=== PATIENT | male | born 1955 | race Caucasian/White ===

== ENCOUNTER 2016-11-21 10:18 | Observation (INO) | payer MEDICARE, MEDICAID ==
[2016-11-21] MEDS ORDERED: NORMAL SALINE 1000 ML 1,000 ML IV ONE (10:40)
[2016-11-21 10:50] LABS: VENOUS BLOOD BASE EXCESS 0.3 mmol/L; VENOUS BLOOD HCO3 27.2 mmol/L (20-32); VENOUS BLOOD PCO2 53.7 mmHg (35-63); VENOUS BLOOD PH 7.32 (7.30-7.42)
[2016-11-21 11:05] LABS: PROTHROMBIN TIME 14.1 SEC (11.4-15.4)
[2016-11-21 11:07] LABS: ALANINE AMINOTRANSFERASE 20 U/L (21-72); ALBUMIN 2.7 g/dL (3.5-5.0); ALKALINE PHOSPHATASE 34 U/L (38-126); ANION GAP 5 (5-19); ASPARTATE AMINO TRANSFERASE 15 U/L (17-59); BILIRUBIN,TOTAL 0.6 mg/dL (0.2-1.3); BLOOD UREA NITROGEN 18 mg/dL (7-20); CALCIUM 8.3 mg/dL (8.4-10.2); CARBON DIOXIDE 30 mmol/L (22-30); CHLORIDE 102 mmol/L (98-107); CREATININE RESULT 1.05 mg/dL (0.52-1.25); GLUCOSE 87 mg/dL (75-110); POTASSIUM 4.9 mmol/L (3.6-5.0); SODIUM 137.1 mmol/L (137-145); TOTAL PROTEIN 5.2 g/dL (6.3-8.2)
[2016-11-21 11:14] LABS: ABSOLUTE EOSINOPHILS # (AUTO) 0.3 10^3/uL (0.0-0.6); ABSOLUTE LYMPHOCYTES (AUTO) 1.9 10^3/uL (0.5-4.7); ABSOLUTE MONOCYTES (AUTO) 0.8 10^3/uL (0.1-1.4); ABSOLUTE NEUT (AUTO) 2.9 10^3/uL (1.7-8.2); BASOPHILS % (AUTO) 0.5 % (0-2); EOSINOPHILS % (AUTO) 4.2 % (0-6); HEMATOCRIT 36.4 % (37.9-51.0); HEMOGLOBIN 12.5 g/dL (13.5-17.0); HGB HCT DIFFERENCE 1.1; LYMPHOCYTES % (AUTO) 32.7 % (13-45); MEAN CORPUSCULAR HEMOGLOBIN 30.4 pg (27.0-33.4); MEAN CORPUSCULAR HGB CONC 34.2 g/dL (32.0-36.0); MEAN CORPUSCULAR VOLUME 89 fl (80-97); RED CELL DISTRIBUTION WIDTH 13.2 % (11.5-14.0); SEGMENTED NEUTROPHILS % (AUTO) 48.6 % (42-78); WHITE BLOOD COUNT 5.9 10^3/uL (4.0-10.5)
[2016-11-21] MEDS: NORMAL SALINE 1000 ML 1,000 ML IV PRN ×2 (11:43→11:46)
--- NOTE | 2016-11-21 12:58 | ER Document Report ---
ED General - General Chief Complaint: Low Blood Pressure Stated Complaint: BLOOD PRESSURE PROBLEMS Mode of Arrival: Ambulatory Information source: Patient Notes: 61-year-old male presents from home with concerns of altered mental status hypotension not acting appropriate. Patient was found by EMS with a blood pressure 70s over 40s Patient notes he has not been eating or drinking over the past few days she has not been feeling well TRAVEL OUTSIDE OF THE [place] IN LAST 30 DAYS: No - HPI Onset: Other Onset/Duration: Persistent Quality of pain: No pain Severity: Moderate Pain Level: Denies Associated symptoms: Weakness Exacerbated by: Denies Relieved by: Denies Similar symptoms previously: No Recently seen / treated by doctor: No - Related Data Allergies/Adverse Reactions: No Known Allergies Allergy (Verified 09/03/16 02:27) Past Medical History - Social History Smoking Status: Never Smoker Cigarette use (# per day): No Chew tobacco use (# tins/day): No Smoking Education Provided: No Family History: Reviewed & Not Pertinent - Past Medical History Cardiac Medical History: Reports: Hx Congestive Heart Failure, Hx Coronary Artery Disease, Hx Heart Attack, Hx Hypercholesterolemia, Hx Hypertension Pulmonary Medical History: Reports: Hx Bronchitis, Hx COPD Neurological Medical History: Reports: Hx Cerebrovascular Accident Endocrine Medical History: Reports: Hx Diabetes Mellitus Type 2, Hx Hypothyroidism Renal/ Medical History: Reports: Hx Benign Prostatic Hyperplasia GI Medical History: Reports: Hx Gastroesophageal Reflux Disease Musculoskeltal Medical History: Reports Hx Arthritis, Reports Hx Musculoskeletal Trauma Psychiatric Medical History: Reports: Hx Anxiety, Hx Bipolar Disorder, Hx Depression Past Surgical History: Reports: Hx Appendectomy, Hx Genitourinary Surgery - TURP , Hx Orthopedic Surgery - Right ankle surgery in 1982 or 1983 when he had a muscle from the leg moved, Hx Thyroid Surgery, Hx Tonsillectomy - Immunizations Hx Diphtheria, Pertussis, Tetanus Vaccination: No Review of Systems - Review of Systems Notes: REVIEW OF SYSTEMS: CONSTITUTIONAL : Denies fever, chills, or sweats. Denies recent illness. EENT: Denies eye, ear, throat, or mouth pain or symptoms. Denies nasal or sinus congestion or discharge. Denies throat, tongue, or mouth swelling or difficulty swallowing. CARDIOVASCULAR: Denies chest pain. Denies palpitations or racing or irregular heart beat. Denies ankle edema. RESPIRATORY: Denies cough, cold, or chest congestion. Denies shortness of breath, difficulty breathing, or wheezing. GASTROINTESTINAL: Denies abdominal pain or distention. Denies nausea, vomiting , or diarrhea. Denies blood in vomitus, stools, or per rectum. Denies black, tarry stools. Denies constipation. GENITOURINARY: Denies difficulty urinating, painful urination, burning, frequency, blood in urine, or discharge. MUSCULOSKELETAL: Denies back or neck pain or stiffness. Denies joint pain or swelling. SKIN: Denies rash, lesions or sores. HEMATOLOGIC : Denies easy bruising or bleeding. LYMPHATIC: Denies swollen, enlarged glands. NEUROLOGICAL: Patient somnolent but arousable by EMS PSYCHIATRIC: Denies anxiety or stress. Denies depression, suicidal ideation, or homicidal ideation. ALL OTHER SYSTEMS REVIEWED AND NEGATIVE. Dictation was performed using [employer] voice recognition software PHYSICAL EXAMINATION: GENERAL: Patient is hypotensive and somnolent HEAD: Atraumatic, normocephalic. EYES: Pupils equal round and reactive to light, extraocular movements intact, sclera anicteric, conjunctiva are normal. ENT: Nares patent, oropharynx clear without exudates. Moist mucous membranes. NECK: Normal range of motion, supple without lymphadenopathy LUNGS: Breath sounds clear to auscultation bilaterally and equal. No wheezes rales or rhonchi. HEART: Regular rate and rhythm without murmurs ABDOMEN: Soft, nontender, nondistended abdomen. No guarding, no rebound. No masses appreciated. Musculoskeletal: Normal range of motion, no pitting or edema. No cyanosis. NEUROLOGICAL: Patient is somnolent but easily arousable Cranial nerves grossly intact. Normal speech, normal gait. Normal sensory, motor exams SKIN: Warm, Dry, normal turgor, no rashes or lesions noted. Physical Exam - Vital signs Vitals: Resp BP Pulse Ox 10 L 84/63 L 96 11/21/16 10:46 11/21/16 10:46 11/21/16 10:46 Course - Re-evaluation Re-evalutation: 11/21/16 12:59 Patient immediately placed in the trauma bay, 2 IVs obtained patient was bolused 2 L of fluid which improved his blood pressure significantly, lab work imaging are pending at this time Patient is more alert at this time 11/21/16 14:19 No obvious significant abnormalties noted, pt otherwise has had signicifcant improvement of mentation and hypotension i will contact patients pcp for admission given that he is still drowsy 11/21/16 14:24 I spoke with the patient's primary care physician, she states that patient has had 2 similar episodes in the past which may have been medication related, it appears she has tried to take the patient off medications but the psychiatrist has not gone along with this plan. I will admit the patient for hypotension and altered mental status 11/21/16 14:27 Multiple times were made to place a [place] unfortunately it does appear that the patient has hyperplasia of the prostate there is some traumatic blood noted as well - Vital Signs Vital signs: Temp Pulse Resp BP Pulse Ox 98.7 F 16 114/83 95 11/21/16 10:51 11/21/16 14:00 11/21/16 13:31 11/21/16 14:00 - Laboratory Result Diagrams: 11/21/16 10:35 11/21/16 10:35 Laboratory results interpreted by me: 11/21/16 11/21/16 11/21/16 10:35 10:35 12:53 RBC 4.10 L Hgb 12.5 L Hct 36.4 L Plt Count 124 L Monocytes % 14.0 H Calcium 8.3 L AST 15 L ALT 20 L Alkaline Phosphatase 34 L Total Protein 5.2 L Albumin 2.7 L Urine Protein 100 H Urine Blood LARGE H Urine Ascorbic Acid 20 H - Diagnostic Test Radiology reviewed: Image reviewed, Reports reviewed - EKG Interpretation by Me EKG shows normal: Sinus rhythm, [place], Intervals, QRS Complexes Critical Care Note - Critical Care Note Total time excluding time spent on procedures (mins): 40 Comments: 40 minutes of critical care time spent in direct contact evaluating and reevaluating the patient, treating symptoms, reviewing labs and studies and speaking with family and consultants excluding any procedures Discharge - Discharge Clinical Impression: Metabolic encephalopathy BPH (benign prostatic hyperplasia) Qualifiers: Prostatic enlargement morphology: unspecified morphology Lower urinary tract symptom presence: symptoms present Qualified Code(s): N40.1 - Benign prostatic hyperplasia with lower urinary tract symptoms Hypotension Qualifiers: Hypotension type: unspecified hypotension type Qualified Code(s): I95.9 - Hypotension, unspecified Condition: Stable Disposition: ADMITTED OBSERVATION Admitting Provider: [facility] Unit Admitted: Telemetry
[2016-11-21 13:09] LABS: APPEARANCE,URINE SLIGHTLY-CLOUDY; BILIRUBIN,URINE NEGATIVE (NEGATIVE); GLUCOSE, URINE NEGATIVE (NEGATIVE); KETONES,URINE NEGATIVE (NEGATIVE); LEUKOCYTE ESTERASE,URINE NEGATIVE (NEGATIVE); NITRITE,URINE NEGATIVE (NEGATIVE); PROTEIN,URINE 100 mg/dL (NEGATIVE); URINE SPECIFIC GRAVITY 1.005; UROBILINOGEN,URINE NEGATIVE mg/dL (<2.0)
[2016-11-21 14:56] LABS: URINE BARBITURATES SCREEN NEGATIVE; URINE METHADONE SCREEN NEGATIVE; URINE OPIATES LOW NEGATIVE; URINE PHENCYCLIDINE SCREEN NEGATIVE
[2016-11-21] MEDS ORDERED: ENOXAPARIN SODIUM INJ 40 MG/0.4 ML DISP.SYRIN SUBCUT ONE ×2 (17:00→21:00)
[2016-11-21] MEDS ORDERED: INFLUENZA ADLT QUAD (36MOS+) 2016-17 VAC 0.5 ML SYR IM PRN (18:20)
[2016-11-21] MEDS ORDERED: (PENDING PHARMACY ID) (Levothyroxine Sodium [Synthroid] 125 MCG) PO SCH (18:30)
[2016-11-21] MEDS ORDERED: (PENDING PHARMACY ID) (Pregabalin [Lyrica] 200 MG) PO SCH (18:30)
[2016-11-21] MEDS ORDERED: LURASIDONE HCL 120 MG PO SCH (18:30)
[2016-11-21] MEDS ORDERED: LEVOTHYROXINE SODIUM 0.025 MG TABLET PO ONE (20:00)
[2016-11-21] MEDS ORDERED: LEVOTHYROXINE SODIUM 0.1 MG TABLET PO ONE (20:00)
[2016-11-21] MEDS: IPRATROPIUM/ALBUTEROL 0.5-2.5 MG/3 ML AMPUL NEB PRN (20:29)
[2016-11-21] MEDS: PREGABALIN 100 MG CAPSULE PO SCH (21:33)
[2016-11-21] MEDS: GABAPENTIN 300 MG CAPSULE PO SCH (21:33)
[2016-11-21] MEDS: DULOXETINE HCL 30 MG CAPSULE.DR PO SCH (21:33)
[2016-11-21] MEDS: FLUTICASONE/SALMETEROL DISKUS 250-50 MCG/DOSE IH SCH (21:42)
[2016-11-21] MEDS ORDERED: DONEPEZIL HCL 5 MG TABLET PO SCH (22:00)
--- NOTE | 2016-11-21 23:50 | EKG REPORT ---
SEVERITY:- ABNORMAL ECG - SINUS RHYTHM MULTIPLE VENTRICULAR PREMATURE COMPLEXES : Confirmed by: Dionisio Morales 21-Nov-2016 23:49:42
[2016-11-22] MEDS: PREGABALIN 100 MG CAPSULE PO SCH ×2 (05:09→15:30)
[2016-11-22] MEDS: GABAPENTIN 300 MG CAPSULE PO SCH ×2 (05:09→15:30)
[2016-11-22] MEDS ORDERED: ENOXAPARIN SODIUM INJ 40 MG/0.4 ML DISP.SYRIN SUBCUT SCH (08:00)
[2016-11-22] MEDS: IPRATROPIUM/ALBUTEROL 0.5-2.5 MG/3 ML AMPUL NEB PRN (09:12)
[2016-11-22] MEDS ORDERED: LEVOTHYROXINE SODIUM 0.025 MG TABLET PO SCH (10:00)
[2016-11-22] MEDS ORDERED: LEVOTHYROXINE SODIUM 0.1 MG TABLET PO SCH (10:00)
[2016-11-22] MEDS: DULOXETINE HCL 30 MG CAPSULE.DR PO SCH (10:01)
[2016-11-22] MEDS: FLUTICASONE/SALMETEROL DISKUS 250-50 MCG/DOSE IH SCH (10:02)
--- NOTE | 2016-11-22 16:02 | PDOC H&P ---
History of Present Illness Admission Date/PCP: 11/21/16 16:21 History of Present Illness: WOODROW GOODWIN is a 61 year old male, he came to the emergency room because of altered mental status and low blood pressure, the history was that EMS was called to patient's home and he was found to have blood pressure of 70/40 in the emergency room he was challenged with fluid and the blood pressure improved with a bolus of normal saline. Apparently patient has not been eating or drinking over the last few days, he had urine drug screen done and it was positive for marijuana. Patient has had this episode of low blood pressure in the past that was associated with altered mental status and it was felt that the low blood pressure was related to the psychotropic drugs that he takes for his schizophrenia and bipolar and attempt was made at that time to adjust his medication, but patient was subsequently lost to follow-up. He has not been seen in the office in over a year. He is admitted for observation, the blood work that was done showed severe hypoalbuminemia with serum albumin of 2.7 and proteinuria, the urine protein creatinine ratio is ordered result is pending. On auscultation of his chest. He has diffuse wheeze in both lung smith, Patient is a chain smoker , half a pack to a pack a day of cigarette. Past Medical History Cardiac Medical History: Reports: Hyperlipidema, Hypertension Pulmonary Medical History: Reports: Bronchitis, Chronic Obstructive Pulmonary Disease (COPD) Endocrine Medical History: Reports: Hypothyroidism GI Medical History: Reports: Gastroesophageal Reflux Disease Musculoskeltal Medical History: Reports: Arthritis Psychiatric Medical History: Reports: Bipolar Disorder, Dementia, Depression Past Surgical History Past Surgical History: Reports: Appendectomy, Orthopedic Surgery - Right ankle surgery in 1982 or 1983 when he had a muscle from the leg moved, Tonsillectomy Social History Smoking Status: Current Every Day Smoker Frequency of Alcohol Use: None Hx Recreational Drug Use: No Drugs: None Hx Prescription Drug Abuse: No - Advance Directive Resuscitation Status: Full Code Family History Family History: Reviewed & Not Pertinent Parental Family History Reviewed: Yes Children Family History Reviewed: Yes Sibling(s) Family History Reviewed.: Yes Medication/Allergy Home Medications: Diazepam [Valium 5 mg Tablet] 5 mg PO DAILY 11/21/16 Diazepam [Valium] 10 mg PO QHS 11/21/16 Divalproex Sodium [Divalproex Sodium ER] 500 mg PO DAILY 11/21/16 Donepezil HCl [Aricept 5 mg Tablet] 5 mg PO QHS 11/21/16 Duloxetine HCl [Cymbalta] 60 mg PO BID 11/21/16 Fluticasone/Salmeterol [Advair 250-50 Diskus 28 dose] 1 puff IH Q12 11/21/16 Gabapentin [Neurontin 300 mg Capsule] 300 mg PO TID 11/21/16 Levothyroxine Sodium [Synthroid] 125 mcg PO DAILY 11/21/16 Lurasidone HCl [Latuda] 120 mg PO DAILY 11/21/16 Multivitamin [Daily Multiple Vitamin] 1 tab PO DAILY 11/21/16 Omeprazole 20 mg PO BID 11/21/16 Prazosin HCl [Minipress] 1 mg PO DAILY 11/21/16 Pregabalin [Lyrica] 200 mg PO TID 11/21/16 Propranolol HCl [Inderal 10 mg Tablet] 10 mg PO TID 11/21/16 Rizatriptan Benzoate [Rizatriptan] 10 mg PO ASDIR PRN 11/21/16 Solifenacin Succinate [Vesicare] 10 mg PO DAILY 11/21/16 Suvorexant [Belsomra] 15 mg PO HSP PRN 11/21/16 Allergies/Adverse Reactions: No Known Allergies Allergy (Verified 09/03/16 02:27) Review of Systems Constitutional: ABSENT: chills, fever(s), headache(s), weight gain, weight loss Eyes: ABSENT: visual disturbances Ears: ABSENT: hearing changes Cardiovascular: ABSENT: chest pain, dyspnea on exertion, edema, orthropnea, palpitations Respiratory: PRESENT: cough Gastrointestinal: ABSENT: abdominal pain, constipation, diarrhea, hematemesis, hematochezia, nausea, vomiting Genitourinary: ABSENT: dysuria, hematuria Musculoskeletal: ABSENT: joint swelling Integumentary: ABSENT: rash, wounds Neurological: PRESENT: dizziness Psychiatric: ABSENT: anxiety, depression, homidical ideation, suicidal ideation Endocrine: ABSENT: cold intolerance, heat intolerance, menstrual abnormalities, polydipsia, polyuria Hematologic/Lymphatic: ABSENT: easy bleeding, easy bruising, lymphadenopathy Physical Exam Vital Signs: Temp Pulse Resp BP Pulse Ox 98.4 F 86 18 122/65 94 11/22/16 10:55 11/22/16 10:55 11/22/16 10:55 11/22/16 10:55 11/22/16 10:55 Intake & Output 11/21/16 11/22/16 11/23/16 06:59 06:59 06:59 Intake Total 700 600 Output Total 700 600 Balance 0 0 Weight 81 kg General appearance: PRESENT: other - He is alert but confused Head exam: PRESENT: atraumatic, normocephalic Eye exam: PRESENT: conjunctiva pink, EOMI, PERRLA Ear exam: PRESENT: normal external ear exam Neck exam: PRESENT: full ROM Respiratory exam: PRESENT: wheezes Cardiovascular exam: PRESENT: RRR, +S1, +S2 Vascular exam: PRESENT: normal capillary refill GI/Abdominal exam: PRESENT: normal bowel sounds, soft Rectal exam: PRESENT: deferred Neurological exam: PRESENT: altered Skin exam: PRESENT: dry, intact, warm Results Impressions: Chest X-Ray 11/21/16 10:40 IMPRESSION: Atelectasis. Head CT 11/21/16 11:55 IMPRESSION: No intracranial pathology. Incidental finding of chronic bilateral maxillary sinusitis. Assessment & Plan - Diagnosis (1) Hypotension Qualifiers: Hypotension type: unspecified hypotension type Qualified Code(s): I95.9 - Hypotension, unspecified Is this a current diagnosis for this admission?: YesPlan: The etiology of the low blood pressure is not clear, but it is responding to fluid challenge (2) Metabolic encephalopathy Is this a current diagnosis for this admission?: Yes (3) COPD with acute exacerbation Is this a current diagnosis for this admission?: YesPlan: Patient is wheezing , he be treated with bronchodilators, will order of systemic corticosteroid. (4) Bipolar disorder Qualifiers: Active/Remission status: currently active Current bipolar episode type : mixed Current episode severity: severe Psychotic features: with psychotic features Qualified Code(s): F31.64 - Bipolar disorder, current episode mixed, severe, with psychotic features Is this a current diagnosis for this admission?: Yes
--- NOTE | 2016-11-22 16:50 | PDOC DISCHARGE SUMMARY ---
General - Admit/Disc Date/PCP Admission Date/Primary Care Provider: 11/21/16 16:21 Discharge Date: 11/22/16 - Discharge Diagnosis (1) Hypotension Is this a current diagnosis for this admission?: Yes (2) Metabolic encephalopathy Is this a current diagnosis for this admission?: Yes (3) COPD with acute exacerbation Is this a current diagnosis for this admission?: Yes (4) Bipolar disorder Is this a current diagnosis for this admission?: Yes - Additional Information Resuscitation Status: Full Code Home Medications: Diazepam [Valium 5 mg Tablet] 5 mg PO DAILY 11/21/16 Diazepam [Valium] 10 mg PO QHS 11/21/16 Divalproex Sodium [Divalproex Sodium ER] 500 mg PO DAILY 11/21/16 Donepezil HCl [Aricept 5 mg Tablet] 5 mg PO QHS 11/21/16 Duloxetine HCl [Cymbalta] 60 mg PO BID 11/21/16 Fluticasone/Salmeterol [Advair 250-50 Diskus 28 dose] 1 puff IH Q12 11/21/16 Gabapentin [Neurontin 300 mg Capsule] 300 mg PO TID 11/21/16 Levothyroxine Sodium [Synthroid] 125 mcg PO DAILY 11/21/16 Lurasidone HCl [Latuda] 120 mg PO DAILY 11/21/16 Multivitamin [Daily Multiple Vitamin] 1 tab PO DAILY 11/21/16 Omeprazole 20 mg PO BID 11/21/16 Prazosin HCl [Minipress] 1 mg PO DAILY 11/21/16 Pregabalin [Lyrica] 200 mg PO TID 11/21/16 Propranolol HCl [Inderal 10 mg Tablet] 10 mg PO TID 11/21/16 Rizatriptan Benzoate [Rizatriptan] 10 mg PO ASDIR PRN 11/21/16 Solifenacin Succinate [Vesicare] 10 mg PO DAILY 11/21/16 Suvorexant [Belsomra] 15 mg PO HSP PRN 11/21/16 Albuterol Sulfate [Proair HFA] 1 - 2 puff IH Q4 PRN #1 inhaler 11/22/16 History of Present Illness History of Present Illness: WOODROW GOODWIN is a 61 year old male, he came to the emergency room because of altered mental status and low blood pressure, the history was that EMS was called to patient's home and he was found to have blood pressure of 70/40 in the emergency room he was challenged with fluid and the blood pressure improved with a bolus of normal saline. Apparently patient has not been eating or drinking over the last few days, he had urine drug screen done and it was positive for marijuana. Patient has had this episode of low blood pressure in the past that was associated with altered mental status and it was felt that the low blood pressure was related to the psychotropic drugs that he takes for his schizophrenia and bipolar and attempt was made at that time to adjust his medication, but patient was subsequently lost to follow-up. He has not been seen in the office in over a year. He is admitted for observation, the blood work that was done showed severe hypoalbuminemia with serum albumin of 2.7 and proteinuria, the urine protein creatinine ratio is ordered result is pending. On auscultation of his chest. He has diffuse wheeze in both lung smith, Patient is a chain smoker , half a pack to a pack a day of cigarette. Hospital Course Hospital Course: Patient was admitted because of low blood pressure, metabolic encephalopathy, and acute COPD exacerbation. The blood pressure was treated with intravenous fluid with very good response, he regained full consciousness after blood pressure was restored. Also found to have acute COPD this was treated with bronchodilators, and also inhaled steroid. It. He did respond to treatment and he would like to go home today Physical Exam Vital Signs: Temp Pulse Resp BP Pulse Ox 98.0 F 83 17 137/67 H 93 11/22/16 15:34 11/22/16 15:34 11/22/16 15:34 11/22/16 15:34 11/22/16 15:34 Intake & Output 11/21/16 11/22/16 11/23/16 06:59 06:59 06:59 Intake Total 700 600 Output Total 700 600 Balance 0 0 Weight 81 kg General appearance: PRESENT: no acute distress Eye exam: PRESENT: PERRLA Respiratory exam: PRESENT: rhonchi Cardiovascular exam: PRESENT: +S1, +S2 Results Impressions: Chest X-Ray 11/21/16 10:40 IMPRESSION: Atelectasis. Head CT 11/21/16 11:55 IMPRESSION: No intracranial pathology. Incidental finding of chronic bilateral maxillary sinusitis.
[2016-11-22 18:14] VITALS: BP 124/91
[2016-11-22 19:14] LABS: ARTERIAL BLOOD BASE EXCESS 2.2 mmol/L; ARTERIAL BLOOD O2 SATURATION 89.3 % (94-98)
== END 2016-11-22 18:00 | disposition home or self-care (01) ==
LOC: ER 10:18 → EH 15:11 → UNDOADMOB 15:11 → EH 16:21 → 5 17:26
PROVIDERS: ADMIT Internal Medicine; ATTEND Internal Medicine
PROC: 3E0337Z Introduction of Electrolytic and Water Balance Substance into Peripheral Vein, Percutaneous Approach (ICD-10-PCS; principal; 2016-11-22)
DX: R55 Syncope and collapse (principal); I95.9 Hypotension, unspecified; G93.41 Metabolic encephalopathy; J44.1 Chronic obstructive pulmonary disease with (acute) exacerbation; F31.64 Bipolar disorder, current episode mixed, severe, with psychotic features; F17.210 Nicotine dependence, cigarettes, uncomplicated; I10 Essential (primary) hypertension; E78.5 Hyperlipidemia, unspecified; E03.9 Hypothyroidism, unspecified; K21.9 Gastro-esophageal reflux disease without esophagitis; F03.90 Unspecified dementia, unspecified severity, without behavioral disturbance, psychotic disturbance, mood disturbance, and anxiety; N40.1 Benign prostatic hyperplasia with lower urinary tract symptoms
CPT/HCPCS: 93005; 99291; 96360; 36415; 87040; 87086; 82962 ×2; 82803 ×2; 85025; 85610; 80053; 81001; 80307; 83605; 87804; 71010; 70450; 93010; 36600; 94640 ×2; G0378 ×3; A9270 ×13; J1650 ×2; J7030; J3490; J7620

== ENCOUNTER 2016-11-23 11:06 | Emergency (ER) | payer MEDICARE, MEDICAID ==
[2016-11-23 14:21] LABS: ABSOLUTE EOSINOPHILS # (AUTO) 0.1 10^3/uL (0.0-0.6); ABSOLUTE LYMPHOCYTES (AUTO) 1.9 10^3/uL (0.5-4.7); ABSOLUTE MONOCYTES (AUTO) 0.7 10^3/uL (0.1-1.4); ABSOLUTE NEUT (AUTO) 3.4 10^3/uL (1.7-8.2); BASOPHILS % (AUTO) 0.5 % (0-2); EOSINOPHILS % (AUTO) 2.4 % (0-6); HEMATOCRIT 40.3 % (37.9-51.0); HEMOGLOBIN 13.5 g/dL (13.5-17.0); HGB HCT DIFFERENCE 0.2; MEAN CORPUSCULAR HEMOGLOBIN 29.8 pg (27.0-33.4); MEAN CORPUSCULAR HGB CONC 33.6 g/dL (32.0-36.0); MEAN CORPUSCULAR VOLUME 89 fl (80-97); RED BLOOD COUNT 4.55 10^6/uL (4.35-5.55); RED CELL DISTRIBUTION WIDTH 13.3 % (11.5-14.0); SEGMENTED NEUTROPHILS % (AUTO) 55.1 % (42-78); WHITE BLOOD COUNT 6.2 10^3/uL (4.0-10.5)
[2016-11-23 14:36] LABS: ALANINE AMINOTRANSFERASE 24 U/L (21-72); ALBUMIN 3.3 g/dL (3.5-5.0); ALKALINE PHOSPHATASE 42 U/L (38-126); ANION GAP 7 (5-19); ASPARTATE AMINO TRANSFERASE 17 U/L (17-59); BILIRUBIN,TOTAL 0.6 mg/dL (0.2-1.3); BLOOD UREA NITROGEN 10 mg/dL (7-20); CALCIUM 9.2 mg/dL (8.4-10.2); CARBON DIOXIDE 30 mmol/L (22-30); CHLORIDE 104 mmol/L (98-107); CREATINE KINASE 129 U/L (55-170); CREATININE RESULT 1.04 mg/dL (0.52-1.25); GLUCOSE 86 mg/dL (75-110); POTASSIUM 4.6 mmol/L (3.6-5.0); SODIUM 140.6 mmol/L (137-145)
[2016-11-23 14:46] LABS: CREATINE KINASE MB 0.98 ng/mL (<4.55)
[2016-11-23 14:48] LABS: TROPONIN I < 0.012 ng/mL
[2016-11-23] MEDS ORDERED: LIDOCAINE 2% URO-JET 5 ML KIT MM ONE (14:56)
--- NOTE | 2016-11-23 14:58 | ER Document Report ---
ED General - General Time seen by provider: 14:50 Mode of Arrival: Medic Information source: Patient, Emergency Med Personnel - via nurse, [facility] Records Cannot obtain history due to: Altered mental status TRAVEL OUTSIDE OF THE [place] IN LAST 30 DAYS: No - HPI Onset: Other - see HPI note <WANDA GARDINER - Last Filed: 11/23/16 15:14> <JASONAARON - Last Filed: 11/23/16 16:35> - General Chief Complaint: General Weakness Stated Complaint: WEAKNESS Notes: Patient is a 59-year-old male presented or department via EMS for generalized weakness. Patient is very somnolent and awakens to verbal commands but then falls back asleep quickly. Patient seems to have an altered mental status so history of present illness, medical history and review of systems are limited. According to EMS patient has been having some dysuria and not been able to sleep. Patient states the room he has a cough. Prior [facility] records patient was admitted on 11/21 and discharged yesterday for hypotension. Patient experienced some trauma after multiple attempts to place a barry catheter during his last visit. Patient told EMS he was having dysuria and pain when urinating. Via [facility] records of patient's last visit, patient was hypotensive and not eating or drinking fluids. Patient also told EMS he has not been able to sleep well. ( WANDA GARDINER) - Related Data Allergies/Adverse Reactions: No Known Allergies Allergy (Verified 09/03/16 02:27) Past Medical History - General Information source: Emergency Med Personnel - per nurse, [facility] Records - Social History Smoking Status: Unknown if Ever Smoked Family History: None - Past Medical History Cardiac Medical History: Reports: Hx Congestive Heart Failure, Hx Coronary Artery Disease, Hx Heart Attack, Hx Hypercholesterolemia, Hx Hypertension Pulmonary Medical History: Reports: Hx Bronchitis, Hx COPD Neurological Medical History: Reports: Hx Cerebrovascular Accident Endocrine Medical History: Reports: Hx Diabetes Mellitus Type 2, Hx Hypothyroidism Renal/ Medical History: Reports: Hx Benign Prostatic Hyperplasia GI Medical History: Reports: Hx Gastroesophageal Reflux Disease Musculoskeltal Medical History: Reports Hx Arthritis, Reports Hx Musculoskeletal Trauma Psychiatric Medical History: Reports: Hx Anxiety, Hx Bipolar Disorder, Hx Dementia, Hx Depression Past Surgical History: Reports: Hx Appendectomy, Hx Genitourinary Surgery - TURP , Hx Orthopedic Surgery - Right ankle surgery in 1982 or 1983 when he had a muscle from the leg moved, Hx Thyroid Surgery, Hx Tonsillectomy - Immunizations Hx Diphtheria, Pertussis, Tetanus Vaccination: No <WANDA GARDINER - Last Filed: 11/23/16 15:14> Review of Systems - Review of Systems -: Yes ROS unobtainable due to patient's medical condition Respiratory: See HPI, Cough Genitourinary: See HPI, Dysuria <WANDA GARDINER - Last Filed: 11/23/16 15:14> Physical Exam - Vital signs Interpretation: Normal - General General appearance: Alert, Other - patient is somnolent but awakens to verbal commands, patient then falls back asleep; no evidence of trauma In distress: Mild - HEENT Head: Normocephalic, Atraumatic Eyes: Normal Pupils: Dilated - 7 mm Mucous membranes: Moist - Respiratory Respiratory status: No respiratory distress Chest status: Nontender Breath sounds: Normal Chest palpation: Normal - Cardiovascular Rhythm: Regular, Extrasystoles - Occasionally Heart sounds: Normal auscultation Murmur: No - Abdominal Inspection: Normal Distension: No distension Bowel sounds: Normal Tenderness: Nontender Organomegaly: No organomegaly - Back Back: Normal, Nontender - Extremities General upper extremity: Normal inspection, Normal ROM, Normal strength General lower extremity: Normal inspection, Normal ROM, Normal strength. No: Edema - Neurological Neuro grossly intact: Yes Cognition: Normal Orientation: AAOx4 Laina Coma Scale Eye Opening: Spontaneous Hudson Coma Scale Verbal: Oriented Laina Coma Scale Motor: Obeys Commands Hudson Coma Scale Total: 15 Speech: Normal - Psychological Associated symptoms: Normal affect, Normal mood - Skin Skin Temperature: Warm Skin Moisture: Dry <WANDA GARDINER - Last Filed: 11/23/16 15:14> <AARON GOMEZ - Last Filed: 11/23/16 16:35> - Vital signs Vitals: Pulse Ox 96 11/23/16 11:10 (WANDA GARDINER) (AARON GOMEZ) Course - Laboratory Result Diagrams: 11/23/16 13:59 11/23/16 13:59 <WANDA GARDINER - Last Filed: 11/23/16 15:14> - Laboratory Result Diagrams: 11/23/16 13:59 11/23/16 13:59 <AARON GOMEZ - Last Filed: 11/23/16 16:35> - Re-evaluation Re-evalutation: 11/23/16 15:07 Patient presents to emergency department by ambulance with complaints of generalized weakness. Apparently his brother was here when he was first brought to the ED. The patient is unable to provide us with much history at this point. He has h/o bipolar and recent visit to ED for concern for dysuria. He also has h /o chronic COPD and is on home O2 2L at all times. He is somnolent but does wake up to voice commands. He falls asleep when you're asking questions. His airway is patent. He appears nontoxic. His exam is largely unremarkable with exception of the somnolence and a congested cough. According to nurse, patient was not able to sleep last night. It is possible that he is just hypersomnolent due to lack of sleep. Initiating altered mental status/hematuria workup. 11/23/16 15:11 11/23/16 15:45 Patient's somnolence has improved. He is up at the bedside. He is helping the nurse make the bed. His head CT is unremarkable. Labs are also unremarkable. Patient denies any pain. Denies any discomfort. The patient had an episode of incontinence when he tried to urinate in the urinal. He was then able to make a urine sample which was bloody and has a large clot in it. Vitals are stable. H/ H is stable. No white count. We'll start him on some Keflex. I spoke with the urology office as this patient is a patient of theirs. Dr. Jimenes is no longer with them and Dr. Garcia is ip litigation paralegal. The nurse indicates patient has a history of BPH. She indicates that they can see him on Sunday and that we can provide him with return precautions to come to the ED if he has urinary retention or any other worsening or concerning symptoms. She has provided that urology appointment time for Sunday, November 27, 2016 at 1 PM. 11/23/16 15:57 11/23/16 15:59 11/23/16 16:35 The patient's drug screen came back for marijuana and benzos. I'm sure this explains his hypersomnolence when he first got here. I did have a talk with him and he says that he does take lorazepam. I told him that he should probably scale back on that because he was hyper sleepy while he was here. The patient is starting to wheeze. He says he uses breathing treatments 2-3 times a day. It has been quite some time since he has had one. I'm going to give him one now before he goes home. We're waiting on his brother to pick him up. (AARON GOMEZ) - Vital Signs Vital signs: Temp Pulse Resp BP Pulse Ox 98.3 F 17 139/79 H 91 L 11/23/16 12:04 11/23/16 15:09 11/23/16 12:04 11/23/16 15:09 (WANDA GARDINER) (AARON GOMEZ) - Laboratory Laboratory results interpreted by me: 11/23/16 11/23/16 11/23/16 13:59 13:59 15:42 Plt Count 133 L Total Protein 6.0 L Albumin 3.3 L Urine Protein 100 H Urine Blood LARGE H (WANDA GARDINER) (AARON GOMEZ) - EKG Interpretation by Me Additional EKG results interpreted by me: 11/23/16 16:03 Rate 75, sinus rhythm with multiple PVC's/ventricular trigeminy, no ST elevations, as interpreted by me. Compared to EKG of 11/21/16, patient had multiple PVCs at that time also. 11/23/16 16:05 (AARON GOMEZ) Discharge <WANDA GARDINER - Last Filed: 11/23/16 15:14> <AARON GOMEZ - Last Filed: 11/23/16 16:35> - Discharge Clinical Impression: Hematuria Clinical Impression: (Ruled Out): Traumatic hematuria Condition: Stable Disposition: HOME, SELF-CARE Instructions: Hematuria ([facility]) Additional Instructions: Drink plenty fluids to stay well hydrated. Follow up with your urologist (same clinic - Dr. Garcia is ip litigation paralegal) as directed this Sunday at 1PM . Take antibiotics until complete. Return to ED for fevers, vomiting, urinary retention, or any other worsening or concerning symptoms. Prescriptions: Cephalexin Monohydrate [Keflex 500 mg Capsule] 500 mg PO TID 7 Days Scribe Attestation: 11/23/16 15:09 I personally performed the services described in the documentation, reviewed and edited the documentation which was dictated to the scribe in my presence, and it accurately records my words and actions. (AARON GOMEZ) Scribe Documentation - Scribe Written by Scribe:: Wanda Gardiner 11/23/16 14:55 acting as scribe for :: Amos <WANDA GARDINRE - Last Filed: 11/23/16 15:14>
[2016-11-23] MEDS ORDERED: CEPHALEXIN 500 MG CAPSULE PO ONE (15:43)
[2016-11-23 16:01] LABS: APPEARANCE,URINE CLOUDY; BILIRUBIN,URINE NEGATIVE (NEGATIVE); GLUCOSE, URINE NEGATIVE (NEGATIVE); KETONES,URINE NEGATIVE (NEGATIVE); LEUKOCYTE ESTERASE,URINE NEGATIVE (NEGATIVE); NITRITE,URINE NEGATIVE (NEGATIVE); PROTEIN,URINE 100 mg/dL (NEGATIVE); URINE SPECIFIC GRAVITY 1.009; UROBILINOGEN,URINE NEGATIVE mg/dL (<2.0)
[2016-11-23 16:13] LABS: URINE BARBITURATES SCREEN NEGATIVE; URINE METHADONE SCREEN NEGATIVE; URINE OPIATES LOW NEGATIVE; URINE PHENCYCLIDINE SCREEN NEGATIVE
[2016-11-23] MEDS ORDERED: IPRATROPIUM/ALBUTEROL 0.5-2.5 MG/3 ML AMPUL NEB ONE (16:34)
[2016-11-23 18:41] VITALS: BP 140/87
--- NOTE | 2016-11-24 12:33 | EKG REPORT ---
SEVERITY:- ABNORMAL ECG - SINUS RHYTHM VENTRICULAR TRIGEMINY BORDERLINE T ABNORMALITIES, LATERAL LEADS : Confirmed by: Dionisio Morales 24-Nov-2016 12:33:12
== END 2016-11-23 19:05 | disposition home or self-care (01) ==
LOC: ER 11:06
DX: R31.0 Gross hematuria (principal); R53.1 Weakness; R40.0 Somnolence; R30.0 Dysuria; R05 Cough; G47.9 Sleep disorder, unspecified; I49.49 Other premature depolarization; I49.3 Ventricular premature depolarization; R00.8 Other abnormalities of heart beat; H57.04 Mydriasis; I25.10 Atherosclerotic heart disease of native coronary artery without angina pectoris; I25.2 Old myocardial infarction; I10 Essential (primary) hypertension; E11.9 Type 2 diabetes mellitus without complications; J44.9 Chronic obstructive pulmonary disease, unspecified; Z99.81 Dependence on supplemental oxygen; Z86.73 Personal history of transient ischemic attack (TIA), and cerebral infarction without residual deficits; Z79.899 Other long term (current) drug therapy
CPT/HCPCS: 93005; 94640; 99285; 36415; 82553; 80307 ×2; 82550; 85025; 80053; 81001; 84484; 71010; 70450; 93010; A9270 ×2; J7620

== ENCOUNTER 2017-09-03 09:49 | Emergency (ER) | payer MEDICARE, MEDICAID ==
[2017-09-03 10:00] VITALS: BP 99/59
[2017-09-03] MEDS ORDERED: LIDOCAINE 1%/EPINEPHRINE INJ 20 ML VIAL INJ ONE (10:28)
--- NOTE | 2017-09-03 10:55 | RADIOLOGY REPORT (SQ) ---
EXAM DESCRIPTION: CT HEAD WITHOUT COMPLETED DATE/TIME: 09/03/2017 10:42 am REASON FOR STUDY: fall, head injury COMPARISON: 11/23/2016 TECHNIQUE: Axial images acquired through the brain without intravenous contrast. Images reviewed wi th bone, brain and subdural windows. Images stored on PACS. All CT scanners at this facility use dose modulation, iterative reconstruction, and/or weight based d osing when appropriate to reduce radiation dose to as low as reasonably achievable (ALARA). [facility]: Dose Right [facility]: CareDose [facility]: Dose Right [facility]: Teradose 4D [facility]: Smart BizAnytime RADIATION DOSE: CT Rad equipment meets quality standard of care and radiation dose reduction techniq ues were employed. CTDIvol: 64.6 mGy. DLP: 1163 mGy-cm. mGy. LIMITATIONS: None. FINDINGS: VENTRICLES: Normal size and contour. CEREBRUM: No masses. No hemorrhage. No midline shift. No evidence for acute infarction. Normal gra y/white matter differentiation. No areas of low density in the white matter. CEREBELLUM: No masses. No hemorrhage. No alteration of density. No evidence for acute infarction. EXTRAAXIAL SPACES: No fluid collections. No masses. ORBITS AND GLOBE: No intra- or extraconal masses. Normal contour of globe without masses. CALVARIUM: There is opacification of some of the ethmoid air cells. PARANASAL SINUSES: No fluid or mucosal thickening. SOFT TISSUES: No mass or hematoma. OTHER: No other significant finding. IMPRESSION: Mild ethmoid sinus disease with no acute intracranial findings. EVIDENCE OF ACUTE STROKE: NO. COMMENT: Quality ID # [id number]: Final reports with documentation of one or more dose reduction techniques (e.g., Automated exposure control, adjustment of the mA and/or kV according to patient size, use of iterative reconstruction technique) TECHNICAL DOCUMENTATION: JOB ID: [id number] [facility]- All Rights Reserved
--- NOTE | 2017-09-03 11:02 | ER Document Report ---
ED Head/Face/Scalp Injury - General Chief Complaint: Leg Pain Stated Complaint: HEAD LACERATION Time Seen by Provider: 09/03/17 10:28 Notes: The patient is a 62-year-old male, past medical history bipolar, presents after he slipped in the tub last night and fell and hit his head. He is complaining of a dull left frontal headache where hit the head with a scalp laceration. Unknown tetanus status. Despite the nursing note, patient is not having any leg pain. He denies LOC, syncope, chest pain, shortness of breath, numbness, tingling, neck pain, focal weakness or ataxia. TRAVEL OUTSIDE OF THE [place] IN LAST 30 DAYS: No - Related Data Allergies/Adverse Reactions: No Known Allergies Allergy (Verified 09/03/17 10:00) Past Medical History - General Information source: Patient - Social History Smoking Status: Never Smoker Chew tobacco use (# tins/day): No Frequency of alcohol use: None Drug Abuse: None Family History: None Patient has suicidal ideation: No Patient has homicidal ideation: No - Past Medical History Cardiac Medical History: Reports: Hx Congestive Heart Failure, Hx Coronary Artery Disease, Hx Heart Attack, Hx Hypercholesterolemia, Hx Hypertension Pulmonary Medical History: Reports: Hx Bronchitis, Hx COPD Neurological Medical History: Reports: Hx Cerebrovascular Accident Endocrine Medical History: Reports: Hx Diabetes Mellitus Type 2, Hx Hypothyroidism Renal/ Medical History: Reports: Hx Benign Prostatic Hyperplasia. Denies: Hx Peritoneal Dialysis GI Medical History: Reports: Hx Gastroesophageal Reflux Disease Musculoskeltal Medical History: Reports Hx Arthritis, Reports Hx Musculoskeletal Trauma Psychiatric Medical History: Reports: Hx Anxiety, Hx Bipolar Disorder, Hx Dementia, Hx Depression Past Surgical History: Reports: Hx Appendectomy, Hx Genitourinary Surgery - TURP , Hx Orthopedic Surgery - Right ankle surgery in 1982 or 1983 when he had a muscle from the leg moved, Hx Thyroid Surgery, Hx Tonsillectomy - Immunizations Hx Diphtheria, Pertussis, Tetanus Vaccination: No Review of Systems - Review of Systems Notes: REVIEW OF SYSTEMS: CONSTITUTIONAL: -fevers, -chills EENT: -eye pain, -difficulty swallowing, -nasal congestion CARDIOVASCULAR:-chest pain, -syncope. RESPIRATORY: -cough, -SOB GASTROINTESTINAL: -abdominal pain, -nausea, -vomiting, -diarrhea GENITOURINARY: -dysuria, -hematuria MUSCULOSKELETAL: -back pain, -neck pain SKIN: +scalp laceration HEMATOLOGIC: -easy bruising or bleeding. LYMPHATIC: -swollen, enlarged glands. NEUROLOGICAL: -altered mental status or loss of consciousness, +headache, - neurologic symptoms PSYCHIATRIC: -anxiety, -depression. ALL OTHER SYSTEMS REVIEWED AND NEGATIVE. Physical Exam - Vital signs Vitals: Temp Pulse Resp BP Pulse Ox 97.9 F 64 16 99/59 L 99 09/03/17 09:57 09/03/17 09:57 09/03/17 09:57 09/03/17 09:57 09/03/17 09:57 - Notes Notes: PHYSICAL EXAMINATION: GENERAL: Well-appearing, well-nourished and in no acute distress. HEAD: 5 cm linear laceration over left frontal scalp EYES: Pupils equal round and reactive to light, extraocular movements intact, sclera anicteric, conjunctiva are normal. ENT: nares patent, oropharynx clear without exudates. Moist mucous membranes. NECK: Normal range of motion, supple without lymphadenopathy LUNGS: Breath sounds clear to auscultation bilaterally and equal. No wheezes rales or rhonchi. HEART: Regular rate and rhythm without murmurs ABDOMEN: Soft, nontender, normoactive bowel sounds. No guarding, no rebound. No masses appreciated. EXTREMITIES: Normal range of motion, no pitting or edema. No cyanosis. NEUROLOGICAL: Cranial nerves grossly intact. Normal speech, normal gait. Normal sensory and motor exams. PSYCH: Normal mood, normal affect. Course - Re-evaluation Re-evalutation: Patient's head CT does not show any skull fractures or intracranial abnormalities. Scalp laceration repaired using sutures and instructed patient about wound management and return precautions. Patient said this was strictly a slip in the bathtub and that he did not have syncope. He understands and home nurses at bedside also understands. - Vital Signs Vital signs: Temp Pulse Resp BP Pulse Ox 97.9 F 64 16 99/59 L 99 09/03/17 09:57 09/03/17 09:57 09/03/17 09:57 09/03/17 09:57 09/03/17 09:57 - Diagnostic Test Radiology reviewed: Image reviewed, Reports reviewed Radiology results interpreted by me: CT Head: NAD Procedures - Laceration/Wound Repair Left Upper Head Time completed: 12:14 Wound length (cm): 4 Wound's Depth, Shape: Linear Laceration pre-procedure: Sterile PPE donned Anesthetic type: 1% Lidocaine w/epi Volume Anesthetic (mLs): 4 Wound explored: Clean Irrigated w/ Saline (mLs): 1,000 Wound Repaired With: Sutures Suture Size/Type: 4:0, Prolene Number of Sutures: 5 Layer Closure?: No Post-procedure wound care: Sterile dressing applied Post-procedure NV exam normal: Yes Complications: No Discharge - Discharge Clinical Impression: Head injury Qualifiers: Encounter type: initial encounter Qualified Code(s): S09.90XA - Unspecified injury of head, initial encounter Scalp laceration Qualifiers: Encounter type: initial encounter Qualified Code(s): S01.01XA - Laceration without foreign body of scalp, initial encounter Condition: Stable Disposition: HOME, SELF-CARE Additional Instructions: LACERATION CARE: Your laceration has been sutured to keep the skin edges aligned during healing. The time of suture removal depends on the nature and location of your cut. Please follow the care instructions the doctor has outlined for you and return for further care, according to the schedule you've been given. Keep the wound and dressing clean. Unless you were told otherwise, you may shower daily, blotting the wound dry with a clean, unused towel. At other times, If the dressing gets wet or blood soaked, remove it and blot the wound dry, then reapply a new dressing. Unless you were instructed otherwise, dressings should be changed at least daily. If any signs of infection occur (swelling, redness, drainage, increasing tenderness, red streaks, tender lumps in the armpit or groin above the laceration, or fever), see the doctor immediately. SOAP CLEANSING: Gently wash the wound daily using a mild soap (like Ivory, Phisoderm, Neutrogena). Use warm water, rubbing gently until all debris, ooze, and crusting have been washed from the wound. Allow to dry briefly (about 10 minutes) after cleaning. Repeat this cleansing at least three times a day for the first two days and then once or twice a day. ANTIBIOTIC OINTMENT PROTECTION: Your wounds are such that dressing them is not practical or optional. After cleansing, you should apply a thin coating of antibiotic ointment ( Bacitracin, not Neosporin) to the wounds at least three times daily. This lessens infection risk, and may decrease the amount of scarring. Use a q-tip or dull butter knife, not your finger, to apply this ointment. Any debris or ooze which builds up in the ointment should be gently rubbed off with a sterile gauze pad. Harder crusting may need to be gently scrubbed off with a clean wash cloth with soap and warm water, perhaps applying a warm, wet wash cloth to the wound for ten minutes first. Development of redness, severe itching, or blistering may mean allergy to the ointment. See the doctor. TETANUS IMMUNIZATION GIVEN: You have been given an immunization against tetanus. Please record this in your records. In general, a booster is needed only once every 10 years. The tetanus shot protects against tetanus or "lockjaw," which is a complication of certain wound infections (the tetanus shot cannot protect against the actual infection). The immunization site may become warm and red due to local reaction. If this occurs, apply warm compresses and take aspirin or ibuprofen to reduce inflammation and discomfort. Return for evaluation if the reaction becomes severe. FOLLOW-UP CARE: Your sutures should be removed in 5-7 days. To facilitate a timely removal of your sutures, you may return to the Emergency Department at [facility]. You do not need to call for an appointment, but the best time to come in for suture removal is early in the morning. If you have been referred to another physician for follow-up care, call that physicians office for an appointment as you were instructed. If you experience a significant change in your laceration, or if you are concerned there may be an infection (swelling, redness, drainage, increasing tenderness, red streaks, tender lumps in the armpit or groin above the laceration, or fever) , return to the Emergency Department immediately re-evaluation.
== END 2017-09-03 12:18 | disposition home or self-care (01) ==
LOC: ER 09:49
PROC: 0HQ0XZZ Repair Scalp Skin, External Approach (ICD-10-PCS; principal; 2017-09-03)
DX: S09.90XA Unspecified injury of head, initial encounter (principal); S01.01XA Laceration without foreign body of scalp, initial encounter; F31.9 Bipolar disorder, unspecified; R51 Headache; W18.2XXA Fall in (into) shower or empty bathtub, initial encounter
CPT/HCPCS: 99284; 70450; 12002; J3490

== ENCOUNTER → 2017-10-19 | Outpatient (CLI) | payer MEDICARE, MEDICAID ==
--- NOTE | 2017-10-20 09:35 | RADIOLOGY REPORT (SQ) ---
EXAM DESCRIPTION: MRI RT UPPER JOINT WITHOUT COMPLETED DATE/TIME: 10/19/2017 8:24 pm REASON FOR STUDY: Contusion of right shoulder S40.011A CONTUSION OF RIGHT SHOULDER, INITIAL ENCOUNT ER COMPARISON: None. TECHNIQUE: Right shoulder images acquired and stored on PACS. Multiplanar imaging to include fat sen sitive sequences such as T1, water sensitive sequences such as FST2/STIR, cartilage sensitive sequenc es such as FSPD/gradient-echo sequences. LIMITATIONS: None. FINDINGS: BONE MARROW AND CORTEX: No worrisome bone lesions or marrow replacement. No occult fractur es. JOINT OR BURSAL EFFUSION: Small joint effusion. GLENO-HUMERAL ARTICULATION: Normal articulation. No subluxation. No cystic change. No osteophytes or cartilage loss. ACROMION AND AC JOINT: Type 2 acromion. AC joint arthropathy. ROTATOR CUFF AND INTERVAL: Tendinopathy with small articular surface partial tear of the supraspinatu s. infraspinatus and subscapularis intact. No generalized muscle atrophy. EPA in No rotator interval tear. No rotator interval thickening to suggest adhesive capsulitis. LABRUM AND BICEPS LABRAL COMPLEX: Type 2 slap tear of the superior labrum. The distal biceps is in its normal anatomic location. REMAINDER OF LABRUM AND IGHL : No gross tear or paralabral cyst formation. Labral evaluation is less than optimal without joint distention. No thickening of IGHL to suggest adhesive capsulitis. PERIARTICULAR AND ADJACENT SOFT TISSUES: No masses or abnormal nodes. OTHER: No other significant finding. IMPRESSION: Tendinopathy of the supraspinatus with a small articular surface partial tear. No muscl e atrophy. Type 2 slap tear of the superior labrum. TECHNICAL DOCUMENTATION: JOB ID: [id number] [employer]- All Rights Reserved
== END ==
LOC: RAD 19:15
PROVIDERS: ATTEND Nurse Practitioner Family
DX: S40.011D Contusion of right shoulder, subsequent encounter (principal); X58.XXXD Exposure to other specified factors, subsequent encounter

== ENCOUNTER 2018-01-28 02:51 | Inpatient (IN) | payer MEDICARE, MEDICAID ==
--- NOTE | 2018-01-28 03:06 | ER Document Report ---
ED General - General Stated Complaint: BREATHING DIFFICULTY Time Seen by Provider: 01/28/18 02:59 Mode of Arrival: Medic Information source: Patient, Emergency Med Personnel, [facility] Records Notes: 62-year-old male history of COPD presents with complaints of difficulty breathing over the past 3-4 days. Patient denies any nausea or vomiting was noted to be febrile by EMS and given Tylenol prior to arrival. Patient denies any chest pain admits to productive cough Patient is not on oxygen at home TRAVEL OUTSIDE OF THE [place] IN LAST 30 DAYS: No - HPI Onset: Last week Onset/Duration: Persistent, Worse Quality of pain: No pain Severity: Moderate Pain Level: Denies Associated symptoms: Productive cough, Fever, Shortness of breath Exacerbated by: Walking Relieved by: Denies Similar symptoms previously: Yes Recently seen / treated by doctor: No - Related Data Allergies/Adverse Reactions: No Known Allergies Allergy (Verified 09/03/17 10:00) Past Medical History - Social History Smoking Status: Current Every Day Smoker Cigarette use (# per day): Yes Chew tobacco use (# tins/day): No Smoking Education Provided: Yes - Patient counselled regarding cessation for 4 minutes Family History: None - Past Medical History Cardiac Medical History: Reports: Hx Congestive Heart Failure, Hx Coronary Artery Disease, Hx Heart Attack, Hx Hypercholesterolemia, Hx Hypertension Pulmonary Medical History: Reports: Hx Bronchitis, Hx COPD Neurological Medical History: Reports: Hx Cerebrovascular Accident Endocrine Medical History: Reports: Hx Diabetes Mellitus Type 2, Hx Hypothyroidism Renal/ Medical History: Reports: Hx Benign Prostatic Hyperplasia. Denies: Hx Peritoneal Dialysis GI Medical History: Reports: Hx Gastroesophageal Reflux Disease Musculoskeltal Medical History: Reports Hx Arthritis, Reports Hx Musculoskeletal Trauma Psychiatric Medical History: Reports: Hx Anxiety, Hx Bipolar Disorder, Hx Dementia, Hx Depression Past Surgical History: Reports: Hx Appendectomy, Hx Genitourinary Surgery - TURP , Hx Orthopedic Surgery - Right ankle surgery in 1982 or 1983 when he had a muscle from the leg moved, Hx Thyroid Surgery, Hx Tonsillectomy - Immunizations Hx Diphtheria, Pertussis, Tetanus Vaccination: No Review of Systems - Review of Systems Notes: REVIEW OF SYSTEMS: CONSTITUTIONAL : Admits to fever EENT: Denies eye, ear, throat, or mouth pain or symptoms. Denies nasal or sinus congestion or discharge. Denies throat, tongue, or mouth swelling or difficulty swallowing. CARDIOVASCULAR: Denies chest pain. Denies palpitations or racing or irregular heart beat. Denies ankle edema. RESPIRATORY: Admits to cough shortness of breath difficulty breathing GASTROINTESTINAL: Denies abdominal pain or distention. Denies nausea, vomiting , or diarrhea. Denies blood in vomitus, stools, or per rectum. Denies black, tarry stools. Denies constipation. GENITOURINARY: Denies difficulty urinating, painful urination, burning, frequency, blood in urine, or discharge. MUSCULOSKELETAL: Denies back or neck pain or stiffness. Denies joint pain or swelling. SKIN: Denies rash, lesions or sores. HEMATOLOGIC : Denies easy bruising or bleeding. LYMPHATIC: Denies swollen, enlarged glands. NEUROLOGICAL: Denies confusion or altered mental status. Denies passing out or loss of consciousness. Denies dizziness or lightheadedness. Denies headache. Denies weakness or paralysis or loss of use of either side. Denies problems with gait or speech. Denies sensory loss, numbness, or tingling. Denies seizures. PSYCHIATRIC: Denies anxiety or stress. Denies depression, suicidal ideation, or homicidal ideation. ALL OTHER SYSTEMS REVIEWED AND NEGATIVE. Dictation was performed using [employer] voice recognition software PHYSICAL EXAMINATION: GENERAL: Ill-appearing male in mild respiratory distress febrile HEAD: Atraumatic, normocephalic. EYES: Pupils equal round and reactive to light, extraocular movements intact, sclera anicteric, conjunctiva are normal. ENT: Nares patent, oropharynx clear without exudates. Moist mucous membranes. NECK: Normal range of motion, supple without lymphadenopathy LUNGS: Coarse wheezing all throughout HEART: Tachycardic ABDOMEN: Soft, nontender, nondistended abdomen. No guarding, no rebound. No masses appreciated. Musculoskeletal: Normal range of motion, no pitting or edema. No cyanosis. NEUROLOGICAL: Cranial nerves grossly intact. Normal speech, normal gait. Normal sensory, motor exams PSYCH: Normal mood, normal affect. SKIN: Warm, Dry, normal turgor, no rashes or lesions noted. Physical Exam - Vital signs Vitals: Pulse Ox 91 L 01/28/18 02:59 Course - Re-evaluation Re-evalutation: 01/28/18 03:07 Patient has probable viral versus bacterial upper respiratory issue, lab work pending, he notes he feels better after breathing treatments by EMS 01/28/18 04:32 Patient's O2 sats have dropped, she has been placed on nasal cannula is otherwise stable for admission for COPD exacerbation with fever and probable pneumonia antibiotics were given as well as fluid, patient does not meet sepsis criteria at this time - Vital Signs Vital signs: Temp Pulse Resp BP Pulse Ox 28 H 91 L 01/28/18 03:14 01/28/18 02:59 - Laboratory Result Diagrams: 01/28/18 03:10 01/28/18 03:10 Laboratory results interpreted by me: 01/28/18 01/28/18 01/28/18 03:10 03:10 03:10 RDW 14.2 H Monocytes % 14.3 H VBG pCO2 34.4 L Glucose 166 H Alkaline Phosphatase 35 L Creatine Kinase 315 H - Diagnostic Test Radiology reviewed: Image reviewed - COPD exacerbation, Reports reviewed - EKG Interpretation by Me EKG shows normal: Sinus rhythm, [place], Intervals, QRS Complexes Rate: Tachycardia Critical Care Note - Critical Care Note Total time excluding time spent on procedures (mins): 37 Comments: 37 minutes of critical care time spent in direct contact evaluating and reevaluating the patient, treating symptoms, reviewing labs and studies and speaking with family and consultants excluding any procedures Discharge - Discharge Clinical Impression: COPD with acute exacerbation, Hypoxemia, Acute respiratory distress Fever Qualifiers: Fever type: unspecified Qualified Code(s): R50.9 - Fever, unspecified
[2018-01-28] MEDS ORDERED: CEFTRIAXONE 2 GM/D5W RTU 2 GM/50 ML RTUPB IV ONE (03:09)
[2018-01-28 03:29] LABS: VENOUS BLOOD BASE EXCESS -2.8 mmol/L; VENOUS BLOOD HCO3 21.1 mmol/L (20-32); VENOUS BLOOD PCO2 34.4 mmHg (35-63); VENOUS BLOOD PH 7.41 (7.30-7.42)
[2018-01-28 03:31] LABS: ABSOLUTE LYMPHOCYTES (AUTO) 1.2 10^3/uL (0.5-4.7); ABSOLUTE MONOCYTES (AUTO) 1.1 10^3/uL (0.1-1.4); ABSOLUTE NEUT (AUTO) 5.2 10^3/uL (1.7-8.2); BASOPHILS % (AUTO) 0.4 % (0-2); EOSINOPHILS % (AUTO) 0.5 % (0-6); HEMATOCRIT 40.3 % (37.9-51.0); HEMOGLOBIN 13.7 g/dL (13.5-17.0); LYMPHOCYTES % (AUTO) 16.2 % (13-45); MEAN CORPUSCULAR VOLUME 91 fl (80-97); MONOCYTES % (AUTO) 14.3 % (3-13); PLATELET COUNT 162 10^3/uL (150-450); RED BLOOD COUNT 4.42 10^6/uL (4.35-5.55); RED CELL DISTRIBUTION WIDTH 14.2 % (11.5-14.0); SEGMENTED NEUTROPHILS % (AUTO) 68.6 % (42-78); TOTAL CELLS COUNTED % (AUTO) 100 %; WHITE BLOOD COUNT 7.6 10^3/uL (4.0-10.5)
[2018-01-28] MEDS: NORMAL SALINE 1000 ML 1,000 ML IV PRN ×2 (03:36→04:10)
[2018-01-28 03:39] LABS: ALANINE AMINOTRANSFERASE 39 U/L (21-72); ALBUMIN 3.9 g/dL (3.5-5.0); ALKALINE PHOSPHATASE 35 U/L (38-126); ANION GAP 12 (5-19); ASPARTATE AMINO TRANSFERASE 33 U/L (17-59); BILIRUBIN,DIRECT 0.4 mg/dL (0.0-0.4); BILIRUBIN,TOTAL 0.4 mg/dL (0.2-1.3); BLOOD UREA NITROGEN 19 mg/dL (7-20); CALCIUM 9.4 mg/dL (8.4-10.2); CARBON DIOXIDE 25 mmol/L (22-30); CHLORIDE 107 mmol/L (98-107); CREATINE KINASE 315 U/L (55-170); GLUCOSE 166 mg/dL (75-110); POTASSIUM 4.1 mmol/L (3.6-5.0); SODIUM 144.1 mmol/L (137-145); TOTAL PROTEIN 6.5 g/dL (6.3-8.2)
--- NOTE | 2018-01-28 03:49 | RADIOLOGY REPORT (SQ) ---
EXAM DESCRIPTION: CHEST SINGLE VIEW CLINICAL HISTORY: dyspnea COMPARISON: 11/23/2016 FINDINGS: Single frontal view of the chest. Tortuosity of the thoracic aorta. Heart is not enlarged. Low lung volumes. Minimal linear left basilar opacities. No pneumothorax or pleural effusion. Right lung is clear. No displaced rib fractures identified. Upper abdominal soft tissues are unremarkable. IMPRESSION: 1. Minimal left basilar opacities are unchanged and may be related to scarring or atelectasis. No definite acute pneumonic process identified.
[2018-01-28 03:51] LABS: CREATINE KINASE MB 1.36 ng/mL (<4.55); TROPONIN I 0.012 ng/mL
[2018-01-28 05:18] LABS: APPEARANCE,URINE CLEAR; BILIRUBIN,URINE NEGATIVE (NEGATIVE); GLUCOSE, URINE NEGATIVE (NEGATIVE); KETONES,URINE NEGATIVE (NEGATIVE); LEUKOCYTE ESTERASE,URINE NEGATIVE (NEGATIVE); NITRITE,URINE NEGATIVE (NEGATIVE); PROTEIN,URINE NEGATIVE (NEGATIVE); URINE SPECIFIC GRAVITY 1.027; UROBILINOGEN,URINE NEGATIVE mg/dL (<2.0)
[2018-01-28 05:19] LABS: COLOR,URINE DARK YELLOW
[2018-01-28] MEDS ORDERED: ALBUTEROL SULFATE 0.083% NEB 2.5 MG/3 ML AMPUL NEB PRN (05:23)
[2018-01-28] MEDS ORDERED: ACETAMINOPHEN 325 MG TABLET PO PRN (05:23)
[2018-01-28] MEDS ORDERED: PROMETHAZINE HCL INJ 25 MG/1 ML VIAL IV PRN (05:23)
[2018-01-28 05:49] LABS: HEMATOCRIT 35.9 % (37.9-51.0); HEMOGLOBIN 12.4 g/dL (13.5-17.0); MEAN CORPUSCULAR HEMOGLOBIN 31.5 pg (27.0-33.4); MEAN CORPUSCULAR HGB CONC 34.5 g/dL (32.0-36.0); MEAN CORPUSCULAR VOLUME 92 fl (80-97); PLATELET COUNT 143 10^3/uL (150-450); RED BLOOD COUNT 3.93 10^6/uL (4.35-5.55); RED CELL DISTRIBUTION WIDTH 14.2 % (11.5-14.0); WHITE BLOOD COUNT 5.7 10^3/uL (4.0-10.5)
[2018-01-28 05:59] LABS: ANION GAP 8 (5-19); BLOOD UREA NITROGEN 18 mg/dL (7-20); CALCIUM 8.2 mg/dL (8.4-10.2); CARBON DIOXIDE 24 mmol/L (22-30); CHLORIDE 111 mmol/L (98-107); GLUCOSE 156 mg/dL (75-110); POTASSIUM 3.8 mmol/L (3.6-5.0); SODIUM 143.2 mmol/L (137-145)
[2018-01-28] MEDS ORDERED: DOXYCYCLINE HYCLATE 100 MG TABLET PO ONE (06:00)
[2018-01-28] MEDS ORDERED: DOXYCYCLINE HYCLATE 100 MG TABLET PO SCH ×2 (06:00→22:00)
[2018-01-28] MEDS ORDERED: METHYLPREDNISOLONE INJ 40 MG/1 ML SDV IV SCH (06:00)
[2018-01-28] MEDS: HEPARIN SOD (PORCINE) 5,000 UNIT/ML 1 ML SYRINGE SUBCUT SCH ×3 (06:58→22:44)
[2018-01-28] MEDS: IPRATROPIUM/ALBUTEROL 0.5-2.5 MG/3 ML AMPUL NEB SCH ×3 (08:30→19:05)
[2018-01-28] MEDS ORDERED: ALPRAZOLAM 0.5 MG TABLET PO PRN (09:17)
[2018-01-28] MEDS ORDERED: AZITHROMYCIN 250 MG TABLET PO SCH (10:00)
--- NOTE | 2018-01-28 10:15 | PDOC H&P ---
History of Present Illness Patient complains of: Shortness of breath for one week which got around 1 AM. History of Present Illness: WOODROW GOODWIN is a 62 year old male smoker with history of bipolar disorder, questionable history of cardiac disease (history of SD per patient), COPD (on 2L home oxygen as needed) and chronic lower back pain was admitted with above- mentioned complaint, It was very difficult to obtain an accurate history from the patient. He complained of having fever (undocumented) and chills. He also had a productive cough of clear sputum for the last week and a half. He denied any sick contact. He also had pleuritic chest pain and intermittent leg swelling. He has no pillow orthopnea but he complains of PND. He usually uses a power wheelchair and a cane to ambulate very short distances. I am not sure if he is compliant with his medications or if he actually uses any nebulizer treatments at home. He said that he is not up-to-date with his flu or pneumonia vaccines. He used to follow with Dr. Ward but he is currently seeking medical care with another primary care provider. The patient denies any abdominal pain but complains of soft, nonbloody stool lately, no urinary symptoms. He has chronic back pain and lives by himself. He still smokes. In the ED, temperature was not recorded, heart rate 130, respiratory rate 18 ( up to 29), blood pressure 119/98 with oxygen saturation down to 91% on room air (improved to 95% on 2 L nasal cannula). His WBC was 7.6 with hemoglobin of 13.7. His initial troponin was negative and his proBNP was 68. A CXR was done which showed possible left lower lobe scarring/atelectasis. He received 2 g Rocephin 1. I do not see any order for breathing treatments or Solu-Medrol. Past Medical History Medical History: Other - According to patient and based on previous records. Cardiac Medical History: Reports: Congestive Heart Failure, Coronary Artery Disease, Myocardial Infarction, Hyperlipidema, Hypertension Pulmonary Medical History: Reports: Bronchitis, Chronic Obstructive Pulmonary Disease (COPD) - Home Oxygen as needed per patient. Endocrine Medical History: Reports: Diabetes Mellitus Type 2, Hypothyroidism GI Medical History: Reports: Gastroesophageal Reflux Disease Musculoskeltal Medical History: Reports: Arthritis Psychiatric Medical History: Reports: Bipolar Disorder, Dementia, Depression Past Surgical History Past Surgical History: Reports: Appendectomy, Orthopedic Surgery - Right ankle surgery in 1982 or 1983 when he had a muscle from the leg moved, Tonsillectomy, Other - TURP per patient. Social History Smoking Status: Current Every Day Smoker Cigarettes Packs Per Day: 0.5 - 6 cigarettes a day currently. He has been smoking for many years. Frequency of Alcohol Use: None Hx Recreational Drug Use: No Drugs: None Hx Prescription Drug Abuse: No - Advance Directive Resuscitation Status: Full Code Family History Parental Family History Reviewed: Yes - unknown per patient. Children Family History Reviewed: No Sibling(s) Family History Reviewed.: Yes Medication/Allergy Home Medications: Diazepam [Valium 5 mg Tablet] 5 mg PO DAILY 11/21/16 Diazepam [Valium] 10 mg PO QHS 11/21/16 Divalproex Sodium [Divalproex Sodium ER] 500 mg PO DAILY 11/21/16 Donepezil HCl [Aricept 5 mg Tablet] 5 mg PO QHS 11/21/16 Duloxetine HCl [Cymbalta] 60 mg PO BID 11/21/16 Fluticasone/Salmeterol [Advair 250-50 Diskus 28 dose] 1 puff IH Q12 11/21/16 Gabapentin [Neurontin 300 mg Capsule] 300 mg PO TID 11/21/16 Levothyroxine Sodium [Synthroid] 125 mcg PO DAILY 11/21/16 Lurasidone HCl [Latuda] 120 mg PO DAILY 11/21/16 Multivitamin [Daily Multiple Vitamin] 1 tab PO DAILY 11/21/16 Omeprazole 20 mg PO BID 11/21/16 Prazosin HCl [Minipress] 1 mg PO DAILY 11/21/16 Pregabalin [Lyrica] 200 mg PO TID 11/21/16 Propranolol HCl [Inderal 10 mg Tablet] 10 mg PO TID 11/21/16 Rizatriptan Benzoate [Rizatriptan] 10 mg PO ASDIR PRN 11/21/16 Solifenacin Succinate [Vesicare] 10 mg PO DAILY 11/21/16 Suvorexant [Belsomra] 15 mg PO HSP PRN 11/21/16 Albuterol Sulfate [Proair HFA] 1 - 2 puff IH Q4 PRN #1 inhaler 11/22/16 Cephalexin Monohydrate [Keflex 500 mg Capsule] 500 mg PO TID 7 Days capsule Allergies/Adverse Reactions: No Known Allergies Allergy (Verified 09/03/17 10:00) Review of Systems ROS unobtainable: Other - Pertient positives and negatives as detailed in the HPI. Physical Exam Vital Signs: Temp Pulse Resp BP Pulse Ox 28 H 91 L 01/28/18 03:14 01/28/18 02:59 Intake & Output 01/26/18 01/27/18 01/28/18 06:59 06:59 06:59 Weight 97.1 kg General appearance: PRESENT: mild distress, well-developed, well-nourished Head exam: PRESENT: atraumatic, normocephalic Eye exam: PRESENT: PERRLA Mouth exam: PRESENT: moist, neck supple Teeth exam: PRESENT: poor dentation Neck exam: PRESENT: full ROM. ABSENT: JVD Respiratory exam: PRESENT: decreased breath sounds, rhonchi. ABSENT: rales, wheezes Cardiovascular exam: PRESENT: RRR, +S1, +S2 Pulses: PRESENT: normal dorsalis pedis pul GI/Abdominal exam: PRESENT: normal bowel sounds, soft. ABSENT: distended, rebound, tenderness Rectal exam: PRESENT: deferred Extremities exam: ABSENT: pedal edema Musculoskeletal exam: PRESENT: full ROM Neurological exam: PRESENT: alert, altered, awake. ABSENT: motor sensory deficit - grossly. Skin exam: PRESENT: intact, warm. ABSENT: erythema, rash Results Laboratory Results: 01/28/18 03:10 01/28/18 03:10 01/28/18 01/28/18 01/28/18 03:10 03:10 03:10 WBC 7.6 RBC 4.42 Hgb 13.7 Hct 40.3 MCV 91 MCH 31.0 MCHC 34.0 RDW 14.2 H Plt Count 162 Seg Neutrophils % 68.6 Lymphocytes % 16.2 Monocytes % 14.3 H Eosinophils % 0.5 Basophils % 0.4 Absolute Neutrophils 5.2 Absolute Lymphocytes 1.2 Absolute Monocytes 1.1 Absolute Eosinophils 0.0 Absolute Basophils 0.0 VBG pH 7.41 VBG pCO2 34.4 L VBG HCO3 21.1 VBG Base Excess -2.8 Sodium 144.1 Potassium 4.1 Chloride 107 Carbon Dioxide 25 Anion Gap 12 BUN 19 Creatinine 0.93 Est GFR ( Amer) > 60 Est GFR (Non-Af Amer) > 60 Glucose 166 H Lactic Acid Calcium 9.4 Total Bilirubin 0.4 AST 33 ALT 39 Alkaline Phosphatase 35 L Total Protein 6.5 Albumin 3.9 Urine Color Urine Appearance Urine pH Ur Specific [place] Urine Protein Urine Glucose (UA) Urine Ketones Urine Blood Urine Nitrite Ur Leukocyte Esterase Urine WBC (Auto) Urine RBC (Auto) 01/28/18 01/28/18 03:10 04:05 WBC RBC Hgb Hct MCV MCH MCHC RDW Plt Count Seg Neutrophils % Lymphocytes % Monocytes % Eosinophils % Basophils % Absolute Neutrophils Absolute Lymphocytes Absolute Monocytes Absolute Eosinophils Absolute Basophils VBG pH VBG pCO2 VBG HCO3 VBG Base Excess Sodium Potassium Chloride Carbon Dioxide Anion Gap BUN Creatinine Est GFR ( Amer) Est GFR (Non-Af Amer) Glucose Lactic Acid 1.4 Calcium Total Bilirubin AST ALT Alkaline Phosphatase Total Protein Albumin Urine Color DARK YELLOW Urine Appearance CLEAR Urine pH 5.0 Ur Specific [place] 1.027 Urine Protein NEGATIVE Urine Glucose (UA) NEGATIVE Urine Ketones NEGATIVE Urine Blood NEGATIVE Urine Nitrite NEGATIVE Ur Leukocyte Esterase NEGATIVE Urine WBC (Auto) 1 Urine RBC (Auto) 4 01/28/18 01/28/18 03:10 03:10 Creatine Kinase 315 H CK-MB (CK-2) 1.36 Troponin I 0.012 NT-Pro-B Natriuret Pep 68 EKG Comments: pending. Impressions: Chest X-Ray 01/28/18 02:59 IMPRESSION: 1. Minimal left basilar opacities are unchanged and may be related to scarring or atelectasis. No definite acute pneumonic process identified. Assessment & Plan - Diagnosis (1) COPD with acute exacerbation Is this a current diagnosis for this admission?: Yes Plan: ABG and CXR reviewed. Will continue scheduled duonebs, IV Solu-Medrol and start doxycycline. The patient was strongly advised to stop smoking. (2) Sinus tachycardia Is this a current diagnosis for this admission?: Yes Plan: secondary to #1, improved. (3) Essential hypertension Is this a current diagnosis for this admission?: Yes Plan: Will continue to monitor his blood pressure and restart BP medications as indicated. (4) Type 2 diabetes mellitus Qualifiers: Diabetes mellitus mcfp insulin use: unspecified terminal manager insulin use status Is this a current diagnosis for this admission?: No Plan: By history. The patient does not seem to be on medications at this time. Will check HbA1c. - Time Time Spent: 50 to 70 Minutes - Inpatient Certification Based on my medical assessment, after consideration of the patient's comorbidities, presenting symptoms, or acuity I expect that the services needed warrant INPATIENT care.: Yes I certify that my determination is in accordance with my understanding of Medicare's requirements for reasonable and necessary INPATIENT services [42 CFR 412.3e].: Yes
[2018-01-28] MEDS: NICOTINE 14 MG/24 HR PATCH.TD24 TD SCH (10:27)
[2018-01-28] MEDS: METHYLPREDNISOLONE INJ 40 MG/1 ML SDV IV SCH ×2 (10:28→17:29)
[2018-01-28] MEDS: GUAIFENESIN 600 MG TABLET.SA PO SCH ×2 (10:29→22:44)
--- NOTE | 2018-01-28 11:47 | Physician Advisory Note ---
Physician Advisor ProgressNote .: Pursuant to the plan for Lemuel Carrion, I have reviewed the medical record for this patient. Physician Advisor Statement: Please consider documenting, if you agree: 1. ? - "Acute Respiratory Failure, evidenced by labored breathing & hypoxemia, sats just 95% on 2L O2, when he only uses O2 PRN (i.e. how much?) at baseline" (was tachypneic w/RR28 & labored breating & HR 120s while on 2L O2 at 03:14) OR: "Chronic Respiratory Failure, evidenced by " 2. "Acute bronchitis" or "possible gram-___ PNA, evidenced by " (& state if you believe CXR showed infiltrate, or why it likely didn't) (+fever per EMS for which Tylenol was given en route, productive cough w/sputum, SOB, difficulty breathing,wheezing, rhonchi, decreased breath sounds, ... - & abx being given) 3. Medical necessity/status: document reasons pt is strongly expected to require at least 2 MNs in hospital before he can be safe for d/c (has 0 MNs so far); otherwise, he should be Obs status until he proves he needs at least 2 MNs in hospital. - & reasons for each midnight in hospital Ex: "persistent tachycardia & tachypnea", "continued need for more O2 than at baseline", "I AM CONCERNED about ", ... 4. "Chronic ___ CHF" (syst/diast/...) - & note if pt has pulmonary HTN, too Status: 62yo w/COPD, home nebulizer broken per ED nurse documentation, came in w/fever, cough/sputum, resp distress (despite Solumedrol, Albuterol, Atrovent, 500ml IV NS, & Tylenol en route), tachycardia, tachypnea, rhonchi, wheezing, decreased BS, reported chronic ___ type CHF, CAD, DM-2, prior CVA, bipolar d/co , dementia, ongoing tobacco use, ambulatory dysfunction requiring cane or power W/C. See above. Thanks! CK
--- NOTE | 2018-01-28 12:46 | XCELERA REPORT ---
[address] [address] Transthoracic Echocardiogram Report Name: WOODROW GOODWIN Age: 62 yrs Gender: Male : 1955 Patient Status: Inpatient Patient Location: [address] Study Date: 01/28/2018 10:19 AM Height: 69 in Weight: 214 lb BSA: 2.1 m2 Procedure: A complete two-dimensional transthoracic echocardiogram was performed (2D, M-mode, spectral and color flow Doppler). The study was technically difficult with many images being suboptimal in quality. Reason For Study: chest pain Ordering Physician: CATHY ORTEZ Performed By: Chantelle Hampton Interpretation Summary The left ventricular ejection fraction is normal. There is borderline concentric left ventricular hypertrophy. The left ventricle is grossly normal size. Doppler measurements suggest impaired left ventricular relaxation, which is associated with grade I/IV or mild diastolic dysfunction Regional wall motion abnormalities cannot be excluded due to limited visualization. The right ventricular systolic function is normal. The right atrium is normal. The left atrial size is normal. There is a trace amount of mitral regurgitation There is no mitral valve stenosis. No aortic regurgitation is present. There is no aortic valve stenosis There is no tricuspid stenosis. No tricuspid regurgitation. The aortic root is not well visualized but is probably normal size. The inferior vena cava appeared normal and decreased > 50% with respiration (RAP 5-10 mmHg) There is no pericardial effusion. MMode/2D Measurements & Calculations RVDd: 2.7 cm LVIDd: 4.8 cmFS: 32.3 % Ao root diam: 3.2 cm IVSd: 0.99 cm LVIDs: 3.2 cmEDV(Teich): 106.9 ml LVPWd: 1.0 cmESV(Teich): 42.3 ml Ao root area: 8.1 cm2 EF(Teich): 60.4 % LA dimension: 3.4 cm LVOT diam: 2.5 cm LVOT area: 4.8 cm2 Doppler Measurements & Calculations MV E max grayson: MV P1/2t max grayson: Ao V2 max: LV V1 max P.9 cm/sec 85.9 cm/sec 147.8 cm/sec 4.8 mmHg MV A max grayson: MV P1/2t: 51.0 msec Ao max PG: LV V1 max: 111.1 cm/sec MVA(P1/2t): 4.3 cm2 8.7 mmHg 109.6 cm/sec MV E/A: 0.77 MV dec slope: YVONNE(V,D): 3.5 cm2 493.6 cm/sec2 PA V2 max: 100.7 cm/sec PA max P.1 mmHg Left Ventricle The left ventricle is grossly normal size. There is borderline concentric left ventricular hypertrophy. The left ventricular ejection fraction is normal. Doppler measurements suggest impaired left ventricular relaxation, which is associated with grade I/IV or mild diastolic dysfunction. Regional wall motion abnormalities cannot be excluded due to limited visualization. Right Ventricle The right ventricle is grossly normal size. There is normal right ventricular wall thickness. The right ventricular systolic function is normal. Atria The right atrium is normal. The left atrial size is normal. Interarterial septum not well visualized and not well dopplered. Cannot comment on ASD/PFO presence. Mitral Valve The mitral valve is not well visualized. There is no mitral valve stenosis. There is a trace amount of mitral regurgitation. Aortic Valve The aortic valve is grossly normal. There is no aortic valve stenosis. No aortic regurgitation is present. Tricuspid Valve The tricuspid valve is not well visualized, but is grossly normal. There is no tricuspid stenosis. No tricuspid regurgitation. Pulmonic Valve The pulmonic valve is not well visualized. Great Vessels The aortic root is not well visualized but is probably normal size. The inferior vena cava appeared normal and decreased > 50% with respiration (RAP 5-10 mmHg). Effusions There is no pericardial effusion. : CATHY ORTEZ > Dionisio Morales
--- NOTE | 2018-01-28 13:19 | EKG REPORT ---
SEVERITY:- ABNORMAL ECG - SINUS RHYTHM NONSPECIFIC T ABNORMALITIES, LATERAL LEADS : Confirmed by: Korey Zavaleta MD 28-Jan-2018 13:17:58
--- NOTE | 2018-01-28 15:35 | PDOC PROGRESS REPORT ---
Subjective Progress Note for:: 01/28/18 Subjective:: Patient refers that he feels better when compared to admission. He states that he had been short of breath for the past 4 days. He admits that he continues smoking a half a pack a day though lately has been trying to cut down. Patient also complains of having productive cough of greenish phlegm. Review of systems All organ systems evaluated and negative except as in subjective All significant diagnostic and laboratories have been reviewed Reason For Visit: COPD EXACERBATION Physical Exam Vital Signs: Temp Pulse Resp BP Pulse Ox 24 H 118/71 95 01/28/18 07:01 01/28/18 07:00 01/28/18 07:15 General appearance: PRESENT: cooperative, mild distress, obese Head exam: PRESENT: atraumatic, normocephalic Eye exam: PRESENT: conjunctiva pink, EOMI, PERRLA Ear exam: PRESENT: normal external ear exam Mouth exam: PRESENT: moist Teeth exam: PRESENT: poor dentation Neck exam: PRESENT: full ROM. ABSENT: JVD, lymphadenopathy, tenderness Respiratory exam: PRESENT: crackles, decreased breath sounds, wheezes Cardiovascular exam: PRESENT: tachycardia. ABSENT: diastolic murmur, systolic murmur GI/Abdominal exam: PRESENT: normal bowel sounds, soft. ABSENT: tenderness Extremities exam: PRESENT: full ROM. ABSENT: pedal edema Musculoskeletal exam: PRESENT: ambulatory Neurological exam: PRESENT: alert, awake, oriented to person, oriented to place , oriented to time, oriented to situation, CN II-XII grossly intact Psychiatric exam: PRESENT: appropriate affect, normal mood Skin exam: PRESENT: intact, normal color Results Impressions: Chest X-Ray 01/28/18 02:59 IMPRESSION: 1. Minimal left basilar opacities are unchanged and may be related to scarring or atelectasis. No definite acute pneumonic process identified. Assessment & Plan - Diagnosis (1) Acute and chronic respiratory failure with hypoxia Is this a current diagnosis for this admission?: Yes Plan: We will continue with oxygen supplementation and will wean off as tolerated. Patient still tachypneic and bronchospastic at the time of evaluation. Anticipate that patient will need at least 2 nights stay to improve respiratory status in order to avoid or prevent relapse (2) COPD with acute exacerbation Is this a current diagnosis for this admission?: Yes Plan: We will continue with IV steroids, DuoNeb. Will add Mucinex and change to Zithromax (3) Essential hypertension Is this a current diagnosis for this admission?: Yes Plan: Will continue outpatient regimen (4) Type 2 diabetes mellitus Qualifiers: Diabetes mellitus intermediate designer insulin use: unspecified group home insulin use status Diabetes mellitus complication status: without complication Qualified Code(s): E11.9 - Type 2 diabetes mellitus without complications Is this a current diagnosis for this admission?: No Plan: To place patient on Humalog sliding scale with bedside glucose before meals and at bedtime (5) Anxiety Is this a current diagnosis for this admission?: Yes Plan: Continue outpatient regimen (6) Acute bronchitis Qualifiers: Bronchitis organism: unspecified organism Qualified Code(s): J20.9 - Acute bronchitis, unspecified Is this a current diagnosis for this admission?: Yes Plan: Ordered Zithromax (7) Bipolar disorder Qualifiers: Active/Remission status: currently active Current bipolar episode type: mixed Current episode severity: severe Psychotic features: with psychotic features Qualified Code(s): F31.64 - Bipolar disorder, current episode mixed, severe, with psychotic features Is this a current diagnosis for this admission?: No (8) BPH (benign prostatic hyperplasia) Qualifiers: Lower urinary tract symptom presence: symptoms present Qualified Code(s): N40.1 - Benign prostatic hyperplasia with lower urinary tract symptoms Is this a current diagnosis for this admission?: No Plan: Continue outpatient regimen - Time Time Spent with patient: 15-24 minutes Medications reviewed and adjusted accordingly: Yes Anticipated discharge: Home Within: within 48 hours - Inpatient Certification Based on my medical assessment, after consideration of the patient's comorbidities, presenting symptoms, or acuity I expect that the services needed warrant INPATIENT care.: Yes I certify that my determination is in accordance with my understanding of Medicare's requirements for reasonable and necessary INPATIENT services [42 CFR 412.3e].: Yes Medical Necessity: Significant Comorbidiites Make Outpatient Treatment Too Risky , Need Close Monitoring Due to Risk of Patient Decompensation, Need for Nebulizer Therapy and Monitoring of Response
[2018-01-28] MEDS ORDERED: DIVALPROEX SODIUM 500 MG TAB.SR.24H PO ONE ×2 (19:00→23:00)
[2018-01-28] MEDS ORDERED: LANSOPRAZOLE 30 MG TAB.RAP.DR PO ONE ×2 (19:00→22:45)
[2018-01-28] MEDS ORDERED: MULTIVITAMIN TABLET PO ONE ×2 (19:00→22:45)
[2018-01-28] MEDS ORDERED: BENZTROPINE MESYLATE 1 MG TABLET PO ONE ×2 (19:00→22:45)
--- NOTE | 2018-01-28 19:37 | EKG REPORT ---
SEVERITY:- ABNORMAL ECG - SINUS TACHYCARDIA MULTIPLE VENTRICULAR PREMATURE COMPLEXES REPOL ABNRM SUGGESTS ISCHEMIA, DIFFUSE LEADS : Confirmed by: Korey Zavaleta MD 28-Jan-2018 19:35:35
[2018-01-28] MEDS ORDERED: LEVOTHYROXINE SODIUM 0.025 MG TABLET PO ONE (20:30)
[2018-01-28] MEDS ORDERED: LEVOTHYROXINE SODIUM 0.1 MG TABLET PO ONE (20:30)
[2018-01-28] MEDS ORDERED: ASENAPINE MALEATE 10 MG SL SCH (22:00)
[2018-01-28] MEDS ORDERED: (PENDING PHARMACY ID) (Prazosin Hcl [Minipress] 1 MG) PO SCH (22:00)
[2018-01-28] MEDS: DIAZEPAM 5 MG TABLET PO SCH (22:39)
[2018-01-28] MEDS: DONEPEZIL HCL 5 MG TABLET PO SCH (22:44)
[2018-01-28] MEDS: MONTELUKAST SODIUM 10 MG TABLET PO SCH (22:44)
[2018-01-28] MEDS: GABAPENTIN 100 MG CAPSULE PO SCH (22:44)
[2018-01-28] MEDS: DOXYCYCLINE HYCLATE 100 MG TABLET PO SCH (23:41)
[2018-01-29] MEDS: IPRATROPIUM/ALBUTEROL 0.5-2.5 MG/3 ML AMPUL NEB SCH ×4 (01:54→20:45)
[2018-01-29] MEDS: METHYLPREDNISOLONE INJ 40 MG/1 ML SDV IV SCH ×3 (02:43→17:13)
[2018-01-29] MEDS ORDERED: (PENDING PHARMACY ID) (Levothyroxine Sodium [Synthroid] 125 MCG) PO SCH (06:00)
[2018-01-29] MEDS: HEPARIN SOD (PORCINE) 5,000 UNIT/ML 1 ML SYRINGE SUBCUT SCH ×3 (06:12→22:05)
[2018-01-29] MEDS: LEVOTHYROXINE SODIUM 0.1 MG TABLET PO SCH (06:12)
[2018-01-29] MEDS: GABAPENTIN 100 MG CAPSULE PO SCH ×3 (06:13→22:05)
[2018-01-29] MEDS: LEVOTHYROXINE SODIUM 0.025 MG TABLET PO SCH (06:13)
[2018-01-29 06:19] LABS: HEMATOCRIT 37.4 % (37.9-51.0); HEMOGLOBIN 12.8 g/dL (13.5-17.0); MEAN CORPUSCULAR HEMOGLOBIN 31.5 pg (27.0-33.4); MEAN CORPUSCULAR HGB CONC 34.3 g/dL (32.0-36.0); MEAN CORPUSCULAR VOLUME 92 fl (80-97); PLATELET COUNT 156 10^3/uL (150-450); RED BLOOD COUNT 4.07 10^6/uL (4.35-5.55); RED CELL DISTRIBUTION WIDTH 14.3 % (11.5-14.0)
[2018-01-29 06:47] LABS: ANION GAP 14 (5-19); BLOOD UREA NITROGEN 17 mg/dL (7-20); CALCIUM 9.4 mg/dL (8.4-10.2); CARBON DIOXIDE 24 mmol/L (22-30); CHLORIDE 110 mmol/L (98-107); GLUCOSE 146 mg/dL (75-110); POTASSIUM 4.4 mmol/L (3.6-5.0); SODIUM 147.6 mmol/L (137-145)
[2018-01-29] MEDS: LANSOPRAZOLE 30 MG TAB.RAP.DR PO SCH (07:59)
[2018-01-29] MEDS ORDERED: CEFTRIAXONE 1 GM/D5W RTU 1 GM/50 ML RTUPB IV SCH (10:00)
[2018-01-29] MEDS ORDERED: CEFTRIAXONE SODIUM 1,000 MG in DEXTROSE 5%-WATER 50 ML IV SCH (10:00)
[2018-01-29] MEDS: BENZTROPINE MESYLATE 1 MG TABLET PO SCH (10:13)
[2018-01-29] MEDS: DIVALPROEX SODIUM 500 MG TAB.SR.24H PO SCH (10:13)
[2018-01-29] MEDS: NICOTINE 14 MG/24 HR PATCH.TD24 TD SCH (10:13)
[2018-01-29] MEDS: DIAZEPAM 5 MG TABLET PO SCH ×2 (10:13→22:06)
[2018-01-29] MEDS: DOXYCYCLINE HYCLATE 100 MG TABLET PO SCH ×2 (10:14→22:06)
[2018-01-29] MEDS: MULTIVITAMIN TABLET PO SCH (10:14)
[2018-01-29] MEDS: GUAIFENESIN 600 MG TABLET.SA PO SCH ×2 (10:14→22:05)
[2018-01-29] MEDS ORDERED: PSYLLIUM SEED-SF 5.85 GM PACKET PO ONE (12:30)
--- NOTE | 2018-01-29 15:08 | PDOC PROGRESS REPORT ---
Subjective Progress Note for:: 01/29/18 Subjective:: Patient relates that breathing is some better but on occasions may get chest pain. He still needing to use oxygen. Review of system All organ systems evaluated and negative except as in subjective All significant diagnostics and laboratories have been reviewed Reason For Visit: COPD EXACERBATION Physical Exam Vital Signs: Temp Pulse Resp BP Pulse Ox 98.1 F 102 H 20 117/54 L 100 01/29/18 04:00 01/29/18 04:00 01/29/18 04:00 01/29/18 04:00 01/29/18 04:00 Intake & Output 01/28/18 01/29/18 01/30/18 06:59 06:59 06:59 Intake Total 1180 Output Total 160 Balance 1020 Weight 98.2 kg General appearance: PRESENT: cooperative, mild distress, obese Head exam: PRESENT: atraumatic, normocephalic Eye exam: PRESENT: conjunctiva pink, EOMI, PERRLA Ear exam: PRESENT: normal external ear exam Mouth exam: PRESENT: moist Neck exam: PRESENT: full ROM. ABSENT: JVD, lymphadenopathy, tenderness Respiratory exam: PRESENT: crackles, decreased breath sounds, wheezes Cardiovascular exam: PRESENT: RRR. ABSENT: diastolic murmur, systolic murmur Vascular exam: PRESENT: normal capillary refill GI/Abdominal exam: PRESENT: normal bowel sounds, soft. ABSENT: tenderness Extremities exam: PRESENT: full ROM. ABSENT: pedal edema Musculoskeletal exam: PRESENT: ambulatory Neurological exam: PRESENT: alert, awake, oriented to person, oriented to place , oriented to time, oriented to situation, CN II-XII grossly intact Psychiatric exam: PRESENT: appropriate affect, normal mood Skin exam: PRESENT: normal color Results Laboratory Results: 01/29/18 05:44 01/29/18 05:44 01/29/18 01/29/18 05:44 05:44 WBC 9.0 RBC 4.07 L Hgb 12.8 L Hct 37.4 L MCV 92 MCH 31.5 MCHC 34.3 RDW 14.3 H Plt Count 156 Sodium 147.6 H Potassium 4.4 Chloride 110 H Carbon Dioxide 24 Anion Gap 14 BUN 17 Creatinine 0.68 Est GFR ( Amer) > 60 Est GFR (Non-Af Amer) > 60 Glucose 146 H Calcium 9.4 01/28/18 01/28/18 01/28/18 09:43 09:43 15:48 CK-MB (CK-2) 2.36 2.40 Troponin I < 0.012 01/28/18 01/28/18 01/28/18 15:48 21:15 21:15 CK-MB (CK-2) 3.94 Troponin I < 0.012 < 0.012 Impressions: Chest X-Ray 01/28/18 02:59 IMPRESSION: 1. Minimal left basilar opacities are unchanged and may be related to scarring or atelectasis. No definite acute pneumonic process identified. Assessment & Plan - Diagnosis (1) Acute and chronic respiratory failure with hypoxia Is this a current diagnosis for this admission?: Yes Plan: We will continue with oxygen supplementation and will wean off as tolerated. (2) COPD with acute exacerbation Is this a current diagnosis for this admission?: Yes Plan: Continue IV steroids, DuoNeb's, Mucinex. Antibiotic has been changed to Rocephin since he is on doxycycline for a history of [place] spotted fever (3) Essential hypertension Is this a current diagnosis for this admission?: Yes Plan: Will continue outpatient regimen (4) Type 2 diabetes mellitus Qualifiers: Diabetes mellitus retirement insulin use: unspecified retirement insulin use status Diabetes mellitus complication status: without complication Qualified Code(s): E11.9 - Type 2 diabetes mellitus without complications Is this a current diagnosis for this admission?: No Plan: Continue Humalog sliding scale with bedside glucose before meals and at bedtime (5) Anxiety Is this a current diagnosis for this admission?: Yes Plan: Continue outpatient regimen (6) Acute bronchitis Qualifiers: Bronchitis organism: unspecified organism Qualified Code(s): J20.9 - Acute bronchitis, unspecified Is this a current diagnosis for this admission?: Yes Plan: Continue Rocephin (7) Bipolar disorder Qualifiers: Active/Remission status: currently active Current bipolar episode type: mixed Current episode severity: severe Psychotic features: with psychotic features Qualified Code(s): F31.64 - Bipolar disorder, current episode mixed, severe, with psychotic features Is this a current diagnosis for this admission?: No Plan: Continue outpatient therapy (8) BPH (benign prostatic hyperplasia) Qualifiers: Lower urinary tract symptom presence: symptoms present Is this a current diagnosis for this admission?: No Plan: Continue outpatient regimen - Time Time Spent with patient: 15-24 minutes Medications reviewed and adjusted accordingly: Yes Anticipated discharge: Home Within: within 48 hours - Inpatient Certification Based on my medical assessment, after consideration of the patient's comorbidities, presenting symptoms, or acuity I expect that the services needed warrant INPATIENT care.: Yes I certify that my determination is in accordance with my understanding of Medicare's requirements for reasonable and necessary INPATIENT services [42 CFR 412.3e].: Yes Medical Necessity: Need Close Monitoring Due to Risk of Patient Decompensation, Need for Nebulizer Therapy and Monitoring of Response
[2018-01-29] MEDS ORDERED: (PENDING PHARMACY ID) (Prazosin Hcl [Minipress] 1 MG) PO SCH (16:00)
[2018-01-29] MEDS ORDERED: ASENAPINE MALEATE 10 MG SL SCH (16:00)
[2018-01-29] MEDS: LACTOBACILLUS ACIDOPHILUS 250 MG TAB PO SCH (17:12)
[2018-01-29] MEDS ORDERED: DOXAZOSIN MESYLATE 1 MG TABLET PO SCH (22:00)
[2018-01-29] MEDS ORDERED: Asenapine Maleate [Saphris] 10 MG SL SCH (22:00)
[2018-01-29] MEDS: DONEPEZIL HCL 5 MG TABLET PO SCH (22:05)
[2018-01-29] MEDS: MONTELUKAST SODIUM 10 MG TABLET PO SCH (22:05)
[2018-01-30] MEDS: METHYLPREDNISOLONE INJ 40 MG/1 ML SDV IV SCH ×2 (02:41→09:18)
[2018-01-30] MEDS: GABAPENTIN 100 MG CAPSULE PO SCH (05:39)
[2018-01-30] MEDS: HEPARIN SOD (PORCINE) 5,000 UNIT/ML 1 ML SYRINGE SUBCUT SCH (05:39)
[2018-01-30] MEDS: LEVOTHYROXINE SODIUM 0.025 MG TABLET PO SCH (05:39)
[2018-01-30] MEDS: LEVOTHYROXINE SODIUM 0.1 MG TABLET PO SCH (05:39)
[2018-01-30] MEDS: LANSOPRAZOLE 30 MG TAB.RAP.DR PO SCH (07:35)
[2018-01-30] MEDS: BENZTROPINE MESYLATE 1 MG TABLET PO SCH (09:16)
[2018-01-30] MEDS: DIVALPROEX SODIUM 500 MG TAB.SR.24H PO SCH (09:17)
[2018-01-30] MEDS: MULTIVITAMIN TABLET PO SCH (09:17)
[2018-01-30] MEDS: DOXYCYCLINE HYCLATE 100 MG TABLET PO SCH (09:17)
[2018-01-30] MEDS: GUAIFENESIN 600 MG TABLET.SA PO SCH (09:17)
[2018-01-30] MEDS: LACTOBACILLUS ACIDOPHILUS 250 MG TAB PO SCH (09:17)
[2018-01-30] MEDS: DIAZEPAM 5 MG TABLET PO SCH (09:17)
[2018-01-30] MEDS: NICOTINE 14 MG/24 HR PATCH.TD24 TD SCH (09:18)
[2018-01-30] MEDS: IPRATROPIUM/ALBUTEROL 0.5-2.5 MG/3 ML AMPUL NEB SCH (09:20)
[2018-01-30 09:39] VITALS: BP 125/75
[2018-01-30] MEDS ORDERED: CEFTRIAXONE SODIUM 1,000 MG in DEXTROSE 5%-WATER 50 ML IV SCH (10:00)
--- NOTE | 2018-01-31 06:20 | PDOC DISCHARGE SUMMARY ---
General - Admit/Disc Date/PCP Admission Date/Primary Care Provider: 01/28/18 05:29 Discharge Date: 01/30/18 - Discharge Diagnosis (1) Acute and chronic respiratory failure with hypoxia Is this a current diagnosis for this admission?: Yes (2) COPD with acute exacerbation Is this a current diagnosis for this admission?: Yes (3) Essential hypertension Is this a current diagnosis for this admission?: Yes (4) Type 2 diabetes mellitus Is this a current diagnosis for this admission?: No (5) Anxiety Is this a current diagnosis for this admission?: Yes (6) Acute bronchitis Is this a current diagnosis for this admission?: Yes (7) Bipolar disorder Is this a current diagnosis for this admission?: No (8) BPH (benign prostatic hyperplasia) Is this a current diagnosis for this admission?: No (9) Tobacco abuse Is this a current diagnosis for this admission?: Yes - Additional Information Resuscitation Status: Full Code Discharge Diet: Cardiac Discharge Activity: Activity As Tolerated Prescriptions: Amox Tr/Potassium Clavulanate [Augmentin 875-125 mg Tablet] 1 tab PO BID #20 tablet Fluticasone/Salmeterol [Advair 500-50 Diskus 14 Dose/Diskus] 1 inh IH Q12H #60 inhaler Guaifenesin [Mucinex Sr 600 mg Tablet.sa] 600 mg PO Q12 #60 tablet.sa Montelukast Sodium [Singulair 10 mg Tablet] 10 mg PO QHS #30 tablet Nicotine [Nicoderm 14 mg/24 Hr Transdermal Patch] 1 each TD DAILY #30 patch.td24 Prednisone 20 mg PO DAILY #5 tablet Tiotropium [place] [Spiriva Handihaler 18 mcg/dose (30 Dose)] 1 cap IH DAILY # 30 capsule Home Medications: Diazepam [Valium 5 mg Tablet] 5 mg PO DAILY 11/21/16 Diazepam [Valium] 10 mg PO QHS 11/21/16 Divalproex Sodium [Divalproex Sodium ER] 500 mg PO DAILY 11/21/16 Donepezil HCl [Aricept 5 mg Tablet] 10 mg PO QHS 11/21/16 Levothyroxine Sodium [Synthroid] 125 mcg PO Q6AM 11/21/16 Omeprazole 20 mg PO BID 11/21/16 Prazosin HCl [Minipress] 1 mg PO QHS 11/21/16 Albuterol Sulfate [Proair HFA] 2 puff IH Q6HP PRN 01/28/18 Asenapine Maleate [Saphris] 10 mg SL Q12 01/28/18 Benztropine Mesylate [Cogentin 1 mg Tablet] 1 mg PO DAILY 01/28/18 Doxycycline Hyclate [Vibramycin 100 mg Tablet] 100 mg PO BID MDD 21 DAY SUPPLY ON 01/16/18 01/28/18 Gabapentin [Neurontin 100 mg Capsule] 200 mg PO Q8 01/28/18 Multivitamin [Tab-A-Anat (Multiple Vitamin) Tablet] 1 tab PO DAILY 01/28/18 Amox Tr/Potassium Clavulanate [Augmentin 875-125 mg Tablet] 1 tab PO BID #20 tablet 01/30/18 Fluticasone/Salmeterol [Advair 500-50 Diskus 14 Dose/Diskus] 1 inh IH Q12H #60 inhaler 01/30/18 Guaifenesin [Mucinex Sr 600 mg Tablet.sa] 600 mg PO Q12 #60 tablet.sa 01/30/18 Montelukast Sodium [Singulair 10 mg Tablet] 10 mg PO QHS #30 tablet 01/30/18 Nicotine [Nicoderm 14 mg/24 Hr Transdermal Patch] 1 each TD DAILY #30 patch.td24 01/30/18 Prednisone 20 mg PO DAILY #5 tablet 01/30/18 Tiotropium [place] [Spiriva Handihaler 18 mcg/dose (30 Dose)] 1 cap IH DAILY # 30 capsule 01/30/18 History of Present Illness History of Present Illness: WOODROW GOODWIN is a 62 year old male smoker with history of bipolar disorder, questionable history of cardiac disease (history of OR per patient), COPD (on 2L home oxygen as needed) and chronic lower back pain presented complaining of shortness of breath for a couple of days. It was very difficult to obtain an accurate history from the patient. He complained of having fever (undocumented ) and chills. He also had a productive cough of clear sputum for the last week and a half. He denied any sick contact. He also had pleuritic chest pain and intermittent leg swelling. He has no pillow orthopnea but he complains of PND. He usually uses a power wheelchair and a cane to ambulate very short distances. He said that he was not up-to-date with his flu or pneumonia vaccines. He used to follow with Dr. Ward but he was currently seeking medical care with another primary care provider. The patient denied any abdominal pain but complained of soft, nonbloody stool lately, no urinary symptoms. He has chronic back pain and lives by himself. He continue smoking In the ED, temperature was not recorded, heart rate 130, respiratory rate 18 ( up to 29), blood pressure 119/98 with oxygen saturation down to 91% on room air (improved to 95% on 2 L nasal cannula). His WBC was 7.6 with hemoglobin of 13.7. His initial troponin was negative and his proBNP was 68. A CXR was done which showed possible left lower lobe scarring/atelectasis. He received 2 g Rocephin 1. Patient was admitted under hospitalist service for further management Hospital Course Hospital Course: Patient was admitted for the treatment of acute exacerbation of COPD with bronchitis. He was placed on IV steroids, Mucinex, DuoNeb with further improvement. We were able to wean off oxygen to room air. Patient has been educated about quitting smoking and appears to be motivated. Anticipate that if continues smoking or as his disease progresses, it will not be long for him to need to use of oxygen permanently. We tried to optimize patient's regimen for him to follow-up on discharge as he does not have a primary care provider to follow-up with. Since patient had achieved maximum benefit of hospitalization stay prompted to discharge Physical Exam Vital Signs: Temp Pulse Resp BP Pulse Ox 97.5 F 90 24 H 111/64 96 01/29/18 20:07 01/30/18 05:49 01/30/18 05:49 01/29/18 20:07 01/30/18 05:49 Intake & Output 01/29/18 01/30/18 01/31/18 06:59 06:59 06:59 Intake Total 1180 1580 Output Total 160 Balance 1020 1580 Weight 98.2 kg 90 kg General appearance: PRESENT: no acute distress, cooperative, obese Head exam: PRESENT: atraumatic, normocephalic Eye exam: PRESENT: conjunctiva pale, EOMI, PERRLA Ear exam: PRESENT: normal external ear exam Mouth exam: PRESENT: moist Neck exam: PRESENT: full ROM. ABSENT: JVD, lymphadenopathy, tenderness Respiratory exam: PRESENT: other - Adequate movement of air with scattered wheezes Cardiovascular exam: PRESENT: RRR. ABSENT: diastolic murmur, systolic murmur Vascular exam: PRESENT: normal capillary refill GI/Abdominal exam: PRESENT: normal bowel sounds, soft. ABSENT: tenderness Extremities exam: PRESENT: full ROM. ABSENT: pedal edema Musculoskeletal exam: PRESENT: ambulatory Neurological exam: PRESENT: alert, awake, oriented to person, oriented to place , oriented to time, oriented to situation, CN II-XII grossly intact Psychiatric exam: PRESENT: appropriate affect, normal mood Skin exam: PRESENT: normal color Results Laboratory Results: 01/29/18 05:44 01/29/18 05:44 01/28/18 01/28/18 01/28/18 09:43 09:43 15:48 CK-MB (CK-2) 2.36 2.40 Troponin I < 0.012 01/28/18 01/28/18 01/28/18 15:48 21:15 21:15 CK-MB (CK-2) 3.94 Troponin I < 0.012 < 0.012 Impressions: Chest X-Ray 01/28/18 02:59 IMPRESSION: 1. Minimal left basilar opacities are unchanged and may be related to scarring or atelectasis. No definite acute pneumonic process identified. Qualifiers - * PATIENT BEING DISCHARGED WITH ANY OF THE FOLLOWING DIAGNOSIS: No
== END 2018-01-30 11:05 | disposition home or self-care (01) | DRG 189 ==
LOC: ER 02:51 → EH 05:29 → 4S 11:49
PROVIDERS: ADMIT Internal Medicine Geriatric Medicine; ATTEND Internal Medicine Geriatric Medicine
DX: J96.21 Acute and chronic respiratory failure with hypoxia (principal); J44.1 Chronic obstructive pulmonary disease with (acute) exacerbation; F17.210 Nicotine dependence, cigarettes, uncomplicated; I50.9 Heart failure, unspecified; I25.10 Atherosclerotic heart disease of native coronary artery without angina pectoris; I11.0 Hypertensive heart disease with heart failure; E78.5 Hyperlipidemia, unspecified; N40.0 Benign prostatic hyperplasia without lower urinary tract symptoms; K21.9 Gastro-esophageal reflux disease without esophagitis; E11.9 Type 2 diabetes mellitus without complications; F41.9 Anxiety disorder, unspecified; F31.9 Bipolar disorder, unspecified; I25.2 Old myocardial infarction; Z79.51 Long term (current) use of inhaled steroids; Z79.899 Other long term (current) drug therapy; Z86.73 Personal history of transient ischemic attack (TIA), and cerebral infarction without residual deficits
CPT/HCPCS: 36415; 71045; 80048; 80053; 81001; 82550; 82553; 82803; 83036; 83605; 83880; 84484; 85025; 85027; 87040; 93005; 93010; 93306; 94640; 96361; 96365; 99291; 99406; J0696; J1644; J2920; J3490; J7030; J7620

== ENCOUNTER 2018-04-12 12:32 | Emergency (ER) | payer MEDICARE, MEDICAID ==
--- NOTE | 2018-04-12 14:06 | ER Document Report ---
ED General - General Chief Complaint: Laceration Stated Complaint: LACERATION ON NECK Time Seen by Provider: 04/12/18 13:23 Mode of Arrival: Ambulatory Information source: Patient Notes: Patient is a 63-year-old male who presents to the ER today for approximately shaving off a mole on the left side of his neck while shaving his mckeon this morning. Patient is not on any blood thinners but states that the bleeding had not stopped when he came to the ER. Patient has a nurse aide that comes out to see him at the house who had wrapped it in a mild pressure dressing which had mostly stopped the bleeding and then whenever he took off the bandage it was still "trickling" so he came to the ER. Patient states bleeding has now stopped while being here in the ER. TRAVEL OUTSIDE OF THE [place] IN LAST 30 DAYS: No - Related Data Allergies/Adverse Reactions: No Known Allergies Allergy (Verified 09/03/17 10:00) Past Medical History - General Information source: Patient - Social History Smoking Status: Current Every Day Smoker Chew tobacco use (# tins/day): No Frequency of alcohol use: None Drug Abuse: None Family History: None Patient has suicidal ideation: No Patient has homicidal ideation: No - Past Medical History Cardiac Medical History: Reports: Hx Congestive Heart Failure, Hx Coronary Artery Disease, Hx Heart Attack, Hx Hypercholesterolemia, Hx Hypertension Pulmonary Medical History: Reports: Hx Bronchitis, Hx COPD Neurological Medical History: Reports: Hx Cerebrovascular Accident Endocrine Medical History: Reports: Hx Diabetes Mellitus Type 2, Hx Hypothyroidism Renal/ Medical History: Reports: Hx Benign Prostatic Hyperplasia. Denies: Hx Peritoneal Dialysis GI Medical History: Reports: Hx Gastroesophageal Reflux Disease Musculoskeltal Medical History: Reports Hx Arthritis, Reports Hx Musculoskeletal Trauma Psychiatric Medical History: Reports: Hx Anxiety, Hx Bipolar Disorder, Hx Dementia, Hx Depression Past Surgical History: Reports: Hx Appendectomy, Hx Genitourinary Surgery - TURP , Hx Orthopedic Surgery - Right ankle surgery in 1982 or 1983 when he had a muscle from the leg moved, Hx Thyroid Surgery, Hx Tonsillectomy, Other - TURP per patient. - Immunizations Hx Diphtheria, Pertussis, Tetanus Vaccination: No Review of Systems - Review of Systems Constitutional: No symptoms reported EENT: No symptoms reported Cardiovascular: No symptoms reported Respiratory: No symptoms reported Gastrointestinal: No symptoms reported Genitourinary: No symptoms reported Male Genitourinary: No symptoms reported Musculoskeletal: No symptoms reported Skin: See HPI Hematologic/Lymphatic: No symptoms reported Neurological/Psychological: No symptoms reported Physical Exam - Vital signs Vitals: Temp Pulse Resp BP Pulse Ox 98.7 F 90 18 119/77 94 04/12/18 12:44 04/12/18 12:44 04/12/18 12:44 04/12/18 12:44 04/12/18 12:44 - Notes Notes: PHYSICAL EXAMINATION: GENERAL: Well-appearing and in no acute distress. HEAD: Atraumatic, normocephalic. EYES: Pupils equal round and reactive to light, extraocular movements intact, sclera anicteric, conjunctiva are normal. NECK: Normal range of motion, supple without lymphadenopathy LUNGS: CTAB and equal. No wheezes rales or rhonchi. HEART: Regular rate and rhythm without murmurs EXTREMITIES: Normal range of motion, no pitting edema. No cyanosis. NEUROLOGICAL: Cranial nerves grossly intact. Normal sensory/motor exams. PSYCH: Normal mood, normal affect. SKIN: Warm, Dry, normal turgor, small nonbleeding abrasion to the left anterior neck, no laceration Course - Re-evaluation Re-evalutation: 04/12/18 14:06 Patient has no bleeding, there is nothing to suture, wound is already starting to scab - Vital Signs Vital signs: Temp Pulse Resp BP Pulse Ox 98.7 F 90 18 119/77 94 04/12/18 12:44 04/12/18 12:44 04/12/18 12:44 04/12/18 12:44 04/12/18 12:44 Discharge - Discharge Clinical Impression: shave injury Condition: Stable Disposition: HOME, SELF-CARE Additional Instructions: Return immediately for any new or worsening symptoms. Follow up with primary care provider, call tomorrow to make followup appointment. Referrals: SHYAM PARDO PA-C [Primary Care Provider] - Follow up as needed
[2018-04-12 14:38] VITALS: BP 120/74
== END 2018-04-12 14:37 | disposition home or self-care (01) ==
LOC: ER 12:32
DX: S10.81XA Abrasion of other specified part of neck, initial encounter (principal); W26.8XXA Contact with other sharp object(s), not elsewhere classified, initial encounter; Y93.89 Activity, other specified; I25.10 Atherosclerotic heart disease of native coronary artery without angina pectoris; I10 Essential (primary) hypertension; I25.2 Old myocardial infarction; J44.9 Chronic obstructive pulmonary disease, unspecified; E11.9 Type 2 diabetes mellitus without complications; F17.200 Nicotine dependence, unspecified, uncomplicated
CPT/HCPCS: 99282

== ENCOUNTER 2018-05-12 09:10 | Inpatient (IN) | payer MEDICARE, MEDICAID ==
[2018-05-12 09:45] LABS: ABSOLUTE EOSINOPHILS # (AUTO) 0.1 10^3/uL (0.0-0.6); ABSOLUTE MONOCYTES (AUTO) 0.7 10^3/uL (0.1-1.4); ABSOLUTE NEUT (AUTO) 10.2 10^3/uL (1.7-8.2); BASOPHILS % (AUTO) 0.3 % (0-2); EOSINOPHILS % (AUTO) 0.5 % (0-6); HEMATOCRIT 45.1 % (37.9-51.0); LYMPHOCYTES % (AUTO) 8.2 % (13-45); MEAN CORPUSCULAR HEMOGLOBIN 29.3 pg (27.0-33.4); MEAN CORPUSCULAR HGB CONC 33.3 g/dL (32.0-36.0); MEAN CORPUSCULAR VOLUME 88 fl (80-97); MONOCYTES % (AUTO) 6.1 % (3-13); PLATELET COUNT 208 10^3/uL (150-450); RED BLOOD COUNT 5.13 10^6/uL (4.35-5.55); RED CELL DISTRIBUTION WIDTH 14.6 % (11.5-14.0); SEGMENTED NEUTROPHILS % (AUTO) 84.9 % (42-78); TOTAL CELLS COUNTED % (AUTO) 100 %
[2018-05-12 09:46] LABS: VENOUS BLOOD BASE EXCESS 4.3 mmol/L; VENOUS BLOOD HCO3 31.5 mmol/L (20-32); VENOUS BLOOD PCO2 57.6 mmHg (35-63); VENOUS BLOOD PH 7.36 (7.30-7.42)
[2018-05-12 09:50] LABS: APPEARANCE,URINE CLEAR; BILIRUBIN,URINE NEGATIVE (NEGATIVE); COLOR,URINE STRAW; GLUCOSE, URINE NEGATIVE (NEGATIVE); KETONES,URINE NEGATIVE (NEGATIVE); LEUKOCYTE ESTERASE,URINE NEGATIVE (NEGATIVE); NITRITE,URINE NEGATIVE (NEGATIVE); PROTEIN,URINE NEGATIVE (NEGATIVE); URINE SPECIFIC GRAVITY 1.005; UROBILINOGEN,URINE NEGATIVE mg/dL (<2.0)
[2018-05-12 09:56] LABS: INTERNATIONAL RATION (INR) 0.96; PROTHROMBIN TIME 13.2 SEC (11.4-15.4)
[2018-05-12 10:06] LABS: ALANINE AMINOTRANSFERASE 39 U/L (21-72); ALBUMIN 4.6 g/dL (3.5-5.0); ALKALINE PHOSPHATASE 46 U/L (38-126); ANION GAP 14 (5-19); ASPARTATE AMINO TRANSFERASE 47 U/L (17-59); BILIRUBIN,DIRECT 0.3 mg/dL (0.0-0.4); BILIRUBIN,TOTAL 0.4 mg/dL (0.2-1.3); BLOOD UREA NITROGEN 26 mg/dL (7-20); CALCIUM 9.9 mg/dL (8.4-10.2); CARBON DIOXIDE 31 mmol/L (22-30); CHLORIDE 103 mmol/L (98-107); GLUCOSE 133 mg/dL (75-110); POTASSIUM 4.6 mmol/L (3.6-5.0); SODIUM 147.5 mmol/L (137-145); TOTAL PROTEIN 8.1 g/dL (6.3-8.2)
[2018-05-12] MEDS ORDERED: NORMAL SALINE 1000 ML 1,000 ML IV ONE ×2 (10:12→11:41)
[2018-05-12] MEDS ORDERED: CEFTRIAXONE 1 GM/D5W RTU 1 GM/50 ML RTUPB IV ONE (10:14)
[2018-05-12] MEDS ORDERED: CEFTRIAXONE INJ 1000 MG VIAL IV ONE (10:17)
[2018-05-12] MEDS ORDERED: CEFTRIAXONE INJ 1000 MG VIAL ONE (10:17)
--- NOTE | 2018-05-12 10:45 | ER Document Report ---
ED Fever - General Chief Complaint: Fever Stated Complaint: BACK PAIN Time Seen by Provider: 05/12/18 09:41 Information source: Patient Notes: 63-year-old male who presents with EMS with a friend. Patient lives at home with home health aides and is taken care of by a neighbor who visits frequently. Patient supposedly has had multiple falls over the last 3-4 days. When she went to see the patient today, she noticed that the patient was having some increased pain and "shaking". She states she was conscious with the shoveling episode. Temperature by EMS was 103. They did provide 650 mg of Tylenol. Patient has an extensive history as recorded including COPD, dementia , and possibly a recent diagnosis of multiple sclerosis by Dr. Davison. Family friend states that the patient has recently been placed on Lasix a few weeks ago secondary to some lower extremity edema. Patient does state some increased frequency of urination. He denies any headache, neck pain, sore throat, mild nonproductive cough, and denies any abdominal pain. Minimal 2+ pitting edema bilaterally appears to be baseline according to the care provider. Patient does state that he has some back pain and is currently on medications for this back pain. TRAVEL OUTSIDE OF THE [place] IN LAST 30 DAYS: No - HPI Onset: Other - See above Onset/Duration: Gradual Quality of pain: Achy Severity: Moderate Pain Level: 2 Context: Other - See above Associated symptoms: Other - See above Similar symptoms previously: No Recently seen / treated by doctor: Yes - Related Data Allergies/Adverse Reactions: No Known Allergies Allergy (Verified 05/12/18 09:42) Past Medical History - General Information source: Patient - Social History Smoking Status: Current Every Day Smoker Cigarette use (# per day): No Chew tobacco use (# tins/day): No Smoking Education Provided: No Frequency of alcohol use: Rare Family History: None Patient has suicidal ideation: No Patient has homicidal ideation: No - Past Medical History Cardiac Medical History: Reports: Hx Congestive Heart Failure, Hx Coronary Artery Disease, Hx Heart Attack, Hx Hypercholesterolemia, Hx Hypertension Pulmonary Medical History: Reports: Hx Bronchitis, Hx COPD Neurological Medical History: Reports: Hx Cerebrovascular Accident Endocrine Medical History: Reports: Hx Diabetes Mellitus Type 2, Hx Hypothyroidism Renal/ Medical History: Reports: Hx Benign Prostatic Hyperplasia. Denies: Hx Peritoneal Dialysis GI Medical History: Reports: Hx Gastroesophageal Reflux Disease Musculoskeletal Medical History: Reports Hx Arthritis, Reports Hx Musculoskeletal Trauma Psychiatric Medical History: Reports: Hx Anxiety, Hx Bipolar Disorder, Hx Dementia, Hx Depression Past Surgical History: Reports: Hx Appendectomy, Hx Genitourinary Surgery - TURP , Hx Orthopedic Surgery - Right ankle surgery in 1982 or 1983 when he had a muscle from the leg moved, Hx Thyroid Surgery, Hx Tonsillectomy, Other - TURP per patient. - Immunizations Hx Diphtheria, Pertussis, Tetanus Vaccination: No Review of Systems - Review of Systems Constitutional: denies: Fever EENT: denies: Eye discharge, Nose discharge Cardiovascular: denies: Chest pain, Palpitations Respiratory: Cough, Short of breath. denies: Hurts to breathe Gastrointestinal: denies: Vomiting Genitourinary: Frequency, Urgency Musculoskeletal: denies: Leg swelling Skin: Other - no hives. denies: Rash Neurological/Psychological: Other - no slurred speech -: Yes All other systems reviewed and negative Physical Exam - Vital signs Vitals: Resp BP Pulse Ox 34 H 136/108 H 96 05/12/18 09:17 05/12/18 09:17 05/12/18 09:17 Notes: Reviewed vital signs and nursing note as charted by RN. CONSTITUTIONAL: Alert and slightly disoriented to year and time which appears to be baseline according to the friend at bedside HEAD: Normocephalic; atraumatic EYES: PERRL; Sclerae non-icteric ENT: Normal nose; no rhinorrhea; moist mucous membranes; pharynx without lesions noted NECK: Supple without meningismus; non-tender; no cervical lymphadenopathy, no masses CARD: Tachycardiac but regular; no murmurs, no clicks, no rubs, no gallops; symmetric distal pulses RESP: Normal chest excursion without splinting; mild tachypnea; breath sounds bilaterally; very minimal bilateral wheezing wheezes, no rhonchi, no rales ABD/GI: Normal bowel sounds; elevated BMI; soft, non-tender GI/: Patient has no penile lesions, no testicular pain or swelling, no inguinal erythema BACK: The back appears normal; minimal tenderness to the lumbar spine with no obvious swelling, erythema, or induration noted EXT: Normal ROM in all joints; non-tender to palpation; 1+ pitting edema to bilateral lower extremities SKIN: Chronic mild vane appearing erythema to bilateral shins NEURO: Moves all extremities equally; Motor and sensory function intact PSYCH: The patient's mood and manner are appropriate. Grooming and personal hygiene are appropriate. Course - Re-evaluation Re-evalutation: 05/12/18 10:45 Given the above history and physical examination we will order basic labs, lactic acid, x-ray of the chest, CT scan of the head and lumbar spine, urine analysis, and reassess. Given the lactic acid that has resulted, an initial liter of fluid and Rocephin has been started. Patient has no headache or neck stiffness. No rash noted. I do believe acute bacterial meningitis to be unlikely. 05/12/18 11:31 White blood cell count and x-ray as recorded. I have added another liter of fluid. I have added azithromycin to the patient's regimen. I do not believe given the patient's weight at 30 cc/kg of IV fluid given the patient being on Lasix is appropriate. Vital signs are stable. Temperature is improved. Blood cultures have been sent. Urine analysis shows no obvious infection. The radiologist did call me and states he sees no obvious lumbar fractures but does see some osseous bone-like lesions that he is concerned about possible metastatic disease. - Vital Signs Vital signs: Temp Pulse Resp BP Pulse Ox 99.5 F 27 H 140/83 H 97 05/12/18 11:03 05/12/18 10:01 05/12/18 10:01 05/12/18 10:01 - Laboratory Result Diagrams: 05/12/18 09:17 05/12/18 09:17 Laboratory results interpreted by me: 05/12/18 05/12/18 05/12/18 09:17 09:17 09:17 WBC 12.0 H RDW 14.6 H Seg Neutrophils % 84.9 H Lymphocytes % 8.2 L Absolute Neutrophils 10.2 H Sodium 147.5 H Carbon Dioxide 31 H BUN 26 H Glucose 133 H Lactic Acid 3.3 H Critical Care Note - Critical Care Note Total time excluding time spent on procedures (mins): 40 Discharge - Discharge Clinical Impression: Pneumonia Qualifiers: Pneumonia type: due to unspecified organism Laterality: left Lung location: lower lobe of lung Qualified Code(s): J18.1 - Lobar pneumonia, unspecified organism Sepsis Qualifiers: Sepsis type: sepsis due to unspecified organism Qualified Code(s): A41.9 - Sepsis, unspecified organism Condition: Fair Disposition: ADMITTED INPATIENT Admitting Provider: Hospitalist Unit Admitted: IMCU Referrals: SHYAM PARDO PA-C [Primary Care Provider] - Follow up as needed
--- NOTE | 2018-05-12 11:04 | RADIOLOGY REPORT (SQ) ---
EXAM DESCRIPTION: CHEST 2 VIEWS COMPLETED DATE/TIME: 05/12/2018 10:36 am REASON FOR STUDY: 16, fever COMPARISON: 11/21/2016. EXAM PARAMETERS: NUMBER OF VIEWS: two views TECHNIQUE: Digital Frontal and Lateral radiographic views of the chest acquired. RADIATION DOSE: NA LIMITATIONS: none FINDINGS: LUNGS AND PLEURA: There is now evidence of infiltrate at the left lung base. MEDIASTINUM AND HILAR STRUCTURES: No masses or contour abnormalities. HEART AND VASCULAR STRUCTURES: The heart is normal with uncoiling thoracic aorta. BONES: No acute findings. HARDWARE: None in the chest. OTHER: No other significant finding. IMPRESSION: Left basilar infiltrate or pneumonia. No acute disease. TECHNICAL DOCUMENTATION: JOB ID: [id number] SC-[id number] 2010 [employer]- All Rights Reserved Reading location - IP/workstation name: [email or web address]
--- NOTE | 2018-05-12 11:29 | RADIOLOGY REPORT (SQ) ---
EXAM DESCRIPTION: CT LUMBAR SPINE WITHOUT COMPLETED DATE/TIME: 05/12/2018 10:36 am REASON FOR STUDY: 16, fall with fever COMPARISON: None. TECHNIQUE: Axial images acquired through the lumbar spine without intravenous contrast. Images revi ewed with lung, soft tissue and bone windows. Reconstructed coronal and sagittal MPR images reviewe d. All images stored on PACS. All CT scanners at this facility use dose modulation, iterative reconstruction, and/or weight based d osing when appropriate to reduce radiation dose to as low as reasonably achievable (ALARA). [facility]: Dose Right [facility]: CareDose [facility]: Dose Right [facility]: Teradose 4D [facility]: [employer] RADIATION DOSE: 724.75mGy. LIMITATIONS: None. FINDINGS: SEGMENTATION: Normal. No transitional anatomy. ALIGNMENT: Normal. VERTEBRAL BODIES: No fractures. No dislocation. No acute findings. DISCS: Study limited by lack of intrathecal contrast. T12-L1: No abnormality . L1-L2: . The possibility of a lytic lesion cannot be excluded. Facet arthropathy. There is a ovoid area of decreased attenuation noted in the right side of L2-L3: Degenerated circumferential bulging disc. Facet arthropathy and hypertrophy. . L3-L4: Degenerated circumferential bulging disc. Facet arthropathy and hypertrophy. L4-L5: Degenerated circumferential bulging disc. Facet arthropathy and hypertrophy. L5-S1: Degenerated circumferential bulging disc. Facet arthropathy and hypertrophy. Foraminal narro wing bilaterally. Osteosclerotic change body of L5 on the left. Osteo sclerotic change pedicle of L 5 on right. PEDICLES, TRANSVERSE PROCESSES: No fractures. No dislocation. No acute findings. FACETS, POSTERIOR ELEMENTS: Multilevel facet arthropathy and hypertrophy. SI JOINTS: Degenerative changes noted at the SI joints bilaterally. OTHER: Mixed osteosclerotic and osteolytic change left ilium. Possibility of changes secondary to me tastatic disease versus Paget's disease are considerations. IMPRESSION: 1. Multilevel degenerative disc disease with facet arthropathy and hypertrophy. 2. Mix ed osteolytic and osteosclerotic changes left ilium. Possibility of Paget's disease versus metastati c disease not excluded. Follow-up with total body bone scan would be a consideration. COMMENT: Findings were discussed with by phone. TECHNICAL DOCUMENTATION: JOB ID: [id number] [place]-[id number] Quality ID # [id number]: Final reports with documentation of one or more dose reduction techniques (e.g., Au tomated exposure control, adjustment of the mA and/or kV according to patient size, use of iterative reconstruction technique) 2010 [employer]- All Rights Reserved Reading location - IP/workstation name: [email or web address]
[2018-05-12] MEDS ORDERED: AZITHROMYCIN INJ 500 MG VIAL IV ONE (11:30)
--- NOTE | 2018-05-12 11:34 | RADIOLOGY REPORT (SQ) ---
EXAM DESCRIPTION: CT HEAD WITHOUT COMPLETED DATE/TIME: 05/12/2018 11:02 am REASON FOR STUDY: 16, fall COMPARISON: 09/03/2017. TECHNIQUE: Axial images acquired through the brain without intravenous contrast. Images reviewed wi th bone, brain and subdural windows. Images stored on PACS. All CT scanners at this facility use dose modulation, iterative reconstruction, and/or weight based d osing when appropriate to reduce radiation dose to as low as reasonably achievable (ALARA). [facility]: Dose Right [facility]: CareDose [facility]: Dose Right [facility]: Teradose 4D [facility]: [employer] RADIATION DOSE: CT Rad equipment meets quality standard of care and radiation dose reduction techniq ues were employed. CTDIvol: 53.2 mGy. DLP: 991 mGy-cm. mGy. LIMITATIONS: None. FINDINGS: VENTRICLES: Normal size and contour. CEREBRUM: No masses. No hemorrhage. No midline shift. No evidence for acute infarction. Normal gra y/white matter differentiation. No areas of low density in the white matter. CEREBELLUM: No masses. No hemorrhage. No alteration of density. No evidence for acute infarction. EXTRAAXIAL SPACES: No fluid collections. No masses. ORBITS AND GLOBE: No intra- or extraconal masses. Normal contour of globe without masses. CALVARIUM: No fracture. PARANASAL SINUSES: Chronic mucosal thickening left ethmoid sinus. SOFT TISSUES: No mass or hematoma. IMPRESSION: CHRONIC SINUSITIS. NO SIGNIFICANT INTERVAL CHANGE. EVIDENCE OF ACUTE STROKE: NO. COMMENT: Quality ID # [id number]: Final reports with documentation of one or more dose reduction techniques (e.g., Automated exposure control, adjustment of the mA and/or kV according to patient size, use of iterative reconstruction technique) TECHNICAL DOCUMENTATION: JOB ID: [id number] MD-69 2010 [employer]- All Rights Reserved Reading location - IP/workstation name: [email or web address]
[2018-05-12] MEDS ORDERED: ALBUTEROL SULFATE 0.083% NEB 2.5 MG/3 ML AMPUL NEB PRN (12:49)
[2018-05-12] MEDS ORDERED: ONDANSETRON HCL INJ/PF 4 MG/2 ML SDV IV PRN (12:49)
[2018-05-12] MEDS: PANTOPRAZOLE SODIUM 40 MG VIAL IV SCH (13:40)
[2018-05-12] MEDS: PREDNISONE 20 MG TABLET PO SCH (13:40)
[2018-05-12] MEDS: HEPARIN SOD (PORCINE) 5,000 UNIT/ML 1 ML SYRINGE SUBCUT SCH ×2 (13:40→21:55)
--- NOTE | 2018-05-12 13:43 | PDOC H&P ---
History of Present Illness Admission Date/PCP: 05/12/18 12:02 SHYAM PARDO PA-C Patient complains of: Shortness of breath, shaking and chills History of Present Illness: WOODROW GOODWIN is a 63 year old male with a past medical history of hypertension, COPD, diabetes, reflux, coronary artery disease, frequent falls and recently started on torsemide for lower extremity edema, who presented to the ED via EMS for shaking and chills 1 day. Patient is a very poor historian and is a questionable history of dementia. Part of the history is obtained by his neighbor, Giancarlo, who is at bedside and who accompanied him to the ER today. Unfortunately his neighbor is not well versed in all his medical problems but was able to provide me with some history. I gathered all history from patient, neighbor and ED physician. As far as patient goes he tells me that this morning he was not feeling so well. He takes me that he has been having chills and has been shaking this morning. And hence he called EMS for help. He denies chest pain, abdominal pain, nausea/vomiting, diarrhea, dizziness or headaches. Patient does admits to a cough but he thinks it is chronic. Denies any sputum production. He denies any recent travel, sick contacts, or change in the medication in the last few weeks. As per ER physician he has been having multiple falls in the last few weeks but patient did not mention this to me. Hence a CT of the lumbar spine was done in the ED. His neighbor is at bedside and tell me that he was not feeling so well and she is on calling the EMS today because he was short of breath. Patient tells me that he has a history of COPD and continues to smoke. He does not want to quit. I counseled him on smoking cessation but he does not want to. Tells me he smokes half a pack per day right now. Tell me he was smoking much more than that, at least 1 pack per day since the age of 13. He tells me that he is supposed to be on oxygen but he did not use it. He was recently admitted 3 months ago for COPD exacerbation and at that time it was not well- defined but he should use nocturnal. But he was recommended he should start oxygen if he is worsening with his COPD. He did not follow-up with any pinmaker here. He does follow-up with primary care. He tells me that he did not have any inhalers at home but he does use nebulizer when needed and that is not every day. I feel that he is not taking his medications as prescribed. Neighbor also tells me that within the last 2-3 months he was started on any medication for swelling of his lower extremities. She is not sure why it was started but she remembers that he had an echocardiogram a few months ago. I checked his records and it showed that he had an echocardiogram in January which showed some diastolic dysfunction with normal ejection fraction. Currently he is on torsemide since Lasix was not helping him. I do not know if he is following up with the hand model not as he does not tell me he does. He also tells me that he has been having some abdominal distention with some abdominal pain. He does admit to having good urine output. He did not tell me anything about his recent falls but he does mention that he has chronic back pain that he was following his primary care for. He did tell this to the ER physician who ordered CT lumbar spine which showed some questionable osteolytic lesions concerning for metastatic disease. I have discussed this with him today. He does have history of BPH and that is concerning for metastatic disease also. He denies any family history of cancer at this time. In the ED he did have CT head, CT lumbar spine and was given 1 dose of IV Rocephin and azithromycin for his pneumonia. Past Medical History Cardiac Medical History: Reports: Congestive Heart Failure, Coronary Artery Disease, Myocardial Infarction, Hyperlipidema, Hypertension Pulmonary Medical History: Reports: Bronchitis, Chronic Obstructive Pulmonary Disease (COPD) Endocrine Medical History: Reports: Diabetes Mellitus Type 2, Hypothyroidism GI Medical History: Reports: Gastroesophageal Reflux Disease Musculoskeltal Medical History: Reports: Arthritis Psychiatric Medical History: Reports: Bipolar Disorder, Dementia, Depression Past Surgical History Past Surgical History: Reports: Appendectomy, Orthopedic Surgery - Right ankle surgery in 1982 or 1983 when he had a muscle from the leg moved, Tonsillectomy, Other - TURP per patient. Social History Smoking Status: Current Every Day Smoker Frequency of Alcohol Use: None Hx Recreational Drug Use: No Drugs: None Hx Prescription Drug Abuse: No Family History Family History: None Parental Family History Reviewed: Yes - denies history of any cancer Children Family History Reviewed: Unknown Sibling(s) Family History Reviewed.: Unknown Medication/Allergy Home Medications: Diazepam [Valium 5 mg Tablet] 5 mg PO DAILY 11/21/16 Diazepam [Valium] 10 mg PO QHS 11/21/16 Divalproex Sodium [Divalproex Sodium ER] 500 mg PO DAILY 11/21/16 Donepezil HCl [Aricept 5 mg Tablet] 10 mg PO QHS 11/21/16 Levothyroxine Sodium [Synthroid] 125 mcg PO Q6AM 11/21/16 Omeprazole 20 mg PO BID 11/21/16 Prazosin HCl [Minipress] 2 mg PO DAILY 11/21/16 Albuterol Sulfate [Proair HFA] 2 puff IH Q6HP PRN 01/28/18 Asenapine Maleate [Saphris] 10 mg SL Q12 01/28/18 Benztropine Mesylate [Cogentin 1 mg Tablet] 1 mg PO DAILY 01/28/18 Gabapentin [Neurontin 100 mg Capsule] 200 mg PO Q8 01/28/18 Multivitamin [Tab-A-Anat (Multiple Vitamin) Tablet] 1 tab PO DAILY 01/28/18 Fluticasone/Salmeterol [Advair 500-50 Diskus 14 Dose/Diskus] 1 inh IH Q12H #60 inhaler 01/30/18 Montelukast Sodium [Singulair 10 mg Tablet] 10 mg PO QHS #30 tablet 01/30/18 Tiotropium [place] [Spiriva Handihaler 18 mcg/dose (30 Dose)] 1 cap IH DAILY # 30 capsule 01/30/18 Torsemide [Demadex 20 mg Tablet] 20 mg PO TID 05/12/18 Trazodone HCl 100 mg PO QHS 05/12/18 Allergies/Adverse Reactions: No Known Allergies Allergy (Verified 05/12/18 09:42) Review of Systems All systems: reviewed and no additional remarkable complaints except as stated Constitutional: PRESENT: chills, headache(s). ABSENT: fever(s) Eyes: ABSENT: visual disturbances Cardiovascular: PRESENT: edema. ABSENT: chest pain Respiratory: PRESENT: cough, dyspnea. ABSENT: sputum Gastrointestinal: PRESENT: bloating. ABSENT: abdominal pain, nausea, vomiting Genitourinary: ABSENT: dysuria Musculoskeletal: PRESENT: back pain - Chronic pain of the lower back Integumentary: ABSENT: rash Neurological: ABSENT: syncope, tingling Psychiatric: PRESENT: depression. ABSENT: homidical ideation, suicidal ideation Hematologic/Lymphatic: ABSENT: easy bruising Physical Exam Vital Signs: Temp Pulse Resp BP Pulse Ox 99.5 F 27 H 140/83 H 97 05/12/18 11:03 05/12/18 10:01 05/12/18 10:01 05/12/18 10:01 General appearance: PRESENT: mild distress, obese, other - Appears much older than stated age Head exam: PRESENT: atraumatic, normocephalic Eye exam: PRESENT: EOMI, PERRLA. ABSENT: scleral icterus Ear exam: PRESENT: normal external ear exam Mouth exam: PRESENT: dry mucosa, neck supple, tongue midline Teeth exam: PRESENT: poor dentation Neck exam: ABSENT: tracheal deviation Respiratory exam: PRESENT: accessory muscle use, decreased breath sounds - Bilaterally and mostly at the bases, symmetrical, wheezes Pulses: PRESENT: +2 pedal pulses bilateral Vascular exam: PRESENT: normal capillary refill GI/Abdominal exam: PRESENT: distended, guarding - Voluntary guarding, hypoactive bowel sounds - Likely secondary to distention, tenderness - Diffuse tenderness in all quadrants. ABSENT: rebound Extremities exam: PRESENT: pedal edema, +1 edema - Up to coker bilaterally, +2 edema - At the feet bilaterally. ABSENT: calf tenderness, joint swelling, tenderness Musculoskeletal exam: PRESENT: normal inspection. ABSENT: tenderness Neurological exam: PRESENT: alert, awake, oriented to person, oriented to place , oriented to time, oriented to situation, CN II-XII grossly intact Skin exam: PRESENT: dry, warm Results Impressions: Chest X-Ray 05/12/18 10:13 IMPRESSION: Left basilar infiltrate or pneumonia. No acute disease. Lumbar Spine CT 05/12/18 10:14 IMPRESSION: 1. Multilevel degenerative disc disease with facet arthropathy and hypertrophy. 2. Mixed osteolytic and osteosclerotic changes left ilium. Possibility of Paget's disease versus metastatic disease not excluded. Follow- up with total body bone scan would be a consideration. Head CT 05/12/18 10:46 IMPRESSION: CHRONIC SINUSITIS. NO SIGNIFICANT INTERVAL CHANGE. EVIDENCE OF ACUTE STROKE: NO. Assessment & Plan - Diagnosis (1) Severe sepsis due to pneumococcus with acute organ dysfunction Is this a current diagnosis for this admission?: Yes Plan: Severe sepsis-elevated white count, lactic acid greater than 3, tachypneic, tachycardic and fever on arrival to the ED. Likely secondary to pneumonia. We will start him on IV Rocephin and azithromycin. Continue with IV fluids. Repeat lactic acid every 3 hours to less than 2. His ammonia is likely secondary to history of COPD, diabetes and nonadherence to medications. (2) Pneumonia involving left lung Qualifiers: Lung location: lower lobe of lung Is this a current diagnosis for this admission?: Yes Plan: See plan above (3) Acute and chronic respiratory failure with hypoxia Is this a current diagnosis for this admission?: Yes Plan: Requiring oxygen in the ED. He tells me that he supposed of oxygen but does not use it. His previous discharge notes that they were considering putting him on oxygen but he was satting well on room air. His COPD might be worse now and hence he is required oxygen in the ED. Currently is on 2-3 L of oxygen. Goal will be to keep his oxygen saturation greater than 89%. We will try to wean his oxygen but he may require long-term oxygen therapy given his COPD status. He will need outpatient follow-up with his PCP or pinmaker for PFT testing. See plan above for pneumonia and severe sepsis. (4) Acute chronic obstructive pulmonary disease with respiratory distress Is this a current diagnosis for this admission?: Yes Plan: I am not sure if he is in COPD exacerbation but he is wheezing and short of breath and requiring oxygen. This may qualify as a COPD exacerbation at this time. We will start him with DuoNeb's scheduled, continue with his Advair, Spiriva and inhalers from home. I am in add prednisone 60 mg p.o. daily for the next 5 days as a burst course. Since I do not know his COPD status he may need a tapered dose but we will need to reevaluate him in a few days. (5) Osteolytic lesion Is this a current diagnosis for this admission?: Yes Plan: A lumbar CT was done in the ED due to history of chronic falls and chronic back pain. He tells me that he has history of chronic back pain but to me he did not profess any history of frequent falls. Unfortunately CT scan of the lumbar spine show some osteolytic lesions concerning for metastatic disease. He does have a history of BPH, history of tobacco abuse and other comorbidities which can mean he may have underlying cancer with metastatic disease. I will check his PSA. We will get a CT chest and abdomen/pelvis in the morning to rule out any primary neoplasm. Will consider consulting oncology based on imaging. At this time I spoken to patient regarding this matter and he understands. (6) Bipolar disorder Qualifiers: Active/Remission status: currently active Current bipolar episode type: mixed Current episode severity: severe Psychotic features: with psychotic features Qualified Code(s): F31.64 - Bipolar disorder, current episode mixed, severe, with psychotic features Is this a current diagnosis for this admission?: Yes Plan: Stable continue with home meds except for Valium, trazodone, and gabapentin. (7) Essential hypertension Is this a current diagnosis for this admission?: Yes Plan: Stable, monitor (8) Tobacco abuse Is this a current diagnosis for this admission?: Yes Plan: I spent more than 5 minutes counseling the patient regarding smoking cessation. States he is not ready at this time. 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 Will check a PSA due to concern for metastases to the spine given CT showing lytic lesions of the hips. (11) Bipolar disorder Is this a current diagnosis for this admission?: Yes (12) GERD (gastroesophageal reflux disease) Is this a current diagnosis for this admission?: Yes Plan: Started on Protonix. (13) Hyperlipidemia Is this a current diagnosis for this admission?: Yes - Time Time Spent: 50 to 70 Minutes - Plan Summary Plan Summary: 63-year-old male with past medical history of hypertension, diabetes, coronary artery disease, COPD, reflux and BPH who presented to the ED via EMS and is diagnosed with severe sepsis most likely secondary to pneumonia. Admit to [facility] and he will likely need more than 2 nights for IV antibiotics and IV fluids
[2018-05-12] MEDS: LEVALBUTEROL HCL NEB 1.25 MG/3 ML AMPUL NEB SCH ×4 (13:49→23:42)
[2018-05-12 15:17] LABS: URINE AMPHETAMINES SCREEN NEGATIVE; URINE BARBITURATES SCREEN UNCONFIRMED POSITIVE; URINE BENZODIAZEPINES SCREEN UNCONFIRMED POSITIVE; URINE COCAINE SCREEN NEGATIVE; URINE MARIJUANA (THC) SCREEN NEGATIVE; URINE METHADONE SCREEN NEGATIVE; URINE PHENCYCLIDINE SCREEN NEGATIVE
[2018-05-12] MEDS: NORMAL SALINE 1000 ML 1,000 ML IV PRN (15:31)
--- NOTE | 2018-05-12 15:39 | RADIOLOGY REPORT (SQ) ---
EXAM DESCRIPTION: CT ABD/PELVIS WITH IV ONLY COMPLETED DATE/TIME: 05/12/2018 2:56 pm REASON FOR STUDY: lytic lesion of the bones. concerning for mets COMPARISON: Earlier exam same date, lumbar spine CT TECHNIQUE: CT scan of the abdomen and pelvis performed using helical scanning technique with dynamic intravenous contrast injection. No oral contrast. Images reviewed with lung, soft tissue, and bone windows. Reconstructed coronal and sagittal MPR images reviewed. Delayed images for evaluation of the urinary system also acquired. All images stored on PACS. All CT scanners at this facility use dose modulation, iterative reconstruction, and/or weight based d osing when appropriate to reduce radiation dose to as low as reasonably achievable (ALARA). [facility]: Dose Right [facility]: CareDose [facility]: Dose Right [facility]: Teradose 4D [facility]: NeuroMetrix CONTRAST TYPE AND DOSE: contrast/concentration: Isovue 350.00 mg/ml; Total Contrast Delivered: 100.0 ml; Total Saline Delivered: 37.8 ml RENAL FUNCTION: GFR > 60. RADIATION DOSE: CT Rad equipment meets quality standard of care and radiation dose reduction techniq ues were employed. CTDIvol: 16.8 - 19.5 mGy. DLP: 2095 mGy-cm.. LIMITATIONS: None. FINDINGS: LOWER CHEST: Bilateral basilar subsegmental atelectasis. Small right pleural calcificatio n. LIVER: Normal size. No masses. No dilated ducts. SPLEEN: Normal size. No focal lesions. PANCREAS: No masses. No significant calcifications. No adjacent inflammation or peripancreatic fluid collections. Pancreatic duct not dilated. GALLBLADDER: No identified stones by CT criteria. No inflammatory changes to suggest cholecystitis. ADRENAL GLANDS: No significant masses or asymmetry. RIGHT KIDNEY AND URETER: No solid masses. Parenchymal cysts. No significant calcifications. No hy dronephrosis or hydroureter. LEFT KIDNEY AND URETER: No solid masses. Parenchymal cysts. No significant calcifications. No hyd ronephrosis or hydroureter. AORTA AND VESSELS: No aneurysm. No dissection. Renal arteries, SMA, celiac without significant stenos is. RETROPERITONEUM: No retroperitoneal adenopathy, hemorrhage or masses. BOWEL AND PERITONEAL CAVITY: No masses or inflammatory changes. No free fluid or peritoneal masses. APPENDIX: Surgically absent. PELVIS: No soft tissue mass. No free fluid. Normal bladder. ABDOMINAL WALL: No masses. No hernias. BONES: Similar appearance of these sclerotic intramedullary areas in the left iliac bone adjacent to the SI joint, no focal erosions or significant lytic component. Small sclerotic areas are noted in t he L5 vertebral body as well. No fracture. OTHER: No other significant finding. IMPRESSION: Similar appearance of these sclerotic intramedullary areas in the left iliac bone adjace nt to the SI joint, no focal erosions or significant lytic component. Small sclerotic areas are note d in the L5 vertebral body as well. No fracture. These findings could be further evaluated with who le-body bone scan. Bilateral basilar subsegmental atelectasis. TECHNICAL DOCUMENTATION: JOB ID: [id number] Quality ID # [id number]: Final reports with documentation of one or more dose reduction techniques (e.g., Au tomated exposure control, adjustment of the mA and/or kV according to patient size, use of iterative reconstruction technique) 2010 [employer]- All Rights Reserved Reading location - IP/workstation name: [email or web address]
[2018-05-12] MEDS: DONEPEZIL HCL 5 MG TABLET PO SCH (21:53)
[2018-05-12] MEDS: MONTELUKAST SODIUM 10 MG TABLET PO SCH (21:53)
[2018-05-12] MEDS: ACETAMINOPHEN 325 MG TABLET PO PRN (21:54)
[2018-05-12] MEDS ORDERED: ASENAPINE MALEATE 10 MG SL SCH (22:00)
[2018-05-12] MEDS: FLUTICASONE/SALMETEROL DISKUS 500-50 MCG/DOSE IH SCH (22:04)
--- NOTE | 2018-05-12 23:42 | EKG REPORT ---
SEVERITY:- ABNORMAL ECG - SINUS TACHYCARDIA NONSPECIFIC REPOL ABNORMALITY, LATERAL LEADS : Confirmed by: Dionisio Morales 12-May-2018 23:42:29
[2018-05-13] MEDS: NORMAL SALINE 1000 ML 1,000 ML IV PRN ×2 (00:53→11:14)
[2018-05-13] MEDS: LEVALBUTEROL HCL NEB 1.25 MG/3 ML AMPUL NEB SCH ×5 (03:17→20:03)
[2018-05-13] MEDS: LEVOTHYROXINE SODIUM 0.025 MG TABLET PO SCH (05:39)
[2018-05-13] MEDS: LEVOTHYROXINE SODIUM 0.1 MG TABLET PO SCH (05:40)
[2018-05-13] MEDS: HEPARIN SOD (PORCINE) 5,000 UNIT/ML 1 ML SYRINGE SUBCUT SCH ×3 (05:40→21:40)
[2018-05-13] MEDS ORDERED: (PENDING PHARMACY ID) (Levothyroxine Sodium [Synthroid] 125 MCG) PO SCH (06:00)
[2018-05-13 06:05] LABS: ARTERIAL BLOOD H2CO3 1.64 mmol/L (1.05-1.35); ARTERIAL BLOOD HCO3 26.2 mmol/L (20-26); ARTERIAL BLOOD PCO2 54.5 mmHg (35-45); ARTERIAL BLOOD TOTAL CO2 27.9 mmol/L (23-27)
[2018-05-13 06:06] LABS: ARTERIAL BLOOD FIO2 2L
[2018-05-13 06:07] LABS: ARTERIAL BLOOD PO2 35.4 mmHg (80-100)
[2018-05-13] MEDS: ACETAMINOPHEN 325 MG TABLET PO PRN (06:32)
[2018-05-13 06:41] LABS: HEMATOCRIT 37.3 % (37.9-51.0); MEAN CORPUSCULAR HEMOGLOBIN 29.5 pg (27.0-33.4); MEAN CORPUSCULAR HGB CONC 33.7 g/dL (32.0-36.0); MEAN CORPUSCULAR VOLUME 88 fl (80-97); PLATELET COUNT 158 10^3/uL (150-450); RED BLOOD COUNT 4.26 10^6/uL (4.35-5.55); RED CELL DISTRIBUTION WIDTH 14.5 % (11.5-14.0); WHITE BLOOD COUNT 10.2 10^3/uL (4.0-10.5)
[2018-05-13 06:47] LABS: HEMOGLOBIN 12.6 g/dL (13.5-17.0)
--- NOTE | 2018-05-13 06:51 | EKG REPORT ---
SEVERITY:- NORMAL ECG - SINUS RHYTHM : Confirmed by: Dionisio Morales 13-May-2018 06:50:33
[2018-05-13 06:54] LABS: PROTHROMBIN TIME 13.7 SEC (11.4-15.4)
[2018-05-13 07:04] LABS: ANION GAP 9 (5-19); BLOOD UREA NITROGEN 22 mg/dL (7-20); CALCIUM 8.4 mg/dL (8.4-10.2); CARBON DIOXIDE 26 mmol/L (22-30); CHLORIDE 107 mmol/L (98-107); GLUCOSE 124 mg/dL (75-110); POTASSIUM 4.2 mmol/L (3.6-5.0); SODIUM 142.4 mmol/L (137-145)
[2018-05-13] MEDS ORDERED: ONDANSETRON HCL INJ/PF 4 MG/2 ML SDV IV PRN (07:30)
--- NOTE | 2018-05-13 08:01 | RADIOLOGY REPORT (SQ) ---
EXAM DESCRIPTION: CHEST SINGLE VIEW COMPLETED DATE/TIME: 05/13/2018 7:44 am REASON FOR STUDY: left sided pneumonia COMPARISON: Chest films 05/12/2018, 11/23/2016 EXAM PARAMETERS: NUMBER OF VIEWS: One view. TECHNIQUE: Single frontal radiographic view of the chest acquired. RADIATION DOSE: NA LIMITATIONS: None. FINDINGS: LUNGS AND PLEURA: No opacities, masses or pneumothorax. No pleural effusion. MEDIASTINUM AND HILAR STRUCTURES: No masses. Contour normal. HEART AND VASCULAR STRUCTURES: Heart normal in size. Normal vasculature. BONES: No acute findings. HARDWARE: None in the chest. OTHER: No other significant finding. IMPRESSION: NO ACUTE RADIOGRAPHIC FINDING IN THE CHEST. TECHNICAL DOCUMENTATION: JOB ID: [id number] [employer]- All Rights Reserved Reading location - IP/workstation name: [email or web address]
[2018-05-13 08:24] LABS: ARTERIAL BLOOD BASE EXCESS -0.2 mmol/L; ARTERIAL BLOOD H2CO3 1.51 mmol/L (1.05-1.35); ARTERIAL BLOOD HCO3 26.2 mmol/L (20-26); ARTERIAL BLOOD O2 SATURATION 94.4 % (94-98); ARTERIAL BLOOD PCO2 50.1 mmHg (35-45); ARTERIAL BLOOD PH 7.34 (7.35-7.45); ARTERIAL BLOOD PO2 76.3 mmHg (80-100); ARTERIAL BLOOD TOTAL CO2 27.8 mmol/L (23-27)
[2018-05-13 08:26] LABS: ARTERIAL BLOOD FIO2 36%
[2018-05-13] MEDS: TORSEMIDE 20 MG TABLET PO SCH ×3 (08:49→18:02)
[2018-05-13] MEDS ORDERED: (PENDING PHARMACY ID) (Prazosin Hcl [Minipress] 2 MG) PO SCH (10:00)
[2018-05-13] MEDS ORDERED: AZITHROMYCIN INJ 500 MG VIAL IV SCH (10:00)
[2018-05-13] MEDS ORDERED: CEFTRIAXONE 1 GM/D5W RTU 1 GM/50 ML RTUPB IV SCH (10:00)
[2018-05-13] MEDS: PANTOPRAZOLE SODIUM 40 MG VIAL IV SCH (11:06)
[2018-05-13] MEDS: FLUTICASONE/SALMETEROL DISKUS 500-50 MCG/DOSE IH SCH ×2 (11:06→21:39)
[2018-05-13] MEDS: PREDNISONE 20 MG TABLET PO SCH (11:07)
[2018-05-13] MEDS: MULTIVITAMIN TABLET PO SCH (11:07)
[2018-05-13] MEDS: DIVALPROEX SODIUM 500 MG TAB.SR.24H PO SCH (11:07)
[2018-05-13] MEDS: CEFTRIAXONE SODIUM 1,000 MG in DEXTROSE 5%-WATER 50 ML IV SCH (11:07)
[2018-05-13] MEDS: BENZTROPINE MESYLATE 1 MG TABLET PO SCH (11:07)
[2018-05-13] MEDS: TIOTROPIUM BROMIDE DPI 5 CAP/KIT (18 MCG/CAP) IH SCH (11:08)
[2018-05-13] MEDS: AZITHROMYCIN 500 MG in DEXTROSE 5%-WATER 250 ML IV SCH (12:51)
--- NOTE | 2018-05-13 16:02 | RADIOLOGY REPORT (SQ) ---
EXAM DESCRIPTION: NM WHOLE BODY BONE SCAN COMPLETED DATE/TIME: 05/13/2018 3:31 pm REASON FOR STUDY: ABNRMAL CT, LYTIC LESIONS NEEDING FURTHER WORKUP COMPARISON: CT abdomen pelvis 05/12/2018 RADIONUCLIDE AND DOSE: 20 millicuries Tc99m HDP. The route of agent administration: Intravenous. ADDITIONAL DRUGS AND DOSES: None. TECHNIQUE: Routine delayed images at 3 hours post radionuclide injection acquired of the bony skelet on including anterior and posterior whole-body projections and additional focused images as needed. LIMITATIONS: None. FINDINGS: BONES: Normal visualization without areas of photopenia or increased bony uptake of radiop harmaceutical. Specifically, there is no abnormal uptake in the left iliac bone or the L5 vertebral body. KIDNEYS: Symmetric excretion without obstruction. OTHER: No other significant finding. IMPRESSION: NORMAL BONE SCAN. COMMENT: Quality measure 147: Current bone scan is compared with any available plain radiographs, p rior bone scans, and CT/MRI. TECHNICAL DOCUMENTATION: JOB ID: [id number] [employer]- All Rights Reserved Reading location - IP/workstation name: [email or web address]
[2018-05-13] MEDS: TRAMADOL HCL 50 MG TABLET PO PRN ×2 (16:32→21:39)
--- NOTE | 2018-05-13 16:53 | PDOC PROGRESS REPORT ---
Subjective Progress Note for:: 05/13/18 Subjective:: The patient is a 63-year-old male with a past medical history significant for hypertension, COPD, diet-controlled diabetes and a history of coronary artery disease. Unfortunately he continues to smoke. He does have a history of chronic lower back pain. He has been falling more frequently recently. He presented to the emergency room via EMS with a 1 day history of fever and shaking chills. In the emergency room he was found to have evidence of a left lower lobe pneumonia. He had a CT scan of the abdomen and pelvis as well as his lumbar spine which revealed degenerative changes throughout his lumbar spine. There were some rales osteolytic changes noted in the left ilium. The radiologist recommended a bone scan for further evaluation. Today he is waiting to have a CT scan of the chest performed. He has had his bone scan which fortunately was unremarkable. No evidence of abnormal uptake noted. He states his breathing is much improved since he came into the hospital and he said no further fevers or shaking chills. He has been weaned off of oxygen at this point and is feeling much better. He has had no nausea vomiting or diarrhea. No urinary control complaints. Reason For Visit: SEVERE SEPSIS,PNEUMONIA Physical Exam Vital Signs: Temp Pulse Resp BP Pulse Ox 97.9 F 91 16 131/68 H 96 05/13/18 14:47 05/13/18 16:21 05/13/18 16:21 05/13/18 14:47 05/13/18 16:21 Intake & Output 05/12/18 05/13/18 05/14/18 06:59 06:59 06:59 Intake Total 2477 2186 Output Total 1300 Balance 1177 2186 Weight 100.4 kg General appearance: PRESENT: no acute distress, obese, well-developed, well- nourished Head exam: PRESENT: atraumatic, normocephalic Mouth exam: PRESENT: moist, tongue midline Respiratory exam: PRESENT: crackles - He has some crackles in the left lower base, decreased breath sounds, wheezes - He has some mild end expiratory wheezing Cardiovascular exam: PRESENT: RRR. ABSENT: diastolic murmur, rubs, systolic murmur GI/Abdominal exam: PRESENT: normal bowel sounds, soft. ABSENT: distended, guarding, mass, organolmegaly, rebound, tenderness Rectal exam: PRESENT: deferred Extremities exam: PRESENT: full ROM. ABSENT: calf tenderness, clubbing, pedal edema Neurological exam: PRESENT: alert, awake, oriented to person, oriented to place , oriented to time, oriented to situation, CN II-XII grossly intact. ABSENT: motor sensory deficit Psychiatric exam: PRESENT: appropriate affect, normal mood. ABSENT: homicidal ideation, suicidal ideation Skin exam: PRESENT: dry, intact, warm. ABSENT: cyanosis, rash Results Laboratory Results: 05/13/18 05:55 05/13/18 05:55 05/13/18 05/13/18 05/13/18 05:45 05:55 05:55 WBC 10.2 RBC 4.26 L Hgb 12.6 L D Hct 37.3 L MCV 88 MCH 29.5 MCHC 33.7 RDW 14.5 H Plt Count 158 Carbonic Acid 1.64 H HCO3/H2CO3 Ratio 15:1 ABG pH 7.30 L ABG pCO2 54.5 H ABG pO2 35.4 L* ABG HCO3 26.2 H ABG O2 Saturation 61.0 L ABG Base Excess -1.0 FiO2 2L Sodium 142.4 Potassium 4.2 Chloride 107 Carbon Dioxide 26 Anion Gap 9 BUN 22 H Creatinine 0.91 Est GFR ( Amer) > 60 Est GFR (Non-Af Amer) > 60 Glucose 124 H Calcium 8.4 Magnesium 2.2 Prostate Specific Ag 2.000 TSH 05/13/18 05/13/18 05:55 08:03 WBC RBC Hgb Hct MCV MCH MCHC RDW Plt Count Carbonic Acid 1.51 H HCO3/H2CO3 Ratio 17:1 ABG pH 7.34 L ABG pCO2 50.1 H ABG pO2 76.3 L ABG HCO3 26.2 H ABG O2 Saturation 94.4 ABG Base Excess -0.2 FiO2 36% Sodium Potassium Chloride Carbon Dioxide Anion Gap BUN Creatinine Est GFR ( Amer) Est GFR (Non-Af Amer) Glucose Calcium Magnesium Prostate Specific Ag TSH 0.63 05/12/18 18:45 Troponin I 0.013 Impressions: Abdomen/Pelvis CT 05/12/18 00:00 IMPRESSION: Similar appearance of these sclerotic intramedullary areas in the left iliac bone adjacent to the SI joint, no focal erosions or significant lytic component. Small sclerotic areas are noted in the L5 vertebral body as well. No fracture. These findings could be further evaluated with whole-body bone scan. Bilateral basilar subsegmental atelectasis. Lumbar Spine CT 05/12/18 10:14 IMPRESSION: 1. Multilevel degenerative disc disease with facet arthropathy and hypertrophy. 2. Mixed osteolytic and osteosclerotic changes left ilium. Possibility of Paget's disease versus metastatic disease not excluded. Follow- up with total body bone scan would be a consideration. Head CT 05/12/18 10:46 IMPRESSION: CHRONIC SINUSITIS. NO SIGNIFICANT INTERVAL CHANGE. EVIDENCE OF ACUTE STROKE: NO. Body Scan Nuclear Medicine 05/13/18 00:00 IMPRESSION: NORMAL BONE SCAN. Chest X-Ray 05/13/18 07:00 IMPRESSION: NO ACUTE RADIOGRAPHIC FINDING IN THE CHEST. Assessment & Plan - Diagnosis (1) Sepsis Qualifiers: Sepsis type: sepsis due to unspecified organism Qualified Code(s): A41.9 - Sepsis, unspecified organism Is this a current diagnosis for this admission?: Yes Plan: This was previously documented is severe sepsis. The patient possibly had early sepsis at the time of admission but I do not believe it was severe. He had elevated white blood cell count tachycardia borderline low blood pressures and evidence of infection. His sepsis symptoms are resolving. (2) Pneumonia Qualifiers: Pneumonia type: due to unspecified organism Laterality: left Lung location: lower lobe of lung Qualified Code(s): J18.1 - Lobar pneumonia, unspecified organism Is this a current diagnosis for this admission?: Yes Plan: Concerns for community-acquired pathogen such as gram positives and atypicals. Continue IV Zithromax and Rocephin. This is day #2 of treatment. He clearly is improving. (3) Acute respiratory failure Is this a current diagnosis for this admission?: Yes Plan: He has been weaned off of his oxygen at this point. His respiratory failure is likely due to his underlying pneumonia (4) Osteolytic lesion Is this a current diagnosis for this admission?: Yes Plan: Bone scan was negative. He has severe degenerative changes (5) Bipolar disorder Is this a current diagnosis for this admission?: Yes Plan: Continue home regimen (6) Hypertension Is this a current diagnosis for this admission?: Yes Plan: Stable (7) Tobacco dependence Is this a current diagnosis for this admission?: Yes Plan: Certainly it would be in his best interest to not smoke at this point (8) BPH (benign prostatic hyperplasia) Is this a current diagnosis for this admission?: Yes Plan: Currently on no medication. (9) GERD (gastroesophageal reflux disease) Is this a current diagnosis for this admission?: Yes Plan: No complaints today. Continue PPI (10) Hyperlipidemia Is this a current diagnosis for this admission?: Yes Plan: Currently on no medication (11) Diabetes mellitus Qualifiers: Diabetes mellitus complication detail: with coma Is this a current diagnosis for this admission?: Yes Plan: Diet controlled and stable. (12) Anemia Is this a current diagnosis for this admission?: Yes Plan: He had a precipitous drop in his hemoglobin due to hemodilution. His hemoglobin is stable (13) Full code status Is this a current diagnosis for this admission?: Yes - Time Time Spent with patient: 25-34 minutes - Inpatient Certification Medical Necessity: Need for IV Antibiotics - Inpatient hospitalization remains necessary. The patient requiring parenteral antibiotics for underlying pneumonia. Timing of disposition will be determined by his clinical course
[2018-05-13] MEDS: MONTELUKAST SODIUM 10 MG TABLET PO SCH (21:39)
[2018-05-13] MEDS: DONEPEZIL HCL 5 MG TABLET PO SCH (21:39)
[2018-05-14] MEDS: LEVALBUTEROL HCL NEB 1.25 MG/3 ML AMPUL NEB SCH ×7 (00:33→23:33)
[2018-05-14 05:01] LABS: ABSOLUTE LYMPHOCYTES (AUTO) 1.4 10^3/uL (0.5-4.7); ABSOLUTE MONOCYTES (AUTO) 0.5 10^3/uL (0.1-1.4); ABSOLUTE NEUT (AUTO) 5.8 10^3/uL (1.7-8.2); BASOPHILS % (AUTO) 0.4 % (0-2); EOSINOPHILS % (AUTO) 0.3 % (0-6); HEMOGLOBIN 12.3 g/dL (13.5-17.0); LYMPHOCYTES % (AUTO) 17.7 % (13-45); MEAN CORPUSCULAR HEMOGLOBIN 29.5 pg (27.0-33.4); MEAN CORPUSCULAR HGB CONC 34.3 g/dL (32.0-36.0); MEAN CORPUSCULAR VOLUME 86 fl (80-97); MONOCYTES % (AUTO) 6.4 % (3-13); PLATELET COUNT 173 10^3/uL (150-450); RED BLOOD COUNT 4.18 10^6/uL (4.35-5.55); RED CELL DISTRIBUTION WIDTH 14.3 % (11.5-14.0); SEGMENTED NEUTROPHILS % (AUTO) 75.2 % (42-78); TOTAL CELLS COUNTED % (AUTO) 100 %; WHITE BLOOD COUNT 7.7 10^3/uL (4.0-10.5)
[2018-05-14 05:20] LABS: ANION GAP 13 (5-19); BLOOD UREA NITROGEN 27 mg/dL (7-20); CARBON DIOXIDE 28 mmol/L (22-30); CHLORIDE 102 mmol/L (98-107); GLUCOSE 135 mg/dL (75-110); POTASSIUM 3.8 mmol/L (3.6-5.0); SODIUM 143.1 mmol/L (137-145)
[2018-05-14] MEDS: LEVOTHYROXINE SODIUM 0.1 MG TABLET PO SCH (05:21)
[2018-05-14] MEDS: LEVOTHYROXINE SODIUM 0.025 MG TABLET PO SCH (05:21)
[2018-05-14] MEDS: HEPARIN SOD (PORCINE) 5,000 UNIT/ML 1 ML SYRINGE SUBCUT SCH ×3 (05:22→21:37)
[2018-05-14] MEDS: TORSEMIDE 20 MG TABLET PO SCH ×3 (08:54→18:00)
--- NOTE | 2018-05-14 09:49 | RADIOLOGY REPORT (SQ) ---
EXAM DESCRIPTION: CT CHEST WITH COMPLETED DATE/TIME: 05/14/2018 8:17 am REASON FOR STUDY: lytic lesion of the hip, concerning for mets (on hold till 05/14 per RN) COMPARISON: None. TECHNIQUE: CT scan of the chest performed using helical scanning technique with dynamic intravenous contrast injection. Images reviewed with lung, soft tissue and bone windows. Reconstructed coronal and sagittal MPR images reviewed. All images stored on PACS. All CT scanners at this facility use dose modulation, iterative reconstruction, and/or weight based d osing when appropriate to reduce radiation dose to as low as reasonably achievable (ALARA). [facility]: Dose Right [facility]: CareDose [facility]: Dose Right [facility]: Teradose 4D [facility]: [facility] CONTRAST TYPE AND DOSE: contrast/concentration: Isovue 370.00 mg/ml; Total Contrast Delivered: 80.0 ml; Total Saline Delivered: 55.0 ml RENAL FUNCTION: BUN 27 creatinine 1.0 RADIATION DOSE: CT Rad equipment meets quality standard of care and radiation dose reduction techniq ues were employed. CTDIvol: 12.1 mGy. DLP: 505 mGy-cm. . LIMITATIONS: None. FINDINGS: LUNGS AND PLEURA: Occasional ground-glass nodules in both lungs measuring up to about 7 mm in the left upper lobe. No discrete mass. No effusions. HILAR AND MEDIASTINAL STRUCTURES: No identified masses or abnormal nodes. HEART AND VASCULAR STRUCTURES: No aneurysm or dissection. No central pulmonary emboli. No pericardi al effusion. HARDWARE: None in the chest. UPPER ABDOMEN: See separate report 05/12/2018. THYROID AND OTHER SOFT TISSUES: No masses. No adenopathy. BONES: No significant finding. OTHER: No other significant finding. IMPRESSION: Occasional ground-glass nodules primarily in the upper lobes. These are too small to ch aracterize by PET and will need serial followup. COMMENT: Consider [address] follow-up. TECHNICAL DOCUMENTATION: JOB ID: [id number] Quality ID # [id number]: Final reports with documentation of one or more dose reduction techniques (e.g., Au tomated exposure control, adjustment of the mA and/or kV according to patient size, use of iterative reconstruction technique) 2010 [employer]- All Rights Reserved Reading location - IP/workstation name: [email or web address]
--- NOTE | 2018-05-14 10:10 | PDOC PROGRESS REPORT ---
Subjective Progress Note for:: 05/14/18 Reason For Visit: SEVERE SEPSIS,PNEUMONIA Physical Exam Vital Signs: Temp Pulse Resp BP Pulse Ox 97.9 F 83 16 127/68 H 92 05/14/18 08:29 05/14/18 09:01 05/14/18 09:01 05/14/18 08:29 05/14/18 09:01 Intake & Output 05/13/18 05/14/18 05/15/18 06:59 06:59 06:59 Intake Total 2477 2861 Output Total 1300 Balance 1177 2861 Weight 100.4 kg 97.6 kg General appearance: PRESENT: no acute distress, well-developed, well-nourished Head exam: PRESENT: atraumatic, normocephalic Eye exam: PRESENT: conjunctiva pink, EOMI, PERRLA. ABSENT: scleral icterus Ear exam: PRESENT: normal external ear exam Mouth exam: PRESENT: moist, tongue midline Neck exam: ABSENT: carotid bruit, JVD, lymphadenopathy, thyromegaly Respiratory exam: PRESENT: clear to auscultation gaby. ABSENT: rales, rhonchi, wheezes Cardiovascular exam: PRESENT: RRR. ABSENT: diastolic murmur, rubs, systolic murmur Pulses: PRESENT: normal dorsalis pedis pul Vascular exam: PRESENT: normal capillary refill GI/Abdominal exam: PRESENT: normal bowel sounds, soft. ABSENT: distended, guarding, mass, organolmegaly, rebound, tenderness Rectal exam: PRESENT: deferred Extremities exam: PRESENT: full ROM. ABSENT: calf tenderness, clubbing, pedal edema Neurological exam: PRESENT: alert, awake, oriented to person, oriented to place , oriented to time, oriented to situation, CN II-XII grossly intact. ABSENT: motor sensory deficit Psychiatric exam: PRESENT: appropriate affect, normal mood. ABSENT: homicidal ideation, suicidal ideation Skin exam: PRESENT: dry, intact, warm. ABSENT: cyanosis, rash Results Laboratory Results: 05/14/18 04:43 05/14/18 04:43 05/14/18 05/14/18 04:43 04:43 WBC 7.7 RBC 4.18 L Hgb 12.3 L Hct 36.0 L MCV 86 MCH 29.5 MCHC 34.3 RDW 14.3 H Plt Count 173 Seg Neutrophils % 75.2 Lymphocytes % 17.7 Monocytes % 6.4 Eosinophils % 0.3 Basophils % 0.4 Absolute Neutrophils 5.8 Absolute Lymphocytes 1.4 Absolute Monocytes 0.5 Absolute Eosinophils 0.0 Absolute Basophils 0.0 Sodium 143.1 Potassium 3.8 Chloride 102 Carbon Dioxide 28 Anion Gap 13 BUN 27 H Creatinine 0.97 Est GFR ( Amer) > 60 Est GFR (Non-Af Amer) > 60 Glucose 135 H Calcium 9.0 Magnesium 2.1 05/12/18 18:45 Troponin I 0.013 Impressions: Abdomen/Pelvis CT 05/12/18 00:00 IMPRESSION: Similar appearance of these sclerotic intramedullary areas in the left iliac bone adjacent to the SI joint, no focal erosions or significant lytic component. Small sclerotic areas are noted in the L5 vertebral body as well. No fracture. These findings could be further evaluated with whole-body bone scan. Bilateral basilar subsegmental atelectasis. Lumbar Spine CT 05/12/18 10:14 IMPRESSION: 1. Multilevel degenerative disc disease with facet arthropathy and hypertrophy. 2. Mixed osteolytic and osteosclerotic changes left ilium. Possibility of Paget's disease versus metastatic disease not excluded. Follow- up with total body bone scan would be a consideration. Head CT 05/12/18 10:46 IMPRESSION: CHRONIC SINUSITIS. NO SIGNIFICANT INTERVAL CHANGE. EVIDENCE OF ACUTE STROKE: NO. Body Scan Nuclear Medicine 05/13/18 00:00 IMPRESSION: NORMAL BONE SCAN. Chest X-Ray 05/13/18 07:00 IMPRESSION: NO ACUTE RADIOGRAPHIC FINDING IN THE CHEST. Chest CT 05/14/18 00:00 IMPRESSION: Occasional ground-glass nodules primarily in the upper lobes. These are too small to characterize by PET and will need serial followup. Assessment & Plan - Diagnosis (1) Lung nodule, multiple Is this a current diagnosis for this admission?: Yes Plan: Follow up as outpatient - Time Time Spent with patient: 15-24 minutes Medications reviewed and adjusted accordingly: Yes Anticipated discharge: Home Within: within 24 hours
[2018-05-14] MEDS: FLUTICASONE/SALMETEROL DISKUS 500-50 MCG/DOSE IH SCH ×2 (11:18→21:34)
[2018-05-14] MEDS: TIOTROPIUM BROMIDE DPI 5 CAP/KIT (18 MCG/CAP) IH SCH (11:18)
[2018-05-14] MEDS: DIVALPROEX SODIUM 500 MG TAB.SR.24H PO SCH (11:19)
[2018-05-14] MEDS: MULTIVITAMIN TABLET PO SCH (11:20)
[2018-05-14] MEDS: BENZTROPINE MESYLATE 1 MG TABLET PO SCH (11:20)
[2018-05-14] MEDS: PANTOPRAZOLE SODIUM 40 MG VIAL IV SCH (11:21)
[2018-05-14] MEDS: PREDNISONE 20 MG TABLET PO SCH (11:21)
[2018-05-14] MEDS: CEFTRIAXONE SODIUM 1,000 MG in DEXTROSE 5%-WATER 50 ML IV SCH (11:23)
[2018-05-14] MEDS: AZITHROMYCIN 500 MG in DEXTROSE 5%-WATER 250 ML IV SCH (13:38)
--- NOTE | 2018-05-14 14:06 | PDOC PROGRESS REPORT ---
Subjective Progress Note for:: 05/14/18 Subjective:: Patient was admitted with difficulty breathing and shortness of breath and was found to have a left lower lobe pneumonia. He was noted to have some questionable osteolytic changes in the left ilium. Bone scan was done as follow -up and this was unremarkable. Patient seen on rounds today and he tells me that his feeling better and is ready to go home. His breathing is improved and he denies any chest pain. Reason For Visit: SEVERE SEPSIS,PNEUMONIA Physical Exam Vital Signs: Temp Pulse Resp BP Pulse Ox 97.9 F 83 16 127/68 H 92 05/14/18 08:29 05/14/18 09:01 05/14/18 09:01 05/14/18 08:29 05/14/18 09:01 Intake & Output 05/13/18 05/14/18 05/15/18 06:59 06:59 06:59 Intake Total 2477 2861 785 Output Total 1300 300 Balance 1177 2861 485 Weight 100.4 kg 97.6 kg General appearance: PRESENT: no acute distress, disheveled Head exam: PRESENT: atraumatic Mouth exam: PRESENT: dry mucosa Neck exam: ABSENT: carotid bruit, JVD, lymphadenopathy, thyromegaly Respiratory exam: PRESENT: decreased breath sounds. ABSENT: rales, retraction, rhonchi Cardiovascular exam: PRESENT: RRR. ABSENT: diastolic murmur, rubs, systolic murmur GI/Abdominal exam: PRESENT: normal bowel sounds, soft. ABSENT: distended, guarding, mass, organolmegaly, rebound, tenderness Rectal exam: PRESENT: deferred Extremities exam: PRESENT: full ROM. ABSENT: joint swelling, tenderness Musculoskeletal exam: PRESENT: ambulatory Neurological exam: PRESENT: alert, awake, oriented to person, oriented to time, oriented to situation, other - Resting tremors Skin exam: ABSENT: abrasion, dry Results Laboratory Results: 05/14/18 04:43 05/14/18 04:43 05/14/18 05/14/18 04:43 04:43 WBC 7.7 RBC 4.18 L Hgb 12.3 L Hct 36.0 L MCV 86 MCH 29.5 MCHC 34.3 RDW 14.3 H Plt Count 173 Seg Neutrophils % 75.2 Lymphocytes % 17.7 Monocytes % 6.4 Eosinophils % 0.3 Basophils % 0.4 Absolute Neutrophils 5.8 Absolute Lymphocytes 1.4 Absolute Monocytes 0.5 Absolute Eosinophils 0.0 Absolute Basophils 0.0 Sodium 143.1 Potassium 3.8 Chloride 102 Carbon Dioxide 28 Anion Gap 13 BUN 27 H Creatinine 0.97 Est GFR ( Amer) > 60 Est GFR (Non-Af Amer) > 60 Glucose 135 H Calcium 9.0 Magnesium 2.1 05/12/18 18:45 Troponin I 0.013 Impressions: Abdomen/Pelvis CT 05/12/18 00:00 IMPRESSION: Similar appearance of these sclerotic intramedullary areas in the left iliac bone adjacent to the SI joint, no focal erosions or significant lytic component. Small sclerotic areas are noted in the L5 vertebral body as well. No fracture. These findings could be further evaluated with whole-body bone scan. Bilateral basilar subsegmental atelectasis. Lumbar Spine CT 05/12/18 10:14 IMPRESSION: 1. Multilevel degenerative disc disease with facet arthropathy and hypertrophy. 2. Mixed osteolytic and osteosclerotic changes left ilium. Possibility of Paget's disease versus metastatic disease not excluded. Follow- up with total body bone scan would be a consideration. Head CT 05/12/18 10:46 IMPRESSION: CHRONIC SINUSITIS. NO SIGNIFICANT INTERVAL CHANGE. EVIDENCE OF ACUTE STROKE: NO. Body Scan Nuclear Medicine 05/13/18 00:00 IMPRESSION: NORMAL BONE SCAN. Chest X-Ray 05/13/18 07:00 IMPRESSION: NO ACUTE RADIOGRAPHIC FINDING IN THE CHEST. Chest CT 05/14/18 00:00 IMPRESSION: Occasional ground-glass nodules primarily in the upper lobes. These are too small to characterize by PET and will need serial followup. Assessment & Plan - Diagnosis (1) Lung nodule, multiple Is this a current diagnosis for this admission?: Yes - Time Time Spent with patient: 15-24 minutes Medications reviewed and adjusted accordingly: Yes Anticipated discharge: Home Within: within 48 hours - Plan Summary Plan Summary: Sepsis leukocytosis and tachycardia as well as hypotension and source infection. This seems to be resolving 2. Pneumonia left lower lobe. CT scan shows multiple small nodules that need to be followed as outpatient. Patient is currently on Zithromax and ceftriaxone day #3 3. Acute hypoxemic respiratory failure secondary to pneumonia this is resolving 4. Osteolytic lesion with negative bone scan 5. Bipolar disorder for outpatient follow-up 6. Hypertension stable 7. Tobacco abuse disorder 8. Hyper lipid 9. Type 2 diabetes mellitus diet-controlled 10. Anemia likely secondary to evaluation there is no clinical evidence of acute blood loss 11. Blood culture from May 12 reveals gram-positive cocci in clusters. This is 1 of 2 bottles. Will repeat blood cultures as well as follow up on the results of this 1 once organisms identified. I will go ahead and schedule an echocardiogram due to the gram-positive bacteremia. Unfortunately there is no sputum culture to identify the source of the bacteremia if it is a true infection which is in doubt. Will hold off on changing his abx right now as he is asymptomatic
[2018-05-14] MEDS: TRAMADOL HCL 50 MG TABLET PO PRN (16:30)
[2018-05-14] MEDS: MONTELUKAST SODIUM 10 MG TABLET PO SCH (21:37)
[2018-05-14] MEDS: DONEPEZIL HCL 5 MG TABLET PO SCH (21:37)
[2018-05-15] MEDS: LEVALBUTEROL HCL NEB 1.25 MG/3 ML AMPUL NEB SCH ×5 (04:16→19:21)
[2018-05-15] MEDS: HEPARIN SOD (PORCINE) 5,000 UNIT/ML 1 ML SYRINGE SUBCUT SCH ×3 (05:38→21:34)
[2018-05-15] MEDS: LEVOTHYROXINE SODIUM 0.1 MG TABLET PO SCH (05:39)
[2018-05-15] MEDS: LEVOTHYROXINE SODIUM 0.025 MG TABLET PO SCH (05:39)
[2018-05-15] MEDS: TORSEMIDE 20 MG TABLET PO SCH ×3 (08:02→17:29)
[2018-05-15] MEDS: BENZTROPINE MESYLATE 1 MG TABLET PO SCH (10:20)
[2018-05-15] MEDS: MULTIVITAMIN TABLET PO SCH (10:21)
[2018-05-15] MEDS: FLUTICASONE/SALMETEROL DISKUS 500-50 MCG/DOSE IH SCH ×2 (10:21→21:32)
[2018-05-15] MEDS: DIVALPROEX SODIUM 500 MG TAB.SR.24H PO SCH (10:21)
[2018-05-15] MEDS: PREDNISONE 20 MG TABLET PO SCH (10:21)
[2018-05-15] MEDS: TIOTROPIUM BROMIDE DPI 5 CAP/KIT (18 MCG/CAP) IH SCH (10:21)
[2018-05-15] MEDS: CEFTRIAXONE SODIUM 1,000 MG in DEXTROSE 5%-WATER 50 ML IV SCH (10:22)
[2018-05-15] MEDS: AZITHROMYCIN 500 MG in DEXTROSE 5%-WATER 250 ML IV SCH (11:14)
--- NOTE | 2018-05-15 17:24 | PDOC PROGRESS REPORT ---
Subjective Progress Note for:: 05/15/18 Subjective:: Patient was admitted with difficulty breathing and shortness of breath and was found to have a left lower lobe pneumonia. He was noted to have some questionable osteolytic changes in the left ilium. Bone scan was done as follow -up and this was unremarkable. Patient seen on rounds today and he tells me that his feeling better and is ready to go home. His breathing is improved and he denies any chest pain. I did explain to him that his blood cultures are pending as well as echocardiogram and although his COPD anxious to go home and understands I will have to wait for the results Reason For Visit: SEVERE SEPSIS,PNEUMONIA Physical Exam Vital Signs: Temp Pulse Resp BP Pulse Ox 97.4 F 92 16 120/82 96 05/15/18 15:25 05/15/18 16:35 05/15/18 16:35 05/15/18 15:25 05/15/18 16:35 Intake & Output 05/14/18 05/15/18 05/16/18 06:59 06:59 06:59 Intake Total 2861 2567 854 Output Total 700 Balance 2861 1867 854 Weight 97.6 kg 94.2 kg General appearance: PRESENT: no acute distress, well-developed, well-nourished Head exam: PRESENT: atraumatic, normocephalic Eye exam: PRESENT: conjunctiva pink, EOMI, PERRLA. ABSENT: scleral icterus Ear exam: PRESENT: normal external ear exam Mouth exam: PRESENT: moist, tongue midline Neck exam: ABSENT: carotid bruit, JVD, lymphadenopathy, thyromegaly Respiratory exam: PRESENT: clear to auscultation gaby. ABSENT: rales, rhonchi, wheezes Cardiovascular exam: PRESENT: RRR. ABSENT: diastolic murmur, rubs, systolic murmur Pulses: PRESENT: normal dorsalis pedis pul Vascular exam: PRESENT: normal capillary refill GI/Abdominal exam: PRESENT: normal bowel sounds, soft. ABSENT: distended, guarding, mass, organolmegaly, rebound, tenderness Rectal exam: PRESENT: deferred Extremities exam: PRESENT: full ROM. ABSENT: calf tenderness, clubbing, pedal edema Neurological exam: PRESENT: alert, awake, oriented to person, oriented to place , oriented to time, oriented to situation, CN II-XII grossly intact, other - Resting tremors. ABSENT: motor sensory deficit Psychiatric exam: PRESENT: appropriate affect. ABSENT: homicidal ideation, suicidal ideation Skin exam: PRESENT: dry, intact, warm. ABSENT: cyanosis, rash Results Laboratory Results: 05/14/18 04:43 05/14/18 04:43 05/12/18 18:45 Troponin I 0.013 Impressions: Abdomen/Pelvis CT 05/12/18 00:00 IMPRESSION: Similar appearance of these sclerotic intramedullary areas in the left iliac bone adjacent to the SI joint, no focal erosions or significant lytic component. Small sclerotic areas are noted in the L5 vertebral body as well. No fracture. These findings could be further evaluated with whole-body bone scan. Bilateral basilar subsegmental atelectasis. Lumbar Spine CT 05/12/18 10:14 IMPRESSION: 1. Multilevel degenerative disc disease with facet arthropathy and hypertrophy. 2. Mixed osteolytic and osteosclerotic changes left ilium. Possibility of Paget's disease versus metastatic disease not excluded. Follow- up with total body bone scan would be a consideration. Head CT 05/12/18 10:46 IMPRESSION: CHRONIC SINUSITIS. NO SIGNIFICANT INTERVAL CHANGE. EVIDENCE OF ACUTE STROKE: NO. Body Scan Nuclear Medicine 05/13/18 00:00 IMPRESSION: NORMAL BONE SCAN. Chest X-Ray 05/13/18 07:00 IMPRESSION: NO ACUTE RADIOGRAPHIC FINDING IN THE CHEST. Chest CT 05/14/18 00:00 IMPRESSION: Occasional ground-glass nodules primarily in the upper lobes. These are too small to characterize by PET and will need serial followup. Assessment & Plan - Diagnosis (1) Lung nodule, multiple Is this a current diagnosis for this admission?: Yes - Time Time Spent with patient: 15-24 minutes Medications reviewed and adjusted accordingly: Yes Anticipated discharge: Home with Homehealth Within: within 24 hours - Inpatient Certification Based on my medical assessment, after consideration of the patient's comorbidities, presenting symptoms, or acuity I expect that the services needed warrant INPATIENT care.: Yes Medical Necessity: Need for IV Antibiotics - Plan Summary Plan Summary: Sepsis leukocytosis and tachycardia as well as hypotension and pneumonia. Resolved 2. Pneumonia left lower lobe. CT scan shows multiple small nodules that need to be followed as outpatient. Patient is currently on Zithromax and ceftriaxone day #4 3. Acute hypoxemic respiratory failure secondary to pneumonia this is resolved 4. Osteolytic lesion with negative bone scan 5. Bipolar disorder for outpatient follow-up 6. Hypertension stable 7. Tobacco abuse disorder 8. Hyper lipid 9. Type 2 diabetes mellitus diet-controlled 10. Anemia likely secondary to evaluation there is no clinical evidence of acute blood loss 11. Blood culture from May 12 reveals gram-positive cocci in clusters. This is 1 of 2 bottles. Repeat blood culture results is pending and echocardiogram is also pending. Hopefully once the results are available patient can be discharged home any as he is otherwise hemodynamically stable
[2018-05-15] MEDS: DONEPEZIL HCL 5 MG TABLET PO SCH (21:31)
[2018-05-15] MEDS: TRAMADOL HCL 50 MG TABLET PO PRN (21:31)
[2018-05-15] MEDS: MONTELUKAST SODIUM 10 MG TABLET PO SCH (21:34)
[2018-05-16] MEDS: LEVALBUTEROL HCL NEB 1.25 MG/3 ML AMPUL NEB SCH ×3 (00:44→07:53)
[2018-05-16] MEDS: TRAMADOL HCL 50 MG TABLET PO PRN (02:27)
[2018-05-16] MEDS: LEVOTHYROXINE SODIUM 0.025 MG TABLET PO SCH (05:29)
[2018-05-16] MEDS: LEVOTHYROXINE SODIUM 0.1 MG TABLET PO SCH (05:30)
[2018-05-16] MEDS: HEPARIN SOD (PORCINE) 5,000 UNIT/ML 1 ML SYRINGE SUBCUT SCH (05:31)
[2018-05-16] MEDS: TORSEMIDE 20 MG TABLET PO SCH (08:29)
--- NOTE | 2018-05-16 09:30 | PDOC DISCHARGE SUMMARY ---
General - Admit/Disc Date/PCP Admission Date/Primary Care Provider: 05/12/18 12:02 SHYAM PARDO PA-C Discharge Date: 05/16/18 - Discharge Diagnosis (1) Lung nodule, multiple Is this a current diagnosis for this admission?: Yes Summary: Outpatient follow-up with repeat imaging scan is suggested (2) Acute respiratory failure Is this a current diagnosis for this admission?: Yes (3) Anemia Is this a current diagnosis for this admission?: Yes (4) Bipolar disorder Is this a current diagnosis for this admission?: Yes (5) Diabetes mellitus Is this a current diagnosis for this admission?: Yes (6) Pneumonia involving left lung Is this a current diagnosis for this admission?: Yes (7) Sepsis Is this a current diagnosis for this admission?: Yes - Additional Information Discharge Activity: Activity As Tolerated Prescriptions: Cefuroxime Axetil [Ceftin 500 mg Tablet] 500 mg PO BID #10 tablet Prednisone [Deltasone 20 mg Tablet] 40 mg PO DAILY #3 tablet Home Medications: Diazepam [Valium 5 mg Tablet] 5 mg PO DAILY 11/21/16 Diazepam [Valium] 10 mg PO QHS 11/21/16 Divalproex Sodium [Divalproex Sodium ER] 500 mg PO DAILY 11/21/16 Donepezil HCl [Aricept 5 mg Tablet] 10 mg PO QHS 11/21/16 Levothyroxine Sodium [Synthroid] 125 mcg PO Q6AM 11/21/16 Omeprazole 20 mg PO BID 11/21/16 Prazosin HCl [Minipress] 2 mg PO DAILY 11/21/16 Albuterol Sulfate [Proair HFA] 2 puff IH Q6HP PRN 01/28/18 Asenapine Maleate [Saphris] 10 mg SL Q12 01/28/18 Benztropine Mesylate [Cogentin 1 mg Tablet] 1 mg PO DAILY 01/28/18 Gabapentin [Neurontin 100 mg Capsule] 200 mg PO Q8 01/28/18 Multivitamin [Tab-A-Anat (Multiple Vitamin) Tablet] 1 tab PO DAILY 01/28/18 Fluticasone/Salmeterol [Advair 500-50 Diskus 14 Dose/Diskus] 1 inh IH Q12H #60 inhaler 01/30/18 Montelukast Sodium [Singulair 10 mg Tablet] 10 mg PO QHS #30 tablet 01/30/18 Tiotropium Gary [Spiriva Handihaler 18 mcg/dose (30 Dose)] 1 cap IH DAILY # 30 capsule 01/30/18 Torsemide [Demadex 20 mg Tablet] 20 mg PO TID 05/12/18 Trazodone HCl 100 mg PO QHS 05/12/18 Cefuroxime Axetil [Ceftin 500 mg Tablet] 500 mg PO BID #10 tablet 05/16/18 Prednisone [Deltasone 20 mg Tablet] 40 mg PO DAILY #3 tablet 05/16/18 History of Present Illness History of Present Illness: WOODROW GOODWIN is a 63 year old male with a past medical history of hypertension, COPD, diabetes, reflux, coronary artery disease, frequent falls and recently started on torsemide for lower extremity edema, who presented to the ED via EMS for shaking and chills 1 day. Patient is a very poor historian and is a questionable history of dementia. Part of the history is obtained by his neighbor, Giancarlo, who is at bedside and who accompanied him to the ER today. Unfortunately his neighbor is not well versed in all his medical problems but was able to provide me with some history. I gathered all history from patient, neighbor and ED physician. As far as patient goes he tells me that this morning he was not feeling so well. He takes me that he has been having chills and has been shaking this morning. And hence he called EMS for help. He denies chest pain, abdominal pain, nausea/vomiting, diarrhea, dizziness or headaches. Patient does admits to a cough but he thinks it is chronic. Denies any sputum production. He denies any recent travel, sick contacts, or change in the medication in the last few weeks. As per ER physician he has been having multiple falls in the last few weeks but patient did not mention this to me. Hence a CT of the lumbar spine was done in the ED. His neighbor is at bedside and tell me that he was not feeling so well and she is on calling the EMS today because he was short of breath. Hospital Course Hospital Course: This patient was admitted with difficulty breathing and shortness of breath and found to have a left lower lobe pneumonia. He was started on IV antibiotics and patient was also treated with oxygen as he was found to be hypoxemic. He does have a history of chronic respiratory failure and is supposed to use oxygen although he is noncompliant with 8. He had a CT scan done which showed multiple tiny lung nodules with suggestion to follow this up as outpatient. Patient was initially sepsis on admission due to pneumonia but this is all cleared and he has continued to improve at this time it appears patient can be discharged home. Physical Exam Vital Signs: Temp Pulse Resp BP Pulse Ox 98.4 F 92 17 110/66 95 05/16/18 03:50 05/16/18 08:18 05/16/18 08:18 05/16/18 03:50 05/16/18 08:18 Intake & Output 05/15/18 05/16/18 05/17/18 06:59 06:59 06:59 Intake Total 2567 1809 Output Total 700 Balance 1867 1809 Weight 94.2 kg 91.6 kg General appearance: PRESENT: no acute distress, disheveled Head exam: PRESENT: atraumatic, normocephalic Eye exam: PRESENT: conjunctiva pink, EOMI, PERRLA. ABSENT: scleral icterus Ear exam: PRESENT: normal external ear exam Mouth exam: PRESENT: moist, tongue midline Neck exam: ABSENT: carotid bruit, JVD, lymphadenopathy, thyromegaly Respiratory exam: PRESENT: clear to auscultation gaby. ABSENT: rales, rhonchi, wheezes Cardiovascular exam: PRESENT: RRR. ABSENT: diastolic murmur, rubs, systolic murmur Pulses: PRESENT: normal dorsalis pedis pul Vascular exam: PRESENT: normal capillary refill GI/Abdominal exam: PRESENT: normal bowel sounds, soft. ABSENT: distended, guarding, mass, organolmegaly, rebound, tenderness Rectal exam: PRESENT: deferred Extremities exam: PRESENT: full ROM. ABSENT: calf tenderness, clubbing, pedal edema Neurological exam: PRESENT: alert, awake, oriented to person, oriented to place , oriented to time, oriented to situation, CN II-XII grossly intact, other - resting tremors. ABSENT: motor sensory deficit Psychiatric exam: PRESENT: appropriate affect. ABSENT: homicidal ideation, suicidal ideation Skin exam: PRESENT: dry, intact, warm. ABSENT: cyanosis, rash Results Laboratory Results: 05/14/18 04:43 05/14/18 04:43 05/12/18 18:45 Troponin I 0.013 Impressions: Abdomen/Pelvis CT 05/12/18 00:00 IMPRESSION: Similar appearance of these sclerotic intramedullary areas in the left iliac bone adjacent to the SI joint, no focal erosions or significant lytic component. Small sclerotic areas are noted in the L5 vertebral body as well. No fracture. These findings could be further evaluated with whole-body bone scan. Bilateral basilar subsegmental atelectasis. Lumbar Spine CT 05/12/18 10:14 IMPRESSION: 1. Multilevel degenerative disc disease with facet arthropathy and hypertrophy. 2. Mixed osteolytic and osteosclerotic changes left ilium. Possibility of Paget's disease versus metastatic disease not excluded. Follow- up with total body bone scan would be a consideration. Head CT 05/12/18 10:46 IMPRESSION: CHRONIC SINUSITIS. NO SIGNIFICANT INTERVAL CHANGE. EVIDENCE OF ACUTE STROKE: NO. Body Scan Nuclear Medicine 05/13/18 00:00 IMPRESSION: NORMAL BONE SCAN. Chest X-Ray 05/13/18 07:00 IMPRESSION: NO ACUTE RADIOGRAPHIC FINDING IN THE CHEST. Chest CT 05/14/18 00:00 IMPRESSION: Occasional ground-glass nodules primarily in the upper lobes. These are too small to characterize by PET and will need serial followup. Qualifiers - * PATIENT BEING DISCHARGED WITH ANY OF THE FOLLOWING DIAGNOSIS: No Plan Time Spent: Greater than 30 Minutes
[2018-05-16 10:32] VITALS: BP 102/58
[2018-05-16] MEDS: MULTIVITAMIN TABLET PO SCH (10:35)
[2018-05-16] MEDS: DIVALPROEX SODIUM 500 MG TAB.SR.24H PO SCH (10:35)
[2018-05-16] MEDS: FLUTICASONE/SALMETEROL DISKUS 500-50 MCG/DOSE IH SCH (10:36)
[2018-05-16] MEDS: BENZTROPINE MESYLATE 1 MG TABLET PO SCH (10:36)
[2018-05-16] MEDS: TIOTROPIUM BROMIDE DPI 5 CAP/KIT (18 MCG/CAP) IH SCH (10:37)
[2018-05-16] MEDS: PREDNISONE 20 MG TABLET PO SCH (10:38)
== END 2018-05-16 10:57 | disposition home health service (06) | DRG 871 ==
LOC: ER 09:10 → EH 12:02 → 3S 15:47
PROVIDERS: ADMIT Family Medicine; ATTEND Family Medicine
PROC: 3E0F73Z Introduction of Anti-inflammatory into Respiratory Tract, Via Natural or Artificial Opening (ICD-10-PCS; principal; 2018-05-12)
DX: A40.3 Sepsis due to Streptococcus pneumoniae (principal); J96.21 Acute and chronic respiratory failure with hypoxia; R65.20 Severe sepsis without septic shock; J18.1 Lobar pneumonia, unspecified organism; J44.0 Chronic obstructive pulmonary disease with (acute) lower respiratory infection; F31.64 Bipolar disorder, current episode mixed, severe, with psychotic features; R91.8 Other nonspecific abnormal finding of lung field; D64.9 Anemia, unspecified; E11.9 Type 2 diabetes mellitus without complications; J44.9 Chronic obstructive pulmonary disease, unspecified; I25.10 Atherosclerotic heart disease of native coronary artery without angina pectoris; K21.9 Gastro-esophageal reflux disease without esophagitis; J32.9 Chronic sinusitis, unspecified; M51.36 Other intervertebral disc degeneration, lumbar region; E78.00 Pure hypercholesterolemia, unspecified; M19.90 Unspecified osteoarthritis, unspecified site; E03.9 Hypothyroidism, unspecified; F03.90 Unspecified dementia, unspecified severity, without behavioral disturbance, psychotic disturbance, mood disturbance, and anxiety; F17.210 Nicotine dependence, cigarettes, uncomplicated; E66.9 Obesity, unspecified; N40.0 Benign prostatic hyperplasia without lower urinary tract symptoms; I10 Essential (primary) hypertension; M89.58 Osteolysis, other site; Z68.29 Body mass index [BMI] 29.0-29.9, adult; I25.2 Old myocardial infarction; Z79.899 Other long term (current) drug therapy; Z79.51 Long term (current) use of inhaled steroids; Z91.81 History of falling; Z99.81 Dependence on supplemental oxygen; Z91.19 Patient's noncompliance with other medical treatment and regimen
CPT/HCPCS: 36415; 36600; 70450; 71045; 71046; 71260; 72131; 74177; 78306; 80048; 80053; 80307; 81001; 82803; 83036; 83605; 83735; 84153; 84443; 84484; 85025; 85027; 85610; 87040; 87077; 87086; 87186; 93005; 93010; 94640; 96361; 96365; 99291; A9561; J0456; J0696; J1644; J3490; J7030; J7060; J7512; Q9969; S0164

== ENCOUNTER 2018-05-20 11:23 | Emergency (ER) | payer MEDICARE, MEDICAID ==
[2018-05-20] MEDS ORDERED: IPRATROPIUM/ALBUTEROL 0.5-2.5 MG/3 ML AMPUL NEB ONE (12:09)
[2018-05-20] MEDS ORDERED: NORMAL SALINE 1000 ML 1,000 ML IV ONE (12:10)
--- NOTE | 2018-05-20 12:20 | ER Document Report ---
ED Blood Sugar Problem - General Mode of Arrival: Ambulatory Information source: Patient TRAVEL OUTSIDE OF THE [place] IN LAST 30 DAYS: No <ADRIEL NELSON - Last Filed: 05/20/18 12:33> <VIRGIL GUTIERREZ - Last Filed: 05/20/18 14:27> - General Chief Complaint: High Blood Sugar Stated Complaint: BLOOD SUGAR ISSUES Time Seen by Provider: 05/20/18 11:54 Notes: 63-year-old male that presents to the emergency department today with complaints of generalized weakness and lethargy. Patient was admitted from 05/12- 05/16 for COPD exacerbation and was sent home on 40 mg of prednisone for 3 days. Patient states he had been told he was borderline diabetic but it appears the steroids have quite significantly elevated his sugars. Patient states he has had frequent urination over the last few days. (ADRIEL NELSON) History from family member shows a fairly lengthy log of the patient's blood sugars in the last several weeks. The patient sugars have been in the 110-135 140 range for quite some time. Since he was discharged home 4 days ago, he has refrained from smoking cigarettes, but was given a dish of candy to eat as a replacement. That in addition to the high-dose steroids he was sent home on is probably the reason his sugars are gotten so high at home. A long discussion was had with the patient and family member about not eating the extra sugar. He is no longer on prednisone so his sugars should get back to the slightly elevated baseline that he has been at. He does have a follow- up appointment with his primary care provider tomorrow, he was given a copy of his lab work from today to take to that appointment. (VIRGIL GUTIERREZ) - Related Data Allergies/Adverse Reactions: No Known Allergies Allergy (Verified 05/20/18 11:44) Past Medical History - General Information source: Patient - Social History Smoking Status: Former Smoker Cigarette use (# per day): No Chew tobacco use (# tins/day): No Frequency of alcohol use: None Drug Abuse: None Lives with: Family Family History: None Patient has suicidal ideation: No Patient has homicidal ideation: No - Past Medical History Cardiac Medical History: Reports: Hx Congestive Heart Failure, Hx Coronary Artery Disease, Hx Heart Attack, Hx Hypercholesterolemia, Hx Hypertension Pulmonary Medical History: Reports: Hx Asthma, Hx Bronchitis, Hx COPD Neurological Medical History: Reports: Hx Cerebrovascular Accident Endocrine Medical History: Reports: Hx Diabetes Mellitus Type 2, Hx Hypothyroidism Renal/ Medical History: Reports: Hx Benign Prostatic Hyperplasia GI Medical History: Reports: Hx Gastroesophageal Reflux Disease Musculoskeletal Medical History: Reports Hx Arthritis, Reports Hx Musculoskeletal Trauma Psychiatric Medical History: Reports: Hx Anxiety, Hx Bipolar Disorder, Hx Dementia, Hx Depression Past Surgical History: Reports: Hx Appendectomy, Hx Genitourinary Surgery - TURP , Hx Orthopedic Surgery - Right ankle surgery in 1982 or 1983 when he had a muscle from the leg moved, Hx Thyroid Surgery, Hx Tonsillectomy, Other - TURP per patient. - Immunizations Hx Diphtheria, Pertussis, Tetanus Vaccination: No <ADRIEL NELSON - Last Filed: 05/20/18 12:33> Review of Systems - Review of Systems Constitutional: See HPI, Weakness EENT: No symptoms reported Cardiovascular: No symptoms reported Respiratory: See HPI, Short of breath, Wheezing Gastrointestinal: No symptoms reported Genitourinary: See HPI, Frequency Male Genitourinary: No symptoms reported Musculoskeletal: No symptoms reported Skin: No symptoms reported Hematologic/Lymphatic: No symptoms reported Neurological/Psychological: No symptoms reported -: Yes All other systems reviewed and negative <ADRIEL NELSON - Last Filed: 05/20/18 12:33> Physical Exam <ADRIEL NELSON - Last Filed: 05/20/18 12:33> <VIRGIL GUTIERREZ - Last Filed: 05/20/18 14:27> - Vital signs Vitals: Resp 19 05/20/18 11:35 - Notes Notes: Physical Exam: General: Alert, appears well. HEENT: Normocephalic. Atraumatic. PERRL. Extraocular movements intact. Oropharynx clear. Neck: Supple. Non-tender. Respiratory: No respiratory distress. Tachypnea. Wheezing and rhonchi throughout bilaterally. Cardiovascular: Regular rate and rhythm. Abdominal: Obese. Non-tender. No distension. Normal Bowel Sounds. Back: Non-tender. No deformity or step off. Extremities: Moves all four extremities. Upper extremities: Normal inspection. Normal ROM. Lower extremities: Normal inspection. No edema. Normal ROM. Neurological: Normal cognition. AAOx4. Normal speech. Psychological: Normal affect. Normal Mood. Skin: Warm. Dry. Normal color. (ADRIEL NELSON) Course - Laboratory Result Diagrams: 05/20/18 11:46 05/20/18 11:46 <ADRIEL NELSON - Last Filed: 05/20/18 12:33> - Laboratory Result Diagrams: 05/20/18 12:56 05/20/18 12:56 - EKG Interpretation by Id EKG shows normal: Sinus rhythm, [place], Intervals, QRS Complexes, ST-T Waves Rate: Tachycardia - 100 When compared to previous EKG there are: No significant change <VIRGIL GUTIERREZ - Last Filed: 05/20/18 14:27> - Re-evaluation Re-evalutation: 05/20/18 13:17 The patient is complaining of aching in his back which is not a new problem and would like some medicine for that. He will be given a small dose of Toradol. ( VIRGIL GUTIERREZ) - Vital Signs Vital signs: Temp Pulse Resp BP Pulse Ox 22 H 122/64 98 05/20/18 13:02 05/20/18 13:02 05/20/18 13:02 - Laboratory Laboratory results interpreted by fl: 05/20/18 05/20/18 05/20/18 11:46 12:56 12:56 WBC 13.4 H RDW 14.9 H Seg Neutrophils % 78.9 H Absolute Neutrophils 10.6 H Sodium 135.5 L Chloride 93 L BUN 32 H Glucose 374 H Hemoglobin A1c % Urine Glucose (UA) >=500 H 05/20/18 12:56 WBC RDW Seg Neutrophils % Absolute Neutrophils Sodium Chloride BUN Glucose Hemoglobin A1c % 6.8 H Urine Glucose (UA) Discharge <ADRIEL NELSON - Last Filed: 05/20/18 12:33> <VIRGIL GUTIERREZ - Last Filed: 05/20/18 14:27> - Discharge Clinical Impression: Hyperglycemia, drug-induced, Insulin resistance COPD (chronic obstructive pulmonary disease) Qualifiers: COPD type: unspecified COPD Qualified Code(s): J44.9 - Chronic obstructive pulmonary disease, unspecified Condition: Stable Disposition: HOME, SELF-CARE Additional Instructions: Continue your regular medications. Drink plenty of fluids. Try to avoid added sugar in your diet. Follow-up with your doctor tomorrow as planned. RETURN TO THE EMERGENCY ROOM IF ANY NEW OR WORSENING SYMPTOMS. Referrals: SHYAM PARDO PA-C [Primary Care Provider] - Follow up tomorrow Scribe Attestation: 05/20/18 12:46 I personally performed the services described in the documentation, reviewed and edited the documentation which was dictated to the scribe in my presence, and it accurately records my words and actions. (VIRGIL GUTIERREZ) Scribe Documentation - Scribe Written by Damon:: Damon Carrasco, 05/20/2018 1232 acting as scribe for :: Raeann <ADRIEL NELSON - Last Filed: 05/20/18 12:33>
[2018-05-20 12:30] LABS: APPEARANCE,URINE CLEAR; BILIRUBIN,URINE NEGATIVE (NEGATIVE); COLOR,URINE STRAW; GLUCOSE, URINE >=500 mg/dL (NEGATIVE); KETONES,URINE NEGATIVE (NEGATIVE); LEUKOCYTE ESTERASE,URINE NEGATIVE (NEGATIVE); NITRITE,URINE NEGATIVE (NEGATIVE); PROTEIN,URINE NEGATIVE (NEGATIVE); URINE SPECIFIC GRAVITY 1.011; UROBILINOGEN,URINE NEGATIVE mg/dL (<2.0)
--- NOTE | 2018-05-20 12:44 | EKG REPORT ---
SEVERITY:- ABNORMAL ECG - SINUS TACHYCARDIA NONSPECIFIC ST-T CHANGES DIFFUSE., NEW CHANGE FROM 05/13/18 EKG : Confirmed by: Korey Zavaleta MD 20-May-2018 12:44:10
[2018-05-20] MEDS ORDERED: KETOROLAC TROMETHAMINE INJ/PF 30 MG/1 ML SDV IV ONE (13:16)
[2018-05-20 13:20] LABS: ABSOLUTE BASOPHILS # (AUTO) 0.1 10^3/uL (0.0-0.2); ABSOLUTE EOSINOPHILS # (AUTO) 0.1 10^3/uL (0.0-0.6); ABSOLUTE LYMPHOCYTES (AUTO) 1.7 10^3/uL (0.5-4.7); ABSOLUTE MONOCYTES (AUTO) 0.9 10^3/uL (0.1-1.4); ABSOLUTE NEUT (AUTO) 10.6 10^3/uL (1.7-8.2); BASOPHILS % (AUTO) 0.4 % (0-2); EOSINOPHILS % (AUTO) 0.7 % (0-6); HEMATOCRIT 42.5 % (37.9-51.0); HEMOGLOBIN 14.1 g/dL (13.5-17.0); MEAN CORPUSCULAR HEMOGLOBIN 29.3 pg (27.0-33.4); MEAN CORPUSCULAR HGB CONC 33.3 g/dL (32.0-36.0); MEAN CORPUSCULAR VOLUME 88 fl (80-97); PLATELET COUNT 188 10^3/uL (150-450); RED BLOOD COUNT 4.83 10^6/uL (4.35-5.55); RED CELL DISTRIBUTION WIDTH 14.9 % (11.5-14.0); SEGMENTED NEUTROPHILS % (AUTO) 78.9 % (42-78); TOTAL CELLS COUNTED % (AUTO) 100 %; WHITE BLOOD COUNT 13.4 10^3/uL (4.0-10.5)
[2018-05-20 13:30] LABS: ALANINE AMINOTRANSFERASE 48 U/L (21-72); ALBUMIN 4.1 g/dL (3.5-5.0); ALKALINE PHOSPHATASE 43 U/L (38-126); ANION GAP 15 (5-19); ASPARTATE AMINO TRANSFERASE 20 U/L (17-59); BILIRUBIN,DIRECT 0.3 mg/dL (0.0-0.4); BILIRUBIN,TOTAL 0.5 mg/dL (0.2-1.3); BLOOD UREA NITROGEN 32 mg/dL (7-20); CALCIUM 9.4 mg/dL (8.4-10.2); CARBON DIOXIDE 28 mmol/L (22-30); CHLORIDE 93 mmol/L (98-107); CREATINE KINASE 140 U/L (55-170); GLUCOSE 374 mg/dL (75-110); POTASSIUM 4.7 mmol/L (3.6-5.0); SODIUM 135.5 mmol/L (137-145); TOTAL PROTEIN 6.8 g/dL (6.3-8.2)
[2018-05-20 13:50] LABS: CREATINE KINASE MB 1.61 ng/mL (<4.55)
[2018-05-20 13:56] LABS: TROPONIN I < 0.012 ng/mL
[2018-05-20] MEDS ORDERED: ALBUTEROL SULFATE 0.083% NEB 2.5 MG/3 ML AMPUL NEB ONE (14:00)
[2018-05-20 14:31] VITALS: BP 113/86
== END 2018-05-20 14:58 | disposition home or self-care (01) ==
LOC: ER 11:23
DX: R73.9 Hyperglycemia, unspecified (principal); T38.0X5A Adverse effect of glucocorticoids and synthetic analogues, initial encounter; R53.1 Weakness; R53.83 Other fatigue; J44.9 Chronic obstructive pulmonary disease, unspecified; M54.9 Dorsalgia, unspecified; R06.02 Shortness of breath; R00.0 Tachycardia, unspecified; R35.0 Frequency of micturition; I25.10 Atherosclerotic heart disease of native coronary artery without angina pectoris; I10 Essential (primary) hypertension; Z87.891 Personal history of nicotine dependence
CPT/HCPCS: 93005; 94640 ×2; 99284; 96361; 96374; 36415; 82553; 82962; 82550; 85025; 80053; 81001; 84484; 83036; 83605; 93010; J1885; J7030; A9270 ×2; J7620

== ENCOUNTER → 2018-06-18 | Outpatient (CLI) | payer MEDICARE, MEDICAID ==
--- NOTE | 2018-06-18 10:26 | WOMENS IMAGING REPORT ---
EXAM DESCRIPTION: BONE DENSITY HIP/SPINE COMPLETED DATE/TIME: 06/18/2018 10:06 am REASON FOR STUDY: BONE DENSITY TEST/M81.0 M88.9 OSTEITIS DEFORMANS OF UNSPECIFIED BONE M81.0 AGE-R ELATED OSTEOPOROSIS W/O CURRENT PATHOLOGICAL FRAC COMPARISON: None. TECHNIQUE: Dual-Energy X-ray Absorptiometry (DEXA) of the AP Spine and Hip. LIMITATIONS: None. FINDINGS: LUMBAR SPINE: The bone mineral density (BMD) measured from L1-L4 in the AP projection correlates with a T-score of + 0.3, which is normal as defined by the World Health Organization. HIP: The bone mineral density (BMD) measured in the left femoral neck at the hip correlates with a T-score of -1.1, which is osteopenic as defined by the World Health Organization. IMPRESSION: 1. LUMBAR SPINE: Normal 2. HIP: Osteopenic COMMENT: The World Health Organization defines low BMD as follows: T-score: Normal: Greater than -1.0 Osteopenia: Between -1.0 and -2.5 Osteoporosis: Less than -2.5 without fractures Established osteoporosis: Less than -2.5 with fractures In general, you may wish to consider: Diagnosis Treatment Follow-up DEXA Normal BMD Prevention 2-3 years Osteopenia Prevention/Therapy 1-2 years Osteoporosis Therapy Yearly TECHNICAL DOCUMENTATION: JOB ID: [id number] [employer]- All Rights Reserved Reading location - IP/workstation name: [email or web address]
== END ==
LOC: WI 09:22
PROVIDERS: ATTEND Physician Assistant Medical
DX: M81.0 Age-related osteoporosis without current pathological fracture (principal)
CPT/HCPCS: 77080

== ENCOUNTER 2018-07-29 13:24 | Emergency (ER) | payer MEDICARE, MEDICAID ==
[2018-07-29] MEDS ORDERED: IPRATROPIUM/ALBUTEROL 0.5-2.5 MG/3 ML AMPUL NEB ONE (14:15)
[2018-07-29 14:19] LABS: ABSOLUTE LYMPHOCYTES (AUTO) 0.5 10^3/uL (0.5-4.7); ABSOLUTE MONOCYTES (AUTO) 0.2 10^3/uL (0.1-1.4); ABSOLUTE NEUT (AUTO) 5.9 10^3/uL (1.7-8.2); BASOPHILS % (AUTO) 0.3 % (0-2); EOSINOPHILS % (AUTO) 0.1 % (0-6); HEMATOCRIT 40.7 % (37.9-51.0); HEMOGLOBIN 13.7 g/dL (13.5-17.0); LYMPHOCYTES % (AUTO) 7.4 % (13-45); MEAN CORPUSCULAR HEMOGLOBIN 29.8 pg (27.0-33.4); MEAN CORPUSCULAR HGB CONC 33.7 g/dL (32.0-36.0); MEAN CORPUSCULAR VOLUME 88 fl (80-97); MONOCYTES % (AUTO) 2.5 % (3-13); PLATELET COUNT 182 10^3/uL (150-450); RED CELL DISTRIBUTION WIDTH 14.7 % (11.5-14.0); SEGMENTED NEUTROPHILS % (AUTO) 89.7 % (42-78); TOTAL CELLS COUNTED % (AUTO) 100 %; WHITE BLOOD COUNT 6.6 10^3/uL (4.0-10.5)
--- NOTE | 2018-07-29 14:20 | ER Document Report ---
ED General - General Chief Complaint: High Blood Sugar Stated Complaint: BLOOD SUGAR ISSUES Time Seen by Provider: 07/29/18 14:03 Mode of Arrival: Medic Information source: Patient Notes: 63-year-old male with a history of diabetes presents emergency department with complaints of elevated blood sugars over the last day. Patient states that he has been checking his blood sugar at home and is been reading in the 500s. Patient says he has been taking his medication as directed. He is currently on metformin. Patient denies any associated symptoms. He states that he has had a cough over the last week. Patient has a history of COPD and is on home oxygen as needed. Patient states that his wheezing has been increased. He is been using nebulizer treatments with minimal relief. He is currently on prednisone. Patient does smoke. He denies any chest pain, nausea, vomiting, diarrhea. Patient states that he is currently taking Bactrim. He has a lower extremity cellulitis that his primary care physician is treating. Patient states that he has a follow-up appointment with his primary care physician on Sunday. TRAVEL OUTSIDE OF THE [place] IN LAST 30 DAYS: No - HPI Onset: Last week Onset/Duration: Gradual Quality of pain: No pain Associated symptoms: Nonproductive cough Exacerbated by: Denies Relieved by: Denies Similar symptoms previously: Yes Recently seen / treated by doctor: Yes - Related Data Allergies/Adverse Reactions: No Known Allergies Allergy (Verified 05/20/18 11:44) Past Medical History - General Information source: Patient - Social History Smoking Status: Former Smoker Family History: None, Reviewed & Not Pertinent - Past Medical History Cardiac Medical History: Reports: Hx Congestive Heart Failure, Hx Coronary Artery Disease, Hx Heart Attack, Hx Hypercholesterolemia, Hx Hypertension Pulmonary Medical History: Reports: Hx Asthma, Hx Bronchitis, Hx COPD Neurological Medical History: Reports: Hx Cerebrovascular Accident Endocrine Medical History: Reports: Hx Diabetes Mellitus Type 2, Hx Hypothyroidism Renal/ Medical History: Reports: Hx Benign Prostatic Hyperplasia. Denies: Hx Peritoneal Dialysis GI Medical History: Reports: Hx Gastroesophageal Reflux Disease Musculoskeletal Medical History: Reports Hx Arthritis, Reports Hx Musculoskeletal Trauma Psychiatric Medical History: Reports: Hx Anxiety, Hx Bipolar Disorder, Hx Dementia, Hx Depression Past Surgical History: Reports: Hx Appendectomy, Hx Genitourinary Surgery - TURP , Hx Orthopedic Surgery - Right ankle surgery in 1982 or 1983 when he had a muscle from the leg moved, Hx Thyroid Surgery, Hx Tonsillectomy, Other - TURP per patient. - Immunizations Hx Diphtheria, Pertussis, Tetanus Vaccination: No Review of Systems - Review of Systems Constitutional: No symptoms reported EENT: No symptoms reported Cardiovascular: No symptoms reported Respiratory: Cough, Wheezing Gastrointestinal: No symptoms reported Genitourinary: No symptoms reported Male Genitourinary: No symptoms reported Musculoskeletal: No symptoms reported Skin: No symptoms reported Hematologic/Lymphatic: No symptoms reported Neurological/Psychological: No symptoms reported -: Yes All other systems reviewed and negative Physical Exam - Vital signs Vitals: Temp Resp BP Pulse Ox 98.3 F 22 H 118/70 91 L 07/29/18 13:36 07/29/18 13:36 07/29/18 13:36 07/29/18 13:36 - General Notes: PHYSICAL EXAMINATION: GENERAL: Well-appearing, well-nourished and in no acute distress. HEAD: Atraumatic, normocephalic. EYES: Pupils equal round and reactive to light, extraocular movements intact, sclera anicteric, conjunctiva are normal. ENT: Nares patent, oropharynx clear without exudates. Moist mucous membranes. NECK: Normal range of motion, supple without lymphadenopathy LUNGS: Diffuse wheezing. HEART: Regular rate and rhythm without murmurs ABDOMEN: Soft, nontender, nondistended abdomen. No guarding, no rebound. No masses appreciated. Musculoskeletal: Normal range of motion, no pitting or edema. No cyanosis. NEUROLOGICAL: Cranial nerves grossly intact. Normal speech, normal gait. Normal sensory, motor exams PSYCH: Normal mood, normal affect. SKIN: Warm, Dry, normal turgor, lower extremity cellulitis - improved per patient. Course - Re-evaluation Re-evalutation: 07/29/18 14:39 EKG: Ventricular rate 95, OH interval 160, castration 78, QTc 372, normal sinus rhythm, EKG similar to that done on 05/20/18. 07/29/18 17:39 Labs and imaging obtained. Patient's blood sugar is elevated. No anion gap. No ketones in the urine. Blood sugar is less than 589. Patient given fluids and 10 units of insulin. Blood sugar is decreasing. Diffuse wheezing heard on exam. Patient given a duoneb treatment. On re-evaluation, patient says he's feeling better. Patient has no complaints at this time. Patient states that he wants to go home. He is currently on prednisone for his COPD. This is likely attributing to his hyperglycemia. Patient is also on Bactrim for lower extremity cellulitis. Patient states that the cellulitis is improving. He has a follow-up appointment for a wound check this Sunday. I instructed the patient to continue taking his medication as directed, to follow-up with his primary care physician as scheduled, and to return to the emergency department if he is having worsening symptoms. Patient is agreeable to plan of care. 07/29/18 17:41 - Vital Signs Vital signs: Temp Pulse Resp BP Pulse Ox 98.3 F 16 120/81 94 07/29/18 13:36 07/29/18 14:01 07/29/18 14:01 07/29/18 14:01 - Laboratory Result Diagrams: 07/29/18 13:11 07/29/18 13:11 Laboratory results interpreted by me: 07/29/18 07/29/18 07/29/18 13:11 13:11 14:22 RDW 14.7 H Seg Neutrophils % 89.7 H Lymphocytes % 7.4 L Monocytes % 2.5 L Sodium 132.0 L Chloride 90 L BUN 23 H Creatinine 1.38 H Est GFR (Non-Af Amer) 52 L Glucose 589 H* POC Glucose Urine Glucose (UA) >=500 H 07/29/18 07/29/18 15:46 17:03 RDW Seg Neutrophils % Lymphocytes % Monocytes % Sodium Chloride BUN Creatinine Est GFR (Non-Af Amer) Glucose POC Glucose 388 H 323 H Urine Glucose (UA) Discharge - Discharge Clinical Impression: Hyperglycemia, COPD with acute exacerbation Condition: Good Disposition: HOME, SELF-CARE Instructions: Chronic Obstructive Lung Disease ([facility]), Hyperglycemia ([facility]) Referrals: SHYAM PARDO PA-C [Primary Care Provider] - Follow up as needed
[2018-07-29 14:27] LABS: ALANINE AMINOTRANSFERASE 66 U/L (21-72); ALBUMIN 4.5 g/dL (3.5-5.0); ALKALINE PHOSPHATASE 71 U/L (38-126); ANION GAP 17 (5-19); ASPARTATE AMINO TRANSFERASE 38 U/L (17-59); BILIRUBIN,DIRECT 0.2 mg/dL (0.0-0.4); BILIRUBIN,TOTAL 0.4 mg/dL (0.2-1.3); BLOOD UREA NITROGEN 23 mg/dL (7-20); CALCIUM 9.8 mg/dL (8.4-10.2); CARBON DIOXIDE 25 mmol/L (22-30); CHLORIDE 90 mmol/L (98-107); POTASSIUM 4.6 mmol/L (3.6-5.0); TOTAL PROTEIN 6.9 g/dL (6.3-8.2)
[2018-07-29 14:36] LABS: GLUCOSE 589 mg/dL (75-110)
[2018-07-29] MEDS ORDERED: NORMAL SALINE 1000 ML 1,000 ML IV ONE ×2 (14:41→15:49)
[2018-07-29] MEDS ORDERED: INSULIN REG, HUMAN 100 UNIT/ML 3 ML VIAL (PYX) IV ONE (14:41)
--- NOTE | 2018-07-29 14:41 | RADIOLOGY REPORT (SQ) ---
EXAM DESCRIPTION: CHEST SINGLE VIEW COMPLETED DATE/TIME: 07/29/2018 2:32 pm REASON FOR STUDY: wheeze COMPARISON: None. EXAM PARAMETERS: NUMBER OF VIEWS: One view. TECHNIQUE: Single frontal radiographic view of the chest acquired. RADIATION DOSE: NA LIMITATIONS: None. FINDINGS: LUNGS AND PLEURA: No opacities, masses or pneumothorax. No pleural effusion. MEDIASTINUM AND HILAR STRUCTURES: No masses. Contour normal. HEART AND VASCULAR STRUCTURES: Heart normal in size. Normal vasculature. BONES: No acute findings. HARDWARE: None in the chest. OTHER: 05/12/2018 IMPRESSION: NO ACUTE RADIOGRAPHIC FINDING IN THE CHEST. TECHNICAL DOCUMENTATION: JOB ID: [id number] [employer]- All Rights Reserved Reading location - IP/workstation name: [email or web address]
[2018-07-29 14:48] LABS: APPEARANCE,URINE CLEAR; BILIRUBIN,URINE NEGATIVE (NEGATIVE); COLOR,URINE COLORLESS; GLUCOSE, URINE >=500 mg/dL (NEGATIVE); KETONES,URINE NEGATIVE (NEGATIVE); LEUKOCYTE ESTERASE,URINE NEGATIVE (NEGATIVE); NITRITE,URINE NEGATIVE (NEGATIVE); PROTEIN,URINE NEGATIVE (NEGATIVE); UROBILINOGEN,URINE NEGATIVE mg/dL (<2.0)
[2018-07-29 17:59] VITALS: BP 121/71
--- NOTE | 2018-07-29 23:19 | EKG REPORT ---
SEVERITY:- NORMAL ECG - SINUS RHYTHM LVH : Confirmed by: Dionisio Morales 29-Jul-2018 23:18:57
== END 2018-07-29 17:58 | disposition home or self-care (01) ==
LOC: ER 13:24
DX: E11.65 Type 2 diabetes mellitus with hyperglycemia (principal); J44.1 Chronic obstructive pulmonary disease with (acute) exacerbation; Z79.84 Long term (current) use of oral hypoglycemic drugs; F17.200 Nicotine dependence, unspecified, uncomplicated; I50.9 Heart failure, unspecified; I25.10 Atherosclerotic heart disease of native coronary artery without angina pectoris; I11.0 Hypertensive heart disease with heart failure; I25.2 Old myocardial infarction; Z86.73 Personal history of transient ischemic attack (TIA), and cerebral infarction without residual deficits; E03.9 Hypothyroidism, unspecified
CPT/HCPCS: 93005; 94640; 99284; 96360; 96361; 36415; 82962; 85025; 80053; 81001; 84484; 71045; 93010; A9270 ×2; J7030; J1815; J7620

== ENCOUNTER 2019-01-16 07:45 | Day surgery (SDC) | payer MEDICARE, MEDICAID ==
[~2019-01-16 07:45] MED LIST: FENTANYL CITRATE INJ/PF 100 MCG/2 ML AMPUL ONE; KETOROLAC TROMETHAMINE 0.45% 4 DROP/0.4 ML DROPERETTE OD PRN; MIDAZOLAM 2 MG/2 ML INJ ONE
[2019-01-16] MEDS: BESIFLOXACIN HCL 0.6% OPH SUSP 5 ML BOTTLE OD PRN ×4 (08:40→09:32)
[2019-01-16] MEDS: CYCLOPENTOLATE 0.2%/PHENYLEPHRINE 1% OPH SOLN 2 ML OD PRN ×3 (08:40→09:05)
[2019-01-16] MEDS: TETRACAINE HCL 0.5% OPH SOLN 4 ML OD PRN ×4 (08:40→09:17)
[2019-01-16] MEDS: TROPICAMIDE 1% OPH SOLN 3 ML OD PRN ×3 (08:40→09:05)
[2019-01-16] MEDS: CHONDR SU A NA/HYALUR INTRAOC KIT (SURGICARE) ONE ×2 (09:23)
[2019-01-16] MEDS: EPINEPHRINE INJ/PF 1 MG/1 ML AMPULE ONE ×2 (09:23)
[2019-01-16] MEDS: LIDOCAINE 1%/PHENYLEPHRINE 1.5% 1 ML VIAL ONE ×2 (09:23)
[2019-01-16] MEDS: DORZOLAMIDE HCL 2%/TIMOLOL MALEAT 0.5% OPH SOLN 10 ML OD PRN ×2 (09:32)
--- NOTE | 2019-01-16 20:59 | [facility] OPERATIVE REPORT E ---
[facility] Operative Report NAME: WOODROW GOODWIN AGE: 63Y DATE OF SURGERY: 01/16/2019 ROOM: PREOPERATIVE DIAGNOSIS: CATARACT, RIGHT EYE. POSTOPERATIVE DIAGNOSIS: CATARACT, RIGHT EYE. OPERATION: Cataract extraction with insertion of an IOL of the right eye. SURGEON: ANA MARIA HADDAD M.D. ANESTHESIA: Topical. PROCEDURE: After obtaining appropriate consent, the patient's right eye was prepped and draped in sterile fashion as well as the surgeon in a sterile manner and cataract surgery was started. First a paracentesis blade was used to make a side-port incision. Viscoelastic was used to inflate the anterior chamber. Next a 2.4 mm incision was made with a 2.4 mm blade, clear corneal temporally. A continuous capsulorrhexis was made using a cystotome and Utrata forceps. Following this hydrodissection was carried out to make the lens fully loose and mobile and it was rotated 90 degrees. Following this, a xqhsbm-[id number]-[id number] technique was used to phacoemulsify the lens with a CDE of 5.87. The remaining cortex was removed with irrigation/aspiration. Provisc was instilled into the capsular bag to inflate the bag. A SN60WF, 21.0 diopter lens was placed. The remaining viscoelastic material was removed with irrigation/aspiration. Following this, the incision was found to be watertight. Besivance was instilled into the eye and a protective shield was placed over the eye. The patient returned to the postoperative recovery in stable condition. DICTATING PHYSICIAN: ANA MARIA HADDAD M.D. [id number] PHY#: [id number] ID: [id number] JOB#: [id number] ACCT: [id number] cc:ANA MARIA HADDAD M.D. >
--- NOTE | 2019-01-16 20:59 | DISCHARGE SUMMARY E ---
Discharge Summary NAME: WOODROW GOODWIN : 1955 AGE: 63Y ADMITTED: 01/16/2019 DISCHARGED: 01/16/2019 FINAL DIAGNOSIS: Cataract, right eye. HOSPITAL COURSE: This is a 63-year-old male who underwent cataract extraction of the right eye. He underwent surgery because he was having difficulty doing woodworking and seeing TV. He should be on a regular diet. No bending at his waist, no heavy lifting. He should use his Besivance, Durezol and Prolensa at 3:00 p.m. and 8:00 p.m. Sleep with a rigid shield. I will see him for his 1-day postoperative tomorrow. DICTATING PHYSICIAN: ANA MARIA HADDAD M.D. [id number] [facility]#: [id number] 1953 ID: [id number] JOB#: [id number] ACCT: [id number] cc:ANA MARIA HADDAD M.D. >
== END 2019-01-16 10:19 | disposition home or self-care (01) ==
LOC: SC 07:45
PROVIDERS: ATTEND Internal Medicine
DX: H25.813 Combined forms of age-related cataract, bilateral (principal); H04.123 Dry eye syndrome of bilateral lacrimal glands; E11.9 Type 2 diabetes mellitus without complications; I10 Essential (primary) hypertension; E78.00 Pure hypercholesterolemia, unspecified; E03.9 Hypothyroidism, unspecified; J44.9 Chronic obstructive pulmonary disease, unspecified; G40.909 Epilepsy, unspecified, not intractable, without status epilepticus; G47.30 Sleep apnea, unspecified; F17.210 Nicotine dependence, cigarettes, uncomplicated; Z86.73 Personal history of transient ischemic attack (TIA), and cerebral infarction without residual deficits; Z88.8 Allergy status to other drugs, medicaments and biological substances; Z79.899 Other long term (current) drug therapy; Z79.51 Long term (current) use of inhaled steroids; Z79.84 Long term (current) use of oral hypoglycemic drugs
CPT/HCPCS: 66984; 82962; V2632; J2250; J3490 ×2; A9270; J0171; J3010; J2370; 142

== ENCOUNTER 2019-01-22 10:57 | Inpatient (IN) | payer MEDICARE, MEDICAID ==
[2019-01-22] MEDS ORDERED: NORMAL SALINE 1000 ML 1,000 ML IV ONE (11:27)
--- NOTE | 2019-01-22 11:31 | RADIOLOGY REPORT (SQ) ---
EXAM DESCRIPTION: CHEST SINGLE VIEW COMPLETED DATE/TIME: 01/22/2019 11:18 am REASON FOR STUDY: difficulty breathing COMPARISON: 07/29/2018 EXAM PARAMETERS: NUMBER OF VIEWS: One view. TECHNIQUE: Single frontal radiographic view of the chest acquired. RADIATION DOSE: NA LIMITATIONS: None. FINDINGS: LUNGS AND PLEURA: No focal consolidation, pleural effusion or pneumothorax. Incomplete in spiration with mild interstitial crowding. MEDIASTINUM AND HILAR STRUCTURES: No masses. Contour normal. HEART AND VASCULAR STRUCTURES: Heart normal in size. Normal vasculature. BONES: No acute findings. HARDWARE: None in the chest. OTHER: No other significant finding. IMPRESSION: No focal consolidation. Mild asymmetric interstitial opacities at the left lung base po ssibly atelectasis although infection not excluded. TECHNICAL DOCUMENTATION: JOB ID: [id number] [employer]- All Rights Reserved Reading location - IP/workstation name: [email or web address]
[2019-01-22 11:49] LABS: VENOUS BLOOD BASE EXCESS 1.7 mmol/L; VENOUS BLOOD HCO3 25.8 mmol/L (20-32); VENOUS BLOOD PCO2 39.1 mmHg (35-63); VENOUS BLOOD PH 7.44 (7.30-7.42)
[2019-01-22 11:52] LABS: ABSOLUTE LYMPHOCYTES (AUTO) 0.9 10^3/uL (0.5-4.7); ABSOLUTE NEUT (AUTO) 11.7 10^3/uL (1.7-8.2); BASOPHILS % (AUTO) 0.3 % (0-2); EOSINOPHILS % (AUTO) 0.3 % (0-6); HEMATOCRIT 42.3 % (37.9-51.0); HEMOGLOBIN 14.6 g/dL (13.5-17.0); LYMPHOCYTES % (AUTO) 6.3 % (13-45); MEAN CORPUSCULAR HEMOGLOBIN 29.9 pg (27.0-33.4); MEAN CORPUSCULAR HGB CONC 34.4 g/dL (32.0-36.0); MEAN CORPUSCULAR VOLUME 87 fl (80-97); MONOCYTES % (AUTO) 7.2 % (3-13); PLATELET COUNT 150 10^3/uL (150-450); RED BLOOD COUNT 4.87 10^6/uL (4.35-5.55); RED CELL DISTRIBUTION WIDTH 15.1 % (11.5-14.0); SEGMENTED NEUTROPHILS % (AUTO) 85.9 % (42-78); TOTAL CELLS COUNTED % (AUTO) 100 %; WHITE BLOOD COUNT 13.6 10^3/uL (4.0-10.5)
[2019-01-22 12:09] LABS: ALANINE AMINOTRANSFERASE 48 U/L (21-72); ALBUMIN 4.7 g/dL (3.5-5.0); ALKALINE PHOSPHATASE 50 U/L (38-126); ANION GAP 13 (5-19); ASPARTATE AMINO TRANSFERASE 41 U/L (17-59); BILIRUBIN,DIRECT 0.4 mg/dL (0.0-0.4); BILIRUBIN,TOTAL 0.6 mg/dL (0.2-1.3); BLOOD UREA NITROGEN 26 mg/dL (7-20); CALCIUM 10.2 mg/dL (8.4-10.2); CARBON DIOXIDE 24 mmol/L (22-30); CHLORIDE 104 mmol/L (98-107); CREATINE KINASE 696 U/L (55-170); GLUCOSE 156 mg/dL (75-110); POTASSIUM 4.8 mmol/L (3.6-5.0); SODIUM 141.2 mmol/L (137-145); TOTAL PROTEIN 7.8 g/dL (6.3-8.2)
[2019-01-22 12:22] LABS: CREATINE KINASE MB 2.64 ng/mL (<4.55)
[2019-01-22 12:25] LABS: TROPONIN I < 0.012 ng/mL
[2019-01-22 13:01] LABS: APPEARANCE,URINE CLEAR; BILIRUBIN,URINE NEGATIVE (NEGATIVE); COLOR,URINE YELLOW; GLUCOSE, URINE NEGATIVE (NEGATIVE); KETONES,URINE NEGATIVE (NEGATIVE); LEUKOCYTE ESTERASE,URINE NEGATIVE (NEGATIVE); NITRITE,URINE NEGATIVE (NEGATIVE); PROTEIN,URINE NEGATIVE (NEGATIVE); URINE SPECIFIC GRAVITY 1.009; UROBILINOGEN,URINE NEGATIVE mg/dL (<2.0)
[2019-01-22] MEDS ORDERED: LEVOFLOXACIN 750 MG/D5W RTU 750 MG/150 ML RTUPB IV ONE (13:38)
[2019-01-22] MEDS ORDERED: IPRATROPIUM/ALBUTEROL 0.5-2.5 MG/3 ML AMPUL NEB ONE (13:38)
--- NOTE | 2019-01-22 13:55 | ER Document Report ---
Entered by ADRIEL NELSON SCRIBE 01/22/19 1122 Acting as scribe for:VIRGIL GUTIERREZ MD ED Respiratory Problem - General Chief Complaint: Breathing Difficulty Stated Complaint: DIFFICULTY BREATHING Time Seen by Provider: 01/22/19 11:17 Mode of Arrival: Ambulatory Information source: Patient Notes: 63 year old male that presents to the emergency department today with complaints of shortness of breath along with a cough with green sputum. The patient had a fever of 102.7 with an oxygen saturation of 89% on arrival here. Patient is wearing sunglasses because he had right cataract surgery x4 days ago. TRAVEL OUTSIDE OF THE [place] IN LAST 30 DAYS: No - Related Data Allergies/Adverse Reactions: simvastatin [From Zocor] Allergy (Verified 01/22/19 11:14) LEGS GET WEAK Past Medical History - General Information source: Patient - Social History Smoking Status: Former Smoker Lives with: Family Family History: None, Reviewed & Not Pertinent - Past Medical History Cardiac Medical History: Reports: Hx Congestive Heart Failure, Hx Coronary Artery Disease, Hx Heart Attack, Hx Hypercholesterolemia, Hx Hypertension Pulmonary Medical History: Reports: Hx Bronchitis, Hx COPD Neurological Medical History: Reports: Hx Seizures Endocrine Medical History: Reports: Hx Diabetes Mellitus Type 2, Hx Hypothyroidism Renal/ Medical History: Reports: Hx Benign Prostatic Hyperplasia GI Medical History: Reports: Hx Gastroesophageal Reflux Disease Musculoskeletal Medical History: Reports Hx Arthritis, Reports Hx Musculoskeletal Trauma Psychiatric Medical History: Reports: Hx Anxiety, Hx Bipolar Disorder, Hx Dementia, Hx Depression Past Surgical History: Reports: Hx Appendectomy, Hx Genitourinary Surgery - TU RP, Hx Orthopedic Surgery - Right ankle surgery in 1982 or 1983 when he had a muscle from the leg moved, Hx Thyroid Surgery, Hx Tonsillectomy, Other - TURP per patient. - Immunizations Hx Diphtheria, Pertussis, Tetanus Vaccination: No Review of Systems - Review of Systems Constitutional: See HPI, Fever EENT: No symptoms reported Cardiovascular: No symptoms reported Respiratory: See HPI, Short of breath Gastrointestinal: No symptoms reported Genitourinary: No symptoms reported Male Genitourinary: No symptoms reported Musculoskeletal: No symptoms reported Skin: No symptoms reported Hematologic/Lymphatic: No symptoms reported Neurological/Psychological: No symptoms reported -: Yes All other systems reviewed and negative Physical Exam - Vital signs Vitals: Temp 99.2 F 01/22/19 10:57 - Notes Notes: Physical Exam: General: Alert, appears short of breath. HEENT: Normocephalic. Atraumatic. Wearing sunglasses due to recent cataract surgery. Oropharynx clear. Neck: Supple. Non-tender. Respiratory: Mild respiratory distress. Wheezing and rhonchi bilaterally, Right > Left. Cardiovascular: Regular rate and rhythm. Abdominal: Obese. Non-tender. No distension. Normal Bowel Sounds. Back: Non-tender. No deformity or step off. Extremities: Moves all four extremities. Upper extremities: Normal inspection. Normal ROM. Lower extremities: Normal inspection. No edema. Normal ROM. Neurological: Normal cognition. AAOx4. Normal speech. Psychological: Normal affect. Normal Mood. Skin: Warm. Dry. Normal color. Course - Vital Signs Vital signs: Temp Pulse Resp BP Pulse Ox 99.7 F 18 104/66 94 01/22/19 13:20 01/22/19 15:03 01/22/19 15:03 01/22/19 15:03 - Laboratory Result Diagrams: 01/22/19 11:28 01/22/19 11:28 Laboratory results interpreted by me: 01/22/19 01/22/19 01/22/19 11:28 11:28 11:28 WBC 13.6 H RDW 15.1 H Seg Neutrophils % 85.9 H Lymphocytes % 6.3 L Absolute Neutrophils 11.7 H VBG pH BUN 26 H Creatinine 1.37 H Est GFR (Non-Af Amer) 52 L Glucose 156 H POC Glucose Lactic Acid 3.2 H Creatine Kinase 696 H 01/22/19 01/22/19 01/22/19 11:28 11:46 14:09 WBC RDW Seg Neutrophils % Lymphocytes % Absolute Neutrophils VBG pH 7.44 H BUN Creatinine Est GFR (Non-Af Amer) Glucose POC Glucose 167 H 134 H Lactic Acid Creatine Kinase - Diagnostic Test Radiology reviewed: Image reviewed, Reports reviewed - Chest x-ray is read as no focal consolidation. Mild asymmetric interstitial opacities at the left lung base possibly atelectasis although infection is not excluded. - EKG Interpretation by [facility] EKG shows normal: Sinus rhythm, [place], Intervals, QRS Complexes. abnormal: ST-T Waves - Nonspecific lateral repolarization abnormalities Rate: Tachycardia - 134 - Consults Dr. Almeida Time consulted: 13:45 Consulted provider: will come to ER Critical Care Note - Critical Care Note Total time excluding time spent on procedures (mins): 35 Discharge - Discharge Clinical Impression: Acute exacerbation of chronic obstructive pulmonary disease (COPD), Hypoxemia Fever Qualifiers: Fever type: unspecified Qualified Code(s): R50.9 - Fever, unspecified Condition: Good Disposition: ADMITTED INPATIENT Admitting Provider: Juan Pablo (Hospitalist) Unit Admitted: Telemetry Scribe Attestation: 01/22/19 11:46 I personally performed the services described in the documentation, reviewed and edited the documentation which was dictated to the scribe in my presence, and it accurately records my words and actions. 01/22/19 1146 I personally performed the services described in the documentation, reviewed and edited the documentation which was dictated to the scribe in my presence, and it accurately records my words and actions.
--- NOTE | 2019-01-22 15:42 | PDOC H&P ---
History of Present Illness Admission Date/PCP: 01/22/19 14:22 History of Present Illness: WOODROW GOODWIN is a 63 year old male with past medical history of hypothyroidism, hyperlipidemia, BPH, COPD on home O2 3 L as needed, tobacco abuse, multiple CVA, diabetes, hypertension, PTSD, chronic pain, cataract status post cataract surgery on 01/16/2019 on the right side, scheduled for right eye cataract surgery on 01/30/2019. 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 He does not have any relatives but his neighbor helps him and checks on him routinely. Patient presented to ED after the neighbor found him in the morning to be in respiratory distress, checked his temperature and found to be 102.6. She also noticed that he has cut down on his food and fluid intake. She called EMS and patient was brought to ED. Patient had a right eye cataract removed on 01/16/2019, denies any sick contact or recent travel. Stating that for the last 2-3 days he has been having worsening shortness of breath, associated with productive cough with white sputum. Eyes any chest pain, chills, nausea, vomiting, diarrhea, constipation, numbness, tingling, weight changes or any urinary symptoms. In ED he was found to have a temperature of 99.7, saturating 91% on 2 L, WBC of 13.6, no bandemia, VBG with pH of 7.44, creatinine of 1.37 up from baseline of 1.11, troponins negative and lactic acid of 3.2. Was a started on IV fluids, duo nebs, levofloxacin IV. Hospitalist was consulted for further management. Past Medical History Cardiac Medical History: Reports: Congestive Heart Failure, Coronary Artery Disease, Myocardial Infarction, Hyperlipidema, Hypertension Pulmonary Medical History: Reports: Bronchitis, Chronic Obstructive Pulmonary Disease (COPD), Pneumonia Denies: Asthma Neurological Medical History: Reports: Seizures Endocrine Medical History: Reports: Diabetes Mellitus Type 1, Diabetes Mellitus Type 2, Hypothyroidism GI Medical History: Reports: Gastroesophageal Reflux Disease Denies: Hepatitis, Hiatal Hernia Musculoskeltal Medical History: Reports: Arthritis Psychiatric Medical History: Reports: Bipolar Disorder, Dementia, Depression Hematology: Reports: Anemia Denies: Sickle Cell Disease Past Surgical History Past Surgical History: Reports: Appendectomy, Orthopedic Surgery - Right ankle surgery in 1982 or 1983 when he had a muscle from the leg moved, Tonsillectomy, Other - TURP per patient. Denies: Pacemaker Social History Lives with: Family Smoking Status: Former Smoker Frequency of Alcohol Use: None Hx Recreational Drug Use: Yes Drugs: Marijuana Hx Prescription Drug Abuse: No Family History Family History: None, Reviewed & Not Pertinent Parental Family History Reviewed: Yes Children Family History Reviewed: Yes Sibling(s) Family History Reviewed.: Yes Medication/Allergy Home Medications: Diazepam [Valium] 5 mg PO BID 11/21/16 Divalproex Sodium [Divalproex Sodium ER] 500 mg PO BID 11/21/16 Donepezil HCl [Aricept 5 mg Tablet] 10 mg PO QHS 11/21/16 Levothyroxine Sodium [Synthroid] 125 mcg PO Q6AM 11/21/16 Omeprazole 20 mg PO BID 11/21/16 Prazosin HCl [Minipress] 2 mg PO DAILY 11/21/16 Benztropine Mesylate [Cogentin 1 mg Tablet] 1 mg PO DAILY 01/28/18 Gabapentin [Neurontin 100 mg Capsule] 200 mg PO Q8 01/28/18 Montelukast Sodium [Singulair 10 mg Tablet] 10 mg PO QHS #30 tablet 01/30/18 Torsemide [Demadex 20 mg Tablet] 20 mg PO TID 05/12/18 Albuterol Sulfate [Proair Respiclick] 90 mcg IH ASDIR PRN 01/13/19 Albuterol Sulfate [Ventolin 0.083% Neb 2.5 mg/3 ml Ampul] 1 vial NEB QID 01/13/19 Besifloxacin HCl [Besivance 0.6% Oph Susp 5 ml] 1 drop OP ASDIR PRN 01/13/19 Difluprednate [Durezol] 5 ml OP ASDIR PRN 01/13/19 Ipratropium Russell [Atrovent 0.02% Neb 0.5 Mg/2.5 Ml Vial.Neb] 0.5 mg IH QID 01/13/19 Meloxicam [Mobic] 7.5 mg PO BID 01/13/19 Quetiapine Fumarate [Seroquel Xr] 300 mg PO QPM 01/13/19 Bromfenac Sodium [Prolensa] 1 drop OU DAILY 01/22/19 Glipizide [Glucotrol] 10 mg PO DAILY 01/22/19 Metformin HCl 500 mg PO BID 01/22/19 Multivitamin [Daily Multiple Vitamin] 1 each PO DAILY 01/22/19 Allergies/Adverse Reactions: simvastatin [From Zocor] Allergy (Verified 01/22/19 11:14) LEGS GET WEAK Review of Systems Review of Systems: As per HPI. Physical Exam Vital Signs: Temp Pulse Resp BP Pulse Ox 99.7 F 18 104/66 94 01/22/19 13:20 01/22/19 15:03 01/22/19 15:03 01/22/19 15:03 Intake & Output 01/21/19 01/22/19 01/23/19 06:59 06:59 06:59 Intake Total 2160 Output Total 400 Balance 1760 Weight 95.8 kg General appearance: PRESENT: no acute distress, obese, well-developed, well- nourished Head exam: PRESENT: atraumatic, normocephalic Neck exam: ABSENT: carotid bruit, JVD, lymphadenopathy, thyromegaly Respiratory exam: PRESENT: decreased breath sounds, prolonged expiratory phas, wheezes Cardiovascular exam: PRESENT: RRR. ABSENT: diastolic murmur, rubs, systolic murmur GI/Abdominal exam: PRESENT: normal bowel sounds, soft. ABSENT: distended, guarding, mass, organolmegaly, rebound, tenderness Extremities exam: PRESENT: full ROM. ABSENT: calf tenderness, clubbing, pedal edema Neurological exam: PRESENT: alert, awake, oriented to person, oriented to place, oriented to time, oriented to situation, CN II-XII grossly intact. ABSENT: motor sensory deficit Results Laboratory Results: 01/22/19 11:28 01/22/19 11:28 01/22/19 01/22/19 01/22/19 11:28 11:28 11:28 WBC 13.6 H RBC 4.87 Hgb 14.6 Hct 42.3 MCV 87 MCH 29.9 MCHC 34.4 RDW 15.1 H Plt Count 150 Seg Neutrophils % 85.9 H Lymphocytes % 6.3 L Monocytes % 7.2 Eosinophils % 0.3 Basophils % 0.3 Absolute Neutrophils 11.7 H Absolute Lymphocytes 0.9 Absolute Monocytes 1.0 Absolute Eosinophils 0.0 Absolute Basophils 0.0 VBG pH VBG pCO2 VBG HCO3 VBG Base Excess Sodium 141.2 Potassium 4.8 Chloride 104 Carbon Dioxide 24 Anion Gap 13 BUN 26 H Creatinine 1.37 H Est GFR ( Amer) > 60 Est GFR (Non-Af Amer) 52 L Glucose 156 H Lactic Acid 3.2 H Calcium 10.2 Magnesium 2.1 Total Bilirubin 0.6 AST 41 ALT 48 Alkaline Phosphatase 50 Total Protein 7.8 Albumin 4.7 Urine Color Urine Appearance Urine pH Ur Specific Gilbert Urine Protein Urine Glucose (UA) Urine Ketones Urine Blood Urine Nitrite Ur Leukocyte Esterase Urine WBC (Auto) Urine RBC (Auto) 01/22/19 01/22/19 11:28 12:40 WBC RBC Hgb Hct MCV MCH MCHC RDW Plt Count Seg Neutrophils % Lymphocytes % Monocytes % Eosinophils % Basophils % Absolute Neutrophils Absolute Lymphocytes Absolute Monocytes Absolute Eosinophils Absolute Basophils VBG pH 7.44 H VBG pCO2 39.1 VBG HCO3 25.8 VBG Base Excess 1.7 Sodium Potassium Chloride Carbon Dioxide Anion Gap BUN Creatinine Est GFR ( Amer) Est GFR (Non-Af Amer) Glucose Lactic Acid Calcium Magnesium Total Bilirubin AST ALT Alkaline Phosphatase Total Protein Albumin Urine Color YELLOW Urine Appearance CLEAR Urine pH 6.0 Ur Specific Gilbert 1.009 Urine Protein NEGATIVE Urine Glucose (UA) NEGATIVE Urine Ketones NEGATIVE Urine Blood NEGATIVE Urine Nitrite NEGATIVE Ur Leukocyte Esterase NEGATIVE Urine WBC (Auto) 0 Urine RBC (Auto) 0 01/22/19 01/22/19 11:28 11:28 Creatine Kinase 696 H CK-MB (CK-2) 2.64 Troponin I < 0.012 Impressions: Chest X-Ray 01/22/19 00:00 IMPRESSION: No focal consolidation. Mild asymmetric interstitial opacities at the left lung base possibly atelectasis although infection not excluded. Assessment and Plan - Diagnosis (1) SIRS (systemic inflammatory response syndrome) Is this a current diagnosis for this admission?: Yes Plan: Likely due to underlying pneumonia. Patient is hypoxic, febrile, FRANDY with elevated lactic acid. Volume resuscitation guided by volume status. Broad-spectrum antibiotics. Sputum and blood culture. Trend lactic acid. (2) Acute respiratory failure with hypoxia Is this a current diagnosis for this admission?: Yes Plan: Due to COPD exacerbation/pneumonia. Duo nebs, supplemental oxygen, BiPAP, IV steroids, empiric broad-spectrum antibiotics. (3) Pneumonia Qualifiers: Pneumonia type: due to unspecified organism Laterality: unspecified laterality Lung location: lower lobe of lung Qualified Code(s): J18.1 - Lobar pneumonia, unspecified organism Is this a current diagnosis for this admission?: Yes Plan: Likely strep pneumo. Broad-spectrum antibiotics. Sputum and blood cultures. (4) COPD with acute exacerbation Is this a current diagnosis for this admission?: No Plan: On home O2 3 L as needed. Per problem #2. (5) Bipolar disorder Is this a current diagnosis for this admission?: No Plan: Denies any homicidal or suicidal ideation. Denies any hallucinations. Restart home meds. Outpatient psychiatry follow-up. (6) Anxiety Is this a current diagnosis for this admission?: No Plan: Restart home meds. (7) Hypothyroidism Is this a current diagnosis for this admission?: No Plan: Start home meds. (9) GERD (gastroesophageal reflux disease) Qualifiers: Esophagitis presence: esophagitis presence not specified Qualified Code(s): K21.9 - Gastro-esophageal reflux disease without esophagitis Is this a current diagnosis for this admission?: No Plan: Start home meds. (10) BPH (benign prostatic hyperplasia) Qualifiers: Lower urinary tract symptom presence: symptoms present Is this a current diagnosis for this admission?: No Plan: Start home meds. 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 (13) Hypertension Is this a current diagnosis for this admission?: No Plan: Restart home meds adjust meds as needed.
[2019-01-22] MEDS ORDERED: PROMETHAZINE HCL INJ 25 MG/1 ML VIAL IV PRN (15:55)
[2019-01-22] MEDS ORDERED: ACETAMINOPHEN 325 MG TABLET PO PRN (15:55)
[2019-01-22] MEDS ORDERED: ONDANSETRON 4 MG TAB.RAPDIS PO PRN (15:55)
[2019-01-22] MEDS ORDERED: OXYCODONE-ACETAMINOPHEN 5-325 MG TABLET PO PRN (15:55)
[2019-01-22] MEDS ORDERED: (PENDING PHARMACY ID) (Difluprednate [Durezol] 5 ML) OD SCH (16:00)
[2019-01-22] MEDS: NORMAL SALINE 1000 ML 1,000 ML IV PRN (17:28)
[2019-01-22] MEDS ORDERED: (PENDING PHARMACY ID) (Quetiapine Fumarate [Seroquel Xr] 300 MG) PO SCH (18:00)
[2019-01-22] MEDS ORDERED: (PENDING PHARMACY ID) (Diazepam [Valium] 5 MG) PO SCH (18:00)
[2019-01-22] MEDS: FAMOTIDINE 20 MG TABLET PO SCH (19:36)
[2019-01-22] MEDS: DIAZEPAM 5 MG TABLET PO SCH (19:36)
[2019-01-22] MEDS: QUETIAPINE FUMARATE 100 MG TABLET PO SCH (19:37)
[2019-01-22] MEDS: BESIFLOXACIN HCL 0.6% OPH SUSP 5 ML BOTTLE OD SCH (19:37)
[2019-01-22] MEDS: IPRATROPIUM/ALBUTEROL 0.5-2.5 MG/3 ML AMPUL NEB SCH (19:57)
[2019-01-22] MEDS: GABAPENTIN 100 MG CAPSULE PO SCH (21:29)
[2019-01-22] MEDS: MONTELUKAST SODIUM 10 MG TABLET PO SCH (21:30)
[2019-01-22] MEDS: DONEPEZIL HCL 5 MG TABLET PO SCH (21:30)
[2019-01-22] MEDS: DIVALPROEX SODIUM 500 MG TAB.SR.24H PO SCH (21:30)
--- NOTE | 2019-01-22 21:49 | EKG REPORT ---
SEVERITY:- ABNORMAL ECG - SINUS TACHYCARDIA NONSPECIFIC REPOL ABNORMALITY, LATERAL LEADS : Confirmed by: Alesha Cazares MD 22-Jan-2019 21:48:57
[2019-01-23] MEDS: NORMAL SALINE 1000 ML 1,000 ML IV PRN ×2 (05:05→15:44)
[2019-01-23] MEDS: LEVOTHYROXINE SODIUM 0.025 MG TABLET PO SCH (05:06)
[2019-01-23] MEDS: FAMOTIDINE 20 MG TABLET PO SCH ×2 (05:07→17:15)
[2019-01-23] MEDS: LEVOTHYROXINE SODIUM 0.1 MG TABLET PO SCH (05:07)
[2019-01-23] MEDS: QUETIAPINE FUMARATE 100 MG TABLET PO SCH ×2 (05:07→17:15)
[2019-01-23] MEDS: DIAZEPAM 5 MG TABLET PO SCH ×2 (05:07→17:15)
[2019-01-23] MEDS: GABAPENTIN 100 MG CAPSULE PO SCH ×3 (05:07→21:19)
[2019-01-23] MEDS ORDERED: (PENDING PHARMACY ID) (Levothyroxine Sodium [Synthroid] 125 MCG) PO SCH (06:00)
[2019-01-23 06:05] LABS: BLOOD UREA NITROGEN 23 mg/dL (7-20); CALCIUM 9.1 mg/dL (8.4-10.2); GLUCOSE 106 mg/dL (75-110); POTASSIUM 4.7 mmol/L (3.6-5.0)
[2019-01-23 06:11] LABS: ABSOLUTE EOSINOPHILS # (AUTO) 0.1 10^3/uL (0.0-0.6); ABSOLUTE LYMPHOCYTES (AUTO) 1.6 10^3/uL (0.5-4.7); ABSOLUTE NEUT (AUTO) 9.5 10^3/uL (1.7-8.2); ANION GAP 6 (5-19); BASOPHILS % (AUTO) 0.2 % (0-2); CARBON DIOXIDE 27 mmol/L (22-30); CHLORIDE 108 mmol/L (98-107); EOSINOPHILS % (AUTO) 0.5 % (0-6); HEMOGLOBIN 12.5 g/dL (13.5-17.0); LYMPHOCYTES % (AUTO) 13.4 % (13-45); MEAN CORPUSCULAR HGB CONC 33.7 g/dL (32.0-36.0); MEAN CORPUSCULAR VOLUME 89 fl (80-97); MONOCYTES % (AUTO) 8.5 % (3-13); PLATELET COUNT 142 10^3/uL (150-450); RED BLOOD COUNT 4.16 10^6/uL (4.35-5.55); RED CELL DISTRIBUTION WIDTH 15.3 % (11.5-14.0); SEGMENTED NEUTROPHILS % (AUTO) 77.4 % (42-78); SODIUM 141.4 mmol/L (137-145); TOTAL CELLS COUNTED % (AUTO) 100 %; WHITE BLOOD COUNT 12.2 10^3/uL (4.0-10.5)
[2019-01-23] MEDS: IPRATROPIUM/ALBUTEROL 0.5-2.5 MG/3 ML AMPUL NEB SCH ×3 (07:48→21:23)
[2019-01-23] MEDS ORDERED: (PENDING PHARMACY ID) (Prazosin Hcl [Minipress] 2 MG) PO SCH (10:00)
[2019-01-23] MEDS: BENZTROPINE MESYLATE 1 MG TABLET PO SCH (10:04)
[2019-01-23] MEDS: MULTIVITAMIN TABLET PO SCH (10:04)
[2019-01-23] MEDS: BESIFLOXACIN HCL 0.6% OPH SUSP 5 ML BOTTLE OD SCH ×2 (10:04→17:15)
[2019-01-23] MEDS: DIVALPROEX SODIUM 500 MG TAB.SR.24H PO SCH ×2 (10:04→21:19)
[2019-01-23] MEDS ORDERED: NORMAL SALINE 1000 ML 1,000 ML IV PRN (16:57)
[2019-01-23] MEDS: MONTELUKAST SODIUM 10 MG TABLET PO SCH (21:19)
[2019-01-23] MEDS: DONEPEZIL HCL 5 MG TABLET PO SCH (21:19)
[2019-01-24 06:35] LABS: ABSOLUTE EOSINOPHILS # (AUTO) 0.2 10^3/uL (0.0-0.6); ABSOLUTE LYMPHOCYTES (AUTO) 1.3 10^3/uL (0.5-4.7); ABSOLUTE MONOCYTES (AUTO) 0.6 10^3/uL (0.1-1.4); BASOPHILS % (AUTO) 0.3 % (0-2); EOSINOPHILS % (AUTO) 2.4 % (0-6); HEMATOCRIT 35.9 % (37.9-51.0); HEMOGLOBIN 12.3 g/dL (13.5-17.0); LYMPHOCYTES % (AUTO) 18.4 % (13-45); MEAN CORPUSCULAR HEMOGLOBIN 30.6 pg (27.0-33.4); MEAN CORPUSCULAR HGB CONC 34.4 g/dL (32.0-36.0); MEAN CORPUSCULAR VOLUME 89 fl (80-97); MONOCYTES % (AUTO) 8.8 % (3-13); PLATELET COUNT 142 10^3/uL (150-450); RED BLOOD COUNT 4.02 10^6/uL (4.35-5.55); RED CELL DISTRIBUTION WIDTH 14.7 % (11.5-14.0); SEGMENTED NEUTROPHILS % (AUTO) 70.1 % (42-78); TOTAL CELLS COUNTED % (AUTO) 100 %; WHITE BLOOD COUNT 7.2 10^3/uL (4.0-10.5)
[2019-01-24] MEDS: FAMOTIDINE 20 MG TABLET PO SCH (06:36)
[2019-01-24] MEDS: GABAPENTIN 100 MG CAPSULE PO SCH (06:36)
[2019-01-24] MEDS: LEVOTHYROXINE SODIUM 0.025 MG TABLET PO SCH (06:36)
[2019-01-24] MEDS: DIAZEPAM 5 MG TABLET PO SCH (06:36)
[2019-01-24] MEDS: LEVOTHYROXINE SODIUM 0.1 MG TABLET PO SCH (06:36)
[2019-01-24] MEDS: QUETIAPINE FUMARATE 100 MG TABLET PO SCH (06:36)
[2019-01-24 06:59] LABS: ANION GAP 6 (5-19); BLOOD UREA NITROGEN 17 mg/dL (7-20); CALCIUM 9.5 mg/dL (8.4-10.2); CARBON DIOXIDE 25 mmol/L (22-30); CHLORIDE 109 mmol/L (98-107); GLUCOSE 111 mg/dL (75-110); POTASSIUM 4.9 mmol/L (3.6-5.0); SODIUM 140.4 mmol/L (137-145)
[2019-01-24] MEDS: IPRATROPIUM/ALBUTEROL 0.5-2.5 MG/3 ML AMPUL NEB SCH ×2 (07:39→14:47)
[2019-01-24] MEDS: DIVALPROEX SODIUM 500 MG TAB.SR.24H PO SCH (10:30)
[2019-01-24] MEDS: MULTIVITAMIN TABLET PO SCH (10:30)
[2019-01-24] MEDS: BESIFLOXACIN HCL 0.6% OPH SUSP 5 ML BOTTLE OD SCH (10:30)
[2019-01-24] MEDS: BENZTROPINE MESYLATE 1 MG TABLET PO SCH (10:30)
[2019-01-24 14:04] VITALS: BP 115/64
--- NOTE | 2019-01-24 15:50 | PDOC PROGRESS REPORT ---
Subjective Progress Note for:: 01/23/19 Subjective:: Wants to go home but still very wheezy Reason For Visit: PNEUMONIA, COPD EXACERBATION, SIRS Physical Exam Vital Signs: Temp Pulse Resp BP Pulse Ox 98.2 F 97 18 125/68 96 01/23/19 03:41 01/23/19 14:13 01/23/19 14:13 01/23/19 03:41 01/23/19 14:13 Intake & Output 01/22/19 01/23/19 01/24/19 06:59 06:59 06:59 Intake Total 3790 1000 Output Total 400 Balance 3390 1000 Weight 91.4 kg General appearance: PRESENT: no acute distress, cooperative Head exam: PRESENT: atraumatic, normocephalic Respiratory exam: PRESENT: prolonged expiratory phas, symmetrical, wheezes - Bilateral. ABSENT: accessory muscle use, rales, rhonchi, tachypnea Cardiovascular exam: PRESENT: RRR, +S1, +S2 GI/Abdominal exam: PRESENT: normal bowel sounds, soft. ABSENT: distended, tenderness Rectal exam: PRESENT: deferred Gentrourinary exam: ABSENT: indwelling catheter Extremities exam: ABSENT: pedal edema Musculoskeletal exam: PRESENT: ambulatory Neurological exam: PRESENT: alert, awake, oriented to person, oriented to place, oriented to time, oriented to situation Psychiatric exam: PRESENT: flat affect. ABSENT: agitated, anxious Focused psych exam: ABSENT: delusional, restlessness Results Laboratory Results: 01/23/19 04:59 01/23/19 04:59 01/23/19 01/23/19 01/23/19 04:59 04:59 04:59 WBC 12.2 H RBC 4.16 L Hgb 12.5 L D Hct 37.0 L MCV 89 MCH 30.0 MCHC 33.7 RDW 15.3 H Plt Count 142 L Seg Neutrophils % 77.4 Lymphocytes % 13.4 Monocytes % 8.5 Eosinophils % 0.5 Basophils % 0.2 Absolute Neutrophils 9.5 H Absolute Lymphocytes 1.6 Absolute Monocytes 1.0 Absolute Eosinophils 0.1 Absolute Basophils 0.0 Sodium 141.4 Potassium 4.7 Chloride 108 H Carbon Dioxide 27 Anion Gap 6 BUN 23 H Creatinine 1.32 H Est GFR ( Amer) > 60 Est GFR (Non-Af Amer) 55 L Glucose 106 Calcium 9.1 Magnesium 2.4 H TSH 0.96 01/22/19 01/22/19 11:28 11:28 Creatine Kinase 696 H CK-MB (CK-2) 2.64 Troponin I < 0.012 Impressions: Chest X-Ray 01/22/19 00:00 IMPRESSION: No focal consolidation. Mild asymmetric interstitial opacities at the left lung base possibly atelectasis although infection not excluded. Assessment and Plan - Diagnosis (1) SIRS (systemic inflammatory response syndrome) Is this a current diagnosis for this admission?: Yes Plan: Likely due to underlying pneumonia. Patient is hypoxic, febrile, FRANDY with elevated lactic acid. Volume resuscitation guided by volume status. Broad-spectrum antibiotics. Sputum and blood culture. Trend lactic acid. 01/23/2019-resolved (2) Acute respiratory failure with hypoxia Is this a current diagnosis for this admission?: Yes Plan: Due to COPD exacerbation/pneumonia. Duo nebs, supplemental oxygen, BiPAP, IV steroids, empiric broad-spectrum anti biotics. 01/23/2019-continue nebulizer treatments. Continue oxygen (the patient is on oxygen at home). Initiate steroids. Wean from BiPAP when tolerated. (3) Pneumonia Qualifiers: Pneumonia type: due to unspecified organism Laterality: left Lung location: lower lobe of lung Qualified Code(s): J18.1 - Lobar pneumonia, unspecified organism Is this a current diagnosis for this admission?: Yes Plan: Pneumonia is most likely a gram-positive organism. Initiate antibiotic therapy. (4) Acute exacerbation of chronic obstructive pulmonary disease (COPD) Is this a current diagnosis for this admission?: Yes Plan: 01/23/2019-nebulizer treatments, supplemental oxygen and BiPAP as needed. (5) Bipolar disorder Qualifiers: Active/Remission status: remission status unspecified Qualified Code(s): F31.9 - Bipolar disorder, unspecified Is this a current diagnosis for this admission?: Yes Plan: 01/23/2019-continue current regimen of medications. (6) Anxiety Is this a current diagnosis for this admission?: No (7) Hypothyroidism Is this a current diagnosis for this admission?: No Plan: 01/23/2019-continue current medication regimen. (8) BPH (benign prostatic hyperplasia) Is this a current diagnosis for this admission?: No Plan: 01/23/2019-currently asymptomatic. Continue current regimen. 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 01/23/2019-continue diabetic diet as well as long and short acting insulins. Adjust long-acting insulin based on sliding scale of short-acting insulin. (11) Hypertension Is this a current diagnosis for this admission?: No Plan: Restart home meds adjust meds as needed. 01/23/2019-continue current regimen (12) Oxygen dependent Is this a current diagnosis for this admission?: Yes Plan: 01/23/2019-the patient states that he is on 3 L nasal cannula at home. This means he is at his baseline. - Time Time Spent with patient: 15-24 minutes Medications reviewed and adjusted accordingly: Yes Anticipated discharge: Home Within: within 48 hours
--- NOTE | 2019-01-24 16:05 | PDOC DISCHARGE SUMMARY ---
General - Admit/Disc Date/PCP Admission Date/Primary Care Provider: 01/22/19 14:22 Discharge Date: 01/24/19 - Discharge Diagnosis (1) SIRS (systemic inflammatory response syndrome) Is this a current diagnosis for this admission?: Yes Summary: From pneumonia. Resolved. (2) Acute respiratory failure with hypoxia Is this a current diagnosis for this admission?: Yes Summary: The patient has been on his baseline 3 L of oxygen since yesterday. He will not be able to wean any further. We will continue 3 L at home. (3) Pneumonia involving left lung Is this a current diagnosis for this admission?: Yes Summary: Left basal pneumonia. Likely pneumococcal. I will discharge patient on a course of Ceftin. (4) COPD with acute exacerbation Is this a current diagnosis for this admission?: Yes Summary: The patient will return to his home nebulizer and inhaler regimen. He will continue his oxygen therapy. I will also have him complete a short prednisone course. (5) Bipolar disorder Is this a current diagnosis for this admission?: Yes Summary: The patient did get a little anxious. He missed his cataract surgery yesterday. Now that he is discharging today's in a much better mood. He will continue his current medication regimen. (6) Anxiety Is this a current diagnosis for this admission?: Yes Summary: As above (7) Hypothyroidism Is this a current diagnosis for this admission?: Yes Summary: We did check a TSH level that was normal. He will continue his current regimen. (8) BPH (benign prostatic hyperplasia) Is this a current diagnosis for this admission?: Yes Summary: He did not exhibit any urinary retention during his hospitalization. He will return to his chronic medication regimen. (9) GERD (gastroesophageal reflux disease) Is this a current diagnosis for this admission?: Yes Summary: He did not complain of any dyspepsia. He will return to his proton pump inhibitor regimen at home. (10) Hypertension Is this a current diagnosis for this admission?: Yes Summary: Resume home medication regimen (11) Oxygen dependent Is this a current diagnosis for this admission?: Yes Summary: Continue 3 L nasal cannula at home. - Additional Information Resuscitation Status: Full Code Discharge Diet: Cardiac, Diabetic Discharge Activity: Activity As Tolerated, Balance Activity w/Rest Prescriptions: Cefuroxime Axetil [Ceftin 500 mg Tablet] 1 tab PO BID 5 Days #10 tablet Prednisone [Deltasone 20 mg Tablet] 20 mg PO DAILY 5 Days #5 tablet Home Medications: Diazepam [Valium] 5 mg PO BID 11/21/16 Divalproex Sodium [Divalproex Sodium ER] 500 mg PO BID 11/21/16 Donepezil HCl [Aricept 5 mg Tablet] 10 mg PO QHS 11/21/16 Levothyroxine Sodium [Synthroid] 125 mcg PO Q6AM 11/21/16 Omeprazole 20 mg PO BID 11/21/16 Prazosin HCl [Minipress] 2 mg PO DAILY 11/21/16 Benztropine Mesylate [Cogentin 1 mg Tablet] 1 mg PO DAILY 01/28/18 Gabapentin [Neurontin 100 mg Capsule] 200 mg PO Q8 01/28/18 Montelukast Sodium [Singulair 10 mg Tablet] 10 mg PO QHS #30 tablet 01/30/18 Torsemide [Demadex 20 mg Tablet] 20 mg PO TID 05/12/18 Albuterol Sulfate [Proair Respiclick] 90 mcg IH ASDIR PRN 01/13/19 Albuterol Sulfate [Ventolin 0.083% Neb 2.5 mg/3 mL Ampul] 1 vial NEB QID 01/13/19 Besifloxacin HCl [Besivance 0.6% Oph Susp 5 ml] 1 drop OP ASDIR PRN 01/13/19 Difluprednate [Durezol] 5 ml OP ASDIR PRN 01/13/19 Ipratropium [place] [Atrovent 0.02% Neb 0.5 mg/2.5 ml Ampul] 0.5 mg IH QID 01/13/19 Meloxicam [Mobic] 7.5 mg PO BID 01/13/19 Quetiapine Fumarate [Seroquel Xr] 300 mg PO QPM 01/13/19 Bromfenac Sodium [Prolensa] 1 drop OU DAILY 01/22/19 Glipizide [Glucotrol] 10 mg PO DAILY 01/22/19 Metformin HCl 500 mg PO BID 01/22/19 Multivitamin [Daily Multiple Vitamin] 1 each PO DAILY 01/22/19 Cefuroxime Axetil [Ceftin 500 mg Tablet] 1 tab PO BID 5 Days #10 tablet 01/24/19 Prednisone [Deltasone 20 mg Tablet] 20 mg PO DAILY 5 Days #5 tablet 01/24/19 History of Present Illness Patient complains of: Shortness of breath with fever and cough History of Present Illness: WOODROW GOODWIN is a 63 year old male who was fortunate to have a friend who checks in on him. He has a complex medical history that includes COPD. He was found to be febrile and short of breath and she brought him to the emergency room. Evaluation revealed left lower lobe pneumonia. He was referred to the hospitalist service for admission. Hospital Course Hospital Course: The patient had an uneventful hospital course. On the first day of admission he wanted to go home because he had cataracts surgery scheduled for the next day. He was still very wheezy and I told him it would have to be delayed. I explained that they would not do surgery if he is acutely ill anyway. Today however I did not appreciate any significant wheezing. He has been walking with his oxygen. He does have all of his medications at home. I told him I would give him a prescription for a course of prednisone and the antibiotics. He was very happy to be going home. He will follow-up with his primary doctor next week. His friend has already arranged an appointment. Physical Exam Vital Signs: Temp Pulse Resp BP Pulse Ox 97.5 F 79 17 126/73 H 98 01/24/19 12:22 01/24/19 12:22 01/24/19 12:22 01/24/19 12:22 01/24/19 12:22 Intake & Output 01/23/19 01/24/19 01/25/19 06:59 06:59 06:59 Intake Total 3790 2720 Output Total 400 500 Balance 3390 2220 Weight 91.4 kg 91.4 kg General appearance: PRESENT: no acute distress, cooperative, well-developed Head exam: PRESENT: atraumatic, normocephalic Respiratory exam: PRESENT: prolonged expiratory phas, rhonchi - He did have some coarse breath sounds on the left., symmetrical, unlabored. ABSENT: rales, tachypnea, wheezes - I did not appreciate any wheezes. Cardiovascular exam: PRESENT: RRR, +S1, +S2 GI/Abdominal exam: PRESENT: normal bowel sounds, soft. ABSENT: distended, t enderness Rectal exam: PRESENT: deferred Neurological exam: PRESENT: alert, awake, oriented to person, oriented to place, oriented to time, oriented to situation Psychiatric exam: PRESENT: appropriate affect, normal mood. ABSENT: agitated, anxious Focused psych exam: ABSENT: delusional, restlessness Results Laboratory Results: 01/24/19 06:15 01/24/19 06:15 01/23/19 01/24/19 01/24/19 20:04 06:15 06:15 WBC 7.2 RBC 4.02 L Hgb 12.3 L Hct 35.9 L MCV 89 MCH 30.6 MCHC 34.4 RDW 14.7 H Plt Count 142 L Seg Neutrophils % 70.1 Lymphocytes % 18.4 Monocytes % 8.8 Eosinophils % 2.4 Basophils % 0.3 Absolute Neutrophils 5.0 Absolute Lymphocytes 1.3 Absolute Monocytes 0.6 Absolute Eosinophils 0.2 Absolute Basophils 0.0 Sodium Potassium Chloride Carbon Dioxide Anion Gap BUN Creatinine Est GFR ( Amer) Est GFR (Non-Af Amer) Glucose Lactic Acid 0.8 0.5 L Calcium Magnesium 01/24/19 06:15 WBC RBC Hgb Hct MCV MCH MCHC RDW Plt Count Seg Neutrophils % Lymphocytes % Monocytes % Eosinophils % Basophils % Absolute Neutrophils Absolute Lymphocytes Absolute Monocytes Absolute Eosinophils Absolute Basophils Sodium 140.4 Potassium 4.9 Chloride 109 H Carbon Dioxide 25 Anion Gap 6 BUN 17 Creatinine 1.02 Est GFR ( Amer) > 60 Est GFR (Non-Af Amer) > 60 Glucose 111 H Lactic Acid Calcium 9.5 Magnesium 2.2 01/22/19 01/22/19 11:28 11:28 Creatine Kinase 696 H CK-MB (CK-2) 2.64 Troponin I < 0.012 Impressions: Chest X-Ray 01/22/19 00:00 IMPRESSION: No focal consolidation. Mild asymmetric interstitial opacities at the left lung base possibly atelectasis although infection not excluded. Qualifiers - * PATIENT BEING DISCHARGED WITH ANY OF THE FOLLOWING DIAGNOSIS: No Plan Discharge Plan: Patient will be discharged home. I transmitted his prescriptions to his pharmacy electronically. He will follow-up with his primary care doctor next week in an effort to obtain clearance for his cataract surgery. Time Spent: Greater than 30 Minutes
== END 2019-01-24 14:42 | disposition home or self-care (01) | DRG 190 ==
LOC: ER 10:57 → EH 14:22 → 5 18:29
PROVIDERS: ADMIT Internal Medicine; ATTEND Internal Medicine
PROC: 3E0F3GC Introduction of Other Therapeutic Substance into Respiratory Tract, Percutaneous Approach (ICD-10-PCS; principal; 2019-01-22)
DX: J44.0 Chronic obstructive pulmonary disease with (acute) lower respiratory infection (principal); J13 Pneumonia due to Streptococcus pneumoniae; J96.01 Acute respiratory failure with hypoxia; Z99.81 Dependence on supplemental oxygen; F03.90 Unspecified dementia, unspecified severity, without behavioral disturbance, psychotic disturbance, mood disturbance, and anxiety; E03.9 Hypothyroidism, unspecified; D64.9 Anemia, unspecified; E11.9 Type 2 diabetes mellitus without complications; J44.1 Chronic obstructive pulmonary disease with (acute) exacerbation; F31.9 Bipolar disorder, unspecified; F41.9 Anxiety disorder, unspecified; N40.0 Benign prostatic hyperplasia without lower urinary tract symptoms; K21.9 Gastro-esophageal reflux disease without esophagitis; I10 Essential (primary) hypertension; E78.5 Hyperlipidemia, unspecified; F43.10 Post-traumatic stress disorder, unspecified; G89.29 Other chronic pain; H26.9 Unspecified cataract; I25.10 Atherosclerotic heart disease of native coronary artery without angina pectoris; M19.90 Unspecified osteoarthritis, unspecified site; Z79.84 Long term (current) use of oral hypoglycemic drugs; Z79.52 Long term (current) use of systemic steroids; Z86.73 Personal history of transient ischemic attack (TIA), and cerebral infarction without residual deficits; I25.2 Old myocardial infarction; Z87.891 Personal history of nicotine dependence; Z88.8 Allergy status to other drugs, medicaments and biological substances
CPT/HCPCS: 36415; 71045; 80048; 80053; 81001; 82550; 82553; 82803; 82962; 83036; 83605; 83735; 84443; 84484; 85025; 87040; 93005; 93010; 94640; 96360; 99291; J1956; J7030; J7620

== ENCOUNTER 2019-03-13 08:43 | Day surgery (SDC) | payer MEDICARE, MEDICAID ==
[~2019-03-13 08:43] MED LIST changes: +BESIFLOXACIN HCL 0.6% OPH SUSP 5 ML BOTTLE OS PRN; +CYCLOPENTOLATE 0.2%/PHENYLEPHRINE 1% OPH SOLN 2 ML OS PRN; +DORZOLAMIDE HCL 2%/TIMOLOL MALEAT 0.5% OPH SOLN 10 ML OS PRN; -FENTANYL CITRATE INJ/PF 100 MCG/2 ML AMPUL ONE; -KETOROLAC TROMETHAMINE 0.45% 4 DROP/0.4 ML DROPERETTE OD PRN; +KETOROLAC TROMETHAMINE 0.45% 4 DROP/0.4 ML DROPERETTE OS PRN; -MIDAZOLAM 2 MG/2 ML INJ ONE; +TETRACAINE HCL 0.5% OPH SOLN 4 ML OS PRN; +TROPICAMIDE 1% OPH SOLN 3 ML OS PRN
[2019-03-13] MEDS: TETRACAINE HCL 0.5% OPH SOLN 4 ML OS PRN ×4 (09:20→09:48)
[2019-03-13] MEDS: BESIFLOXACIN HCL 0.6% OPH SUSP 5 ML BOTTLE OS PRN ×4 (09:20→10:07)
[2019-03-13] MEDS: TROPICAMIDE 1% OPH SOLN 3 ML OS PRN ×3 (09:20→09:40)
[2019-03-13] MEDS: CYCLOPENTOLATE 0.2%/PHENYLEPHRINE 1% OPH SOLN 2 ML OS PRN ×3 (09:20→09:40)
[2019-03-13] MEDS ORDERED: MIDAZOLAM 2 MG/2 ML INJ ONE (09:30)
[2019-03-13] MEDS ORDERED: FENTANYL CITRATE INJ/PF 100 MCG/2 ML AMPUL ONE (09:30)
[2019-03-13] MEDS: LIDOCAINE 1%/PHENYLEPHRINE 1.5% 1 ML VIAL ONE ×2 (09:56)
[2019-03-13] MEDS: EPINEPHRINE INJ/PF 1 MG/1 ML AMPULE ONE ×2 (09:56)
[2019-03-13] MEDS: CHONDR SU A NA/HYALUR INTRAOC KIT (SURGICARE) ONE ×2 (09:56)
[2019-03-13] MEDS: DORZOLAMIDE HCL 2%/TIMOLOL MALEAT 0.5% OPH SOLN 10 ML OS PRN ×2 (10:07)
--- NOTE | 2019-03-13 20:50 | [facility] OPERATIVE REPORT E ---
[facility] Operative Report NAME: WOODROW GOODWIN AGE: 63Y DATE OF SURGERY: 03/13/2019 ROOM: PREOPERATIVE DIAGNOSIS: CATARACT, LEFT EYE. POSTOPERATIVE DIAGNOSIS: CATARACT, LEFT EYE. OPERATION: Cataract extraction with insertion of an IOL of the left eye. SURGEON: ANA MARIA HADDAD M.D. ANESTHESIA: Topical. PROCEDURE: After obtaining appropriate consent, the patient's left eye was prepped and draped in sterile fashion as well as the surgeon in a sterile manner and cataract surgery was started. First a paracentesis blade was used to make a side-port incision. Viscoelastic was used to inflate the anterior chamber. Next a 2.4 mm incision was made with a 2.4 mm blade, clear corneal temporally. A continuous capsulorrhexis was made using a cystotome and Utrata forceps. Following this hydrodissection was carried out to make the lens fully loose and mobile and it was rotated 90 degrees. Following this, a netead-isz-guqyidt technique was used to phacoemulsify the lens with a CDE of 5.24. The remaining cortex was removed with irrigation/aspiration. Provisc was instilled into the capsular bag to inflate the bag. A SN60WF, 20.5 diopter lens was placed. The remaining viscoelastic material was removed with irrigation/aspiration. Following this, the incision was found to be watertight. Besivance was instilled into the eye and a protective shield was placed over the eye. The patient returned to the postoperative recovery in stable condition. DICTATING PHYSICIAN: ANA MARIA HADDAD M.D. [id number] PHY#: [id number] ID: [id number] JOB#: [id number] ACCT: [id number] cc:ANA MARIA HADDAD M.D. >
--- NOTE | 2019-03-13 20:55 | [facility] DISCHARGE SUMMARY E ---
[facility] Discharge Summary NAME: WOODROW GOODWIN AGE: 63Y ADMITTED: 03/13/2019 DISCHARGED: This is a 63-year-old male who underwent cataract extraction of the left eye. DIAGNOSIS: Cataract left eye. He underwent surgery because he was having difficulty seeing the television. He should be on a regular diet. No bending at the waist and no heavy lifting. He should use his Besivance, Prolensa, and Durezol at 3:00 p.m. and 8:00 p.m. and sleep with a rigid shield. I will see him for his 1-day postop tomorrow. DICTATING PHYSICIAN: ANA MARIA HADDAD M.D. [id number] PHY#: [id number] ID: [id number] JOB#: [id number] ACCT: [id number] cc:ANA MARIA HADDAD M.D. >
== END 2019-03-13 10:50 | disposition home or self-care (01) ==
LOC: SC 08:43
PROVIDERS: ATTEND Internal Medicine
DX: H25.812 Combined forms of age-related cataract, left eye (principal); J44.9 Chronic obstructive pulmonary disease, unspecified; E11.9 Type 2 diabetes mellitus without complications; E89.0 Postprocedural hypothyroidism; K21.9 Gastro-esophageal reflux disease without esophagitis; I10 Essential (primary) hypertension; Z79.899 Other long term (current) drug therapy; Z79.51 Long term (current) use of inhaled steroids; Z79.84 Long term (current) use of oral hypoglycemic drugs
CPT/HCPCS: 66984; 82962; V2632; J2250; J3490 ×2; A9270; J0171; J3010; J2370; 142

== ENCOUNTER 2019-05-13 09:34 | Inpatient (IN) | payer MEDICARE, MEDICAID ==
[2019-05-13] MEDS ORDERED: NORMAL SALINE 1000 ML 1,000 ML IV ONE ×3 (09:40→12:06)
[2019-05-13] MEDS ORDERED: IPRATROPIUM/ALBUTEROL 0.5-2.5 MG/3 ML AMPUL NEB ONE (09:46)
[2019-05-13] MEDS ORDERED: MAGNESIUM SULFATE/D5W 1 GM/100 ML RTUPB IV ONE ×2 (09:49→10:16)
--- NOTE | 2019-05-13 09:53 | ER Document Report ---
ED General - General Stated Complaint: DIFFICULTY BREATHING Time Seen by Provider: 05/13/19 09:45 Primary Care Provider: SHYAM PARDO PA-C [Primary Care Provider] - Follow up as needed TRAVEL OUTSIDE OF THE [place] IN LAST 30 DAYS: No - HPI Notes: Patient is a 64-year-old gentleman with an extensive medical history who presents emergency department for evaluation of difficulty breathing. Is been going on for 2 days. He states he has a pain in his chest as well, that he is unable to describe for me. EMS reports to me that he is febrile, was given Tylenol in route. Also been administered Solu-Medrol and a DuoNeb. He had little in the way of relief. The patient is 3 L oxygen dependent with a history of COPD. He was significantly hypoxic on EMS arrival. No vomiting. States he is taking his medications as prescribed, but he does not have a list with him. - Related Data Allergies/Adverse Reactions: simvastatin [From Zocor] Allergy (Verified 02/21/19 11:51) LEGS GET WEAK Past Medical History - General Information source: Patient - Social History Smoking Status: Former Smoker Drug Abuse: None Family History: None, Reviewed & Not Pertinent - Past Medical History Cardiac Medical History: Reports: Hx Congestive Heart Failure, Hx Coronary Artery Disease, Hx Heart Attack, Hx Hypercholesterolemia, Hx Hypertension Pulmonary Medical History: Reports: Hx Bronchitis, Hx COPD, Hx Pneumonia Denies: Hx Asthma Neurological Medical History: Reports: Hx Cerebrovascular Accident, Hx Seizures Endocrine Medical History: Reports: Hx Diabetes Mellitus Type 2, Hx Hypothyroidism Renal/ Medical History: Reports: Hx Benign Prostatic Hyperplasia. Denies: Hx Peritoneal Dialysis GI Medical History: Reports: Hx Gastroesophageal Reflux Disease. Denies: Hx Hepatitis, Hx Hiatal Hernia, Hx Ulcer Musculoskeletal Medical History: Reports Hx Arthritis, Reports Hx Musculoskeletal Trauma Psychiatric Medical History: Reports: Hx Anxiety, Hx Bipolar Disorder, Hx Dementia, Hx Depression Infectious Medical History: Denies: Hx Hepatitis Past Surgical History: Reports: Hx Appendectomy, Hx Genitourinary Surgery - TURP, Hx Orthopedic Surgery - Right ankle surgery in 1982 or 1983 when he had a muscle from the leg moved, Hx Thyroid Surgery, Hx Tonsillectomy, Other - TURP per patient.. Denies: Hx Open Heart Surgery, Hx Pacemaker - Immunizations Hx Diphtheria, Pertussis, Tetanus Vaccination: No Review of Systems - Review of Systems Constitutional: See HPI EENT: No symptoms reported Cardiovascular: See HPI Respiratory: See HPI Gastrointestinal: No symptoms reported Genitourinary: No symptoms reported Musculoskeletal: No symptoms reported Skin: No symptoms reported Neurological/Psychological: No symptoms reported Physical Exam - Vital signs Vitals: Resp Pulse Ox 23 H 85 L 05/13/19 09:39 05/13/19 09:39 - Notes Notes: Vital signs reviewed, please refer to chart. Head is normocephalic, atraumatic. Pupils equal round, reactive to light. Neck is supple without meningismus. Heart is regular rate and rhythm. Lungs reveal markedly diminished breath sounds with scant expiratory wheezes and prolonged expiratory phase throughout. Abdomen is soft, nontender, normoactive bowel sounds throughout. Extremities without cyanosis, clubbing. Posterior calves are nontender. Peripheral pulses are equal. Skin is warm and dry. Patient is awake, alert, disoriented to time, but oriented to person and place. He has a mild expressive aphasia and dysarthria. Moves all 4 extremities spontaneously, no gross facial asymmetry. Course - Re-evaluation Re-evalutation: 05/13/19 09:52 Patient presents emergency department for evaluation of difficulty breathing. On arrival he was still found to be hypoxic with markedly diminished air movement. He was placed on a monitor tech, BiPAP was ordered. Sepsis protocol was ordered as well. Patient does have a history of some CHF. I did review his echocardiogram from 2018. It showed some mild diastolic dysfunction. He had a preserved LVEF, but did have some concentric hypertrophy. Decision was made to cautiously give fluids, started with a 1 L bolus, and the case of sepsis being her clear diagnosis here. Patient's EKG shows tachycardia and what appears to be a likely rate related ischemia in the lateral leads. Patient further given magnesium, another DuoNeb. We will continue to monitor. 05/13/19 13:33 Patient continued on the BiPAP. His respiratory rate improved. He is oxygenat ing well. Heart rate improved down to the 90s without any further intervention. Laboratory investigations revealed a significant leukocytosis as well as an elevated lactate. His chest x-ray did not show any clear infective etiology, but it is my strong suspicion that he has a pneumonia which is triggered these findings. He is given IV fluids, Levaquin. I spoke with Dr. Sanders, the patient will be admitted for further care. Patient was assigned to Can Lezama, physician digital marketing assistant, for admission. - Vital Signs Vital signs: Temp Pulse Resp BP Pulse Ox 99.1 F 16 117/78 96 05/13/19 10:35 05/13/19 13:26 05/13/19 13:16 05/13/19 13:26 - Laboratory Result Diagrams: 05/13/19 09:42 05/13/19 09:42 Laboratory results interpreted by me: 05/13/19 05/13/19 05/13/19 09:42 09:42 09:42 WBC 14.7 H RDW 15.4 H Seg Neutrophils % 86.6 H Lymphocytes % 6.2 L Absolute Neutrophils 12.8 H BUN 26 H Creatinine 1.38 H Est GFR (Non-Af Amer) 52 L Glucose 143 H Lactic Acid 2.7 H - Diagnostic Test Radiology reviewed: Reports reviewed Radiology results interpreted by me: 05/13/19 13:32 Chest X-Ray 05/13/19 09:42 IMPRESSION: Cardiomegaly. Unchanged scarring or atelectasis of the left lung base. No new airspace opacity. - EKG Interpretation by Me Additional EKG results interpreted by me: 05/13/19 13:32 Sinus tachycardia with a rate of 127 bpm. Normal axis and intervals. ST changes in the lateral leads, likely rate related. No other acute ST changes concerning for infarction. Discharge - Discharge Clinical Impression: COPD with acute exacerbation, Acute and chronic respiratory failure with hypoxia Sepsis Qualifiers: Sepsis type: sepsis due to unspecified organism Sepsis acute organ dysfunction status: with acute organ dysfunction Severe sepsis acute organ dysfunction type: unspecified Severe sepsis shock status: without septic shock Qualified Code(s): A41.9 - Sepsis, unspecified organism; R65.20 - Severe sepsis without septic shock Condition: Stable Disposition: ADMITTED INPATIENT Admitting Provider: Marilyn (Hospitalist) - [facility] admitting Unit Admitted: [facility] Referrals: SHYAM PARDO PA-C [Primary Care Provider] - Follow up as needed
[2019-05-13 10:06] LABS: ABSOLUTE LYMPHOCYTES (AUTO) 0.9 10^3/uL (0.5-4.7); ABSOLUTE NEUT (AUTO) 12.8 10^3/uL (1.7-8.2); BASOPHILS % (AUTO) 0.2 % (0-2); EOSINOPHILS % (AUTO) 0.3 % (0-6); HEMATOCRIT 41.7 % (37.9-51.0); HEMOGLOBIN 13.8 g/dL (13.5-17.0); LYMPHOCYTES % (AUTO) 6.2 % (13-45); MEAN CORPUSCULAR HGB CONC 33.2 g/dL (32.0-36.0); MEAN CORPUSCULAR VOLUME 87 fl (80-97); MONOCYTES % (AUTO) 6.7 % (3-13); PLATELET COUNT 156 10^3/uL (150-450); RED BLOOD COUNT 4.77 10^6/uL (4.35-5.55); RED CELL DISTRIBUTION WIDTH 15.4 % (11.5-14.0); SEGMENTED NEUTROPHILS % (AUTO) 86.6 % (42-78); TOTAL CELLS COUNTED % (AUTO) 100 %; WHITE BLOOD COUNT 14.7 10^3/uL (4.0-10.5)
[2019-05-13 10:08] LABS: INTERNATIONAL RATION (INR) 1.01; PROTHROMBIN TIME 13.3 SEC (11.4-15.4)
[2019-05-13 10:16] LABS: VENOUS BLOOD BASE EXCESS 4.8 mmol/L; VENOUS BLOOD HCO3 30.6 mmol/L (20-32); VENOUS BLOOD PCO2 49.5 mmHg (35-63); VENOUS BLOOD PH 7.41 (7.30-7.42)
[2019-05-13] MEDS ORDERED: LEVOFLOXACIN 750 MG/D5W RTU 750 MG/150 ML RTUPB IV ONE (10:22)
[2019-05-13 10:24] LABS: ALBUMIN 4.7 g/dL (3.5-5.0); ALKALINE PHOSPHATASE 48 U/L (38-126); ANION GAP 12 (5-19); ASPARTATE AMINO TRANSFERASE 43 U/L (17-59); BILIRUBIN,DIRECT 0.4 mg/dL (0.0-0.4); BILIRUBIN,TOTAL 0.7 mg/dL (0.2-1.3); BLOOD UREA NITROGEN 26 mg/dL (7-20); CALCIUM 10.2 mg/dL (8.4-10.2); CARBON DIOXIDE 28 mmol/L (22-30); CHLORIDE 103 mmol/L (98-107); GLUCOSE 143 mg/dL (75-110); TOTAL PROTEIN 7.7 g/dL (6.3-8.2)
[2019-05-13 10:36] LABS: TROPONIN I 0.013 ng/mL
--- NOTE | 2019-05-13 10:43 | RADIOLOGY REPORT (SQ) ---
EXAM DESCRIPTION: CHEST SINGLE VIEW COMPLETED DATE/TIME: 05/13/2019 10:22 am REASON FOR STUDY: SOB COMPARISON: 01/22/2019 EXAM PARAMETERS: NUMBER OF VIEWS: One view. TECHNIQUE: Single frontal radiographic view of the chest acquired. RADIATION DOSE: NA LIMITATIONS: None. FINDINGS: LUNGS AND PLEURA: Unchanged scarring or atelectasis of the left lung base. No pleural eff usion. MEDIASTINUM AND HILAR STRUCTURES: No masses. Contour normal. HEART AND VASCULAR STRUCTURES: Cardiomegaly. BONES: No acute findings. HARDWARE: None in the chest. OTHER: No other significant finding. IMPRESSION: Cardiomegaly. Unchanged scarring or atelectasis of the left lung base. No new airspace opacity. TECHNICAL DOCUMENTATION: JOB ID: [id number] [employer]- All Rights Reserved Reading location - IP/workstation name: [email or web address]
--- NOTE | 2019-05-13 12:39 | EKG REPORT ---
SEVERITY:- ABNORMAL ECG - SINUS TACHYCARDIA NONSPECIFIC REPOL ABNORMALITY, LATERAL LEADS : Confirmed by: Korey Zavaleta MD 13-May-2019 12:38:52
[2019-05-13 12:56] LABS: APPEARANCE,URINE CLEAR; BILIRUBIN,URINE NEGATIVE (NEGATIVE); COLOR,URINE YELLOW; GLUCOSE, URINE NEGATIVE (NEGATIVE); KETONES,URINE NEGATIVE (NEGATIVE); LEUKOCYTE ESTERASE,URINE NEGATIVE (NEGATIVE); NITRITE,URINE NEGATIVE (NEGATIVE); PROTEIN,URINE NEGATIVE (NEGATIVE); URINE SPECIFIC GRAVITY 1.012; UROBILINOGEN,URINE NEGATIVE mg/dL (<2.0)
--- NOTE | 2019-05-13 15:45 | PDOC H&P ---
History of Present Illness Admission Date/PCP: 05/13/19 13:46 SHYAM PARDO PA-C [id number] male who has a 15 to 20-year history of COPD patient states he smokes between a half a pack to a whole pack of cigarettes per day for over 40 years patient states that for the last couple days he has been more short of breath and especially last night when his air conditioning unit when out. Patient presents to the emergency room with increased shortness of breath. Patient is oxygen dependent at home 3 L cannula. Patient has an elevated white count slightly and lactic acid level elevated she was placed on IV antibiotics and admitted to the [facility] for COPD exacerbation #1 #2 leukocytosis #3 rule out pneumonia Patient complains of: Increased shortness of breath History of Present Illness: WOODROW GOODWIN is a 64 year old male Past Medical History Cardiac Medical History: Reports: Congestive Heart Failure, Coronary Artery Disease, Myocardial Infarction, Hyperlipidema, Hypertension Pulmonary Medical History: Reports: Bronchitis, Chronic Obstructive Pulmonary Disease (COPD), Pneumonia Denies: Asthma Neurological Medical History: Reports: Seizures Endocrine Medical History: Reports: Diabetes Mellitus Type 2, Hypothyroidism GI Medical History: Reports: Gastroesophageal Reflux Disease Denies: Hepatitis, Hiatal Hernia Musculoskeltal Medical History: Reports: Arthritis Psychiatric Medical History: Reports: Bipolar Disorder, Dementia, Depression Hematology: Denies: Anemia, Sickle Cell Disease Past Surgical History Past Surgical History: Reports: Appendectomy, Orthopedic Surgery - Right ankle surgery in 1982 or 1983 when he had a muscle from the leg moved, Tonsillectomy, Other - TURP per patient. Denies: Pacemaker Social History Smoking Status: Former Smoker Frequency of Alcohol Use: None Hx Recreational Drug Use: Yes Drugs: Marijuana Hx Prescription Drug Abuse: No - Advance Directive Resuscitation Status: Full Code Family History Family History: None, Reviewed & Not Pertinent Parental Family History Reviewed: No Children Family History Reviewed: No Sibling(s) Family History Reviewed.: No Medication/Allergy Home Medications: Diazepam [Valium] 10 mg PO QHS 11/21/16 Divalproex Sodium [Divalproex Sodium ER] 500 mg PO BID 11/21/16 Donepezil HCl [Aricept 5 mg Tablet] 10 mg PO QHS 11/21/16 Levothyroxine Sodium [Synthroid] 125 mcg PO Q6AM 11/21/16 Prazosin HCl [Minipress] 2 mg PO DAILY 11/21/16 Benztropine Mesylate [Cogentin 1 mg Tablet] 1 mg PO DAILY 01/28/18 Gabapentin [Neurontin 100 mg Capsule] 200 mg PO Q8 01/28/18 Montelukast Sodium [Singulair 10 mg Tablet] 10 mg PO QHS #30 tablet 01/30/18 Torsemide [Demadex 20 mg Tablet] 20 mg PO TID 05/12/18 Albuterol Sulfate [Ventolin 0.083% Neb 2.5 mg/3 mL Ampul] 1 vial NEB QID 01/13/19 Ipratropium [place] [Atrovent 0.02% Neb 0.5 mg/2.5 ml Ampul] 0.5 mg IH QID 01/13/19 Meloxicam [Mobic] 7.5 mg PO BID 01/13/19 Quetiapine Fumarate [Seroquel Xr] 300 mg PO QPM 01/13/19 Glipizide [Glucotrol] 10 mg PO DAILY 01/22/19 Metformin HCl 500 mg PO BID 01/22/19 Albuterol Sulfate [Ventolin Hfa 8 gm Mdi (1 Mdi/ER Disp)] 2 puff IH QID 05/13/19 Diazepam [Valium] 5 mg PO QAM 05/13/19 Pantoprazole Sodium [Protonix [address] Tablet] 40 mg PO DAILY 05/13/19 Sucralfate [Carafate 1 gm Tablet] 1 gm PO QID 05/13/19 Allergies/Adverse Reactions: simvastatin [From Zocor] Allergy (Verified 02/21/19 11:51) LEGS GET WEAK Physical Exam Vital Signs: Temp Pulse Resp BP Pulse Ox 99.1 F 16 129/94 H 91 L 05/13/19 10:35 05/13/19 15:20 05/13/19 15:16 05/13/19 15:20 Intake & Output 05/12/19 05/13/19 05/14/19 06:59 06:59 06:59 Intake Total 2250 Balance 2250 Weight 95.708 kg General appearance: PRESENT: mild distress Head exam: PRESENT: atraumatic, normocephalic Respiratory exam: PRESENT: accessory muscle use, crackles, decreased breath sounds Cardiovascular exam: PRESENT: RRR. ABSENT: diastolic murmur, rubs, systolic murmur GI/Abdominal exam: PRESENT: normal bowel sounds, soft. ABSENT: distended, guarding, mass, organolmegaly, rebound, tenderness Neurological exam: PRESENT: alert, awake, oriented to person, oriented to place, oriented to time, oriented to situation, CN II-XII grossly intact. ABSENT: motor sensory deficit Psychiatric exam: PRESENT: appropriate affect, normal mood. ABSENT: homicidal ideation, suicidal ideation Results Laboratory Results: 05/13/19 09:42 05/13/19 09:42 05/13/19 05/13/19 05/13/19 09:42 09:42 09:42 WBC 14.7 H RBC 4.77 Hgb 13.8 Hct 41.7 MCV 87 MCH 29.0 MCHC 33.2 RDW 15.4 H Plt Count 156 Seg Neutrophils % 86.6 H Lymphocytes % 6.2 L Monocytes % 6.7 Eosinophils % 0.3 Basophils % 0.2 Absolute Neutrophils 12.8 H Absolute Lymphocytes 0.9 Absolute Monocytes 1.0 Absolute Eosinophils 0.0 Absolute Basophils 0.0 VBG pH VBG pCO2 VBG HCO3 VBG Base Excess Sodium 142.6 Potassium 5.0 Chloride 103 Carbon Dioxide 28 Anion Gap 12 BUN 26 H Creatinine 1.38 H Est GFR ( Amer) > 60 Est GFR (Non-Af Amer) 52 L Glucose 143 H Lactic Acid 2.7 H Calcium 10.2 Total Bilirubin 0.7 AST 43 Alkaline Phosphatase 48 Total Protein 7.7 Albumin 4.7 Urine Color Urine Appearance Urine pH Ur Specific Gooding Urine Protein Urine Glucose (UA) Urine Ketones Urine Blood Urine Nitrite Ur Leukocyte Esterase Urine WBC (Auto) Urine RBC (Auto) 05/13/19 05/13/19 09:42 12:37 WBC RBC Hgb Hct MCV MCH MCHC RDW Plt Count Seg Neutrophils % Lymphocytes % Monocytes % Eosinophils % Basophils % Absolute Neutrophils Absolute Lymphocytes Absolute Monocytes Absolute Eosinophils Absolute Basophils VBG pH 7.41 VBG pCO2 49.5 VBG HCO3 30.6 VBG Base Excess 4.8 Sodium Potassium Chloride Carbon Dioxide Anion Gap BUN Creatinine Est GFR ( Amer) Est GFR (Non-Af Amer) Glucose Lactic Acid Calcium Total Bilirubin AST Alkaline Phosphatase Total Protein Albumin Urine Color YELLOW Urine Appearance CLEAR Urine pH 8.0 Ur Specific Gooding 1.012 Urine Protein NEGATIVE Urine Glucose (UA) NEGATIVE Urine Ketones NEGATIVE Urine Blood NEGATIVE Urine Nitrite NEGATIVE Ur Leukocyte Esterase NEGATIVE Urine WBC (Auto) 0 Urine RBC (Auto) 1 05/13/19 09:42 Troponin I 0.013 NT-Pro-B Natriuret Pep 36 Impressions: Chest X-Ray 05/13/19 09:42 IMPRESSION: Cardiomegaly. Unchanged scarring or atelectasis of the left lung base. No new airspace opacity. Assessment and Plan - Diagnosis (3) Diabetes mellitus Is this a current diagnosis for this admission?: Yes Plan: 05/13/2019 patient takes metformin 500 mg twice daily at home. Patient will be placed on this as well as a sliding scale (4) Pneumonia Qualifiers: Is this a current diagnosis for this admission?: Yes Plan: 05/13/2019 patient will be placed on IV antibiotics Rocephin and Zithromax (5) Tobacco abuse Is this a current diagnosis for this admission?: No (6) Anxiety Is this a current diagnosis for this admission?: No Plan: 05/13/2019 patient will be given Ativan as needed as needed for anxiety (7) Hypothyroidism Is this a current diagnosis for this admission?: Yes Plan: 05/13/2019 patient will be placed on his Synthroid 0.125 mg and TSH will be checked his home dosage will be questioned as he list every 6 hours dosing of Synthroid - Time Time Spent with patient: 35 or more minutes
[2019-05-13] MEDS ORDERED: DEXTROSE 40% GEL 15 GM TUBE PO PRN ×2 (16:05)
[2019-05-13] MEDS ORDERED: GLUCAGON,HUMAN RECOMB 1 MG INJ IM PRN (16:05)
[2019-05-13] MEDS ORDERED: DEXTROSE 50%-WATER 25 GM/50 ML DISP.SYRIN IV PRN ×2 (16:05)
[2019-05-13] MEDS ORDERED: (PENDING PHARMACY ID) (Quetiapine Fumarate [Seroquel Xr] 300 MG) PO SCH ×2 (18:00→20:00)
[2019-05-13] MEDS: SUCRALFATE 1 GM TABLET PO SCH ×2 (18:27→22:13)
[2019-05-13] MEDS: INSULIN LISPRO 100 UNIT/ML 3 ML VIAL SUBCUT SCH (18:27)
[2019-05-13] MEDS: METFORMIN HCL 500 MG TABLET PO SCH (18:28)
[2019-05-13] MEDS: TORSEMIDE 20 MG TABLET PO SCH (18:28)
[2019-05-13] MEDS: MELOXICAM 7.5 MG TABLET PO SCH (18:28)
[2019-05-13] MEDS: DIVALPROEX SODIUM 500 MG TAB.SR.24H PO SCH (18:28)
[2019-05-13] MEDS ORDERED: LEVALBUTEROL HCL NEB 1.25 MG/3 ML AMPUL NEB ONE (21:00)
[2019-05-13] MEDS ORDERED: ACETYLCYSTEINE 20% SOLN 800 MG/4 ML VIAL.NEB NEB ONE (21:00)
[2019-05-13] MEDS: GABAPENTIN 100 MG CAPSULE PO SCH (22:12)
[2019-05-13] MEDS: GUAIFENESIN 600 MG TABLET.SA PO SCH (22:12)
[2019-05-13] MEDS: DIAZEPAM 5 MG TABLET PO SCH (22:13)
[2019-05-13] MEDS: MONTELUKAST SODIUM 10 MG TABLET PO SCH (22:13)
[2019-05-13] MEDS: DONEPEZIL HCL 5 MG TABLET PO SCH (22:13)
[2019-05-14] MEDS: LEVALBUTEROL HCL NEB 1.25 MG/3 ML AMPUL NEB SCH ×4 (02:42→20:08)
[2019-05-14] MEDS: LEVOTHYROXINE SODIUM 0.1 MG TABLET PO SCH (05:51)
[2019-05-14] MEDS: LEVOTHYROXINE SODIUM 0.025 MG TABLET PO SCH (05:51)
[2019-05-14] MEDS: GABAPENTIN 100 MG CAPSULE PO SCH ×3 (05:51→21:19)
[2019-05-14] MEDS: INSULIN LISPRO 100 UNIT/ML 3 ML VIAL SUBCUT SCH (08:35)
[2019-05-14] MEDS: ACETYLCYSTEINE 20% SOLN 800 MG/4 ML VIAL.NEB NEB SCH ×2 (08:54→20:08)
[2019-05-14] MEDS: SUCRALFATE 1 GM TABLET PO SCH ×4 (09:33→21:19)
[2019-05-14] MEDS: DIAZEPAM 5 MG TABLET PO SCH ×2 (09:33→21:19)
[2019-05-14] MEDS: METFORMIN HCL 500 MG TABLET PO SCH ×2 (09:34→17:00)
[2019-05-14] MEDS: DIVALPROEX SODIUM 500 MG TAB.SR.24H PO SCH ×2 (09:34→17:00)
[2019-05-14] MEDS: TORSEMIDE 20 MG TABLET PO SCH ×3 (09:34→17:00)
[2019-05-14] MEDS: GUAIFENESIN 600 MG TABLET.SA PO SCH ×2 (09:34→21:19)
[2019-05-14] MEDS: MELOXICAM 7.5 MG TABLET PO SCH ×2 (09:34→17:00)
[2019-05-14] MEDS ORDERED: (PENDING PHARMACY ID) (Prazosin Hcl [Minipress] 2 MG) PO SCH (10:00)
[2019-05-14] MEDS ORDERED: DOXAZOSIN MESYLATE 4 MG TABLET PO SCH (10:00)
[2019-05-14] MEDS ORDERED: GLIPIZIDE 10 MG TABLET PO SCH (10:00)
[2019-05-14] MEDS ORDERED: BENZTROPINE MESYLATE 1 MG TABLET PO SCH (10:00)
[2019-05-14] MEDS: 1/2 NORMAL SALINE 1,000 ML IV PRN ×2 (10:14→18:21)
--- NOTE | 2019-05-14 13:54 | Progress Note Acknowledgement ---
Progress Note Acknowledgement Progess Note Acknowledgement: I, the undersigned member of the medical staff with appropriate privileges and with supervisory authority over [ PAC], a dependent practice allied health professional, acknowledge that I have reviewed the progress notes entered on this patient, and in my professional judgment believe that the assessment made and/or any care evidenced was appropriate
[2019-05-14 14:26] LABS: ABSOLUTE LYMPHOCYTES (AUTO) 1.2 10^3/uL (0.5-4.7); ABSOLUTE MONOCYTES (AUTO) 0.8 10^3/uL (0.1-1.4); ABSOLUTE NEUT (AUTO) 8.2 10^3/uL (1.7-8.2); BASOPHILS % (AUTO) 0.2 % (0-2); EOSINOPHILS % (AUTO) 0.2 % (0-6); HEMATOCRIT 38.6 % (37.9-51.0); HEMOGLOBIN 12.8 g/dL (13.5-17.0); MEAN CORPUSCULAR VOLUME 88 fl (80-97); MONOCYTES % (AUTO) 8.1 % (3-13); PLATELET COUNT 143 10^3/uL (150-450); RED CELL DISTRIBUTION WIDTH 15.6 % (11.5-14.0); SEGMENTED NEUTROPHILS % (AUTO) 79.5 % (42-78); TOTAL CELLS COUNTED % (AUTO) 100 %; WHITE BLOOD COUNT 10.3 10^3/uL (4.0-10.5)
[2019-05-14] MEDS ORDERED: PREDNISONE 20 MG TABLET PO ONE (14:30)
[2019-05-14 14:51] LABS: ANION GAP 12 (5-19); BLOOD UREA NITROGEN 29 mg/dL (7-20); CARBON DIOXIDE 30 mmol/L (22-30); CHLORIDE 99 mmol/L (98-107); GLUCOSE 113 mg/dL (75-110); POTASSIUM 4.8 mmol/L (3.6-5.0)
--- NOTE | 2019-05-14 15:24 | PDOC PROGRESS REPORT ---
Subjective Progress Note for:: 05/14/19 Subjective:: 05/14/2019 patient states he is feeling better but still not back to his baseline, gets short of breath with walking to the bathroom. Has not used his BiPAP since last night however BUN 26 creatinine 1.38, Lactic acid levels 2.7 , going to give the patient a tapering dose of prednisone and probably DC him to home tomorrow, he seems satisfied with this plan Reason For Visit: COPD WITH ACUTE EXACERBATION Physical Exam Vital Signs: Temp Pulse Resp BP Pulse Ox 97.6 F 98 18 113/67 98 05/14/19 11:59 05/14/19 14:00 05/14/19 11:59 05/14/19 11:59 05/14/19 11:59 Intake & Output 05/13/19 05/14/19 05/15/19 06:59 06:59 06:59 Intake Total 3968 480 Output Total 1480 300 Balance 2488 180 Weight 100.8 kg General appearance: PRESENT: no acute distress, well-developed, well-nourished, other - Much improved from last night when admitted through the ED Respiratory exam: PRESENT: rales Cardiovascular exam: PRESENT: RRR. ABSENT: diastolic murmur, rubs, systolic murmur Neurological exam: PRESENT: alert, awake, oriented to person, oriented to place, oriented to time, oriented to situation, CN II-XII grossly intact. ABSENT: motor sensory deficit Psychiatric exam: PRESENT: appropriate affect, normal mood. ABSENT: homicidal ideation, suicidal ideation Results Laboratory Results: 05/14/19 14:17 05/14/19 14:17 05/13/19 05/14/19 05/14/19 09:42 14:17 14:17 WBC 10.3 RBC 4.40 Hgb 12.8 L Hct 38.6 MCV 88 MCH 29.0 MCHC 33.0 RDW 15.6 H Plt Count 143 L Seg Neutrophils % 79.5 H Lymphocytes % 12.0 L Monocytes % 8.1 Eosinophils % 0.2 Basophils % 0.2 Absolute Neutrophils 8.2 Absolute Lymphocytes 1.2 Absolute Monocytes 0.8 Absolute Eosinophils 0.0 Absolute Basophils 0.0 Sodium 141.4 Potassium 4.8 Chloride 99 Carbon Dioxide 30 Anion Gap 12 BUN 29 H Creatinine 1.17 Est GFR ( Amer) > 60 Est GFR (Non-Af Amer) > 60 Glucose 113 H Calcium 9.0 TSH 0.69 05/13/19 05/14/19 09:42 14:17 Troponin I 0.013 NT-Pro-B Natriuret Pep 36 901 H Impressions: Chest X-Ray 05/13/19 09:42 IMPRESSION: Cardiomegaly. Unchanged scarring or atelectasis of the left lung base. No new airspace opacity. Assessment and Plan - Diagnosis (1) COPD with acute exacerbation Is this a current diagnosis for this admission?: Yes Plan: 05/14/2019 patient has not used his BiPAP since last night we will continue with neb treatments, add steroids today. Continue antibiotics (2) Acute respiratory distress Is this a current diagnosis for this admission?: No (3) Diabetes mellitus Is this a current diagnosis for this admission?: Yes Plan: 05/13/2019 patient takes metformin 500 mg twice daily at home. Patient will be placed on this as well as a sliding scale 05/14/2019 patient's blood sugars are being controlled on sliding scale as needed (4) Pneumonia Qualifiers: Is this a current diagnosis for this admission?: Yes Plan: 05/13/2019 patient will be placed on IV antibiotics Rocephin and Zithromax 05/14/2019 continue antibiotics for now. We will probably send patient home 3 more days of Zithromax (5) Tobacco abuse Is this a current diagnosis for this admission?: No (6) Anxiety Is this a current diagnosis for this admission?: No (7) Hypothyroidism Is this a current diagnosis for this admission?: No - Time Time Spent with patient: 25-34 minutes
[2019-05-14] MEDS ORDERED: PREDNISONE 20 MG TABLET ONE (16:58)
[2019-05-14] MEDS: MONTELUKAST SODIUM 10 MG TABLET PO SCH (21:19)
[2019-05-14] MEDS: DONEPEZIL HCL 5 MG TABLET PO SCH (21:19)
[2019-05-15] MEDS: LEVALBUTEROL HCL NEB 1.25 MG/3 ML AMPUL NEB SCH ×2 (02:12→08:49)
[2019-05-15] MEDS: 1/2 NORMAL SALINE 1,000 ML IV PRN (05:26)
[2019-05-15] MEDS: LEVOTHYROXINE SODIUM 0.1 MG TABLET PO SCH (05:26)
[2019-05-15] MEDS: GABAPENTIN 100 MG CAPSULE PO SCH (05:26)
[2019-05-15] MEDS: LEVOTHYROXINE SODIUM 0.025 MG TABLET PO SCH (05:26)
[2019-05-15] MEDS: INSULIN LISPRO 100 UNIT/ML 3 ML VIAL SUBCUT SCH (08:24)
[2019-05-15] MEDS: DIAZEPAM 5 MG TABLET PO SCH (08:26)
[2019-05-15 08:46] VITALS: BP 131/80
[2019-05-15] MEDS: ACETYLCYSTEINE 20% SOLN 800 MG/4 ML VIAL.NEB NEB SCH (08:49)
== END 2019-05-15 09:25 | disposition home health service (06) | DRG 189 ==
LOC: ER 09:34 → EH 13:46 → 3S 17:14
PROVIDERS: ADMIT Hospitalist; ATTEND Hospitalist
DX: J96.21 Acute and chronic respiratory failure with hypoxia (principal); J18.9 Pneumonia, unspecified organism; J44.1 Chronic obstructive pulmonary disease with (acute) exacerbation; I50.9 Heart failure, unspecified; I25.10 Atherosclerotic heart disease of native coronary artery without angina pectoris; E78.00 Pure hypercholesterolemia, unspecified; I11.0 Hypertensive heart disease with heart failure; E11.8 Type 2 diabetes mellitus with unspecified complications; E03.9 Hypothyroidism, unspecified; K21.9 Gastro-esophageal reflux disease without esophagitis; N40.0 Benign prostatic hyperplasia without lower urinary tract symptoms; F31.9 Bipolar disorder, unspecified; F17.210 Nicotine dependence, cigarettes, uncomplicated; Z99.81 Dependence on supplemental oxygen; Z79.84 Long term (current) use of oral hypoglycemic drugs; Z79.51 Long term (current) use of inhaled steroids; Z79.899 Other long term (current) drug therapy
CPT/HCPCS: 36415; 71045; 80048; 80053; 81001; 82803; 82962; 83605; 83880; 84443; 84484; 85025; 85610; 87040; 87086; 93005; 93010; 94640; 94660; 96361; 96365; 96366; 96375; 99285; J1815; J1956; J3475; J3490; J7030; J7512; J7620

== ENCOUNTER 2019-06-24 10:33 | Inpatient (IN) | payer MEDICARE, MEDICAID ==
--- NOTE | 2019-06-24 10:57 | ER Document Report ---
ED General - General Stated Complaint: DIFFICULTY BREATHING Time Seen by Provider: 06/24/19 10:48 Primary Care Provider: SHYAM PARDO PA-C [Primary Care Provider] - Follow up as needed Notes: Patient is complaining of breathing difficulties since yesterday. EMS was called to the scene and in route to the hospital he was given Solu-Medrol IV and a nebulizer with albuterol. Patient has a history of COPD. He was hospitalized in this hospital in May for the same symptoms. Patient says he has a cough but not producing a lot of phlegm. He is on home oxygen at 3 L. Not sure if he had a fever. Patient continues to smoke cigarettes, but less than a pack a day. Denies any heart disease. TRAVEL OUTSIDE OF THE [place] IN LAST 30 DAYS: No - Related Data Allergies/Adverse Reactions: simvastatin [From Zocor] Allergy (Verified 02/21/19 11:51) LEGS GET WEAK Past Medical History - Social History Smoking Status: Current Every Day Smoker Family History: None, Reviewed & Not Pertinent - Past Medical History Cardiac Medical History: Reports: Hx Congestive Heart Failure, Hx Coronary Artery Disease, Hx Heart Attack, Hx Hypercholesterolemia, Hx Hypertension Pulmonary Medical History: Reports: Hx Bronchitis, Hx COPD, Hx Pneumonia Neurological Medical History: Reports: Hx Cerebrovascular Accident, Hx Seizures Endocrine Medical History: Reports: Hx Diabetes Mellitus Type 2, Hx Hypothyroidism Renal/ Medical History: Reports: Hx Benign Prostatic Hyperplasia. Denies: Hx Peritoneal Dialysis GI Medical History: Reports: Hx Gastroesophageal Reflux Disease. Denies: Hx Hepatitis, Hx Hiatal Hernia, Hx Ulcer Musculoskeletal Medical History: Reports Hx Arthritis, Reports Hx Musculoskeleta l Trauma Psychiatric Medical History: Reports: Hx Anxiety, Hx Bipolar Disorder, Hx Dementia, Hx Depression Infectious Medical History: Denies: Hx Hepatitis Past Surgical History: Reports: Hx Appendectomy, Hx Genitourinary Surgery - TURP, Hx Orthopedic Surgery - Right ankle surgery in 1982 or 1983 when he had a muscle from the leg moved, Hx Thyroid Surgery, Hx Tonsillectomy, Other - TURP per patient.. Denies: Hx Open Heart Surgery, Hx Pacemaker - Immunizations Hx Diphtheria, Pertussis, Tetanus Vaccination: No Review of Systems - Review of Systems Notes: REVIEW OF SYSTEMS: CONSTITUTIONAL : Denies fever but feels chills. EENT: Denies eye, ear, nose or mouth or throat pain or other symptoms. CARDIOVASCULAR: Denies chest pain. RESPIRATORY: Has had increased coughing, but not producing much phlegm. See HPI. GASTROINTESTINAL: Denies abdominal pain or nausea, vomiting, or diarrhea. GENITOURINARY: Denies difficulty or painful urinating, urinary frequency, blood in urine. MUSCULOSKELETAL: Denies back or neck pain. Denies joint pain or swelling. SKIN: Denies rash or skin lesions. NEUROLOGICAL: Denies LOC or altered mental status. Denies headache. Denies sensory loss or motor deficits. ALL OTHER SYSTEMS REVIEWED AND NEGATIVE. Physical Exam - Vital signs Vitals: Pulse Ox 95 06/24/19 10:38 Interpretation: Tachycardic, Febrile Notes: PHYSICAL EXAMINATION: GENERAL: Mild respiratory distress with good airflow on 3 L. HEAD: Atraumatic, normocephalic. EYES: Pupils equal round and reactive to light, extraocular movements intact. ENT: oropharynx clear without exudates. Moist mucous membranes. NECK: Normal range of motion, supple. LUNGS: Fine scattered expiratory wheezes bilaterally. HEART: Regular rate and rhythm without murmurs. Heart rate 110 at bedside by me. ABDOMEN: Soft, nontender. No guarding or rebound. No masses. Abdomen appears rather protuberant BACK: No tenderness throughout entire back. EXTREMITIES: Normal range of motion without pain. No pitting edema. NEUROLOGICAL: Normal speech, normal gait. Normal sensory, motor, and reflex exams. Awake, alert, and oriented x3. Cranial nerves normal. PSYCH: Normal mood, normal affect. SKIN: Warm, dry, no rashes. Course - Re-evaluation Re-evalutation: 06/24/19 12:46 Spoke with hospitalist who will admit patient. - Vital Signs Vital signs: Temp Pulse Resp BP Pulse Ox 101.1 F H 20 111/81 97 06/24/19 11:16 06/24/19 12:01 06/24/19 12:01 06/24/19 12:01 - Laboratory Result Diagrams: 06/24/19 10:40 06/24/19 10:40 Laboratory results interpreted by me: 06/24/19 06/24/19 06/24/19 10:40 10:40 10:40 WBC 19.8 H RDW 16.0 H Lymph % (Auto) 5.6 L Absolute Neuts (auto) 17.1 H Absolute Monos (auto) 1.5 H Seg Neutrophils % 86.4 H VBG pH VBG pCO2 BUN 29 H Creatinine 1.63 H Est GFR ( Amer) 52 L Est GFR (MDRD) Non-Af 43 L Glucose 137 H Lactic Acid 2.4 H 06/24/19 10:40 WBC RDW Lymph % (Auto) Absolute Neuts (auto) Absolute Monos (auto) Seg Neutrophils % VBG pH 7.43 H VBG pCO2 34.7 L BUN Creatinine Est GFR ( Amer) Est GFR (MDRD) Non-Af Glucose Lactic Acid - Diagnostic Test Radiology results interpreted by id: 06/24/19 12:45 Chest x-ray shows some airspace disease in the left base which is new. - EKG Interpretation by Ct EKG shows normal: Sinus rhythm Rate: Tachycardia Rhythm: NSR Additional EKG results interpreted by id: 06/24/19 12:45 EKG does not show any acute changes. No STEMI. Discharge - Discharge Clinical Impression: COPD exacerbation, Pneumonia Condition: Stable Disposition: ADMITTED INPATIENT Admitting Provider: Marilyn (Hospitalist) Unit Admitted: Medical Floor Referrals: SHYAM PARDO PA-C [Primary Care Provider] - Follow up as needed
[2019-06-24 11:07] LABS: VENOUS BLOOD BASE EXCESS -1.3 mmol/L; VENOUS BLOOD HCO3 22.3 mmol/L (20-32); VENOUS BLOOD PCO2 34.7 mmHg (35-63); VENOUS BLOOD PH 7.43 (7.30-7.42)
[2019-06-24] MEDS ORDERED: CEFTRIAXONE 1 GM/D5W RTU 1 GM/50 ML RTUPB IV ONE (11:10)
[2019-06-24 11:14] LABS: ABSOLUTE EOSINOPHILS # (AUTO) 0.1 10^3/uL (0.0-0.6); ABSOLUTE LYMPHOCYTES (AUTO) 1.1 10^3/uL (0.5-4.7); ABSOLUTE MONOCYTES (AUTO) 1.5 10^3/uL (0.1-1.4); ABSOLUTE NEUT (AUTO) 17.1 10^3/uL (1.7-8.2); BASOPHILS % (AUTO) 0.2 % (0-2); EOSINOPHILS % (AUTO) 0.3 % (0-6); HEMATOCRIT 43.5 % (37.9-51.0); HEMOGLOBIN 14.7 g/dL (13.5-17.0); INTERNATIONAL RATION (INR) 0.99; LYMPHOCYTES % (AUTO) 5.6 % (13-45); MEAN CORPUSCULAR HEMOGLOBIN 29.1 pg (27.0-33.4); MEAN CORPUSCULAR HGB CONC 33.7 g/dL (32.0-36.0); MEAN CORPUSCULAR VOLUME 86 fl (80-97); MONOCYTES % (AUTO) 7.5 % (3-13); PLATELET COUNT 196 10^3/uL (150-450); PROTHROMBIN TIME 13.1 SEC (11.4-15.4); RED BLOOD COUNT 5.04 10^6/uL (4.35-5.55); SEGMENTED NEUTROPHILS % (AUTO) 86.4 % (42-78); TOTAL CELLS COUNTED % (AUTO) 100 %; WHITE BLOOD COUNT 19.8 10^3/uL (4.0-10.5)
[2019-06-24 11:30] LABS: ALBUMIN 4.7 g/dL (3.5-5.0); ALKALINE PHOSPHATASE 52 U/L (38-126); ANION GAP 13 (5-19); ASPARTATE AMINO TRANSFERASE 38 U/L (17-59); BILIRUBIN,DIRECT 0.2 mg/dL (0.0-0.4); BILIRUBIN,TOTAL 0.5 mg/dL (0.2-1.3); BLOOD UREA NITROGEN 29 mg/dL (7-20); CALCIUM 10.1 mg/dL (8.4-10.2); CARBON DIOXIDE 25 mmol/L (22-30); CHLORIDE 104 mmol/L (98-107); GLUCOSE 137 mg/dL (75-110); POTASSIUM 4.6 mmol/L (3.6-5.0); TOTAL PROTEIN 7.6 g/dL (6.3-8.2)
--- NOTE | 2019-06-24 11:34 | RADIOLOGY REPORT (SQ) ---
EXAM DESCRIPTION: CHEST SINGLE VIEW COMPLETED DATE/TIME: 06/24/2019 11:23 am REASON FOR STUDY: t1 sepsis protocol COMPARISON: 05/13/2019 NUMBER OF VIEWS: One view. TECHNIQUE: Single frontal radiographic view of the chest acquired. LIMITATIONS: None. FINDINGS: LUNGS AND PLEURA: There is patchy airspace disease in the left lower lobe new from prior s tudy. The left basilar linear opacities previously described have resolved. The right lung field is grossly clear. MEDIASTINUM AND HILAR STRUCTURES: No masses. Contour normal. HEART AND VASCULAR STRUCTURES: Stable in appearance. BONES: No acute findings. HARDWARE: None in the chest. OTHER: No other significant finding. IMPRESSION: Probable left lower lobe pneumonia. TECHNICAL DOCUMENTATION: JOB ID: [id number]- All Rights Reserved Reading location - IP/workstation name: [email or web address]
[2019-06-24] MEDS ORDERED: IPRATROPIUM/ALBUTEROL 0.5-2.5 MG/3 ML AMPUL NEB ONE (11:42)
[2019-06-24] MEDS ORDERED: ACETAMINOPHEN 325 MG TABLET PO ONE (11:45)
[2019-06-24 11:57] LABS: APPEARANCE,URINE CLEAR; BILIRUBIN,URINE NEGATIVE (NEGATIVE); COLOR,URINE YELLOW; GLUCOSE, URINE NEGATIVE (NEGATIVE); KETONES,URINE NEGATIVE (NEGATIVE); LEUKOCYTE ESTERASE,URINE NEGATIVE (NEGATIVE); NITRITE,URINE NEGATIVE (NEGATIVE); PROTEIN,URINE NEGATIVE (NEGATIVE); URINE SPECIFIC GRAVITY 1.013; UROBILINOGEN,URINE NEGATIVE mg/dL (<2.0)
--- NOTE | 2019-06-24 13:48 | PDOC H&P ---
History of Present Illness Admission Date/PCP: 06/24/19 13:07 Patient complains of: Cough with shortness of breath History of Present Illness: WOODROW GOODWIN is a 64 year old male with a history of COPD who continues to smoke. He was just hospitalized in May for exacerbation of COPD. It appears that he was treated for pneumonia as well. He states that he has been feeling poorly for a day or 2. Yesterday he began to have a cough with little sputum production. He denies fever or chills. He is on oxygen at 3 L/min at home as his baseline. He was slightly dysarthric and I believe this was due more to being very tired and having a very dry mouth. He did have an elevated white blood cell count and chest x-ray showed pneumonia. He was referred to the hospital service for admission. Past Medical History Cardiac Medical History: Reports: Congestive Heart Failure, Coronary Artery Disease, Myocardial Infarction, Hyperlipidema, Hypertension Pulmonary Medical History: Reports: Bronchitis, Chronic Obstructive Pulmonary Disease (COPD), Pneumonia Denies: Asthma Neurological Medical History: Reports: Seizures Endocrine Medical History: Reports: Diabetes Mellitus Type 2, Hypothyroidism GI Medical History: Reports: Gastroesophageal Reflux Disease Denies: Hepatitis, Hiatal Hernia Musculoskeltal Medical History: Reports: Arthritis Psychiatric Medical History: Reports: Bipolar Disorder, Dementia, Depression Hematology: Denies: Anemia, Sickle Cell Disease Past Surgical History Past Surgical History: Reports: Appendectomy, Orthopedic Surgery - Right ankle surgery in 1982 or 1983 when he had a muscle from the leg moved, Tonsillectomy, Other - TURP per patient. Denies: Pacemaker Social History Information Source: Patient, [facility] Records Lives with: Friend Smoking Status: Current Every Day Smoker Frequency of Alcohol Use: None Hx Recreational Drug Use: Yes Drugs: Marijuana Hx Prescription Drug Abuse: No - Advance Directive Resuscitation Status: Full Code Surrogate healthcare decision maker:: He is estranged from most of his family. His friend is the next closest thing to a relative that he has. Family History Family History: None, Reviewed & Not Pertinent Parental Family History Reviewed: Yes - Patient unaware of parents medical history Children Family History Reviewed: Unknown - Patient estranged from his children/family Sibling(s) Family History Reviewed.: Unknown Medication/Allergy Home Medications: Albuterol Sulfate [Proair HFA Inhalation Aerosol 8.5 gm MDI] 2 puff IH Q6HP PRN 06/24/19 Albuterol Sulfate [Ventolin 0.083% Neb 2.5 mg/3 mL Ampul] 2.5 mg NEB RTQ6HP PRN 06/24/19 Benztropine Mesylate [Cogentin 1 mg Tablet] 1 mg PO DAILY 06/24/19 Diazepam [Valium 5 mg Tablet] 5 mg PO QAM 06/24/19 Diazepam [Valium] 10 mg PO QHS 06/24/19 Divalproex Sodium [Depakote ER 500 mg Tab.sr] 500 mg PO BID 06/24/19 Donepezil HCl [Aricept] 10 mg PO QHS 06/24/19 Gabapentin [Neurontin 100 mg Capsule] 200 mg PO Q8 06/24/19 Glipizide [Glucotrol] 10 mg PO DAILY 06/24/19 Ipratropium [place] [Atrovent 0.02% Neb 0.5 mg/2.5 ml Ampul] 0.5 mg NEB RTQID 06/24/19 Levothyroxine Sodium 125 mcg PO Q6AM 06/24/19 Meloxicam [Mobic] 7.5 mg PO BID 06/24/19 Metformin HCl [Glucophage 500 mg Tablet] 500 mg PO BID 06/24/19 Montelukast Sodium [Singulair 10 mg Tablet] 10 mg PO QHS 06/24/19 Pantoprazole Sodium [Protonix [address] Tablet] 40 mg PO DAILY 06/24/19 Prazosin HCl [Minipress] 2 mg PO DAILY 06/24/19 Quetiapine Fumarate [Seroquel Xr] 300 mg PO QPM 06/24/19 Sucralfate [Carafate 1 gm Tablet] 1 gm PO QID 06/24/19 Torsemide [Demadex 20 mg Tablet] 20 mg PO TID 06/24/19 Allergies/Adverse Reactions: simvastatin [From Zocor] Allergy (Verified 02/21/19 11:51) LEGS GET WEAK Review of Systems ROS unobtainable: Due to mental status - Obtained is much information as possible. Patient is a poor historian. Constitutional: PRESENT: as per HPI, anorexia, fatigue, weakness. ABSENT: fever(s) Eyes: ABSENT: visual disturbances Ears: ABSENT: hearing changes Nose, Mouth, and Throat: ABSENT: mouth pain, sore throat Cardiovascular: ABSENT: chest pain, edema Respiratory: PRESENT: cough, dyspnea, sputum. ABSENT: hemoptysis Gastrointestinal: ABSENT: abdominal pain, coffee ground emesis, constipation, diarrhea, nausea, vomiting Genitourinary: ABSENT: difficulty urinating, dysuria, hematuria, nocturia Musculoskeletal: ABSENT: deformity, joint swelling Integumentary: ABSENT: diaphoresis, lesions, pruritus, rash Neurological: PRESENT: abnormal speech - As noted above. ABSENT: syncope, weakness Psychiatric: ABSENT: anxiety, depression Endocrine: ABSENT: cold intolerance, heat intolerance Hematologic/Lymphatic: ABSENT: easy bleeding, easy bruising, lymphadenopathy Allergic/Immunologic: ABSENT: seasonal rhinorrhea Physical Exam Vital Signs: Temp Pulse Resp BP Pulse Ox 101.1 F H 20 111/81 97 06/24/19 11:16 06/24/19 12:01 06/24/19 12:01 06/24/19 12:01 Intake & Output 06/23/19 06/24/19 06/25/19 06:59 06:59 06:59 Weight 99.4 kg General appearance: PRESENT: no acute distress, cooperative, well-developed, other Head exam: PRESENT: atraumatic, normocephalic Eye exam: PRESENT: conjunctiva pink, EOMI. ABSENT: scleral icterus Ear exam: PRESENT: normal external ear exam. ABSENT: bleeding, drainage Mouth exam: PRESENT: dry mucosa, neck supple, tongue midline Respiratory exam: PRESENT: rhonchi - Left side, symmetrical, unlabored. ABSENT: accessory muscle use, rales, tachypnea, wheezes Cardiovascular exam: PRESENT: +S1, +S2, tachycardia GI/Abdominal exam: PRESENT: normal bowel sounds, soft. ABSENT: distended, guarding, tenderness Extremities exam: ABSENT: calf tenderness, joint swelling, pedal edema Musculoskeletal exam: PRESENT: normal inspection Neurological exam: PRESENT: awake, oriented to person, oriented to place, or iented to situation. ABSENT: alert - Reticent to answer questions. Dysarthric during discussion. Psychiatric exam: PRESENT: flat affect. ABSENT: agitated, anxious Focused psych exam: ABSENT: delusional, restlessness Skin exam: PRESENT: dry, other - Facial flushing. ABSENT: rash Results Laboratory Results: 06/24/19 10:40 06/24/19 10:40 06/24/19 06/24/19 06/24/19 10:40 10:40 10:40 WBC 19.8 H RBC 5.04 Hgb 14.7 Hct 43.5 MCV 86 MCH 29.1 MCHC 33.7 RDW 16.0 H Plt Count 196 Seg Neutrophils % 86.4 H VBG pH VBG pCO2 VBG HCO3 VBG Base Excess Sodium 141.9 Potassium 4.6 Chloride 104 Carbon Dioxide 25 Anion Gap 13 BUN 29 H Creatinine 1.63 H Est GFR ( Amer) 52 L Glucose 137 H Lactic Acid 2.4 H Calcium 10.1 Total Bilirubin 0.5 AST 38 Alkaline Phosphatase 52 Total Protein 7.6 Albumin 4.7 Urine Color Urine Appearance Urine pH Ur Specific [place] Urine Protein Urine Glucose (UA) Urine Ketones Urine Blood Urine Nitrite Ur Leukocyte Esterase Urine WBC (Auto) Urine RBC (Auto) 06/24/19 06/24/19 10:40 11:34 WBC RBC Hgb Hct MCV MCH MCHC RDW Plt Count Seg Neutrophils % VBG pH 7.43 H VBG pCO2 34.7 L VBG HCO3 22.3 VBG Base Excess -1.3 Sodium Potassium Chloride Carbon Dioxide Anion Gap BUN Creatinine Est GFR ( Amer) Glucose Lactic Acid Calcium Total Bilirubin AST Alkaline Phosphatase Total Protein Albumin Urine Color YELLOW Urine Appearance CLEAR Urine pH 6.0 Ur Specific [place] 1.013 Urine Protein NEGATIVE Urine Glucose (UA) NEGATIVE Urine Ketones NEGATIVE Urine Blood NEGATIVE Urine Nitrite NEGATIVE Ur Leukocyte Esterase NEGATIVE Urine WBC (Auto) 0 Urine RBC (Auto) 1 06/24/19 10:40 Troponin I 0.013 Impressions: Chest X-Ray 06/24/19 10:37 IMPRESSION: Probable left lower lobe pneumonia. Assessment and Plan - Diagnosis (1) Acute exacerbation of chronic obstructive pulmonary disease (COPD) Is this a current diagnosis for this admission?: Yes Plan: 06/24/2019-we will keep the patient on his current oxygen supplementation. We will try and maintain saturation between 90 and 94%. Aggressive pulmonary toilet with nebulizer treatments. (2) Pneumonia Qualifiers: Pneumonia type: due to unspecified organism Laterality: left Lung location: lower lobe of lung Qualified Code(s): J18.1 - Lobar pneumonia, unspecified organism Is this a current diagnosis for this admission?: Yes Plan: 06/24/2019-the patient was in for pneumonia in May. IV antibiotics. Sputum culture if available. Pulmonary toilet as above. (3) Tobacco dependence Is this a current diagnosis for this admission?: Yes Plan: 06/24/2019-I have ordered a NicoDerm patch. Continue to encourage cessation of smoking. Realistically, I do not believe this will be achievable for this patient. (4) Hypothyroidism Qualifiers: Hypothyroidism type: unspecified Qualified Code(s): E03.9 - Hypothyroidism, unspecified Is this a current diagnosis for this admission?: Yes Plan: 06/24/2019-I will check the patient's TSH level. We will continue his current dose of levothyroxine. We will adjust medications based on his laboratory results. (5) Bipolar disorder Qualifiers: Active/Remission status: remission status unspecified Qualified Code(s): F31.9 - Bipolar disorder, unspecified Is this a current diagnosis for this admission?: Yes Plan: 06/24/2019-the patient is on multiple medications including Seroquel and Depakote. We will continue his home regimen. It is difficult to tell how compliant he is with this regimen. We will monitor him closely. (6) BPH (benign prostatic hyperplasia) Qualifiers: Lower urinary tract symptom presence: symptoms present Is this a current diagnosis for this admission?: Yes Plan: 06/24/2019-continue terazosin or therapeutic equivalent. (7) Chronic kidney disease, stage III (moderate) Is this a current diagnosis for this admission?: Yes Plan: 06/24/2019-I reviewed the patient's blood work over the last 8 to 9 months. His serum creatinine has been borderline high with a GFR below 60 for the majority of visits between late 2018 and present. I believe he is at stage III chronic kidney failure most likely from diabetes and possibly underlying hypertension. We will continue to monitor his renal function. 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 Accu-Cheks will be performed before meals and at bedtime. He is also on sliding scale coverage. - Time Time Spent with patient: 35 or more minutes Medications reviewed and adjusted accordingly: Yes Anticipated discharge: Home - Inpatient Certification Based on my medical assessment, after consideration of the patient's comorbidities, presenting symptoms, or acuity I expect that the services needed warrant INPATIENT care.: Yes I certify that my determination is in accordance with my understanding of Medicare's requirements for reasonable and necessary INPATIENT services [42 CFR 412.3e].: Yes Medical Necessity: Need for Nebulizer Therapy and Monitoring of Response, Need for IV Antibiotics
[2019-06-24] MEDS ORDERED: ALBUTEROL SULFATE 0.042% NEB (1.25 MG/3 ML) AMPUL NEB PRN (13:51)
[2019-06-24] MEDS ORDERED: GUAIFENESIN SYRP 200 MG/10 ML UDC PO PRN (13:51)
[2019-06-24] MEDS ORDERED: ACETAMINOPHEN 325 MG TABLET PO PRN (13:51)
[2019-06-24] MEDS ORDERED: RINGERS SOLUTION,LACTATED 1,000 ML IV ONE (13:56)
--- NOTE | 2019-06-24 14:23 | EKG REPORT ---
SEVERITY:- BORDERLINE ECG - SINUS TACHYCARDIA BORDERLINE REPOL ABNORMALITY, DIFFUSE LEADS : Confirmed by: Korey Zavaleta MD 24-Jun-2019 14:23:08
[2019-06-24] MEDS: IPRATROPIUM/ALBUTEROL 0.5-2.5 MG/3 ML AMPUL NEB SCH ×2 (14:57→19:36)
[2019-06-24] MEDS: AZITHROMYCIN 500 MG in DEXTROSE 5%-WATER 250 ML IV SCH (15:20)
[2019-06-24] MEDS: ENOXAPARIN SODIUM INJ 40 MG/0.4 ML DISP.SYRIN SUBCUT SCH (16:03)
[2019-06-24] MEDS ORDERED: DEXTROSE 40% GEL 15 GM TUBE PO PRN ×2 (18:28)
[2019-06-24] MEDS ORDERED: GLUCAGON,HUMAN RECOMB 1 MG INJ IM PRN (18:28)
[2019-06-24] MEDS ORDERED: DEXTROSE 50%-WATER 25 GM/50 ML DISP.SYRIN IV PRN ×2 (18:28)
[2019-06-24] MEDS: IPRATROPIUM BROMIDE 0.02% NEB 0.5 MG/2.5 ML AMPUL NEB SCH (19:36)
[2019-06-24] MEDS ORDERED: (PENDING PHARMACY ID) (Prazosin Hcl [Minipress] 2 MG) PO SCH (20:00)
[2019-06-24] MEDS: GUAIFENESIN 600 MG TABLET.SA PO SCH (21:58)
[2019-06-24] MEDS: GABAPENTIN 100 MG CAPSULE PO SCH (21:58)
[2019-06-24] MEDS: DONEPEZIL HCL 5 MG TABLET PO SCH (21:59)
[2019-06-24] MEDS: MONTELUKAST SODIUM 10 MG TABLET PO SCH (21:59)
[2019-06-24] MEDS: SUCRALFATE 1 GM TABLET PO SCH (21:59)
[2019-06-24] MEDS ORDERED: FAMOTIDINE 20 MG TABLET PO SCH (22:00)
[2019-06-24] MEDS ORDERED: (PENDING PHARMACY ID) (Donepezil Hcl [Aricept] 10 MG) PO SCH (22:00)
[2019-06-24] MEDS: INSULIN REG, HUMAN 100 UNIT/ML 3 ML VIAL (PYX) SUBCUT SCH (22:00)
[2019-06-24] MEDS: NORMAL SALINE 1000 ML 1,000 ML IV PRN (23:40)
[2019-06-25] MEDS: IPRATROPIUM/ALBUTEROL 0.5-2.5 MG/3 ML AMPUL NEB SCH ×4 (02:24→19:56)
[2019-06-25] MEDS ORDERED: (PENDING PHARMACY ID) (Levothyroxine Sodium [Levothyroxine Sodium] 125 MCG) PO SCH (06:00)
[2019-06-25] MEDS: GABAPENTIN 100 MG CAPSULE PO SCH ×3 (06:01→21:45)
[2019-06-25] MEDS: LEVOTHYROXINE SODIUM 0.025 MG TABLET PO SCH (06:01)
[2019-06-25] MEDS: LEVOTHYROXINE SODIUM 0.1 MG TABLET PO SCH (06:01)
[2019-06-25] MEDS: NORMAL SALINE 1000 ML 1,000 ML IV PRN ×2 (06:04→16:50)
[2019-06-25 07:17] LABS: HEMATOCRIT 39.9 % (37.9-51.0); HEMOGLOBIN 13.1 g/dL (13.5-17.0); MEAN CORPUSCULAR HEMOGLOBIN 28.8 pg (27.0-33.4); MEAN CORPUSCULAR HGB CONC 32.9 g/dL (32.0-36.0); MEAN CORPUSCULAR VOLUME 87 fl (80-97); PLATELET COUNT 182 10^3/uL (150-450); RED BLOOD COUNT 4.57 10^6/uL (4.35-5.55); WHITE BLOOD COUNT 20.5 10^3/uL (4.0-10.5)
[2019-06-25 07:40] LABS: ABSOLUTE LYMPHOCYTES# (MANUAL) 1.2 10^3/uL (0.5-4.7); ABSOLUTE MONOCYTES # (MANUAL) 1.2 10^3/uL (0.1-1.4); ANION GAP 13 (5-19); ANISOCYTOSIS 1+; BAND NEUTROPHILS % (MANUAL) 4 % (3-5); BASOPHILS % (MANUAL) 0 % (0-2); BLOOD UREA NITROGEN 33 mg/dL (7-20); CALCIUM 9.6 mg/dL (8.4-10.2); CARBON DIOXIDE 24 mmol/L (22-30); CHLORIDE 104 mmol/L (98-107); EOSINOPHILS % (MANUAL) 0 % (0-6); GLUCOSE 169 mg/dL (75-110); LYMPHOCYTES % (MANUAL) 6 % (13-45); MONOCYTES % (MANUAL) 6 % (3-13); PLATELET COMMENT ADEQUATE; POTASSIUM 4.7 mmol/L (3.6-5.0); SEGMENTED NEUTROPHILS % (MAN) 84 % (42-78); TOTAL CELLS COUNTED 100
[2019-06-25] MEDS: DIAZEPAM 5 MG TABLET PO SCH (08:08)
[2019-06-25] MEDS: IPRATROPIUM BROMIDE 0.02% NEB 0.5 MG/2.5 ML AMPUL NEB SCH ×3 (08:09→18:13)
[2019-06-25] MEDS: INSULIN REG, HUMAN 100 UNIT/ML 3 ML VIAL (PYX) SUBCUT SCH ×4 (08:35→21:46)
[2019-06-25] MEDS: METFORMIN HCL 500 MG TABLET PO SCH ×2 (09:28→17:31)
[2019-06-25] MEDS: GUAIFENESIN 600 MG TABLET.SA PO SCH ×2 (09:28→21:45)
[2019-06-25] MEDS: PANTOPRAZOLE SODIUM 40 MG TABLET.DR PO SCH (09:29)
[2019-06-25] MEDS: BENZTROPINE MESYLATE 1 MG TABLET PO SCH (09:30)
[2019-06-25] MEDS: DIVALPROEX SODIUM 500 MG TAB.SR.24H PO SCH ×2 (09:30→17:31)
[2019-06-25] MEDS: GLIPIZIDE 10 MG TABLET PO SCH (09:32)
[2019-06-25] MEDS: MELOXICAM 7.5 MG TABLET PO SCH ×2 (09:33→17:31)
[2019-06-25] MEDS: ENOXAPARIN SODIUM INJ 40 MG/0.4 ML DISP.SYRIN SUBCUT SCH (09:33)
[2019-06-25] MEDS: NICOTINE 14 MG/24 HR PATCH.TD24 TD SCH (09:34)
[2019-06-25] MEDS: CEFTRIAXONE 1 GM/D5W RTU 1 GM/50 ML RTUPB IV SCH (09:34)
[2019-06-25] MEDS: TORSEMIDE 20 MG TABLET PO SCH (09:41)
[2019-06-25] MEDS: SUCRALFATE 1 GM TABLET PO SCH ×4 (09:44→21:45)
[2019-06-25] MEDS: TIOTROPIUM BROMIDE DPI 5 CAP/KIT (18 MCG/CAP) IH SCH (09:47)
[2019-06-25] MEDS ORDERED: (PENDING PHARMACY ID) (Prazosin Hcl [Minipress] 2 MG) PO SCH (10:00)
[2019-06-25] MEDS: AZITHROMYCIN 500 MG in DEXTROSE 5%-WATER 250 ML IV SCH (10:45)
--- NOTE | 2019-06-25 11:06 | RADIOLOGY REPORT (SQ) ---
EXAM DESCRIPTION: CT CHEST WITHOUT COMPLETED DATE/TIME: 06/25/2019 10:39 am REASON FOR STUDY: pneumonia COMPARISON: 06/24/2019 TECHNIQUE: CT scan performed of the chest without intravenous contrast. Images reviewed with lung, soft tissue and bone windows. Reconstructed coronal and sagittal MPR images reviewed. All images st ored on PACS. All CT scanners at this facility use dose modulation, iterative reconstruction, and/or weight based d osing when appropriate to reduce radiation dose to as low as reasonably achievable (ALARA). [facility]: Dose Right [facility]: CareDose [facility]: Dose Right [facility]: Teradose 4D [facility]: Smart [employer] RADIATION DOSE: CT Rad equipment meets quality standard of care and radiation dose reduction techniq ues were employed. CTDIvol: 12.6 mGy. DLP: 573 mGy-cm. mGy. LIMITATIONS: No technical limitations. FINDINGS: LUNGS AND PLEURA: Patchy areas of centrilobular nodular consolidation and ground-glass att enuation within the left upper lobe most compatible with infectious/ inflammatory etiology. Addition al mild ground-glass opacities within the left lower lobe. Right lower lobe band like atelectasis or scarring. Scattered more focal nodules. For example there is a Spiculated nodule within the left u pper lobe measuring 6 mm (series 4, image 23). Additional more focal nodule within the left lower lo be more inferiorly measuring 7 mm (series 4, image 79). No large pleural effusion or pneumothorax. HILAR AND MEDIASTINAL STRUCTURES: No identified masses or abnormal nodes. No obvious aneurysm. HEART AND VASCULAR STRUCTURES: No aneurysm. No pericardial effusion. UPPER ABDOMEN: No significant findings. Limited exam. THYROID AND OTHER SOFT TISSUES: No masses. No adenopathy. BONES: No significant finding. HARDWARE: None in the chest. OTHER: No other significant findings. IMPRESSION: 1. Patchy centrilobular nodular consolidation and ground-glass attenuation greatest wit hin the left upper lobe most compatible with infectious/inflammatory etiology. No significant effusi on. 2. Additional more focal nodular opacities measuring up to 7 mm as above. Follow-up recommendations as below. COMMENT: F[place]ISCHNER CRITERIA FOR FOLLOW-UP OF PULMONARY NODULES Incidentally detected new nodules in persons 35 or older. HIGH RISK: History of smoking or other known risk factors. 6-8mm multiple solid nodules: LOW RISK: CT 3-6 mo; then consider CT 18-24 mo. HIGH RISK: CT 3-6 mo; t hen CT 18-24 mo. TECHNICAL DOCUMENTATION: JOB ID: [id number] Quality ID # [id number]: Final reports with documentation of one or more dose reduction techniques (e.g., Au tomated exposure control, adjustment of the mA and/or kV according to patient size, use of iterative reconstruction technique) 2010 [employer]- All Rights Reserved Reading location - IP/workstation name: [email or web address]
--- NOTE | 2019-06-25 13:39 | PDOC PROGRESS REPORT ---
Subjective Progress Note for:: 06/25/19 Subjective:: Was seen and examined. He is feeling a lot better. He actually wants to go home. His white count slightly more elevated today. His heart rate is elevated but currently trending down. He is afebrile. Reason For Visit: PNEUMONIA Physical Exam Vital Signs: Temp Pulse Resp BP Pulse Ox 98.2 F 88 18 131/72 H 99 06/25/19 11:54 06/25/19 11:54 06/25/19 11:54 06/25/19 11:54 06/25/19 12:00 Pulse Oximeter Continuous Start: 06/24/19 13:51 Freq: RTQ4 Status: Active Protocol: Document 06/25/19 12:00 PMU (Rec: 06/25/19 12:48 PMU [email or web address]) Pulse Oximetry Assessment Oxygen Saturation (92-100) 99 Oxygen Flow Rate (L/min) 3 Oxygen Delivery Method Nasal Cannula Fraction of Inspired Oxygen (FIO2) 32 Equipment Usage Equipment in Use Continuous SpO2 Machine # [id number] Intake & Output 06/24/19 06/25/19 06/26/19 06:59 06:59 06:59 Intake Total 2855 50 Balance 2855 50 Weight 208 lb 5.389 oz Exam: Patient is no acute distress Alert oriented to time place person No anxiety or depression Head: atraumatic normocephalic Pupils: are equal reactive Neck: is supple and trachea is central no lymphadenopathy No pharyngeal erythema or exudates Heart: Regular tachycardia Lungs: Chronically on oxygen. Bilateral wheezing. Abdomen: nontender nondistended Neurological exam: unremarkable Musculoskeletal: No joint swelling or effusion chronic lower back pain and tenderness No suicidal or homicidal ideation Results Laboratory Results: 06/25/19 06:14 06/25/19 06:14 06/24/19 06/24/19 06/25/19 10:40 19:41 06:14 WBC 20.5 H RBC 4.57 Hgb 13.1 L Hct 39.9 MCV 87 MCH 28.8 MCHC 32.9 RDW 16.0 H Plt Count 182 Seg Neutrophils % Not Reportable Sodium Potassium Chloride Carbon Dioxide Anion Gap BUN Creatinine Est GFR ( Amer) Glucose Lactic Acid 4.8 H Calcium Magnesium TSH 2.30 06/25/19 06:14 WBC RBC Hgb Hct MCV MCH MCHC RDW Plt Count Seg Neutrophils % Sodium 140.7 Potassium 4.7 Chloride 104 Carbon Dioxide 24 Anion Gap 13 BUN 33 H Creatinine 1.22 Est GFR ( Amer) > 60 Glucose 169 H Lactic Acid Calcium 9.6 Magnesium 2.4 H TSH 06/24/19 11:34 Clean Catch Midstream Urine Culture - Final Mixed Urogenital Maria Guadalupe 06/24/19 10:40 Troponin I 0.013 Impressions: Chest X-Ray 06/24/19 10:37 IMPRESSION: Probable left lower lobe pneumonia. Chest CT 06/25/19 00:00 IMPRESSION: 1. Patchy centrilobular nodular consolidation and ground-glass attenuation greatest within the left upper lobe most compatible with infectious/ inflammatory etiology. No significant effusion. 2. Additional more focal nodular opacities measuring up to 7 mm as above. Follow-up recommendations as below. Assessment and Plan - Diagnosis (1) Acute exacerbation of chronic obstructive pulmonary disease (COPD) Is this a current diagnosis for this admission?: Yes Plan: 06/24/2019-we will keep the patient on his current oxygen supplementation. We will try and maintain saturation between 90 and 94%. Aggressive pulmonary toilet with nebulizer treatments. 06/25: Continue current management (2) Pneumonia Qualifiers: Pneumonia type: due to unspecified organism Laterality: left Lung location: lower lobe of lung Qualified Code(s): J18.1 - Lobar pneumonia, unspecified organism Is this a current diagnosis for this admission?: Yes Plan: 06/24/2019-the patient was in for pneumonia in May. IV antibiotics. Sputum culture if available. Pulmonary toilet as above. 06/25: Continue ceftriaxone and azithromycin. CT scan reviewed. (3) Chronic kidney disease, stage III (moderate) Is this a current diagnosis for this admission?: Yes Plan: 06/24/2019-I reviewed the patient's blood work over the last 8 to 9 months. His serum creatinine has been borderline high with a GFR below 60 for the majority of visits between late 2018 and present. I believe he is at stage III chronic kidney failure most likely from diabetes and possibly underlying hypertension. We will continue to monitor his renal function. 06/25: Creatinine improved to 1.22 today. Continue to monitor. (4) Tobacco dependence Is this a current diagnosis for this admission?: Yes Plan: 06/24/2019-I have ordered a NicoDerm patch. Continue to encourage cessation of smoking. Realistically, I do not believe this will be achievable for this patient. 06/25: Patient was counseled. 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 Accu-Cheks will be performed before meals and at bedtime. He is also on sliding scale coverage. 06/25: Continue current management. (6) BPH (benign prostatic hyperplasia) Qualifiers: Lower urinary tract symptom presence: symptoms present Is this a current diagnosis for this admission?: Yes Plan: 06/24/2019-continue terazosin or therapeutic equivalent. 06/25: Continue current medications (7) Bipolar disorder Is this a current diagnosis for this admission?: Yes Plan: Continue home medications (8) Hypothyroidism Qualifiers: Hypothyroidism type: unspecified Qualified Code(s): E03.9 - Hypothyroidism, unspecified Is this a current diagnosis for this admission?: Yes Plan: 06/24/2019-I will check the patient's TSH level. We will continue his current dose of levothyroxine. We will adjust medications based on his laboratory results. 06/25: TSH normal
[2019-06-25 15:14] LABS: ANION GAP 11 (5-19); BLOOD UREA NITROGEN 29 mg/dL (7-20); CALCIUM 8.9 mg/dL (8.4-10.2); CARBON DIOXIDE 28 mmol/L (22-30); CHLORIDE 102 mmol/L (98-107); GLUCOSE 91 mg/dL (75-110); POTASSIUM 4.7 mmol/L (3.6-5.0)
[2019-06-25] MEDS ORDERED: (PENDING PHARMACY ID) (Quetiapine Fumarate [Seroquel Xr] 300 MG) PO SCH (18:00)
[2019-06-25] MEDS: MONTELUKAST SODIUM 10 MG TABLET PO SCH (21:45)
[2019-06-25] MEDS: DONEPEZIL HCL 5 MG TABLET PO SCH (21:46)
[2019-06-26] MEDS: IPRATROPIUM/ALBUTEROL 0.5-2.5 MG/3 ML AMPUL NEB SCH ×2 (01:56→08:23)
[2019-06-26 05:29] LABS: HEMATOCRIT 37.8 % (37.9-51.0); HEMOGLOBIN 12.5 g/dL (13.5-17.0); MEAN CORPUSCULAR HGB CONC 33.1 g/dL (32.0-36.0); MEAN CORPUSCULAR VOLUME 88 fl (80-97); PLATELET COUNT 156 10^3/uL (150-450); RED BLOOD COUNT 4.31 10^6/uL (4.35-5.55); RED CELL DISTRIBUTION WIDTH 16.2 % (11.5-14.0); WHITE BLOOD COUNT 8.5 10^3/uL (4.0-10.5)
[2019-06-26] MEDS: GABAPENTIN 100 MG CAPSULE PO SCH (05:44)
[2019-06-26] MEDS: LEVOTHYROXINE SODIUM 0.025 MG TABLET PO SCH (05:44)
[2019-06-26] MEDS: LEVOTHYROXINE SODIUM 0.1 MG TABLET PO SCH (05:44)
[2019-06-26] MEDS: NORMAL SALINE 1000 ML 1,000 ML IV PRN (05:45)
[2019-06-26] MEDS: INSULIN REG, HUMAN 100 UNIT/ML 3 ML VIAL (PYX) SUBCUT SCH ×2 (09:49→12:02)
[2019-06-26] MEDS: AZITHROMYCIN 500 MG in DEXTROSE 5%-WATER 250 ML IV SCH (09:53)
[2019-06-26] MEDS: NICOTINE 14 MG/24 HR PATCH.TD24 TD SCH (09:55)
[2019-06-26] MEDS: GUAIFENESIN 600 MG TABLET.SA PO SCH (09:55)
[2019-06-26] MEDS: ENOXAPARIN SODIUM INJ 40 MG/0.4 ML DISP.SYRIN SUBCUT SCH (09:55)
[2019-06-26] MEDS: PANTOPRAZOLE SODIUM 40 MG TABLET.DR PO SCH (09:55)
[2019-06-26] MEDS: DIAZEPAM 5 MG TABLET PO SCH (09:55)
[2019-06-26] MEDS: METFORMIN HCL 500 MG TABLET PO SCH (09:55)
[2019-06-26] MEDS: CEFTRIAXONE 1 GM/D5W RTU 1 GM/50 ML RTUPB IV SCH (09:55)
[2019-06-26] MEDS: TIOTROPIUM BROMIDE DPI 5 CAP/KIT (18 MCG/CAP) IH SCH (09:56)
[2019-06-26] MEDS: MELOXICAM 7.5 MG TABLET PO SCH (09:56)
[2019-06-26] MEDS: BENZTROPINE MESYLATE 1 MG TABLET PO SCH (09:56)
[2019-06-26] MEDS: DIVALPROEX SODIUM 500 MG TAB.SR.24H PO SCH (09:56)
[2019-06-26] MEDS: GLIPIZIDE 10 MG TABLET PO SCH (09:56)
[2019-06-26] MEDS: TORSEMIDE 20 MG TABLET PO SCH (09:56)
[2019-06-26] MEDS: SUCRALFATE 1 GM TABLET PO SCH (09:56)
--- NOTE | 2019-06-26 12:08 | PDOC DISCHARGE SUMMARY ---
General - Admit/Disc Date/PCP Admission Date/Primary Care Provider: 06/24/19 13:07 Discharge Date: 06/26/19 - Discharge Diagnosis (1) Acute exacerbation of chronic obstructive pulmonary disease (COPD) Is this a current diagnosis for this admission?: Yes (2) Pneumonia Is this a current diagnosis for this admission?: Yes (3) Chronic kidney disease, stage III (moderate) Is this a current diagnosis for this admission?: Yes (4) Tobacco dependence Is this a current diagnosis for this admission?: Yes (5) Type 2 diabetes mellitus Is this a current diagnosis for this admission?: Yes (6) BPH (benign prostatic hyperplasia) Is this a current diagnosis for this admission?: Yes (7) Bipolar disorder Is this a current diagnosis for this admission?: Yes (8) Hypothyroidism Is this a current diagnosis for this admission?: Yes - Additional Information Resuscitation Status: Full Code Discharge Diet: As Tolerated Discharge Activity: Activity As Tolerated Prescriptions: Prednisone [Deltasone] 40 mg PO DAILY #10 tablet Ipratropium/Albuterol Sulfate [Duoneb 3 ml Ampul] 3 ml NEB Q4 PRN #60 vial.neb PRN Reason: Levofloxacin [Levaquin 750 mg Tablet] 750 mg PO DAILY #7 tab Guaifenesin [Mucinex Sr 600 mg Tablet.sa] 600 mg PO Q12 #10 tablet.sa Home Medications: Albuterol Sulfate [Proair HFA Inhalation Aerosol 8.5 gm MDI] 2 puff IH Q6HP PRN 06/24/19 Albuterol Sulfate [Ventolin 0.083% Neb 2.5 mg/3 mL Ampul] 2.5 mg NEB RTQ6HP PRN 06/24/19 Benztropine Mesylate [Cogentin 1 mg Tablet] 1 mg PO DAILY 06/24/19 Diazepam [Valium 5 mg Tablet] 5 mg PO QAM 06/24/19 Diazepam [Valium] 10 mg PO QHS 06/24/19 Divalproex Sodium [Depakote ER 500 mg Tab.sr] 500 mg PO BID 06/24/19 Donepezil HCl [Aricept] 10 mg PO QHS 06/24/19 Gabapentin [Neurontin 100 mg Capsule] 200 mg PO Q8 06/24/19 Glipizide [Glucotrol] 10 mg PO DAILY 06/24/19 Levothyroxine Sodium 125 mcg PO Q6AM 06/24/19 Meloxicam [Mobic] 7.5 mg PO BID 06/24/19 Metformin HCl [Glucophage 500 mg Tablet] 500 mg PO BID 06/24/19 Montelukast Sodium [Singulair 10 mg Tablet] 10 mg PO QHS 06/24/19 Pantoprazole Sodium [Protonix [address] Tablet] 40 mg PO DAILY 06/24/19 Prazosin HCl [Minipress] 2 mg PO DAILY 06/24/19 Quetiapine Fumarate [Seroquel Xr] 300 mg PO QPM 06/24/19 Sucralfate [Carafate 1 gm Tablet] 1 gm PO QID 06/24/19 Torsemide [Demadex 20 mg Tablet] 20 mg PO TID 06/24/19 Guaifenesin [Mucinex Sr 600 mg Tablet.sa] 600 mg PO Q12 #10 tablet.sa 06/26/19 Ipratropium/Albuterol Sulfate [Duoneb 3 ml Ampul] 3 ml NEB Q4 PRN #60 vial.neb 06/26/19 Levofloxacin [Levaquin 750 mg Tablet] 750 mg PO DAILY #7 tab 06/26/19 Nicotine [Nicoderm 14 mg/24 Hr Transdermal Patch] 1 each TD DAILY patch.td24 06/26/19 Prednisone [Deltasone] 40 mg PO DAILY #10 tablet 06/26/19 History of Present Illness History of Present Illness: WOODROW GOODWIN is a 64 year old male with a history of COPD who continues to smoke. He was just hospitalized in May for exacerbation of COPD. It appears that he was treated for pneumonia as well. He states that he has been feeling poorly for a day or 2. Yesterday he began to have a cough with little sputum production. He denies fever or chills. He is on oxygen at 3 L/min at home as his baseline. He was slightly dysarthric and I believe this was due more to being very tired and having a very dry mouth. He did have an elevated white blood cell count and chest x-ray showed pneumonia. He was referred to the hospital service for admission. Hospital Course Hospital Course: (1) Acute exacerbation of chronic obstructive pulmonary disease (COPD) 06/24/2019-we will keep the patient on his current oxygen supplementation. We will try and maintain saturation between 90 and 94%. Aggressive pulmonary toilet with nebulizer treatments. 06/25: Continue current management Patient is doing much better. He is at home oxygen rate. Okay to discharge from his short term prescription of prednisone. (2) Pneumonia 06/24/2019-the patient was in for pneumonia in May. IV antibiotics. Sputum culture if available. Pulmonary toilet as above. 06/25: Continue ceftriaxone and azithromycin. CT scan reviewed. Will discharge on Levaquin. (3) Chronic kidney disease, stage III (moderate) 06/24/2019-I reviewed the patient's blood work over the last 8 to 9 months. His serum creatinine has been borderline high with a GFR below 60 for the majority of visits between late 2017 and present. I believe he is at stage III chronic kidney failure most likely from diabetes and possibly underlying hypertension. We will continue to monitor his renal function. 06/25: Creatinine improved to 1.22 today. Continue to monitor. (4) Tobacco dependence 06/24/2019-I have ordered a NicoDerm patch. Continue to encourage cessation of smoking. Realistically, I do not believe this will be achievable for this patient. 06/25: Patient was counseled. (5) Type 2 diabetes mellitus 06/24/2019-I have continued his metformin. Accu-Cheks will be performed before meals and at bedtime. He is also on sliding scale coverage. 06/25: Continue current management. (6) BPH (benign prostatic hyperplasia) 06/24/2019-continue terazosin or therapeutic equivalent. 06/25: Continue current medications (7) Bipolar disorder Continue home medications (8) Hypothyroidism 06/24/2019-I will check the patient's TSH level. We will continue his current dose of levothyroxine. We will adjust medications based on his laboratory results. 06/25: TSH normal Physical Exam Vital Signs: Temp Pulse Resp BP Pulse Ox 97.7 F 86 16 139/85 H 98 06/26/19 07:58 06/26/19 08:05 06/26/19 08:05 06/26/19 07:58 06/26/19 11:58 Pulse Oximeter Continuous Start: 06/24/19 13:51 Freq: RTQ4 Status: Active Protocol: Document 06/26/19 11:58 PMU (Rec: 06/26/19 11:59 PMU [email or web address]) Pulse Oximetry Assessment Oxygen Saturation (92-100) 98 Oxygen Flow Rate (L/min) 3 Oxygen Delivery Method Nasal Cannula Fraction of Inspired Oxygen (FIO2) 32 Equipment Usage Equipment in Use Continuous SpO2 Machine # [id number] Intake & Output 06/25/19 06/26/19 06/27/19 06:59 06:59 06:59 Intake Total 2855 3836 Output Total 1500 Balance 2855 2336 Weight 208 lb 5.389 oz 207 lb 10.807 oz Exam: Patient is no acute distress Alert oriented to time place person No anxiety or depression Head: atraumatic normocephalic Pupils: are equal reactive Neck: is supple and trachea is central no lymphadenopathy No pharyngeal erythema or exudates Heart: Regular tachycardia Lungs: Chronically on oxygen. Bilateral wheezing. Abdomen: nontender nondistended Neurological exam: unremarkable Musculoskeletal: No joint swelling or effusion chronic lower back pain and tenderness No suicidal or homicidal ideation Results Laboratory Results: 06/26/19 04:52 06/25/19 14:38 06/25/19 06/26/19 14:38 04:52 WBC 8.5 RBC 4.31 L Hgb 12.5 L Hct 37.8 L MCV 88 MCH 29.0 MCHC 33.1 RDW 16.2 H Plt Count 156 Sodium 141.4 Potassium 4.7 Chloride 102 Carbon Dioxide 28 Anion Gap 11 BUN 29 H Creatinine 1.13 Est GFR ( Amer) > 60 Glucose 91 Calcium 8.9 06/24/19 11:34 Clean Catch Midstream Urine Culture - Final Mixed Urogenital Maria Guadalupe 06/24/19 10:40 Troponin I 0.013 Impressions: Chest X-Ray 06/24/19 10:37 IMPRESSION: Probable left lower lobe pneumonia. Chest CT 06/25/19 00:00 IMPRESSION: 1. Patchy centrilobular nodular consolidation and ground-glass attenuation greatest within the left upper lobe most compatible with infectious/inflammatory etiology. No significant effusion. 2. Additional more focal nodular opacities measuring up to 7 mm as above. Follow-up recommendations as below. Qualifiers - * PATIENT BEING DISCHARGED WITH ANY OF THE FOLLOWING DIAGNOSIS: No Acute Heart Failure - Is this a Heart Failure Patient?: No Plan Time Spent: Greater than 30 Minutes - 33 minutes
[2019-06-26 12:55] VITALS: BP 125/78
== END 2019-06-26 13:10 | disposition home or self-care (01) | DRG 190 ==
LOC: ER 10:33 → EH 13:07 → 4N 14:46
PROVIDERS: ADMIT Hospitalist; ATTEND Hospitalist
DX: J44.1 Chronic obstructive pulmonary disease with (acute) exacerbation (principal); J18.1 Lobar pneumonia, unspecified organism; I13.0 Hypertensive heart and chronic kidney disease with heart failure and stage 1 through stage 4 chronic kidney disease, or unspecified chronic kidney disease; J44.9 Chronic obstructive pulmonary disease, unspecified; I50.9 Heart failure, unspecified; E11.22 Type 2 diabetes mellitus with diabetic chronic kidney disease; N18.3 Chronic kidney disease, stage 3 (moderate); I25.10 Atherosclerotic heart disease of native coronary artery without angina pectoris; E78.00 Pure hypercholesterolemia, unspecified; E03.9 Hypothyroidism, unspecified; N40.0 Benign prostatic hyperplasia without lower urinary tract symptoms; F31.9 Bipolar disorder, unspecified; I25.2 Old myocardial infarction; F17.210 Nicotine dependence, cigarettes, uncomplicated; Z99.81 Dependence on supplemental oxygen; Z86.73 Personal history of transient ischemic attack (TIA), and cerebral infarction without residual deficits; Z79.84 Long term (current) use of oral hypoglycemic drugs; Z79.51 Long term (current) use of inhaled steroids; Z79.899 Other long term (current) drug therapy
CPT/HCPCS: 36415; 71045; 71250; 80048; 80053; 81001; 82803; 82962; 83605; 83735; 84443; 84484; 85025; 85027; 85610; 87040; 87086; 93005; 93010; 94640; 94762; 94799; 96365; 99285; J0456; J0696; J1650; J1815; J3490; J7030; J7060; J7120; J7620

== ENCOUNTER 2019-08-03 06:09 | Inpatient (IN) | payer MEDICARE, MEDICAID ==
--- NOTE | 2019-08-03 06:21 | ER Document Report ---
ED Medical Screen (RME) - General Stated Complaint: DIFFICULTY BREATHING Time Seen by Provider: 08/03/19 06:16 Notes: 64-year-old male with history of COPD comes by EMS for difficulty breathing, given 3 DuoNeb's, reports slight improvement, given Solu-Medrol 125 mg. R eportedly not on home oxygen, he was 84% on room air per EMS. No fever. Denies cardiac or pulmonary history otherwise. Reports history of admission for COPD but denies ever being intubated. TRAVEL OUTSIDE OF THE [place] IN LAST 30 DAYS: No - Related Data Allergies/Adverse Reactions: simvastatin [From Zocor] Allergy (Verified 02/21/19 11:51) LEGS GET WEAK Past Medical History - Past Medical History Cardiac Medical History: Reports: Hx Congestive Heart Failure, Hx Coronary Artery Disease, Hx Heart Attack, Hx Hypercholesterolemia, Hx Hypertension Pulmonary Medical History: Reports: Hx Bronchitis, Hx COPD, Hx Pneumonia Denies: Hx Asthma Neurological Medical History: Reports: Hx Cerebrovascular Accident, Hx Seizures Endocrine Medical History: Reports: Hx Diabetes Mellitus Type 2, Hx Hypothyroidism Renal/ Medical History: Reports: Hx Benign Prostatic Hyperplasia. Denies: Hx Peritoneal Dialysis GI Medical History: Reports: Hx Gastroesophageal Reflux Disease. Denies: Hx Hepatitis, Hx Hiatal Hernia, Hx Ulcer Musculoskeltal Medical History: Reports Hx Arthritis, Reports Hx Musculoskeletal Trauma Psychiatric Medical History: Reports: Hx Anxiety, Hx Bipolar Disorder, Hx Dementia, Hx Depression Infectious Medical History: Denies: Hx Hepatitis Past Surgical History: Reports: Hx Appendectomy, Hx Genitourinary Surgery - TURP, Hx Orthopedic Surgery - Right ankle surgery in 1982 or 1983 when he had a muscle from the leg moved, Hx Thyroid Surgery, Hx Tonsillectomy, Other - TURP per patient.. Denies: Hx Open Heart Surgery, Hx Pacemaker - Immunizations Hx Diphtheria, Pertussis, Tetanus Vaccination: No Physical Exam - Respiratory Respiratory status: Other - Patient in respiratory distress, can barely speak, scattered expiratory wheezes with very severely reduced breath sounds on both sides. Labored breathing. Course - Re-evaluation Re-evalutation: Patient in respiratory distress, appears to be severe COPD exacerbation, placing on BiPAP, ordering magnesium, work-up pending. I have greeted and performed a rapid initial assessment of this patient. A comprehensive ED assessment and evaluation of the patient, analysis of test results and completion of the medical decision making process will be conducted by additional ED providers
[2019-08-03] MEDS ORDERED: LORAZEPAM INJ 2 MG/1 ML VIAL IV ONE ×2 (06:22→08:11)
[2019-08-03] MEDS ORDERED: ONDANSETRON HCL INJ/PF 4 MG/2 ML SDV IV ONE ×2 (06:30→07:35)
[2019-08-03] MEDS: MAGNESIUM SULFATE/D5W 1 GM/100 ML RTUPB IV SCH ×2 (06:36→07:38)
[2019-08-03 06:41] LABS: ABSOLUTE LYMPHOCYTES (AUTO) 1.9 10^3/uL (0.5-4.7); ABSOLUTE MONOCYTES (AUTO) 0.1 10^3/uL (0.1-1.4); ABSOLUTE NEUT (AUTO) 2.5 10^3/uL (1.7-8.2); BASOPHILS % (AUTO) 0.7 % (0-2); EOSINOPHILS % (AUTO) 0.4 % (0-6); HEMATOCRIT 44.7 % (37.9-51.0); HEMOGLOBIN 14.9 g/dL (13.5-17.0); LYMPHOCYTES % (AUTO) 41.7 % (13-45); MEAN CORPUSCULAR HEMOGLOBIN 29.7 pg (27.0-33.4); MEAN CORPUSCULAR HGB CONC 33.3 g/dL (32.0-36.0); MEAN CORPUSCULAR VOLUME 89 fl (80-97); MONOCYTES % (AUTO) 3.2 % (3-13); PLATELET COUNT 198 10^3/uL (150-450); RED BLOOD COUNT 5.01 10^6/uL (4.35-5.55); RED CELL DISTRIBUTION WIDTH 16.1 % (11.5-14.0); TOTAL CELLS COUNTED % (AUTO) 100 %; VENOUS BLOOD HCO3 32.5 mmol/L (20-32); VENOUS BLOOD PH 7.31 (7.30-7.42); WHITE BLOOD COUNT 4.7 10^3/uL (4.0-10.5)
[2019-08-03 06:44] LABS: VENOUS BLOOD PCO2 66.2 mmHg (35-63)
[2019-08-03] MEDS ORDERED: IPRATROPIUM/ALBUTEROL 0.5-2.5 MG/3 ML AMPUL NEB ONE (07:00)
[2019-08-03] MEDS ORDERED: LEVOFLOXACIN 750 MG/D5W RTU 750 MG/150 ML RTUPB IV ONE (07:08)
[2019-08-03] MEDS ORDERED: NORMAL SALINE 1000 ML 1,000 ML IV ONE (07:11)
[2019-08-03 07:13] LABS: TROPONIN I 0.014 ng/mL
--- NOTE | 2019-08-03 07:21 | ER Document Report ---
Entered by ADRIEL NELSON SCRIBE 08/03/19 0621 Acting as scribe for:VIRGIL GUTIERREZ MD ED Respiratory Problem - General Stated Complaint: DIFFICULTY BREATHING Time Seen by Provider: 08/03/19 06:16 Mode of Arrival: Ambulatory Information source: Patient Notes: Patient is a 64-year-old male who presents to the emergency department today with complaints of shortness of breath. Patient has COPD and has been admitted 3 times since January 2019 for COPD exacerbation. Patient states he tried one breathing treatment at home and EMS administered 1 albuterol treatment and 2 A&As but did not give magnesium. Patient was admitted last about 5-6 weeks ago for similar symptoms. Patient also complains of nausea. TRAVEL OUTSIDE OF THE [place] IN LAST 30 DAYS: No - Related Data Allergies/Adverse Reactions: simvastatin [From Zocor] Allergy (Verified 02/21/19 11:51) LEGS GET WEAK Past Medical History - General Information source: Patient - Social History Smoking Status: Former Smoker Frequency of alcohol use: None Drug Abuse: None Family History: None, Reviewed & Not Pertinent - Past Medical History Cardiac Medical History: Reports: Hx Congestive Heart Failure, Hx Coronary Artery Disease, Hx Heart Attack, Hx Hypercholesterolemia, Hx Hypertension Pulmonary Medical History: Reports: Hx Bronchitis, Hx COPD, Hx Pneumonia Neurological Medical History: Reports: Hx Cerebrovascular Accident, Hx Seizures Endocrine Medical History: Reports: Hx Diabetes Mellitus Type 2, Hx Hypothyroidism Renal/ Medical History: Reports: Hx Benign Prostatic Hyperplasia GI Medical History: Reports: Hx Gastroesophageal Reflux Disease Musculoskeletal Medical History: Reports Hx Arthritis, Reports Hx Musculoskeletal Trauma Psychiatric Medical History: Reports: Hx Anxiety, Hx Bipolar Disorder, Hx Dementia, Hx Depression Past Surgical History: Reports: Hx Appendectomy, Hx Genitourinary Surgery - TURP, Hx Orthopedic Surgery - Right ankle surgery in 1982 or 1983 when he had a muscle from the leg moved, Hx Thyroid Surgery, Hx Tonsillectomy - Immunizations Hx Diphtheria, Pertussis, Tetanus Vaccination: No Review of Systems - Review of Systems Constitutional: No symptoms reported EENT: No symptoms reported Cardiovascular: No symptoms reported Respiratory: See HPI, Short of breath Gastrointestinal: No symptoms reported Genitourinary: No symptoms reported Male Genitourinary: No symptoms reported Musculoskeletal: No symptoms reported Skin: No symptoms reported Hematologic/Lymphatic: No symptoms reported Neurological/Psychological: No symptoms reported -: Yes All other systems reviewed and negative Physical Exam - Vital signs Vitals: Pulse Ox 93 08/03/19 06:11 - Notes Notes: Physical Exam: General: Alert, appears short of breath. HEENT: Normocephalic. Atraumatic. PERRL. Extraocular movements intact. Oroph arynx clear. Neck: Supple. Non-tender. Respiratory: Moderate respiratory distress. Tachypneic. Retracting. Wheezing and rhonchi bilaterally. Cardiovascular: Tachycardic. Regular rhythm. Abdominal: Vomiting in emesis bag. Non-tender. No distension. Normal Bowel Sounds. Back: No gross abnormalities. Extremities: Moves all four extremities. Upper extremities: Normal inspection. Normal ROM. Lower extremities: Normal inspection. No edema. Normal ROM. Neurological: Normal cognition. AAOx4. Normal speech. Psychological: Normal affect. Normal Mood. Skin: Warm. Dry. Normal color. Course - Re-evaluation Re-evalutation: 08/03/19 07:02 The patient received 0.25 mg Ativan for his anxiety, as he takes diazepam regularly. He received 4 mg of Zofran for his nausea. He continued to be nauseous and I was told by the nurse that he vomited while he had the BiPAP on. They removed it and he did not aspirate. I went to speak with the patient, he was on a nonrebreather mask. He states his nauseousness is gone at this time. He also said "you get tired of looking at me don't you". I told him that the last time I had taken care of him was back in January of this year when we admitted him to the hospital so I had not been seeing him until today. For some reason at that point, he stopped answering all questions and would not help me determine his plan of care. I wanted to know how his nausea was doing, I asked if the BiPAP seemed to make him more nauseous, ask if he wanted to be put on a ventilator if his breathing got worse. He would not answer any of those questions. 08/03/19 08:11 The patient's family member is with him and it has improved communication. He is back on BiPAP now and his heart rate has come down to the mid 120s, and his oxygen saturation is staying at 97%. He states he does not have any nauseousness now. He states that he thinks he would benefit from some additional Ativan for his anxiety. He has become diaphoretic since arriving here. He denies chest pain or chest pr essure. 08/03/19 09:48 Patient is doing much better at this time on BiPAP. He is smiling and states he feels better. His pulse is now down to 106 from the previous 153. His pulse ox is now at 99%. - Vital Signs Vital signs: Temp Pulse Resp BP Pulse Ox 98.1 F 100 14 132/99 H 98 08/03/19 14:29 08/03/19 14:29 08/03/19 14:29 08/03/19 14:29 08/03/19 14:29 - Laboratory Result Diagrams: 08/03/19 06:25 08/03/19 07:10 Laboratory results interpreted by me: 08/03/19 08/03/19 08/03/19 06:19 06:25 06:25 RDW 16.1 H VBG pCO2 66.2 H* VBG HCO3 32.5 H BUN Creatinine Est GFR ( Amer) Est GFR (MDRD) Non-Af Glucose POC Glucose 176 H Lactic Acid Magnesium Valproic Acid 08/03/19 08/03/19 08/03/19 06:25 06:25 07:10 RDW VBG pCO2 VBG HCO3 BUN 29 H Creatinine 1.51 H Est GFR ( Amer) 56 L Est GFR (MDRD) Non-Af 47 L Glucose 187 H POC Glucose Lactic Acid 4.9 H Magnesium 2.7 H Valproic Acid 34.2 L 08/03/19 09:30 RDW VBG pCO2 VBG HCO3 BUN Creatinine Est GFR ( Amer) Est GFR (MDRD) Non-Af Glucose POC Glucose 216 H Lactic Acid Magnesium Valproic Acid - Diagnostic Test Radiology reviewed: Image reviewed - Chest x-ray today appears to show bilateral lower lobe infiltrates. - EKG Interpretation by Me EKG shows normal: Sinus rhythm, Nelson, Intervals, QRS Complexes. abnormal: ST-T Waves - ST depression in the lateral leads Rate: Tachycardia - 153 - Consults Dr. Ledezma Time consulted: 09:48 Consulted provider: will come to ER Critical Care Note - Critical Care Note Total time excluding time spent on procedures (mins): 50 Discharge - Discharge Clinical Impression: Anxiety, Acute and chronic respiratory failure with hypoxia, Sinus tachycardia, COPD with acute exacerbation Pneumonia Qualifiers: Pneumonia type: due to unspecified organism Laterality: bilateral Lung location: lower lobe of lung Qualified Code(s): J18.1 - Lobar pneumonia, unspecified organism Condition: Fair Disposition: ADMITTED INPATIENT Admitting Provider: [place] (Hospitalist) Unit Admitted: [facility] Scribe Attestation: 08/03/19 07:22 I personally performed the services described in the documentation, reviewed and edited the documentation which was dictated to the scribe in my presence, and it accurately records my words and actions. I personally performed the services described in the documentation, reviewed and edited the documentation which was dictated to the scribe in my presence, and it accurately records my words and actions.
--- NOTE | 2019-08-03 08:34 | RADIOLOGY REPORT (SQ) ---
EXAM DESCRIPTION: CHEST SINGLE VIEW COMPLETED DATE/TIME: 08/03/2019 6:39 am REASON FOR STUDY: difficulty breathing COMPARISON: 06/24/2019 EXAM PARAMETERS: NUMBER OF VIEWS: One view. TECHNIQUE: Single frontal radiographic view of the chest acquired. RADIATION DOSE: NA LIMITATIONS: None. FINDINGS: LUNGS AND PLEURA: Bibasilar parenchymal opacities. More consolidation on the left. No pn eumothorax. MEDIASTINUM AND HILAR STRUCTURES: No masses. Contour normal. HEART AND VASCULAR STRUCTURES: Heart slightly enlarged with mild vascular congestion. BONES: No acute findings. HARDWARE: None in the chest. OTHER: No other significant finding. IMPRESSION: Mild vascular congestion. Superimposed left lower lobe pneumonia. TECHNICAL DOCUMENTATION: JOB ID: [id number] 1979 [employer]- All Rights Reserved Reading location - IP/workstation name: [email or web address]
[2019-08-03 09:18] LABS: ALBUMIN 4.4 g/dL (3.5-5.0); ALKALINE PHOSPHATASE 48 U/L (38-126); ANION GAP 15 (5-19); ASPARTATE AMINO TRANSFERASE 41 U/L (17-59); BILIRUBIN,DIRECT 0.3 mg/dL (0.0-0.4); BILIRUBIN,TOTAL 0.7 mg/dL (0.2-1.3); BLOOD UREA NITROGEN 29 mg/dL (7-20); CALCIUM 9.7 mg/dL (8.4-10.2); CARBON DIOXIDE 25 mmol/L (22-30); CHLORIDE 103 mmol/L (98-107); GLUCOSE 187 mg/dL (75-110); POTASSIUM 4.4 mmol/L (3.6-5.0); TOTAL PROTEIN 7.3 g/dL (6.3-8.2)
[2019-08-03] MEDS ORDERED: DEXTROSE 40% GEL 15 GM TUBE PO PRN ×2 (10:38)
[2019-08-03] MEDS ORDERED: GLUCAGON,HUMAN RECOMB 1 MG INJ IM PRN (10:38)
[2019-08-03] MEDS ORDERED: DEXTROSE 50%-WATER 25 GM/50 ML DISP.SYRIN IV PRN ×2 (10:38)
[2019-08-03] MEDS: PANTOPRAZOLE SODIUM 40 MG VIAL IV SCH ×2 (10:52→22:04)
[2019-08-03] MEDS: PIPERACILLIN SODIUM/TAZOBACTAM 3.375 GM in NORMAL SALINE 100 ML IV SCH ×3 (12:52→23:56)
[2019-08-03] MEDS: INSULIN LISPRO 100 UNIT/ML 3 ML VIAL SUBCUT SCH ×3 (13:03→23:56)
[2019-08-03 13:13] LABS: APPEARANCE,URINE CLEAR; BILIRUBIN,URINE NEGATIVE (NEGATIVE); COLOR,URINE YELLOW; GLUCOSE, URINE NEGATIVE (NEGATIVE); KETONES,URINE NEGATIVE (NEGATIVE); LEUKOCYTE ESTERASE,URINE NEGATIVE (NEGATIVE); NITRITE,URINE NEGATIVE (NEGATIVE); PROTEIN,URINE NEGATIVE (NEGATIVE); URINE SPECIFIC GRAVITY 1.013; UROBILINOGEN,URINE NEGATIVE mg/dL (<2.0)
[2019-08-03] MEDS: HEPARIN SOD (PORCINE) 5,000 UNIT/ML 1 ML VIAL SUBCUT SCH ×2 (14:23→22:03)
--- NOTE | 2019-08-03 14:41 | EKG REPORT ---
SEVERITY:- ABNORMAL ECG - SINUS TACHYCARDIA ST DEPRESSION, PROBABLY RATE RELATED : Confirmed by: Alesha Cazares MD 03-Aug-2019 14:40:17
[2019-08-03] MEDS: NORMAL SALINE 1000 ML 1,000 ML IV PRN (17:27)
[2019-08-04] MEDS: NORMAL SALINE 1000 ML 1,000 ML IV PRN (02:36)
[2019-08-04 05:55] LABS: HEMATOCRIT 35.2 % (37.9-51.0); MEAN CORPUSCULAR HEMOGLOBIN 29.5 pg (27.0-33.4); MEAN CORPUSCULAR HGB CONC 33.2 g/dL (32.0-36.0); MEAN CORPUSCULAR VOLUME 89 fl (80-97); PLATELET COUNT 135 10^3/uL (150-450); RED BLOOD COUNT 3.96 10^6/uL (4.35-5.55); RED CELL DISTRIBUTION WIDTH 16.6 % (11.5-14.0)
[2019-08-04 05:56] LABS: HEMOGLOBIN 11.7 g/dL (13.5-17.0); WHITE BLOOD COUNT 13.2 10^3/uL (4.0-10.5)
[2019-08-04] MEDS: INSULIN LISPRO 100 UNIT/ML 3 ML VIAL SUBCUT SCH ×4 (05:59→23:29)
[2019-08-04] MEDS: HEPARIN SOD (PORCINE) 5,000 UNIT/ML 1 ML VIAL SUBCUT SCH ×3 (06:08→21:51)
[2019-08-04] MEDS: PIPERACILLIN SODIUM/TAZOBACTAM 3.375 GM in NORMAL SALINE 100 ML IV SCH ×4 (06:10→23:28)
[2019-08-04 06:14] LABS: ANION GAP 8 (5-19); BLOOD UREA NITROGEN 26 mg/dL (7-20); CALCIUM 8.8 mg/dL (8.4-10.2); CARBON DIOXIDE 27 mmol/L (22-30); CHLORIDE 105 mmol/L (98-107); GLUCOSE 138 mg/dL (75-110); POTASSIUM 4.7 mmol/L (3.6-5.0)
[2019-08-04] MEDS: IPRATROPIUM/ALBUTEROL 0.5-2.5 MG/3 ML AMPUL NEB PRN (08:05)
[2019-08-04] MEDS: PANTOPRAZOLE SODIUM 40 MG VIAL IV SCH ×2 (09:25→21:52)
[2019-08-04] MEDS ORDERED: (PENDING PHARMACY ID) (Divalproex Sodium [Depakote] 500 MG) PO SCH (10:00)
[2019-08-04] MEDS ORDERED: (PENDING PHARMACY ID) (Prazosin Hcl [Minipress] 2 MG) PO SCH (10:00)
[2019-08-04] MEDS: PREDNISONE 20 MG TABLET PO SCH (10:13)
[2019-08-04] MEDS: TORSEMIDE 20 MG TABLET PO SCH (10:13)
[2019-08-04] MEDS: MULTIVITAMIN TABLET PO SCH (10:14)
[2019-08-04] MEDS: DIVALPROEX SODIUM 250 MG TABLET.DR PO SCH ×2 (10:14→21:52)
[2019-08-04] MEDS: FLUTICASONE/UMECLIDIN/VILANTER 100-62.5-25 MCG/DOSE IH SCH (10:14)
[2019-08-04] MEDS: BENZTROPINE MESYLATE 1 MG TABLET PO SCH (10:14)
[2019-08-04] MEDS ORDERED: TORSEMIDE 20 MG TABLET PO SCH (14:00)
[2019-08-04] MEDS: GABAPENTIN 100 MG CAPSULE PO SCH ×2 (14:03→21:52)
--- NOTE | 2019-08-04 15:30 | PDOC PROGRESS REPORT ---
Subjective Progress Note for:: 08/04/19 Subjective:: No adverse events overnight. No new complaints. Vital signs been stable. He is been off BiPAP and is back on 3 L nasal cannula. Reason For Visit: ACUTE ON CHRONIC HYPOXIC RESPIRATORY FAILURE,ASPRA Physical Exam Vital Signs: Temp Pulse Resp BP Pulse Ox 97.2 F 91 16 106/57 L 97 08/04/19 07:42 08/04/19 14:00 08/04/19 08:08 08/04/19 07:42 08/04/19 08:08 Intake & Output 08/03/19 08/04/19 08/05/19 06:59 06:59 06:59 Intake Total 100 1550 1560 Output Total 1225 500 Balance 121 402 9555 Weight 97.7 kg General appearance: PRESENT: no acute distress, cooperative, disheveled, obese Respiratory exam: PRESENT: prolonged expiratory phas, symmetrical, unlabored, wheezes. ABSENT: accessory muscle use, chest wall tenderness, crackles, rhonchi, tachypnea Cardiovascular exam: PRESENT: RRR, +S1, +S2 Pulses: PRESENT: normal carotid pulses Vascular exam: PRESENT: normal capillary refill GI/Abdominal exam: PRESENT: normal bowel sounds, soft. ABSENT: distended, guarding, rebound, tenderness Extremities exam: ABSENT: clubbing, pedal edema Musculoskeletal exam: PRESENT: normal inspection. ABSENT: deformity Neurological exam: PRESENT: alert, awake, oriented to person, oriented to place, oriented to situation Psychiatric exam: PRESENT: flat affect Skin exam: PRESENT: dry, warm, other - He looks generally flushed Results Laboratory Results: 08/04/19 04:18 08/04/19 04:18 08/04/19 08/04/19 04:18 04:18 WBC 13.2 H D RBC 3.96 L Hgb 11.7 L D Hct 35.2 L MCV 89 MCH 29.5 MCHC 33.2 RDW 16.6 H Plt Count 135 L Sodium 140.2 Potassium 4.7 Chloride 105 Carbon Dioxide 27 Anion Gap 8 BUN 26 H Creatinine 1.36 H Est GFR ( Amer) > 60 Glucose 138 H Calcium 8.8 08/03/19 06:25 Troponin I 0.014 NT-Pro-B Natriuret Pep 21 Impressions: Chest X-Ray 08/03/19 06:18 IMPRESSION: Mild vascular congestion. Superimposed left lower lobe pneumonia. Assessment and Plan - Diagnosis (1) Acute and chronic respiratory failure with hypoxia Is this a current diagnosis for this admission?: Yes Plan: Now resolved, back on his normal level of oxygen support (2) COPD with acute exacerbation Is this a current diagnosis for this admission?: Yes Plan: He was actually wheezing a little bit today so in addition to his antibiotics and bronchodilators and started some prednisone (3) Pneumonia Qualifiers: Pneumonia type: due to unspecified organism Laterality: bilateral Lung location: lower lobe of lung Qualified Code(s): J18.1 - Lobar pneumonia, unspecified organism Is this a current diagnosis for this admission?: Yes Plan: Continue Levaquin - Time Time Spent with patient: 15-24 minutes
[2019-08-04] MEDS ORDERED: (PENDING PHARMACY ID) (Quetiapine Fumarate [Seroquel Xr] 300 MG) PO SCH (18:00)
[2019-08-04] MEDS: ACETAMINOPHEN 325 MG TABLET PO PRN (19:52)
[2019-08-04] MEDS: DONEPEZIL HCL 5 MG TABLET PO SCH (21:52)
[2019-08-04] MEDS: MONTELUKAST SODIUM 10 MG TABLET PO SCH (21:52)
[2019-08-04] MEDS: DIAZEPAM 5 MG TABLET PO SCH (21:53)
[2019-08-04] MEDS ORDERED: (PENDING PHARMACY ID) (Donepezil Hcl [Aricept] 10 MG) PO SCH (22:00)
[2019-08-05 05:18] LABS: HEMATOCRIT 34.6 % (37.9-51.0); HEMOGLOBIN 11.6 g/dL (13.5-17.0); MEAN CORPUSCULAR HEMOGLOBIN 29.9 pg (27.0-33.4); MEAN CORPUSCULAR HGB CONC 33.7 g/dL (32.0-36.0); MEAN CORPUSCULAR VOLUME 89 fl (80-97); PLATELET COUNT 141 10^3/uL (150-450); RED BLOOD COUNT 3.89 10^6/uL (4.35-5.55); RED CELL DISTRIBUTION WIDTH 16.4 % (11.5-14.0); WHITE BLOOD COUNT 10.7 10^3/uL (4.0-10.5)
[2019-08-05] MEDS: INSULIN LISPRO 100 UNIT/ML 3 ML VIAL SUBCUT SCH ×4 (05:25→23:23)
[2019-08-05] MEDS: PIPERACILLIN SODIUM/TAZOBACTAM 3.375 GM in NORMAL SALINE 100 ML IV SCH ×4 (05:29→23:23)
[2019-08-05] MEDS: GABAPENTIN 100 MG CAPSULE PO SCH ×3 (05:29→21:01)
[2019-08-05] MEDS: LEVOTHYROXINE SODIUM 0.05 MG TABLET PO SCH (05:29)
[2019-08-05] MEDS: HEPARIN SOD (PORCINE) 5,000 UNIT/ML 1 ML VIAL SUBCUT SCH ×3 (05:30→21:02)
[2019-08-05 05:42] LABS: ANION GAP 6 (5-19); BLOOD UREA NITROGEN 23 mg/dL (7-20); CALCIUM 9.6 mg/dL (8.4-10.2); CARBON DIOXIDE 30 mmol/L (22-30); CHLORIDE 103 mmol/L (98-107); GLUCOSE 119 mg/dL (75-110); POTASSIUM 5.1 mmol/L (3.6-5.0)
[2019-08-05] MEDS ORDERED: (PENDING PHARMACY ID) (Levothyroxine Sodium [Levothyroxine Sodium] 125 MCG) PO SCH (06:00)
--- NOTE | 2019-08-05 07:26 | PDOC PROGRESS REPORT ---
Subjective Progress Note for:: 08/05/19 Subjective:: 08/05/2019-no complaints this a.m. Reason For Visit: ACUTE ON CHRONIC HYPOXIC RESPIRATORY FAILURE,ASPRA Physical Exam Vital Signs: Temp Pulse Resp BP Pulse Ox 98.0 F 77 14 107/71 99 08/05/19 03:06 08/05/19 03:06 08/05/19 03:06 08/05/19 03:06 08/05/19 04:22 Intake & Output 08/04/19 08/05/19 08/06/19 06:59 06:59 06:59 Intake Total 1550 2620 Output Total 1225 700 Balance 325 1920 Weight 97.7 kg 97 kg General appearance: PRESENT: no acute distress, well-developed, well-nourished Neck exam: ABSENT: carotid bruit, JVD, lymphadenopathy, thyromegaly Respiratory exam: PRESENT: clear to auscultation gaby. ABSENT: rales, rhonchi, wheezes Cardiovascular exam: PRESENT: RRR. ABSENT: diastolic murmur, rubs, systolic murmur Pulses: PRESENT: normal dorsalis pedis pul Vascular exam: PRESENT: normal capillary refill GI/Abdominal exam: PRESENT: normal bowel sounds, soft. ABSENT: distended, guarding, mass, organolmegaly, rebound, tenderness Extremities exam: PRESENT: full ROM. ABSENT: calf tenderness, clubbing, pedal edema Neurological exam: PRESENT: alert, awake, oriented to person, oriented to place, oriented to time, oriented to situation, CN II-XII grossly intact. ABSENT: motor sensory deficit Psychiatric exam: PRESENT: appropriate affect, normal mood. ABSENT: homicidal ideation, suicidal ideation Skin exam: PRESENT: dry, intact, warm. ABSENT: cyanosis, rash Results Laboratory Results: 08/05/19 04:31 08/05/19 04:31 08/05/19 08/05/19 04:31 04:31 WBC 10.7 H RBC 3.89 L Hgb 11.6 L Hct 34.6 L MCV 89 MCH 29.9 MCHC 33.7 RDW 16.4 H Plt Count 141 L Sodium 139.0 Potassium 5.1 H Chloride 103 Carbon Dioxide 30 Anion Gap 6 BUN 23 H Creatinine 1.16 Est GFR ( Amer) > 60 Glucose 119 H Calcium 9.6 08/03/19 06:25 Troponin I 0.014 NT-Pro-B Natriuret Pep 21 Impressions: Chest X-Ray 08/03/19 06:18 IMPRESSION: Mild vascular congestion. Superimposed left lower lobe pneumonia. Assessment and Plan - Diagnosis (1) Acute and chronic respiratory failure with hypoxia Is this a current diagnosis for this admission?: Yes Plan: Now resolved, back on his normal level of oxygen support 08/05/2019-stable at this time point. Patient remains on supportive oxygen. Still hypercapnic on ABG will anticipate discharge home in the a.m. [facility] (2) COPD with acute exacerbation Is this a current diagnosis for this admission?: Yes Plan: He was actually wheezing a little bit today so in addition to his antibiotics and bronchodilators and started some prednisone 08/05/2019-improved. Continue current bronchodilators and steroids. (3) Pneumonia Qualifiers: Pneumonia type: due to unspecified organism Laterality: bilateral Lung location: lower lobe of lung Qualified Code(s): J18.1 - Lobar pneumonia, unspecified organism Is this a current diagnosis for this admission?: Yes Plan: Continue Levaquin 08/05/2019-continues on Zosyn at this time. Await cultures for offending organism. (4) Hyperkalemia Is this a current diagnosis for this admission?: Yes Plan: 08/05/2019-mild potassium is 5.1 this a.m. Will continue diuresis and repeat potassium in a.m. (5) Hyperglycemia Is this a current diagnosis for this admission?: Yes Plan: 08/05/2019-most likely steroid-induced will follow - Time Time Spent with patient: 15-24 minutes - Inpatient Certification Based on my medical assessment, after consideration of the patient's comorbidities, presenting symptoms, or acuity I expect that the services needed warrant INPATIENT care.: Yes I certify that my determination is in accordance with my understanding of Medicare's requirements for reasonable and necessary INPATIENT services [42 CFR 412.3e].: Yes Medical Necessity: Significant Comorbidiites Make Outpatient Treatment Too Risky, Need Close Monitoring Due to Risk of Patient Decompensation
[2019-08-05] MEDS ORDERED: DIAZEPAM 5 MG TABLET PO SCH (08:00)
[2019-08-05] MEDS: IPRATROPIUM/ALBUTEROL 0.5-2.5 MG/3 ML AMPUL NEB PRN (08:57)
[2019-08-05] MEDS: PREDNISONE 20 MG TABLET PO SCH (09:24)
[2019-08-05] MEDS: FLUTICASONE/UMECLIDIN/VILANTER 100-62.5-25 MCG/DOSE IH SCH (09:24)
[2019-08-05] MEDS: MULTIVITAMIN TABLET PO SCH (09:24)
[2019-08-05] MEDS: TORSEMIDE 20 MG TABLET PO SCH (09:24)
[2019-08-05] MEDS: BENZTROPINE MESYLATE 1 MG TABLET PO SCH (09:24)
[2019-08-05] MEDS: DIVALPROEX SODIUM 250 MG TABLET.DR PO SCH ×2 (09:24→21:01)
[2019-08-05] MEDS: PANTOPRAZOLE SODIUM 40 MG VIAL IV SCH ×2 (09:25→21:00)
[2019-08-05] MEDS: ACETAMINOPHEN 325 MG TABLET PO PRN (21:00)
[2019-08-05] MEDS: DIAZEPAM 5 MG TABLET PO SCH (21:01)
[2019-08-05] MEDS: MONTELUKAST SODIUM 10 MG TABLET PO SCH (21:01)
[2019-08-05] MEDS: DONEPEZIL HCL 5 MG TABLET PO SCH (21:02)
[2019-08-06] MEDS: HEPARIN SOD (PORCINE) 5,000 UNIT/ML 1 ML VIAL SUBCUT SCH (05:24)
[2019-08-06 05:28] LABS: HEMATOCRIT 37.6 % (37.9-51.0); HEMOGLOBIN 12.8 g/dL (13.5-17.0); MEAN CORPUSCULAR HEMOGLOBIN 30.1 pg (27.0-33.4); MEAN CORPUSCULAR HGB CONC 34.1 g/dL (32.0-36.0); MEAN CORPUSCULAR VOLUME 88 fl (80-97); PLATELET COUNT 151 10^3/uL (150-450); RED BLOOD COUNT 4.26 10^6/uL (4.35-5.55); RED CELL DISTRIBUTION WIDTH 16.4 % (11.5-14.0); WHITE BLOOD COUNT 9.3 10^3/uL (4.0-10.5)
[2019-08-06 05:45] LABS: ANION GAP 10 (5-19); BLOOD UREA NITROGEN 23 mg/dL (7-20); CALCIUM 9.8 mg/dL (8.4-10.2); CARBON DIOXIDE 28 mmol/L (22-30); CHLORIDE 104 mmol/L (98-107); GLUCOSE 122 mg/dL (75-110); POTASSIUM 4.6 mmol/L (3.6-5.0)
[2019-08-06] MEDS: GABAPENTIN 100 MG CAPSULE PO SCH (06:27)
[2019-08-06] MEDS: PIPERACILLIN SODIUM/TAZOBACTAM 3.375 GM in NORMAL SALINE 100 ML IV SCH (06:28)
[2019-08-06] MEDS: LEVOTHYROXINE SODIUM 0.05 MG TABLET PO SCH (06:28)
[2019-08-06] MEDS ORDERED: INSULIN LISPRO 100 UNIT/ML 3 ML VIAL SUBCUT SCH (08:00)
--- NOTE | 2019-08-06 08:19 | PDOC DISCHARGE SUMMARY ---
Impression - Admit/DC Date/PCP Admission Date/Primary Care Provider: 08/03/19 10:53 Discharge Date: 08/06/19 - Discharge Diagnosis (1) Acute and chronic respiratory failure with hypoxia Is this a current diagnosis for this admission?: Yes (2) COPD with acute exacerbation Is this a current diagnosis for this admission?: Yes (3) Pneumonia Is this a current diagnosis for this admission?: Yes (4) Hyperkalemia Is this a current diagnosis for this admission?: Yes (5) Hyperglycemia Is this a current diagnosis for this admission?: Yes - Additional Information Resuscitation Status: Full Code Discharge Diet: As Tolerated Discharge Activity: Activity As Tolerated Referrals: SHYAM PARDO PA-C [PHYSICIAN [facility] [employer]] - Follow up as needed Prescriptions: Cefuroxime Axetil [Ceftin 500 mg Tablet] 1 tab PO BID #20 tablet Home Medications: Albuterol Sulfate [Ventolin 0.083% Neb 2.5 mg/3 mL Ampul] 2.5 mg NEB RTQ6HP PRN 06/24/19 Benztropine Mesylate [Cogentin 1 mg Tablet] 1 mg PO DAILY 06/24/19 Diazepam [Valium 5 mg Tablet] 5 mg PO QAM 06/24/19 Diazepam [Valium] 10 mg PO QHS 06/24/19 Donepezil HCl [Aricept] 10 mg PO QHS 06/24/19 Gabapentin [Neurontin 100 mg Capsule] 200 mg PO Q8 06/24/19 Glipizide [Glucotrol] 10 mg PO DAILY 06/24/19 Levothyroxine Sodium 125 mcg PO Q6AM 06/24/19 Meloxicam [Mobic] 7.5 mg PO Q12 06/24/19 Metformin HCl [Glucophage 500 mg Tablet] 500 mg PO BID 06/24/19 Montelukast Sodium [Singulair 10 mg Tablet] 10 mg PO QHS 06/24/19 Pantoprazole Sodium [Protonix [address] Tablet] 40 mg PO DAILY 06/24/19 Prazosin HCl [Minipress] 2 mg PO DAILY 06/24/19 Quetiapine Fumarate [Seroquel Xr] 300 mg PO QPM 06/24/19 Torsemide [Demadex 20 mg Tablet] 20 mg PO Q8 06/24/19 Ipratropium/Albuterol Sulfate [Duoneb 3 ml Ampul] 3 ml NEB Q4 PRN #60 vial.neb 06/26/19 Divalproex Sodium [Depakote] 500 mg PO Q12 08/03/19 Fluticasone/Umeclidin/Vilanter [Trelegy 100-62.5-25 Mcg Ellipta 14 Dose/Dpi] 1 puff IH DAILY 08/03/19 Multivitamin [Tab-A-Anat (Multiple Vitamin) Tablet] 1 tab PO DAILY 08/03/19 Nicotine [Nicoderm 21 mg/24 Hr Transderm Patch] 1 patch TD DAILY 08/03/19 Cefuroxime Axetil [Ceftin 500 mg Tablet] 1 tab PO BID #20 tablet 08/06/19 History of Present Illiness History of Present Illness: WOODROW GOODWIN is a 64 year old male presenting to the emergency department with complaints of shortness of breath. Hospital Course Hospital Course: Patient presented to the ER on 08/03/2019 with complaints of shortness of breath. Patient admits to having chronic COPD and had 3 episodes since January 2019 for COPD exacerbation. Patient states he tried one breathing treatment at home and EMS administered 1 albuterol treatment to lizzling trey but did not give magnesium. Patient admitted to IMCU treated with broad-spectrum antibiotics. At this time patient's acute on chronic respiratory failure and COPD exacerbation has subsided patient is improved sufficiently return home. I will patient follow-up with primary care practitioner in 1 week. I will continue patient on Ceftin 500 mg p.o. twice daily x10 days. Patient will continue home oxygen use and nebulizers as needed. Physical Exam Vital Signs: Temp Pulse Resp BP Pulse Ox 98.0 F 59 L 17 104/68 97 08/05/19 08:13 08/06/19 02:00 08/06/19 04:10 08/05/19 08:13 08/06/19 00:08 Intake & Output 08/05/19 08/06/19 08/07/19 06:59 06:59 06:59 Intake Total 2620 1140 Output Total 700 5620 Balance 1920 -4480 Weight 97 kg 94 kg General appearance: PRESENT: no acute distress, well-developed, well-nourished Neck exam: ABSENT: carotid bruit, JVD, lymphadenopathy, thyromegaly Respiratory exam: PRESENT: clear to auscultation gaby. ABSENT: rales, rhonchi, wheezes Cardiovascular exam: PRESENT: RRR. ABSENT: diastolic murmur, rubs, systolic murmur Pulses: PRESENT: normal dorsalis pedis pul Vascular exam: PRESENT: normal capillary refill GI/Abdominal exam: PRESENT: normal bowel sounds, soft. ABSENT: distended, guarding, mass, organolmegaly, rebound, tenderness Rectal exam: PRESENT: deferred Extremities exam: PRESENT: full ROM. ABSENT: calf tenderness, clubbing, pedal e mari Neurological exam: PRESENT: alert, awake, oriented to person, oriented to place, oriented to time, oriented to situation, CN II-XII grossly intact. ABSENT: motor sensory deficit Psychiatric exam: PRESENT: appropriate affect, normal mood. ABSENT: homicidal ideation, suicidal ideation Skin exam: PRESENT: dry, intact, warm. ABSENT: cyanosis, rash Results Laboratory Results: WBC 9.3 10^3/uL (4.0-10.5) 08/06/19 04:29 RBC 4.26 10^6/uL (4.35-5.55) L 08/06/19 04:29 Hgb 12.8 g/dL (13.5-17.0) L 08/06/19 04:29 Hct 37.6 % (37.9-51.0) L 08/06/19 04:29 MCV 88 fl (80-97) 08/06/19 04:29 MCH 30.1 pg (27.0-33.4) 08/06/19 04:29 MCHC 34.1 g/dL (32.0-36.0) 08/06/19 04:29 RDW 16.4 % (11.5-14.0) H 08/06/19 04:29 Plt Count 151 10^3/uL (150-450) 08/06/19 04:29 Lymph % (Auto) 41.7 % (13-45) 08/03/19 06:25 Avery % (Auto) 3.2 % (3-13) 08/03/19 06:25 Eos % (Auto) 0.4 % (0-6) 08/03/19 06:25 Baso % (Auto) 0.7 % (0-2) 08/03/19 06:25 Absolute Neuts (auto) 2.5 10^3/uL (1.7-8.2) 08/03/19 06:25 Absolute Lymphs (auto) 1.9 10^3/uL (0.5-4.7) 08/03/19 06:25 Absolute Monos (auto) 0.1 10^3/uL (0.1-1.4) 08/03/19 06:25 Absolute Eos (auto) 0.0 10^3/uL (0.0-0.6) 08/03/19 06:25 Absolute Basos (auto) 0.0 10^3/uL (0.0-0.2) 08/03/19 06:25 Seg Neutrophils % 54.0 % (42-78) 08/03/19 06:25 VBG pH 7.31 (7.30-7.42) 08/03/19 06:25 VBG pCO2 66.2 mmHg (35-63) H* 08/03/19 06:25 VBG HCO3 32.5 mmol/L (20-32) H 08/03/19 06:25 VBG Base Excess 4.0 mmol/L 08/03/19 06:25 Sodium 142.3 mmol/L (137-145) 08/06/19 04:29 Potassium 4.6 mmol/L (3.6-5.0) 08/06/19 04:29 Chloride 104 mmol/L (98-107) 08/06/19 04:29 Carbon Dioxide 28 mmol/L (22-30) 08/06/19 04:29 Anion Gap 10 (5-19) 08/06/19 04:29 BUN 23 mg/dL (7-20) H 08/06/19 04:29 Creatinine 1.22 mg/dL (0.52-1.25) 08/06/19 04:29 Est GFR ( Amer) > 60 (>60) 08/06/19 04:29 Est GFR (Non-Af Amer) Cancelled 08/03/19 06:25 Est GFR (MDRD) Non-Af > 60 (>60) 08/06/19 04:29 Glucose 122 mg/dL (75-110) H 08/06/19 04:29 POC Glucose 110 mg/dL (70-110) 08/06/19 07:55 Lactic Acid 3.2 mmol/L (0.7-2.1) H 08/03/19 10:59 Calcium 9.8 mg/dL (8.4-10.2) 08/06/19 04:29 Magnesium 2.7 mg/dL (1.6-2.3) H 08/03/19 07:10 Total Bilirubin 0.7 mg/dL (0.2-1.3) 08/03/19 07:10 Direct Bilirubin 0.3 mg/dL (0.0-0.4) 08/03/19 07:10 Neonat Total Bilirubin Not Reportable 08/03/19 07:10 Neonat Direct Bilirubin Not Reportable 08/03/19 07:10 Neonat Indirect Bili Not Reportable 08/03/19 07:10 AST 41 U/L (17-59) 08/03/19 07:10 ALT 37 U/L (<50) 08/03/19 07:10 Alkaline Phosphatase 48 U/L (38-126) 08/03/19 07:10 Troponin I 0.014 ng/mL 08/03/19 06:25 NT-Pro-B Natriuret Pep 21 pg/mL (<125) 08/03/19 06:25 Total Protein 7.3 g/dL (6.3-8.2) 08/03/19 07:10 Albumin 4.4 g/dL (3.5-5.0) 08/03/19 07:10 EGFR Cancelled 08/03/19 06:25 Urine Color YELLOW 08/03/19 12:30 Urine Appearance CLEAR 08/03/19 12:30 Urine pH 5.0 (5.0-9.0) 08/03/19 12:30 Ur Specific [place] 1.013 08/03/19 12:30 Urine Protein NEGATIVE mg/dL (NEGATIVE) 08/03/19 12:30 Urine Glucose (UA) NEGATIVE mg/dL (NEGATIVE) 08/03/19 12:30 Urine Ketones NEGATIVE mg/dL (NEGATIVE) 08/03/19 12:30 Urine Blood NEGATIVE (NEGATIVE) 08/03/19 12:30 Urine Nitrite NEGATIVE (NEGATIVE) 08/03/19 12:30 Urine Bilirubin NEGATIVE (NEGATIVE) 08/03/19 12:30 Urine Urobilinogen NEGATIVE mg/dL (<2.0) 08/03/19 12:30 Ur Leukocyte Esterase NEGATIVE (NEGATIVE) 08/03/19 12:30 Urine WBC (Auto) 0 /HPF 08/03/19 12:30 Urine RBC (Auto) 0 /HPF 08/03/19 12:30 U Hyaline Cast (Auto) 4 /LPF 08/03/19 12:30 Urine Mucus (Auto) RARE /LPF 08/03/19 12:30 Urine Ascorbic Acid NEGATIVE (NEGATIVE) 08/03/19 12:30 Valproic Acid 34.2 ug/mL (50.0-120.0) L 08/03/19 06:25 08/03/19 06:25 Troponin I 0.014 NT-Pro-B Natriuret Pep 21 Impressions: Chest X-Ray 08/03/19 06:18 IMPRESSION: Mild vascular congestion. Superimposed left lower lobe pneumonia. Plan Time Spent: Greater than 30 Minutes Stroke Is this a Stroke Patient?: No Acute Heart Failure - Is this a Heart Failure Patient?: No
[2019-08-06 08:44] VITALS: BP 132/99
--- NOTE | 2019-08-13 17:52 | PDOC H&P ---
History of Present Illness Admission Date/PCP: 08/03/19 10:53 History of Present Illness: WOODROW GOODWIN is a 64 year old male with oxygen dependent COPD who still smokes and is been admitted several times this year for respiratory complications who presented to the ER with progressive shortness of breath. He did bronchodilator at home that did not get any better and so he called EMS. They gave him a bronchodilator as well. When he came into the ER they had to put him on BiPAP. He is not a very good historian and he reeked of cigarettes. Chest x-ray showed a possible left lower lobe pneumonia. He was admitted for further evaluation and management. Past Medical History Cardiac Medical History: Reports: Congestive Heart Failure, Coronary Artery Disease, Myocardial Infarction, Hyperlipidema, Hypertension Pulmonary Medical History: Reports: Bronchitis, Chronic Obstructive Pulmonary Disease (COPD), Pneumonia Denies: Asthma Neurological Medical History: Reports: Seizures Endocrine Medical History: Reports: Diabetes Mellitus Type 2, Hypothyroidism GI Medical History: Reports: Gastroesophageal Reflux Disease Denies: Hepatitis, Hiatal Hernia Musculoskeltal Medical History: Reports: Arthritis Psychiatric Medical History: Reports: Bipolar Disorder, Dementia, Depression Hematology: Denies: Anemia, Sickle Cell Disease Past Surgical History Past Surgical History: Reports: Appendectomy, Orthopedic Surgery - Right ankle surgery in 1982 or 1983 when he had a muscle from the leg moved, Tonsillectomy, Other - TURP per patient. Denies: Pacemaker Social History Smoking Status: Former Smoker Cigarettes Packs Per Day: 1 Number of Years Smokin Last Time Smoked: 07/08/2019 Frequency of Alcohol Use: None Hx Recreational Drug Use: No Drugs: Marijuana Hx Prescription Drug Abuse: No - Advance Directive Resuscitation Status: Full Code Family History Family History: None, Reviewed & Not Pertinent Parental Family History Reviewed: Yes Children Family History Reviewed: Yes Sibling(s) Family History Reviewed.: Yes Medication/Allergy Home Medications: Albuterol Sulfate [Ventolin 0.083% Neb 2.5 mg/3 mL Ampul] 2.5 mg NEB RTQ6HP PRN 06/24/19 Benztropine Mesylate [Cogentin 1 mg Tablet] 1 mg PO DAILY 06/24/19 Diazepam [Valium 5 mg Tablet] 5 mg PO QAM 06/24/19 Diazepam [Valium] 10 mg PO QHS 06/24/19 Donepezil HCl [Aricept] 10 mg PO QHS 06/24/19 Gabapentin [Neurontin 100 mg Capsule] 200 mg PO Q8 06/24/19 Glipizide [Glucotrol] 10 mg PO DAILY 06/24/19 Levothyroxine Sodium 125 mcg PO Q6AM 06/24/19 Meloxicam [Mobic] 7.5 mg PO Q12 06/24/19 Metformin HCl [Glucophage 500 mg Tablet] 500 mg PO BID 06/24/19 Montelukast Sodium [Singulair 10 mg Tablet] 10 mg PO QHS 06/24/19 Pantoprazole Sodium [Protonix [address] Tablet] 40 mg PO DAILY 06/24/19 Prazosin HCl [Minipress] 2 mg PO DAILY 06/24/19 Quetiapine Fumarate [Seroquel Xr] 300 mg PO QPM 06/24/19 Torsemide [Demadex 20 mg Tablet] 20 mg PO Q8 06/24/19 Ipratropium/Albuterol Sulfate [Duoneb 3 ml Ampul] 3 ml NEB Q4 PRN #60 vial.neb 06/26/19 Divalproex Sodium [Depakote] 500 mg PO Q12 08/03/19 Fluticasone/Umeclidin/Vilanter [Trelegy 100-62.5-25 Mcg Ellipta 14 Dose/Dpi] 1 puff IH DAILY 08/03/19 Multivitamin [Tab-A-Anat (Multiple Vitamin) Tablet] 1 tab PO DAILY 08/03/19 Nicotine [Nicoderm 21 mg/24 Hr Transderm Patch] 1 patch TD DAILY 08/03/19 Cefuroxime Axetil [Ceftin 500 mg Tablet] 1 tab PO BID #20 tablet 08/06/19 Allergies/Adverse Reactions: simvastatin [From Zocor] Allergy (Verified 02/21/19 11:51) LEGS GET WEAK Review of Systems All systems: reviewed and no additional remarkable complaints except as stated - All systems reviewed and were negative except as noted in the HPI Physical Exam Vital Signs: Temp Pulse Resp BP Pulse Ox 98.0 F 76 17 132/99 H 97 08/06/19 08:42 08/06/19 08:42 08/06/19 08:42 08/06/19 08:42 08/06/19 08:42 General appearance: PRESENT: cooperative, disheveled, mild distress, obese, other - Strong smell of cigarette smoke, facial hair and fingers are stained with nicotine Head exam: PRESENT: atraumatic, normocephalic Eye exam: PRESENT: EOMI, PERRLA. ABSENT: conjunctival injection, nystagmus, scleral icterus Ear exam: PRESENT: normal external ear exam Mouth exam: PRESENT: dry mucosa, neck supple Teeth exam: PRESENT: poor dentation Throat exam: ABSENT: post pharyngeal erythema Neck exam: PRESENT: full ROM. ABSENT: carotid bruit, JVD, lymphadenopathy, me ningismus, tenderness, thyromegaly Respiratory exam: PRESENT: prolonged expiratory phas, symmetrical, tachypnea. ABSENT: accessory muscle use, chest wall tenderness, crackles, rhonchi, unlabored, wheezes Cardiovascular exam: PRESENT: RRR, +S1, +S2 Pulses: PRESENT: normal carotid pulses Vascular exam: PRESENT: normal capillary refill GI/Abdominal exam: PRESENT: normal bowel sounds, soft. ABSENT: distended, guarding, rebound, tenderness Extremities exam: ABSENT: clubbing, pedal edema Musculoskeletal exam: PRESENT: normal inspection. ABSENT: deformity Neurological exam: PRESENT: alert, awake, oriented to person, oriented to place, oriented to situation, CN II-XII grossly intact. ABSENT: motor sensory deficit Psychiatric exam: PRESENT: appropriate affect, normal mood Skin exam: PRESENT: dry, warm Results Laboratory Results: 08/06/19 04:29 08/06/19 04:29 08/03/19 06:25 Troponin I 0.014 NT-Pro-B Natriuret Pep 21 Impressions: Chest X-Ray 08/03/19 06:18 IMPRESSION: Mild vascular congestion. Superimposed left lower lobe pneumonia. Assessment and Plan - Diagnosis (1) Acute and chronic respiratory failure with hypoxia Is this a current diagnosis for this admission?: Yes Plan: He is on BiPAP, will continue BiPAP and supplemental O2 to maintain SPO2 greater than 90% (2) COPD with acute exacerbation Is this a current diagnosis for this admission?: Yes Plan: On admission he is not wheezing, will use antibiotics and bronchodilators and will try to hold off on steroids for the time being. If he starts to develop some wheezing we will start some prednisone. (3) Pneumonia Qualifiers: Pneumonia type: due to unspecified organism Laterality: left Lung location: lower lobe of lung Qualified Code(s): J18.1 - Lobar pneumonia, unspecified organism Is this a current diagnosis for this admission?: Yes Plan: We will start empiric Rocephin and azithromycin. Cultures are pending. - Time Time Spent with patient: 35 or more minutes - Inpatient Certification Based on my medical assessment, after consideration of the patient's com orbidities, presenting symptoms, or acuity I expect that the services needed warrant INPATIENT care.: Yes I certify that my determination is in accordance with my understanding of Medicare's requirements for reasonable and necessary INPATIENT services [42 CFR 412.3e].: Yes Medical Necessity: Need Close Monitoring Due to Risk of Patient Decompensation, Need for Nebulizer Therapy and Monitoring of Response, Need for IV Antibiotics, Risk of Complication if Not Cared For in Hospital
== END 2019-08-06 09:45 | disposition home or self-care (01) | DRG 189 ==
LOC: ER 06:09 → EH 10:53 → 3N 14:20
PROVIDERS: ADMIT Family Medicine; ATTEND Family Medicine
DX: J96.21 Acute and chronic respiratory failure with hypoxia (principal); J18.1 Lobar pneumonia, unspecified organism; J44.1 Chronic obstructive pulmonary disease with (acute) exacerbation; E87.5 Hyperkalemia; I11.0 Hypertensive heart disease with heart failure; I50.9 Heart failure, unspecified; I25.10 Atherosclerotic heart disease of native coronary artery without angina pectoris; E78.5 Hyperlipidemia, unspecified; K21.9 Gastro-esophageal reflux disease without esophagitis; F41.9 Anxiety disorder, unspecified; F17.210 Nicotine dependence, cigarettes, uncomplicated; I25.2 Old myocardial infarction; Z86.73 Personal history of transient ischemic attack (TIA), and cerebral infarction without residual deficits; Z79.84 Long term (current) use of oral hypoglycemic drugs; Z79.51 Long term (current) use of inhaled steroids; Z79.899 Other long term (current) drug therapy
CPT/HCPCS: 36415; 71045; 80048; 80053; 80164; 81001; 82803; 82962; 83605; 83735; 83880; 84484; 85025; 85027; 87040; 93005; 93010; 94640; 94660; 96361; 96365; 96367; 96375; 96376; 99291; C9113; J1644; J1815; J1956; J2060; J2405; J2543; J3475; J3490; J7030; J7050; J7512; J7620

== ENCOUNTER 2019-12-12 10:29 | Inpatient (IN) | payer MEDICARE, MEDICAID ==
[2019-12-12 11:06] LABS: VENOUS BLOOD HCO3 26.4 mmol/L (20-32); VENOUS BLOOD PCO2 44.5 mmHg (35-63); VENOUS BLOOD PH 7.39 (7.30-7.42)
[2019-12-12 11:10] LABS: ABSOLUTE EOSINOPHILS # (AUTO) 0.1 10^3/uL (0.0-0.6); ABSOLUTE LYMPHOCYTES (AUTO) 1.1 10^3/uL (0.5-4.7); ABSOLUTE MONOCYTES (AUTO) 0.8 10^3/uL (0.1-1.4); ABSOLUTE NEUT (AUTO) 11.2 10^3/uL (1.7-8.2); BASOPHILS % (AUTO) 0.2 % (0-2); EOSINOPHILS % (AUTO) 0.6 % (0-6); HEMATOCRIT 43.1 % (37.9-51.0); MEAN CORPUSCULAR HEMOGLOBIN 31.4 pg (27.0-33.4); MEAN CORPUSCULAR HGB CONC 34.8 g/dL (32.0-36.0); MEAN CORPUSCULAR VOLUME 90 fl (80-97); MONOCYTES % (AUTO) 6.3 % (3-13); PLATELET COUNT 110 10^3/uL (150-450); RED BLOOD COUNT 4.78 10^6/uL (4.35-5.55); RED CELL DISTRIBUTION WIDTH 15.6 % (11.5-14.0); SEGMENTED NEUTROPHILS % (AUTO) 84.9 % (42-78); TOTAL CELLS COUNTED % (AUTO) 100 %; WHITE BLOOD COUNT 13.2 10^3/uL (4.0-10.5)
[2019-12-12 11:26] LABS: ALBUMIN 4.7 g/dL (3.5-5.0); ALKALINE PHOSPHATASE 52 U/L (38-126); ANION GAP 14 (5-19); ASPARTATE AMINO TRANSFERASE 59 U/L (17-59); BILIRUBIN,DIRECT 0.4 mg/dL (0.0-0.4); BILIRUBIN,TOTAL 0.6 mg/dL (0.2-1.3); BLOOD UREA NITROGEN 16 mg/dL (7-20); CALCIUM 9.5 mg/dL (8.4-10.2); CARBON DIOXIDE 26 mmol/L (22-30); CHLORIDE 103 mmol/L (98-107); GLUCOSE 121 mg/dL (75-110); POTASSIUM 4.6 mmol/L (3.6-5.0); TOTAL PROTEIN 7.7 g/dL (6.3-8.2)
[2019-12-12] MEDS ORDERED: NORMAL SALINE 1000 ML 1,000 ML IV ONE ×2 (11:36→14:05)
--- NOTE | 2019-12-12 12:03 | RADIOLOGY REPORT (SQ) ---
EXAM DESCRIPTION: CHEST SINGLE VIEW COMPLETED DATE/TIME: 12/12/2019 11:44 am REASON FOR STUDY: shortness of breath COMPARISON: 09/24/2019 EXAM PARAMETERS: NUMBER OF VIEWS: One view. TECHNIQUE: Single frontal radiographic view of the chest acquired. RADIATION DOSE: NA LIMITATIONS: None. FINDINGS: LUNGS AND PLEURA: Minimal ill-defined lingular opacities. No dense consolidation. No sig nificant effusion. No pneumothorax. MEDIASTINUM AND HILAR STRUCTURES: No masses. Contour normal. HEART AND VASCULAR STRUCTURES: Heart normal in size. Normal vasculature. BONES: No acute findings. HARDWARE: None in the chest. OTHER: No other significant finding. IMPRESSION: Mild ill-defined lingular opacities, possibly atelectasis/ scarring or infection. TECHNICAL DOCUMENTATION: JOB ID: [id number] 2010 [employer]- All Rights Reserved Reading location - IP/workstation name: [email or web address]
[2019-12-12 12:12] LABS: APPEARANCE,URINE CLEAR; BILIRUBIN,URINE NEGATIVE (NEGATIVE); COLOR,URINE YELLOW; GLUCOSE, URINE NEGATIVE (NEGATIVE); KETONES,URINE NEGATIVE (NEGATIVE); LEUKOCYTE ESTERASE,URINE NEGATIVE (NEGATIVE); NITRITE,URINE NEGATIVE (NEGATIVE); PROTEIN,URINE NEGATIVE (NEGATIVE); URINE SPECIFIC GRAVITY 1.008; UROBILINOGEN,URINE NEGATIVE mg/dL (<2.0)
[2019-12-12 12:23] LABS: A TYPE INFLUENZA AG NEGATIVE (NEGATIVE); B INFLUENZA AG NEGATIVE (NEGATIVE)
--- NOTE | 2019-12-12 12:38 | RADIOLOGY REPORT (SQ) ---
EXAM DESCRIPTION: CT HEAD WITHOUT COMPLETED DATE/TIME: 12/12/2019 12:26 pm REASON FOR STUDY: AMS COMPARISON: 09/24/2019 TECHNIQUE: Axial images acquired through the brain without intravenous contrast. Images reviewed wi th bone, brain and subdural windows. Additional sagittal and coronal reconstructions were generated. Images stored on PACS. All CT scanners at this facility use dose modulation, iterative reconstruction, and/or weight based d osing when appropriate to reduce radiation dose to as low as reasonably achievable (ALARA). [facility]: Dose Right [facility]: CareDose [facility]: Dose Right [facility]: Teradose 4D [facility]: Dolosys RADIATION DOSE: CT Rad equipment meets quality standard of care and radiation dose reduction techniq ues were employed. CTDIvol: 53.2 mGy. DLP: 991 mGy-cm. mGy. LIMITATIONS: None. FINDINGS: VENTRICLES: Appropriate for patient age. CEREBRUM: No masses. No hemorrhage. No midline shift. No evidence for acute infarction. Normal gra y/white matter differentiation. No areas of low density in the white matter. CEREBELLUM: No masses. No hemorrhage. No alteration of density. No evidence for acute infarction. EXTRAAXIAL SPACES: No fluid collections. No masses. ORBITS AND GLOBE: No intra- or extraconal masses. Normal contour of globe without masses. Bilateral cataract surgery. CALVARIUM: No fracture. PARANASAL SINUSES: Mild mucosal thickening within the left ethmoid air cells. Remaining sinuses are clear. SOFT TISSUES: No mass or hematoma. OTHER: No other significant finding. IMPRESSION: NO ACUTE INTRACRANIAL IMAGING FINDINGS. EVIDENCE OF ACUTE STROKE: NO. COMMENT: Quality ID # [id number]: Final reports with documentation of one or more dose reduction techniques (e.g., Automated exposure control, adjustment of the mA and/or kV according to patient size, use of iterative reconstruction technique) TECHNICAL DOCUMENTATION: JOB ID: [id number] 2010 [email or web address]- All Rights Reserved Reading location - IP/workstation name: [email or web address]
[2019-12-12] MEDS ORDERED: CEFEPIME 2 GM/D5W RTU 2 GM/50 ML RTUPB IV ONE (14:05)
[2019-12-12] MEDS ORDERED: VANCOMYCIN HCL INJ 1000 MG VIAL IV ONE ×2 (14:05→16:45)
[2019-12-12] MEDS ORDERED: LEVOFLOXACIN 750 MG/D5W RTU 750 MG/150 ML RTUPB IV ONE (14:05)
[2019-12-12] MEDS ORDERED: METHYLPREDNISOLONE INJ 125 MG/2 ML SDV IV ONE (14:07)
[2019-12-12] MEDS: MAGNESIUM SULFATE/D5W 1 GM/100 ML RTUPB IV SCH ×2 (14:36→14:58)
--- NOTE | 2019-12-12 15:45 | ER Document Report ---
ED General - General Chief Complaint: Breathing Difficulty Stated Complaint: DIFFICULTY BREATHING Time Seen by Provider: 12/12/19 10:50 Information source: Patient, Emergency Med Personnel Cannot obtain history due to: Altered mental status Notes: Patient is a 64-year-old male who was sent in by his home health aide due to altered mental status and respiratory distress. Patient denies any complaints but he is urinated on the floor and is confused. Denies chest pain or trouble b reathing. Patient has a history of COPD and is on oxygen all the time. Denies fever or recent cough. Per medical records, patient was admitted to the ICU for sepsis back in September. He was apparently confused today. TRAVEL OUTSIDE OF THE [place] IN LAST 30 DAYS: No - HPI Onset: Just prior to arrival Quality of pain: No pain Severity: None Pain Level: Denies Exacerbated by: Denies Relieved by: Denies - Related Data Allergies/Adverse Reactions: simvastatin [From Zocor] Allergy (Verified 10/10/19 13:37) LEGS GET WEAK Home Medications: scanned and in paper chart Past Medical History - Social History Smoking Status: Current Every Day Smoker Family History: Other - Unable to assess as patient is on BiPAP Patient has suicidal ideation: No Patient has homicidal ideation: No - Past Medical History Cardiac Medical History: Reports: Hx Congestive Heart Failure, Hx Coronary Artery Disease, Hx Heart Attack, Hx Hypercholesterolemia, Hx Hypertension Pulmonary Medical History: Reports: Hx Bronchitis, Hx COPD, Hx Pneumonia Denies: Hx Asthma Neurological Medical History: Reports: Hx Cerebrovascular Accident, Hx Seizures Endocrine Medical History: Reports: Hx Diabetes Mellitus Type 2, Hx Hypothyroidism Renal/ Medical History: Reports: Hx Benign Prostatic Hyperplasia. Denies: Hx Peritoneal Dialysis GI Medical History: Reports: Hx Gastroesophageal Reflux Disease. Denies: Hx Hepatitis, Hx Hiatal Hernia, Hx Ulcer Musculoskeletal Medical History: Reports Hx Arthritis, Reports Hx Musculoskeletal Trauma Psychiatric Medical History: Reports: Hx Anxiety, Hx Bipolar Disorder, Hx D ementia, Hx Depression Infectious Medical History: Denies: Hx Hepatitis Past Surgical History: Reports: Hx Appendectomy, Hx Genitourinary Surgery - TU RP, Hx Orthopedic Surgery - Right ankle surgery in 1982 or 1983 when he had a muscle from the leg moved, Hx Thyroid Surgery, Hx Tonsillectomy, Other - TURP per patient.. Denies: Hx Open Heart Surgery, Hx Pacemaker - Immunizations Hx Diphtheria, Pertussis, Tetanus Vaccination: No Review of Systems - Review of Systems -: Yes ROS unobtainable due to patient's medical condition Physical Exam - Vital signs Vitals: Pulse Ox 95 12/12/19 10:31 Interpretation: Tachycardic - General General appearance: Alert In distress: Mild - HEENT Head: Normocephalic, Atraumatic Mucous membranes: Dry - Respiratory Respiratory status: No respiratory distress Breath sounds: Wheezing - Cardiovascular Rhythm: Regular, Tachycardia - Abdominal Inspection: Normal - Back Back: Normal - Extremities General upper extremity: Normal inspection, Normal ROM, Normal strength General lower extremity: Normal inspection, Normal ROM, Normal strength - Neurological Cognition: Confused Orientation: AAOx4 Laina Coma Scale Eye Opening: Spontaneous [place]a Coma Scale Verbal: Confused [place] Coma Scale Motor: Obeys Commands [place] Coma Scale Total: 14 Motor strength normal: LUE, RUE, LLE, RLE Sensory: Normal, Altered light touch, 2-pt discrimination, Pin-prick, Other - Skin Skin Temperature: Warm Skin Moisture: Dry Course - Re-evaluation Re-evalutation: 12/12/19 14:10 Patient is a 64-year-old male who presents with confusion, apparent respiratory distress prior to arrival per his home health aide. Patient with initial lactic of greater than 5. Initially tachycardic. Blood pressure has been stable. Slight wheeze. Patient treated with fluids, antibiotics, sign Medrol, and magnesium. Blood culture sent. Chest x-ray concerning for pneumonia. Patient does appear clinically dehydrated. Despite fluids, 30 mL/kg, antibiotics, and improved work of breathing and mentation, patient's lactic remains above 2 although it is improved at 3. Patient was discussed with the hospitalist service and accepted for admission. Stable at the time of admission. Hospitalist service will admit to telemetry, Dr. Rodriguez. Note, no acute findings on EKG. Troponin is negative. CT head wnl. 12/12/19 17:16 Patient was initially agreeable to staying then wanted to leave AGAINST MEDICAL ADVICE. Had lengthy discussion advising against this due to persistently el evated lactic. He is now agreeable to staying after being given a meal and having easier access to his urinal. Dr. Rodriguez notified. - Vital Signs Vital signs: Temp Pulse Resp BP Pulse Ox 97.9 F 19 115/76 96 12/12/19 15:42 12/12/19 15:01 12/12/19 15:00 12/12/19 15:01 - Laboratory Result Diagrams: 12/12/19 10:45 12/12/19 10:45 Laboratory results interpreted by me: 12/12/19 12/12/19 12/12/19 10:45 10:45 10:45 WBC 13.2 H RDW 15.6 H Plt Count 110 L Lymph % (Auto) 8.0 L Absolute Neuts (auto) 11.2 H Seg Neutrophils % 84.9 H Creatinine 1.30 H Est GFR (MDRD) Non-Af 55 L Glucose 121 H Lactic Acid 5.2 H ALT 62 H 12/12/19 14:30 WBC RDW Plt Count Lymph % (Auto) Absolute Neuts (auto) Seg Neutrophils % Creatinine Est GFR (MDRD) Non-Af Glucose Lactic Acid 3.3 H ALT Critical Care Note - Critical Care Note Total time excluding time spent on procedures (mins): 45 - Evaluation and management of altered mental status, sepsis, multiple re-evaluations, coordination of care, counseling of patient Discharge - Discharge Clinical Impression: COPD with acute exacerbation Sepsis Qualifiers: Sepsis type: sepsis due to unspecified organism Sepsis acute organ dysfunction status: unspecified Qualified Code(s): A41.9 - Sepsis, unspecified organism Condition: Stable Disposition: ADMITTED INPATIENT Admitting Provider: Michael (Hospitalist) Unit Admitted: Telemetry ED Sepsis - Sepsis Documentation Sepsis Patient: Yes - Vital Signs Interpretation: Tachycardic - Cardiovascular Peripheral Pulse Strength: Normal Capillary refill: < 3 seconds Rhythm: Tachycardia Heart Sounds: Normal auscultation - Respiratory Breath sounds: Wheezing Respiratory Status: No respiratory distress - Skin Skin Color: Flushed - Bedside Cardiovascular Ultrasound Was a bedside Cardiovascular Ultrasound performed?: No - Fluid Challenge Was the patient given a fluid challenge?: Yes
--- NOTE | 2019-12-12 16:53 | PDOC H&P ---
History of Present Illness Admission Date/PCP: 12/12/19 15:54 SHYAM PARDO PA-C Patient complains of: Shortness of breath History of Present Illness: WOODROW GOODWIN is a 64 year old male history of COPD and active smoker, who presents to the hospital with complaints of worsening shortness of breath which started this morning. Patient endorses air hunger. He does have a history of COPD and is on 3 L nasal cannula at home. He was visited by his home nurse isaura kinney who noted that patient was working to breathe and was somewhat more confused and also sent to the hospital for evaluation. In the ER, patient was given a breathing treatment and 125 mg of Solu-Medrol. Head CT was done for evaluation of mental status change which was unremarkable. Hospitalist service called for admission. Since endorses only a mild cough at this time which he states occurs every once in a while. Denies any fever or chills. Past Medical History Pulmonary Medical History: Reports: Bronchitis, Chronic Obstructive Pulmonary Disease (COPD), Pneumonia Denies: Asthma Neurological Medical History: Reports: Seizures Endocrine Medical History: Reports: Diabetes Mellitus Type 2, Hypothyroidism GI Medical History: Reports: Gastroesophageal Reflux Disease Denies: Hepatitis, Hiatal Hernia Musculoskeltal Medical History: Reports: Arthritis Psychiatric Medical History: Reports: Bipolar Disorder, Dementia, Depression Hematology: Denies: Anemia, Sickle Cell Disease Past Surgical History Past Surgical History: Reports: Appendectomy, Orthopedic Surgery - Right ankle surgery in 1982 or 1983 when he had a muscle from the leg moved, Tonsillectomy, Other - TURP per patient. Denies: Pacemaker Social History Smoking Status: Current Every Day Smoker Frequency of Alcohol Use: None Hx Recreational Drug Use: No Drugs: None Hx Prescription Drug Abuse: No - Advance Directive Resuscitation Status: Do Not Resuscitate - dnr/dni confirmed by patient Family History Family History: Hypertension Parental Family History Reviewed: Yes Children Family History Reviewed: NA Sibling(s) Family History Reviewed.: NA Medication/Allergy Home Medications: Benztropine Mesylate [Cogentin 1 mg Tablet] 1 mg PO DAILY 09/18/19 Divalproex Sodium [Depakote ER 500 mg Tab.sr] 500 mg PO Q12 09/18/19 Donepezil HCl [Aricept 5 mg Tablet] 5 mg PO QHS 09/18/19 Gabapentin [Neurontin 100 mg Capsule] 200 mg PO TID 09/18/19 Levothyroxine Sodium 125 mcg PO Q6AM 09/18/19 Montelukast Sodium [Singulair 10 mg Tablet] 10 mg PO QHS 09/18/19 Multivitamin [Daily Multiple Vitamin] 1 each PO DAILY 09/18/19 Omeprazole 20 mg PO BID 09/18/19 Prazosin HCl [Minipress] 2 mg PO DAILY 09/18/19 Suvorexant [Belsomra] 20 mg PO QHS 09/18/19 Torsemide [Demadex 20 mg Tablet] 20 mg PO TID 09/18/19 Fluticasone/Umeclidin/Vilanter [Trelegy 100-62.5-25 Mcg Ellipta 14 Dose/Dpi] 1 puff IH DAILY #1 09/27/19 Prednisone [Deltasone 10 mg Tablet] 10 mg PO BID 3 Days #6 tablet 09/27/19 Allergies/Adverse Reactions: simvastatin [From Zocor] Allergy (Verified 10/10/19 13:37) LEGS GET WEAK Review of Systems Constitutional: ABSENT: chills, fever(s) Eyes: ABSENT: visual disturbances Nose, Mouth, and Throat: ABSENT: headache(s) Cardiovascular: ABSENT: chest pain, orthropnea Respiratory: PRESENT: cough, dyspnea. ABSENT: sputum Gastrointestinal: ABSENT: abdominal pain, hematemesis, hematochezia, melena, nausea, vomiting Genitourinary: ABSENT: dysuria Musculoskeletal: PRESENT: back pain Integumentary: ABSENT: diaphoresis Neurological: ABSENT: dizziness Psychiatric: ABSENT: anxiety Endocrine: ABSENT: polyuria Physical Exam Vital Signs: Temp Pulse Resp BP Pulse Ox 97.9 F 19 115/76 96 12/12/19 15:42 12/12/19 15:01 12/12/19 15:00 12/12/19 15:01 Intake & Output 12/11/19 12/12/19 12/13/19 06:59 06:59 06:59 Intake Total 2250 Balance 2250 Weight 65.4 kg General appearance: PRESENT: no acute distress, cooperative Head exam: PRESENT: atraumatic Mouth exam: PRESENT: dry mucosa, neck supple Neck exam: ABSENT: JVD Respiratory exam: PRESENT: symmetrical, wheezes. ABSENT: crackles, tachypnea, unlabored Cardiovascular exam: PRESENT: RRR, +S1, +S2. ABSENT: tachycardia GI/Abdominal exam: PRESENT: soft. ABSENT: distended, firm, guarding, rebound, rigid, tenderness Extremities exam: ABSENT: pedal edema Neurological exam: PRESENT: alert, awake, oriented to person, oriented to place, oriented to time, oriented to situation, other - Able to carry out adequate conversation, responds appropriately, and clearly voices proper understanding of consequences of his decisions and situation.. ABSENT: aphasic Psychiatric exam: ABSENT: agitated, anxious Focused psych exam: ABSENT: pressured speech Skin exam: ABSENT: jaundice Results Laboratory Results: 12/12/19 10:45 12/12/19 10:45 12/12/19 12/12/19 12/12/19 10:45 10:45 10:45 WBC 13.2 H RBC 4.78 Hgb 15.0 Hct 43.1 MCV 90 MCH 31.4 MCHC 34.8 RDW 15.6 H Plt Count 110 L Seg Neutrophils % 84.9 H VBG pH VBG pCO2 VBG HCO3 VBG Base Excess Sodium 143.2 Potassium 4.6 Chloride 103 Carbon Dioxide 26 Anion Gap 14 BUN 16 Creatinine 1.30 H Est GFR ( Amer) > 60 Glucose 121 H Lactic Acid 5.2 H Calcium 9.5 Total Bilirubin 0.6 AST 59 Alkaline Phosphatase 52 Total Protein 7.7 Albumin 4.7 TSH Urine Color Urine Appearance Urine pH Ur Specific [place] Urine Protein Urine Glucose (UA) Urine Ketones Urine Blood Urine Nitrite Ur Leukocyte Esterase Urine WBC (Auto) 12/12/19 12/12/19 12/12/19 10:45 10:45 11:45 WBC RBC Hgb Hct MCV MCH MCHC RDW Plt Count Seg Neutrophils % VBG pH 7.39 VBG pCO2 44.5 VBG HCO3 26.4 VBG Base Excess 1.0 Sodium Potassium Chloride Carbon Dioxide Anion Gap BUN Creatinine Est GFR ( Amer) Glucose Lactic Acid Calcium Total Bilirubin AST Alkaline Phosphatase Total Protein Albumin TSH 0.59 Urine Color YELLOW Urine Appearance CLEAR Urine pH 5.0 Ur Specific [place] 1.008 Urine Protein NEGATIVE Urine Glucose (UA) NEGATIVE Urine Ketones NEGATIVE Urine Blood NEGATIVE Urine Nitrite NEGATIVE Ur Leukocyte Esterase NEGATIVE Urine WBC (Auto) 0 12/12/19 14:30 WBC RBC Hgb Hct MCV MCH MCHC RDW Plt Count Seg Neutrophils % VBG pH VBG pCO2 VBG HCO3 VBG Base Excess Sodium Potassium Chloride Carbon Dioxide Anion Gap BUN Creatinine Est GFR ( Amer) Glucose Lactic Acid 3.3 H Calcium Total Bilirubin AST Alkaline Phosphatase Total Protein Albumin TSH Urine Color Urine Appearance Urine pH Ur Specific [place] Urine Protein Urine Glucose (UA) Urine Ketones Urine Blood Urine Nitrite Ur Leukocyte Esterase Urine WBC (Auto) 12/12/19 12/12/19 10:45 10:45 Troponin I < 0.012 NT-Pro-B Natriuret Pep 40 Impressions: Chest X-Ray 12/12/19 10:32 IMPRESSION: Mild ill-defined lingular opacities, possibly atelectasis/ scarring or infection. Head CT 12/12/19 11:58 IMPRESSION: NO ACUTE INTRACRANIAL IMAGING FINDINGS. EVIDENCE OF ACUTE STROKE: NO. Assessment and Plan - Diagnosis (1) COPD with acute exacerbation Is this a current diagnosis for this admission?: Yes (2) Acute and chronic respiratory failure with hypoxia Is this a current diagnosis for this admission?: Yes (3) Lactic acidosis Is this a current diagnosis for this admission?: Yes (4) Leukocytosis Qualifiers: Leukocytosis type: unspecified Qualified Code(s): D72.829 - Elevated white blood cell count, unspecified Is this a current diagnosis for this admission?: Yes (5) Acute kidney injury Is this a current diagnosis for this admission?: Yes - Plan Summary Summary: Patient seems to be having an acute COPD exacerbation. He does have leukocytosis noted. Chest x-ray shows very questionable findings of infiltrates but I do not see any clear consolidation indicating a pneumonia at this time. B lood work also reveals FRANDY. Patient has received IV antibiotics in the ER as well as Solu-Medrol and a nebulizer treatment. I have recommended to patient that he would need to be admitted for treatment of his COPD exacerbation with frequent nebulizer treatments, steroids and Levaquin as well as sputum culture assessment to evaluate for acute bacterial bronchitis. Also would need normalization for his lactic acidosis. However, despite multiple attempts to convince patient to stay, patient is very adamant about leaving and is clear that he will be leaving AGAINST MEDICAL ADVICE. Patient clearly voices complete understanding of the implications of his decisions and the consequences of his current condition and he is fully alert and oriented x4. As such, I we will respect patient's wishes. I have informed the ER provider that patient is refusing admission at this time. - Time Time Spent with patient: 35 or more minutes
[2019-12-12] MEDS ORDERED: NORMAL SALINE 1000 ML 1,000 ML IV PRN (17:05)
[2019-12-12] MEDS ORDERED: ONDANSETRON HCL INJ/PF 4 MG/2 ML SDV IV PRN (17:05)
[2019-12-12] MEDS ORDERED: ALBUTEROL SULFATE 0.083% NEB 2.5 MG/3 ML AMPUL NEB PRN (17:05)
[2019-12-12] MEDS ORDERED: ENOXAPARIN SODIUM INJ 40 MG/0.4 ML DISP.SYRIN SUBCUT ONE (18:00)
--- NOTE | 2019-12-12 18:04 | EKG REPORT ---
SEVERITY:- BORDERLINE ECG - SINUS TACHYCARDIA NONSPECIFIC LATERAL ST-T CHANGES : Confirmed by: Korey Zavaleta MD 12-Dec-2019 18:03:28
[2019-12-12] MEDS ORDERED: DEXTROSE 50%-WATER 25 GM/50 ML DISP.SYRIN IV PRN ×2 (20:08)
[2019-12-12] MEDS ORDERED: (PENDING PHARMACY ID) (Suvorexant [Belsomra] 20 MG) PO PRN ×2 (20:08→20:22)
[2019-12-12] MEDS ORDERED: GLUCAGON,HUMAN RECOMB 1 MG INJ IM PRN (20:08)
[2019-12-12] MEDS ORDERED: DEXTROSE 40% GEL 15 GM TUBE PO PRN ×2 (20:08)
[2019-12-12] MEDS: IPRATROPIUM/ALBUTEROL 0.5-2.5 MG/3 ML AMPUL NEB SCH (20:24)
[2019-12-12] MEDS ORDERED: (PENDING PHARMACY ID) (Quetiapine Fumarate [Seroquel Xr] 300 MG) PO SCH (21:00)
[2019-12-12] MEDS: ACETAMINOPHEN 325 MG TABLET PO PRN (21:34)
[2019-12-12] MEDS: DONEPEZIL HCL 5 MG TABLET PO SCH (21:34)
[2019-12-12] MEDS: MONTELUKAST SODIUM 10 MG TABLET PO SCH (21:34)
[2019-12-12] MEDS: DIVALPROEX SODIUM 250 MG TABLET.DR PO SCH (21:34)
[2019-12-12] MEDS: INSULIN REG, HUMAN 100 UNIT/ML 3 ML VIAL (PYX) SUBCUT SCH (21:35)
[2019-12-13] MEDS: IPRATROPIUM/ALBUTEROL 0.5-2.5 MG/3 ML AMPUL NEB SCH ×4 (01:39→20:17)
[2019-12-13] MEDS: LEVOTHYROXINE SODIUM 0.1 MG TABLET PO SCH (05:06)
[2019-12-13] MEDS: LEVOTHYROXINE SODIUM 0.025 MG TABLET PO SCH (05:06)
[2019-12-13 05:12] LABS: ABSOLUTE LYMPHOCYTES (AUTO) 0.6 10^3/uL (0.5-4.7); ABSOLUTE MONOCYTES (AUTO) 0.2 10^3/uL (0.1-1.4); ABSOLUTE NEUT (AUTO) 7.6 10^3/uL (1.7-8.2); BASOPHILS % (AUTO) 0.1 % (0-2); HEMATOCRIT 40.3 % (37.9-51.0); HEMOGLOBIN 13.7 g/dL (13.5-17.0); LYMPHOCYTES % (AUTO) 7.5 % (13-45); MEAN CORPUSCULAR HEMOGLOBIN 30.9 pg (27.0-33.4); MEAN CORPUSCULAR HGB CONC 33.9 g/dL (32.0-36.0); MEAN CORPUSCULAR VOLUME 91 fl (80-97); MONOCYTES % (AUTO) 1.8 % (3-13); PLATELET COUNT 100 10^3/uL (150-450); RED BLOOD COUNT 4.42 10^6/uL (4.35-5.55); RED CELL DISTRIBUTION WIDTH 15.8 % (11.5-14.0); SEGMENTED NEUTROPHILS % (AUTO) 90.6 % (42-78); TOTAL CELLS COUNTED % (AUTO) 100 %; WHITE BLOOD COUNT 8.4 10^3/uL (4.0-10.5)
[2019-12-13 05:37] LABS: ANION GAP 10 (5-19); BLOOD UREA NITROGEN 21 mg/dL (7-20); CALCIUM 8.9 mg/dL (8.4-10.2); CARBON DIOXIDE 26 mmol/L (22-30); CHLORIDE 105 mmol/L (98-107); GLUCOSE 197 mg/dL (75-110); POTASSIUM 5.2 mmol/L (3.6-5.0)
[2019-12-13] MEDS ORDERED: (PENDING PHARMACY ID) (Levothyroxine Sodium [Levothyroxine Sodium] 125 MCG) PO SCH (06:00)
[2019-12-13] MEDS: NORMAL SALINE 1000 ML 1,000 ML IV PRN ×3 (06:57→22:13)
[2019-12-13] MEDS: INSULIN REG, HUMAN 100 UNIT/ML 3 ML VIAL (PYX) SUBCUT SCH ×4 (08:18→22:11)
--- NOTE | 2019-12-13 08:31 | EKG REPORT ---
SEVERITY:- BORDERLINE ECG - SINUS RHYTHM ATRIAL PREMATURE COMPLEX BORDERLINE T ABNORMALITIES, INFERIOR LEADS : Confirmed by: Korey Zavaleta MD 13-Dec-2019 08:30:46
[2019-12-13] MEDS: DIVALPROEX SODIUM 250 MG TABLET.DR PO SCH ×2 (09:10→22:12)
[2019-12-13] MEDS: LEVOFLOXACIN 500 MG TABLET PO SCH (09:10)
[2019-12-13] MEDS: ENOXAPARIN SODIUM INJ 40 MG/0.4 ML DISP.SYRIN SUBCUT SCH (09:10)
[2019-12-13] MEDS: METHYLPREDNISOLONE INJ 40 MG/1 ML SDV IV SCH ×2 (09:10→22:12)
[2019-12-13] MEDS: MULTIVITAMIN TABLET PO SCH (09:10)
[2019-12-13] MEDS: GABAPENTIN 100 MG CAPSULE PO SCH ×3 (09:10→17:01)
[2019-12-13] MEDS: METFORMIN HCL 500 MG TABLET PO SCH ×2 (09:11→17:01)
[2019-12-13] MEDS: BENZTROPINE MESYLATE 1 MG TABLET PO SCH (09:11)
[2019-12-13] MEDS: DOXAZOSIN MESYLATE 4 MG TABLET PO SCH (09:11)
[2019-12-13] MEDS: PANTOPRAZOLE SODIUM 40 MG TABLET.DR PO SCH (09:11)
[2019-12-13] MEDS: FERROUS SULFATE 325 MG TABLET PO SCH (09:11)
[2019-12-13] MEDS ORDERED: (PENDING PHARMACY ID) (Prazosin Hcl [Minipress] 2 MG) PO SCH (10:00)
[2019-12-13] MEDS ORDERED: (PENDING PHARMACY ID) (Divalproex Sodium [Depakote] 500 MG) PO SCH (10:00)
[2019-12-13] MEDS: ACETAMINOPHEN 325 MG TABLET PO PRN ×2 (13:39→22:12)
[2019-12-13] MEDS ORDERED: (PENDING PHARMACY ID) (Quetiapine Fumarate [Seroquel Xr] 300 MG) PO SCH (18:00)
--- NOTE | 2019-12-13 18:33 | PDOC PROGRESS REPORT ---
Subjective Progress Note for:: 12/13/19 Subjective:: No adverse events overnight. No new complaints. Vital signs have been stable. He wanted to go home but he did not look terribly comfortable at rest and was still wheezing and having to stop in the middle of sentences to get a breath, but I do not know what his baseline is either. Reason For Visit: COPD EXACERBATION Physical Exam Vital Signs: Temp Pulse Resp BP Pulse Ox 97.9 F 90 18 130/86 H 95 12/13/19 11:11 12/13/19 14:24 12/13/19 14:24 12/13/19 11:11 12/13/19 14:24 Intake & Output 12/12/19 12/13/19 12/14/19 06:59 06:59 07:59 Intake Total 2400 1000 Output Total 700 Balance 1700 1000 Weight 95.4 kg General appearance: PRESENT: cooperative, disheveled, mild distress, obese Respiratory exam: PRESENT: prolonged expiratory phas, symmetrical, wheezes. ABSENT: accessory muscle use, chest wall tenderness, crackles, retraction, rhonchi, tachypnea, unlabored Cardiovascular exam: PRESENT: RRR, +S1, +S2 Pulses: PRESENT: normal carotid pulses Vascular exam: PRESENT: normal capillary refill GI/Abdominal exam: PRESENT: normal bowel sounds, soft. ABSENT: distended, gua rding, rebound, tenderness Extremities exam: ABSENT: clubbing, pedal edema Musculoskeletal exam: PRESENT: normal inspection. ABSENT: deformity Neurological exam: PRESENT: alert, awake, oriented to person, oriented to place, oriented to situation Psychiatric exam: PRESENT: appropriate affect, normal mood Skin exam: PRESENT: dry, warm, other - He looks like he is got a bad case of rosacea and possibly some facial seborrhea Results Laboratory Results: 12/13/19 05:01 12/13/19 05:01 12/13/19 12/13/19 12/13/19 05:01 05:01 05:01 WBC 8.4 RBC 4.42 Hgb 13.7 Hct 40.3 MCV 91 MCH 30.9 MCHC 33.9 RDW 15.8 H Plt Count 100 L Seg Neutrophils % 90.6 H Sodium 141.1 Potassium 5.2 H Chloride 105 Carbon Dioxide 26 Anion Gap 10 BUN 21 H Creatinine 1.14 Est GFR ( Amer) > 60 Glucose 197 H Lactic Acid 3.4 H Calcium 8.9 12/13/19 12:06 WBC RBC Hgb Hct MCV MCH MCHC RDW Plt Count Seg Neutrophils % Sodium Potassium Chloride Carbon Dioxide Anion Gap BUN Creatinine Est GFR ( Amer) Glucose Lactic Acid 3.9 H Calcium 12/12/19 12/12/19 10:45 10:45 Troponin I < 0.012 NT-Pro-B Natriuret Pep 40 Impressions: Chest X-Ray 12/12/19 10:32 IMPRESSION: Mild ill-defined lingular opacities, possibly atelectasis/ scarring or infection. Head CT 12/12/19 11:58 IMPRESSION: NO ACUTE INTRACRANIAL IMAGING FINDINGS. EVIDENCE OF ACUTE STROKE: NO. Assessment and Plan - Diagnosis (1) COPD with acute exacerbation Is this a current diagnosis for this admission?: Yes Plan: Continue with steroids and bronchodilators. Will reevaluate his suitability to go home in the morning, but he just did not look like he was stable for discharge this afternoon. (2) Acute and chronic respiratory failure with hypoxia Is this a current diagnosis for this admission?: Yes Plan: Resolved. O2 requirement is at baseline. - Plan Summary Summary: Patient seems to be having an acute COPD exacerbation. He does have leukocytosis noted. Chest x-ray shows very questionable findings of infiltrates but I do not see any clear consolidation indicating a pneumonia at this time. Blood work also reveals FRANDY. Patient has received IV antibiotics in the ER as well as Solu-Medrol and a nebulizer treatment. I have recommended to patient that he would need to be admitted for treatment of his COPD exacerbation with frequent nebulizer treatments, steroids and Levaquin as well as sputum culture assessment to evaluate for acute bacterial bronchitis. Also would need no rmalization for his lactic acidosis. However, despite multiple attempts to convince patient to stay, patient is very adamant about leaving and is clear that he will be leaving AGAINST MEDICAL ADVICE. Patient clearly voices complete understanding of the implications of his decisions and the consequences of his current condition and he is fully alert and oriented x4. As such, I we will respect patient's wishes. I have informed the ER provider that patient is refusing admission at this time. - Time Time Spent with patient: 15-24 minutes
[2019-12-13] MEDS: DONEPEZIL HCL 5 MG TABLET PO SCH (22:12)
[2019-12-13] MEDS: MONTELUKAST SODIUM 10 MG TABLET PO SCH (22:12)
[2019-12-14] MEDS: IPRATROPIUM/ALBUTEROL 0.5-2.5 MG/3 ML AMPUL NEB SCH ×3 (03:18→13:57)
[2019-12-14] MEDS: LEVOTHYROXINE SODIUM 0.025 MG TABLET PO SCH (05:13)
[2019-12-14] MEDS: LEVOTHYROXINE SODIUM 0.1 MG TABLET PO SCH (05:14)
[2019-12-14] MEDS: PANTOPRAZOLE SODIUM 40 MG TABLET.DR PO SCH (07:51)
[2019-12-14] MEDS: INSULIN REG, HUMAN 100 UNIT/ML 3 ML VIAL (PYX) SUBCUT SCH ×3 (07:51→16:04)
[2019-12-14] MEDS: NORMAL SALINE 1000 ML 1,000 ML IV PRN (07:52)
[2019-12-14] MEDS: GABAPENTIN 100 MG CAPSULE PO SCH ×3 (10:47→17:07)
[2019-12-14] MEDS: BENZTROPINE MESYLATE 1 MG TABLET PO SCH (10:47)
[2019-12-14] MEDS: METFORMIN HCL 500 MG TABLET PO SCH ×2 (10:47→17:07)
[2019-12-14] MEDS: ENOXAPARIN SODIUM INJ 40 MG/0.4 ML DISP.SYRIN SUBCUT SCH (10:47)
[2019-12-14] MEDS: DOXAZOSIN MESYLATE 4 MG TABLET PO SCH (10:48)
[2019-12-14] MEDS: FERROUS SULFATE 325 MG TABLET PO SCH (10:48)
[2019-12-14] MEDS: LEVOFLOXACIN 500 MG TABLET PO SCH (10:48)
[2019-12-14] MEDS: METHYLPREDNISOLONE INJ 40 MG/1 ML SDV IV SCH (10:48)
[2019-12-14] MEDS: MULTIVITAMIN TABLET PO SCH (10:48)
[2019-12-14 10:57] LABS: ANION GAP 8 (5-19); BLOOD UREA NITROGEN 21 mg/dL (7-20); CALCIUM 9.7 mg/dL (8.4-10.2); CARBON DIOXIDE 25 mmol/L (22-30); CHLORIDE 107 mmol/L (98-107); GLUCOSE 163 mg/dL (75-110); POTASSIUM 5.6 mmol/L (3.6-5.0)
[2019-12-14] MEDS: DIVALPROEX SODIUM 250 MG TABLET.DR PO SCH (11:33)
[2019-12-14 16:32] VITALS: BP 127/63
--- NOTE | 2019-12-14 18:27 | PDOC DISCHARGE SUMMARY ---
Impression - Admit/DC Date/PCP Admission Date/Primary Care Provider: 12/12/19 15:54 SHYAM PARDO PA-C Discharge Date: 12/14/19 - Discharge Diagnosis (1) COPD with acute exacerbation Is this a current diagnosis for this admission?: Yes (2) Acute and chronic respiratory failure with hypoxia Is this a current diagnosis for this admission?: Yes - Assessment Summary: Patient seems to be having an acute COPD exacerbation. He does have leukocytosis noted. Chest x-ray shows very questionable findings of infiltrates but I do not see any clear consolidation indicating a pneumonia at this time. Blood work also reveals FRANDY. Patient has received IV antibiotics in the ER as well as Solu-Medrol and a nebulizer treatment. I have recommended to patient that he would need to be admitted for treatment of his COPD exacerbation with frequent nebulizer treatments, steroids and Levaquin as well as sputum culture assessment to evaluate for acute bacterial bronchitis. Also would need normalization for his lactic acidosis. However, despite multiple attempts to convince patient to stay, patient is very adamant about leaving and is clear that he will be leaving AGAINST MEDICAL ADVICE. Patient clearly voices complete understanding of the implications of his decisions and the consequences of his current condition and he is fully alert and oriented x4. As such, I we will respect patient's wishes. I have informed the ER provider that patient is refusing admission at this time. - Additional Information Resuscitation Status: Full Code Discharge Diet: Cardiac, Diabetic Discharge Activity: Balance Activity w/Rest, No Driving, Energy Conservation Referrals: SHYAM PARDO PA-C [Primary Care Provider] - Follow up as needed Prescriptions: Prednisone [Deltasone 20 mg Tablet] 20 mg PO DAILY #10 tablet Levofloxacin [Levaquin 500 mg Tablet] 500 mg PO DAILY #3 tablet Home Medications: Benztropine Mesylate [Cogentin 1 mg Tablet] 1 mg PO DAILY 09/18/19 Donepezil HCl [Aricept 5 mg Tablet] 10 mg PO QHS 09/18/19 Gabapentin [Neurontin 100 mg Capsule] 200 mg PO TID 09/18/19 Levothyroxine Sodium 125 mcg PO Q6AM 09/18/19 Montelukast Sodium [Singulair 10 mg Tablet] 10 mg PO QHS 09/18/19 Multivitamin [Daily Multiple Vitamin] 1 each PO DAILY 09/18/19 Prazosin HCl [Minipress] 2 mg PO DAILY 09/18/19 Diazepam [Valium] 5 mg PO QAM 12/12/19 Diazepam [Valium] 10 mg PO QHS 12/12/19 Divalproex Sodium [Depakote] 500 mg PO BID 12/12/19 Ferrous Sulfate [Feosol 325 mg Tablet] 325 mg PO DAILY 12/12/19 Fluticasone/Umeclidin/Vilanter [Trelegy 100-62.5-25 Mcg Ellipta 14 Dose/Dpi] 1 puff IH DAILY 12/12/19 Glipizide [Glucotrol 10 mg Tablet] 10 mg PO DAILY 12/12/19 Metformin HCl [Glucophage 500 mg Tablet] 500 mg PO BID 12/12/19 Pantoprazole Sodium [Protonix [address] Tablet] 40 mg PO QAM 12/12/19 Quetiapine Fumarate [Seroquel Xr] 300 mg PO QPM 12/12/19 Suvorexant [Belsomra] 20 mg PO HSP PRN 12/12/19 Levofloxacin [Levaquin 500 mg Tablet] 500 mg PO DAILY #3 tablet 12/14/19 Prednisone [Deltasone 20 mg Tablet] 20 mg PO DAILY #10 tablet 12/14/19 Torsemide [Demadex 20 mg Tablet] 20 mg PO BID #0 12/14/19 History of Present Illiness History of Present Illness: WOODROW GOODWIN is a 64 year old male history of COPD and active smoker, who presents to the hospital with complaints of worsening shortness of breath which started this morning. Patient endorses air hunger. He does have a history of COPD and is on 3 L nasal cannula at home. He was visited by his home nurse today who noted that patient was working to breathe and was somewhat more confused and also sent to the hospital for evaluation. In the ER, patient was given a breathing treatment and 125 mg of Solu-Medrol. Head CT was done for evaluation of mental status change which was unremarkable. Hospitalist service called for admission. Since endorses only a mild cough at this time which he states occurs every once in a while. Denies any fever or chills. Hospital Course Hospital Course: He improved after couple days of steroids and bronchodilators. He will finish up a course of prednisone at home. He was on his usual 3 L of oxygen per nasal cannula. He did not look particularly great at rest, but he was able to get up under his own power and go to the bathroom and then go to the sink and wash himself up and was able to stand and talk and looked like he was doing it with no more exertion than he showed sitting in the bed. He said his breathing feels like its normal for him. He said he has all of the equipment he needs at home. He says his girlfriend helps him get to all of his medical appointments. His labs and examination were reassuring and he was discharged in stable condition. Physical Exam Vital Signs: Temp Pulse Resp BP Pulse Ox 98.4 F 88 23 H 127/63 H 99 12/14/19 15:43 12/14/19 15:43 12/14/19 15:43 12/14/19 15:43 12/14/19 15:43 Intake & Output 12/13/19 12/14/19 12/15/19 05:59 06:59 06:59 Intake Total 2081 Output Total Balance 2081 Weight General appearance: PRESENT: cooperative, disheveled, mild distress, obese Respiratory exam: PRESENT: prolonged expiratory phas, symmetrical, very faint wheezes. ABSENT: accessory muscle use, chest wall tenderness, crackles, retraction, rhonchi, tachypnea, unlabored Cardiovascular exam: PRESENT: RRR, +S1, +S2 Pulses: PRESENT: normal carotid pulses Vascular exam: PRESENT: normal capillary refill GI/Abdominal exam: PRESENT: normal bowel sounds, soft. ABSENT: distended, guarding, rebound, tenderness Extremities exam: ABSENT: clubbing, pedal edema Musculoskeletal exam: PRESENT: normal inspection. ABSENT: deformity Neurological exam: PRESENT: alert, awake, oriented to person, oriented to place, oriented to situation Psychiatric exam: PRESENT: appropriate affect, normal mood Skin exam: PRESENT: dry, warm, other - He looks like he is got a bad case of rosacea and possibly some facial seborrhea Results Laboratory Results: WBC 8.4 10^3/uL (4.0-10.5) 12/13/19 05:01 RBC 4.42 10^6/uL (4.35-5.55) 12/13/19 05:01 Hgb 13.7 g/dL (13.5-17.0) 12/13/19 05:01 Hct 40.3 % (37.9-51.0) 12/13/19 05:01 MCV 91 fl (80-97) 12/13/19 05:01 MCH 30.9 pg (27.0-33.4) 12/13/19 05:01 MCHC 33.9 g/dL (32.0-36.0) 12/13/19 05:01 RDW 15.8 % (11.5-14.0) H 12/13/19 05:01 Plt Count 100 10^3/uL (150-450) L 12/13/19 05:01 Lymph % (Auto) 7.5 % (13-45) L 12/13/19 05:01 [place] % (Auto) 1.8 % (3-13) L 12/13/19 05:01 Eos % (Auto) 0.0 % (0-6) 12/13/19 05:01 Baso % (Auto) 0.1 % (0-2) 12/13/19 05:01 Absolute Neuts (auto) 7.6 10^3/uL (1.7-8.2) 12/13/19 05:01 Absolute Lymphs (auto) 0.6 10^3/uL (0.5-4.7) 12/13/19 05:01 Absolute Monos (auto) 0.2 10^3/uL (0.1-1.4) 12/13/19 05:01 Absolute Eos (auto) 0.0 10^3/uL (0.0-0.6) 12/13/19 05:01 Absolute Basos (auto) 0.0 10^3/uL (0.0-0.2) 12/13/19 05:01 Seg Neutrophils % 90.6 % (42-78) H 12/13/19 05:01 VBG pH 7.39 (7.30-7.42) 12/12/19 10:45 VBG pCO2 44.5 mmHg (35-63) 12/12/19 10:45 VBG HCO3 26.4 mmol/L (20-32) 12/12/19 10:45 VBG Base Excess 1.0 mmol/L 12/12/19 10:45 Sodium 140.2 mmol/L (137-145) 12/14/19 10:28 Potassium 5.6 mmol/L (3.6-5.0) H 12/14/19 10:28 Chloride 107 mmol/L (98-107) 12/14/19 10:28 Carbon Dioxide 25 mmol/L (22-30) 12/14/19 10:28 Anion Gap 8 (5-19) 12/14/19 10:28 BUN 21 mg/dL (7-20) H 12/14/19 10:28 Creatinine 0.86 mg/dL (0.52-1.25) 12/14/19 10:28 Est GFR ( Amer) > 60 (>60) 12/14/19 10:28 Est GFR (MDRD) Non-Af > 60 (>60) 12/14/19 10:28 Glucose 163 mg/dL (75-110) H 12/14/19 10:28 POC Glucose 162 mg/dL (70-110) H 12/14/19 15:45 Lactic Acid 3.6 mmol/L (0.7-2.1) H 12/14/19 10:28 Calcium 9.7 mg/dL (8.4-10.2) 12/14/19 10:28 Total Bilirubin 0.6 mg/dL (0.2-1.3) 12/12/19 10:45 Direct Bilirubin 0.4 mg/dL (0.0-0.4) 12/12/19 10:45 Neonat Total Bilirubin Not Reportable 12/12/19 10:45 Neonat Direct Bilirubin Not Reportable 12/12/19 10:45 Neonat Indirect Bili Not Reportable 12/12/19 10:45 AST 59 U/L (17-59) 12/12/19 10:45 ALT 62 U/L (<50) H 12/12/19 10:45 Alkaline Phosphatase 52 U/L (38-126) 12/12/19 10:45 Troponin I < 0.012 ng/mL 12/12/19 10:45 NT-Pro-B Natriuret Pep 40 pg/mL (<125) 12/12/19 10:45 Total Protein 7.7 g/dL (6.3-8.2) 12/12/19 10:45 Albumin 4.7 g/dL (3.5-5.0) 12/12/19 10:45 TSH 0.59 uIU/mL (0.47-4.68) 12/12/19 10:45 Urine Color YELLOW 12/12/19 11:45 Urine Appearance CLEAR 12/12/19 11:45 Urine pH 5.0 (5.0-9.0) 12/12/19 11:45 Ur Specific [place] 1.008 12/12/19 11:45 Urine Protein NEGATIVE mg/dL (NEGATIVE) 12/12/19 11:45 Urine Glucose (UA) NEGATIVE mg/dL (NEGATIVE) 12/12/19 11:45 Urine Ketones NEGATIVE mg/dL (NEGATIVE) 12/12/19 11:45 Urine Blood NEGATIVE (NEGATIVE) 12/12/19 11:45 Urine Nitrite NEGATIVE (NEGATIVE) 12/12/19 11:45 Urine Bilirubin NEGATIVE (NEGATIVE) 12/12/19 11:45 Urine Urobilinogen NEGATIVE mg/dL (<2.0) 12/12/19 11:45 Ur Leukocyte Esterase NEGATIVE (NEGATIVE) 12/12/19 11:45 Urine WBC (Auto) 0 /HPF 12/12/19 11:45 Urine Mucus (Auto) RARE /LPF 12/12/19 11:45 Urine Ascorbic Acid NEGATIVE (NEGATIVE) 12/12/19 11:45 Influenza A (Rapid) NEGATIVE (NEGATIVE) 12/12/19 11:45 Influenza B (Rapid) NEGATIVE (NEGATIVE) 12/12/19 11:45 12/12/19 12/12/19 10:45 10:45 Troponin I < 0.012 NT-Pro-B Natriuret Pep 40 Impressions: Chest X-Ray 12/12/19 10:32 IMPRESSION: Mild ill-defined lingular opacities, possibly atelectasis/ scarring or infection. Head CT 12/12/19 11:58 IMPRESSION: NO ACUTE INTRACRANIAL IMAGING FINDINGS. EVIDENCE OF ACUTE STROKE: NO. Plan Time Spent: Greater than 30 Minutes Stroke Is this a Stroke Patient?: No Acute Heart Failure - Is this a Heart Failure Patient?: No
== END 2019-12-14 18:54 | disposition home health service (06) | DRG 190 ==
LOC: ER 10:29 → EH 15:54 → 4S 18:49
PROVIDERS: ADMIT Internal Medicine; ATTEND Internal Medicine
DX: J44.1 Chronic obstructive pulmonary disease with (acute) exacerbation (principal); J96.21 Acute and chronic respiratory failure with hypoxia; N17.9 Acute kidney failure, unspecified; F17.210 Nicotine dependence, cigarettes, uncomplicated; E03.9 Hypothyroidism, unspecified; E11.9 Type 2 diabetes mellitus without complications; K21.9 Gastro-esophageal reflux disease without esophagitis; M19.90 Unspecified osteoarthritis, unspecified site; F31.9 Bipolar disorder, unspecified; F03.90 Unspecified dementia, unspecified severity, without behavioral disturbance, psychotic disturbance, mood disturbance, and anxiety; D72.829 Elevated white blood cell count, unspecified; Z90.49 Acquired absence of other specified parts of digestive tract; Z66 Do not resuscitate; Z79.899 Other long term (current) drug therapy; Z99.81 Dependence on supplemental oxygen; Z88.8 Allergy status to other drugs, medicaments and biological substances
CPT/HCPCS: 36415; 70450; 71045; 80048; 80053; 81001; 82803; 82962; 83605; 83880; 84443; 84484; 85025; 87040; 87804; 93005; 93010; 94640; 96361; 96365; 96368; 96375; 99291; J0692; J1815; J1956; J2920; J2930; J3370; J3475; J3490; J7030; J7620

== ENCOUNTER 2020-08-19 11:26 | Emergency (ER) | payer MEDICARE, MEDICAID ==
[2020-08-19 12:15] LABS: ABSOLUTE EOSINOPHILS # (AUTO) 0.1 10^3/uL (0.0-0.6); ABSOLUTE LYMPHOCYTES (AUTO) 1.3 10^3/uL (0.5-4.7); ABSOLUTE MONOCYTES (AUTO) 0.8 10^3/uL (0.1-1.4); ABSOLUTE NEUT (AUTO) 11.4 10^3/uL (1.7-8.2); BASOPHILS % (AUTO) 0.4 % (0-2); EOSINOPHILS % (AUTO) 0.4 % (0-6); HEMATOCRIT 48.2 % (37.9-51.0); HEMOGLOBIN 16.2 g/dL (13.5-17.0); LYMPHOCYTES % (AUTO) 9.7 % (13-45); MEAN CORPUSCULAR HGB CONC 33.6 g/dL (32.0-36.0); MEAN CORPUSCULAR VOLUME 89 fl (80-97); MONOCYTES % (AUTO) 6.1 % (3-13); PLATELET COUNT 164 10^3/uL (150-450); RED BLOOD COUNT 5.39 10^6/uL (4.35-5.55); RED CELL DISTRIBUTION WIDTH 15.3 % (11.5-14.0); SEGMENTED NEUTROPHILS % (AUTO) 83.4 % (42-78); TOTAL CELLS COUNTED % (AUTO) 100 %; WHITE BLOOD COUNT 13.7 10^3/uL (4.0-10.5)
[2020-08-19] MEDS ORDERED: IPRATROPIUM/ALBUTEROL 0.5-2.5 MG/3 ML AMPUL NEB ONE (12:27)
[2020-08-19] MEDS ORDERED: ALBUTEROL SULFATE 0.083% NEB 2.5 MG/3 ML AMPUL NEB ONE ×3 (12:29→15:22)
[2020-08-19] MEDS ORDERED: METHYLPREDNISOLONE INJ 125 MG/2 ML SDV IV ONE (12:29)
[2020-08-19 12:38] LABS: ALBUMIN 4.9 g/dL (3.5-5.0); ALKALINE PHOSPHATASE 60 U/L (38-126); ANION GAP 16 (5-19); ASPARTATE AMINO TRANSFERASE 34 U/L (17-59); BILIRUBIN,DIRECT 0.1 mg/dL (0.0-0.4); BILIRUBIN,TOTAL 0.6 mg/dL (0.2-1.3); BLOOD UREA NITROGEN 16 mg/dL (7-20); CALCIUM 10.3 mg/dL (8.4-10.2); CARBON DIOXIDE 24 mmol/L (22-30); CHLORIDE 101 mmol/L (98-107); GLUCOSE 125 mg/dL (75-110); POTASSIUM 4.7 mmol/L (3.6-5.0)
--- NOTE | 2020-08-19 12:46 | RADIOLOGY REPORT (SQ) ---
EXAM DESCRIPTION: CHEST SINGLE VIEW IMAGES COMPLETED DATE/TIME: 08/19/2020 11:26 am REASON FOR STUDY: shortness of breath COMPARISON: 12/12/2019 EXAM PARAMETERS: NUMBER OF VIEWS: One view. TECHNIQUE: Single frontal radiographic view of the chest acquired. RADIATION DOSE: NA LIMITATIONS: None. FINDINGS: LUNGS AND PLEURA: Patchy left basilar atelectasis/consolidation new from prior. No pleura l effusion or pneumothorax. MEDIASTINUM AND HILAR STRUCTURES: No masses. Contour normal. HEART AND VASCULAR STRUCTURES: Heart normal in size. Normal vasculature. BONES: No acute findings. HARDWARE: None in the chest. OTHER: No other significant finding. IMPRESSION: Patchy left basilar atelectasis/consolidation. TECHNICAL DOCUMENTATION: JOB ID: [id number] 2010 [employer]- All Rights Reserved Reading location - IP/workstation name: [email or web address]
[2020-08-19 12:53] LABS: APPEARANCE,URINE CLEAR; BILIRUBIN,URINE NEGATIVE (NEGATIVE); COLOR,URINE YELLOW; GLUCOSE, URINE NEGATIVE (NEGATIVE); KETONES,URINE NEGATIVE (NEGATIVE); LEUKOCYTE ESTERASE,URINE NEGATIVE (NEGATIVE); NITRITE,URINE NEGATIVE (NEGATIVE); PROTEIN,URINE NEGATIVE (NEGATIVE); URINE SPECIFIC GRAVITY 1.008; UROBILINOGEN,URINE NEGATIVE mg/dL (<2.0)
--- NOTE | 2020-08-19 14:03 | ER Document Report ---
Entered by PARI AGUILAR SCRIBE 08/19/20 1219 Acting as scribe for:VIRGIL GUTIERREZ MD ED Respiratory Problem - General Stated Complaint: SHORTNESS OF BREATH Time Seen by Provider: 08/19/20 12:18 Primary Care Provider: SHYAM PARDO PA-C [Primary Care Provider] - Follow up as needed Mode of Arrival: Medic Information source: Patient, Emergency Med Personnel Notes: This 65 year old male patient with a history of COPD presents to the ED today via EMS with complaints of shortness of breath since yesterday afternoon. Patient states that he is usually on 3L O2 at home and that it seems like he has been breathing harder than usual. Patient received x2 A&A treatments via EMS. TRAVEL OUTSIDE OF THE [place] IN LAST 30 DAYS: No - Related Data Allergies/Adverse Reactions: simvastatin [From Zocor] Allergy (Verified 10/10/19 13:37) LEGS GET WEAK Past Medical History - General Information source: [facility] Records - Social History Smoking Status: Unknown if Ever Smoked Smoking Education Provided: No Family History: Other - Unable to assess as patient is on BiPAP - Past Medical History Cardiac Medical History: Reports: Hx Congestive Heart Failure, Hx Coronary Artery Disease, Hx Heart Attack, Hx Hypercholesterolemia, Hx Hypertension Pulmonary Medical History: Reports: Hx Bronchitis, Hx COPD, Hx Pneumonia Neurological Medical History: Reports: Hx Cerebrovascular Accident, Hx Seizures Endocrine Medical History: Reports: Hx Diabetes Mellitus Type 2, Hx Hypothyroidism Renal/ Medical History: Reports: Hx Benign Prostatic Hyperplasia GI Medical History: Reports: Hx Gastroesophageal Reflux Disease Musculoskeletal Medical History: Reports Hx Arthritis, Reports Hx Musculoskeletal Trauma Psychiatric Medical History: Reports: Hx Anxiety, Hx Bipolar Disorder, Hx Dementia, Hx Depression Past Surgical History: Reports: Hx Appendectomy, Hx Genitourinary Surgery - TURP, Hx Orthopedic Surgery - Right ankle surgery in 1982 or 1983 when he had a muscle from the leg moved, Hx Thyroid Surgery, Hx Tonsillectomy - Immunizations Hx Diphtheria, Pertussis, Tetanus Vaccination: No Review of Systems - Review of Systems Constitutional: No symptoms reported EENT: No symptoms reported Cardiovascular: No symptoms reported Respiratory: See HPI, Short of breath Gastrointestinal: No symptoms reported Genitourinary: No symptoms reported Male Genitourinary: No symptoms reported Musculoskeletal: No symptoms reported Skin: No symptoms reported Hematologic/Lymphatic: No symptoms reported Neurological/Psychological: No symptoms reported -: Yes All other systems reviewed and negative Physical Exam - Vital signs Vitals: Resp Pulse Ox 26 H 93 08/19/20 11:39 08/19/20 11:39 - General General appearance: Other - Appears tired In distress: None - HEENT Head: Normocephalic, Atraumatic Eyes: Normal Pupils: PERRL - Respiratory Respiratory status: Other - 93% on 3L NC Chest status: Nontender Breath sounds: Rhonchi, Wheezing Chest palpation: Normal - Cardiovascular Rhythm: Regular, Tachycardia Heart sounds: Normal auscultation Murmur: No Friction rub: No Gallop: None auscultated - Abdominal Inspection: Obese Distension: No distension Bowel sounds: Normal Tenderness: Nontender - Abdomen soft Organomegaly: No organomegaly - Back Back: Normal, Nontender - Extremities General upper extremity: Normal inspection General lower extremity: Normal inspection. No: Edema - Neurological Neuro grossly intact: Yes - Psychological Associated symptoms: Normal affect, Normal mood - Skin Skin Temperature: Warm Skin Moisture: Dry Skin Color: Normal Course - Re-evaluation Re-evalutation: 08/19/20 15:22 The patient was evaluated during the global COVID-19 pandemic and that diagnosis was suspected/considered upon their initial presentation. Their evaluation, treatment and testing was consistent with current guidelines for patients who present with complaints or symptoms that may be related to COVID-19. After the first 2 breathing treatments, the patient states he is feeling much better and interested in going home. We will give additional breathing treatments and reevaluate, but this time he does look much better and his lungs show much less wheeze and rhonchi. 08/19/20 17:13 Patient reports that his breathing is about normal now and he feels ready to go home. - Vital Signs Vital signs: Temp Pulse Resp BP Pulse Ox 100.2 F 22 H 140/88 H 92 08/19/20 11:48 08/19/20 12:00 08/19/20 11:48 08/19/20 12:14 - Laboratory Result Diagrams: 08/19/20 11:48 08/19/20 11:48 Laboratory results interpreted by me: 08/19/20 08/19/20 11:48 11:48 WBC 13.7 H RDW 15.3 H Lymph % (Auto) 9.7 L Absolute Neuts (auto) 11.4 H Seg Neutrophils % 83.4 H Glucose 125 H Calcium 10.3 H - Diagnostic Test Radiology reviewed: Image reviewed, Reports reviewed - Chest x-ray shows patchy left basilar atelectasis/consolidation. - EKG Interpretation by Me EKG shows normal: Sinus rhythm, [place], Intervals, QRS Complexes. abnormal: ST-T Waves - Nonspecific lateral repolarization abnormalities Rate: Tachycardia - 112 Rhythm: PVC's When compared to previous EKG there are: Changes noted Discharge - Discharge Clinical Impression: Left lower lobe pulmonary infiltrate, COPD with acute exacerbation, Encounter for laboratory testing for COVID-19 virus Condition: Stable Disposition: HOME, SELF-CARE Additional Instructions: Start taking the prednisone as prescribed tomorrow--you were given today's dose here in the emergency room. Start the doxycycline at home tonight. Drink plenty of fluids and get plenty of rest. Follow-up with your primary care provider if not improving. RETURN TO THE EMERGENCY ROOM IF ANY NEW OR WORSENING SYMPTOMS. Prescriptions: Prednisone [Deltasone 10 mg Tablet] 10 mg PO ASDIR PRN #21 tablet PRN Reason: Doxycycline Hyclate 100 mg PO BID #20 tablet. Referrals: SHYAM PARDO PA-C [Primary Care Provider] - Follow up as needed I personally performed the services described in the documentation, reviewed and edited the documentation which was dictated to the scribe in my presence, and it accurately records my words and actions.
[2020-08-19] MEDS ORDERED: DOXYCYCLINE HYCLATE 100 MG TABLET PO ONE (16:15)
[2020-08-19] MEDS ORDERED: PREDNISONE 20 MG TABLET PO ONE (17:13)
[2020-08-19 17:42] VITALS: BP 119/74
--- NOTE | 2020-08-20 00:30 | EKG REPORT ---
SEVERITY:- ABNORMAL ECG - SINUS TACHYCARDIA MULTIPLE VENTRICULAR PREMATURE COMPLEXES NONSPECIFIC REPOL ABNORMALITY, LATERAL LEADS : Confirmed by: Dionisio Morales 20-Aug-2020 00:29:59
== END 2020-08-19 17:41 | disposition home or self-care (01) ==
LOC: ER 11:26
DX: J44.1 Chronic obstructive pulmonary disease with (acute) exacerbation (principal); R91.8 Other nonspecific abnormal finding of lung field; Z20.828 Contact with and (suspected) exposure to other viral communicable diseases; Z99.81 Dependence on supplemental oxygen; I50.9 Heart failure, unspecified; I11.0 Hypertensive heart disease with heart failure; E11.9 Type 2 diabetes mellitus without complications; I25.2 Old myocardial infarction; Z86.73 Personal history of transient ischemic attack (TIA), and cerebral infarction without residual deficits
CPT/HCPCS: 93005; 94640 ×2; 99285; 96374; 36415; 85025; 80053; 81001; 71045; 93010; U0003; A9270 ×3; J2930; C9803; 87635; J7512; J7613

== ENCOUNTER 2020-09-01 19:50 | Emergency (ER) | payer MEDICARE, MEDICAID ==
--- NOTE | 2020-09-01 20:47 | ER Document Report ---
ED Medical Screen (RME) - General Stated Complaint: ABDOMINAL PAIN Time Seen by Provider: 09/01/20 20:18 Primary Care Provider: SHYAM PARDO PA-C [Primary Care Provider] - Follow up as needed Mode of Arrival: Medic Information source: Patient Notes: Patient is a 66-year-old male brought in by EMS with complaint of abdominal pain and distention. Patient states for the past 3 days he has been very constipated and unable to have a bowel movement. He denies taking any narcotic medications. States it just happened. Out of the blue and this is never occurred before. Patient states his belly is hard as a rock he is not able to eat anything. Denies any vomiting or diarrhea with this constipation. Patient has a significant past medical history pertinent for [id number] diabetes all dependent only Glucophage and Metformin was seen on his list. Hypertension and sleep disorder. Patient does smoke. Physical examination: Patient is a well-nourished well-developed obese 65 -year-old male though no apparent distress appears very uncomfortable. Cardiac: Patient has a regular rate and rhythm at 87 bpm on monitor with no murmurs auscultated. Lungs: Bilateral breath sounds with breath sounds decreased throughout no rhonchi or rales heard no wheeze heard at this time. Patient is however satting only 95% on room air. Abdomen: Bowel sounds are present but very very decreased throughout. Patient is distended severely. In a sitting position patient has moderate to severe tenderness to palpation and percussion in the upper quadrants. Patient almost in the sitting position appears to have ascites. Patient denies any liver problems. I have greeted and performed a rapid initial assessment of this patient. A comprehensive ED assessment and evaluation of the patient, analysis of test results and completion of the medical decision making process will be conducted by additional ED providers. Dictation of this chart was performed using voice recognition software; therefore, there may be some unintended grammatical errors. TRAVEL OUTSIDE OF THE [place] IN LAST 30 DAYS: No - Related Data Allergies/Adverse Reactions: simvastatin [From Zocor] Allergy (Verified 09/01/20 20:45) LEGS GET WEAK Past Medical History - Past Medical History Cardiac Medical History: Reports: Hx Congestive Heart Failure, Hx Coronary Artery Disease, Hx Heart Attack, Hx Hypercholesterolemia, Hx Hypertension Pulmonary Medical History: Reports: Hx Asthma, Hx Bronchitis, Hx COPD, Hx Pneumonia Neurological Medical History: Reports: Hx Cerebrovascular Accident, Hx Seizures Endocrine Medical History: Reports: Hx Diabetes Mellitus Type 2, Hx Hypothyroidism Renal/ Medical History: Reports: Hx Benign Prostatic Hyperplasia. Denies: Hx Peritoneal Dialysis GI Medical History: Reports: Hx Gastroesophageal Reflux Disease. Denies: Hx Hepatitis, Hx Hiatal Hernia, Hx Ulcer Musculoskeltal Medical History: Reports Hx Arthritis, Reports Hx Musculoskeletal Trauma Psychiatric Medical History: Reports: Hx Anxiety, Hx Bipolar Disorder, Hx Dementia, Hx Depression Infectious Medical History: Denies: Hx Hepatitis Past Surgical History: Reports: Hx Appendectomy, Hx Genitourinary Surgery - TURP, Hx Orthopedic Surgery - Right ankle surgery in 1982 or 1983 when he had a muscle from the leg moved, Hx Thyroid Surgery, Hx Tonsillectomy, Other - TURP per patient.. Denies: Hx Open Heart Surgery, Hx Pacemaker - Immunizations Hx Diphtheria, Pertussis, Tetanus Vaccination: No Physical Exam - Vital signs Vitals: Temp Pulse Resp BP Pulse Ox 98.2 F 87 18 112/77 95 09/01/20 20:09 09/01/20 20:09 09/01/20 20:09 09/01/20 20:09 09/01/20 20:09 Course - Vital Signs Vital signs: Temp Pulse Resp BP Pulse Ox 98.2 F 87 18 112/77 95 09/01/20 20:09 09/01/20 20:09 09/01/20 20:09 09/01/20 20:09 09/01/20 20:09 Doctor's Discharge - Discharge Referrals: SHYAM PARDO PA-C [Primary Care Provider] - Follow up as needed
[2020-09-01 21:26] LABS: ABSOLUTE EOSINOPHILS # (AUTO) 0.1 10^3/uL (0.0-0.6); ABSOLUTE LYMPHOCYTES (AUTO) 2.4 10^3/uL (0.5-4.7); ABSOLUTE MONOCYTES (AUTO) 0.8 10^3/uL (0.1-1.4); ABSOLUTE NEUT (AUTO) 5.8 10^3/uL (1.7-8.2); BASOPHILS % (AUTO) 0.4 % (0-2); EOSINOPHILS % (AUTO) 1.2 % (0-6); HEMATOCRIT 44.6 % (37.9-51.0); HEMOGLOBIN 15.4 g/dL (13.5-17.0); LYMPHOCYTES % (AUTO) 26.4 % (13-45); MEAN CORPUSCULAR HGB CONC 34.5 g/dL (32.0-36.0); MEAN CORPUSCULAR VOLUME 90 fl (80-97); MONOCYTES % (AUTO) 8.3 % (3-13); PLATELET COUNT 176 10^3/uL (150-450); RED BLOOD COUNT 4.96 10^6/uL (4.35-5.55); RED CELL DISTRIBUTION WIDTH 15.2 % (11.5-14.0); SEGMENTED NEUTROPHILS % (AUTO) 63.7 % (42-78); TOTAL CELLS COUNTED % (AUTO) 100 %; WHITE BLOOD COUNT 9.2 10^3/uL (4.0-10.5)
[2020-09-01 21:33] LABS: APPEARANCE,URINE CLEAR; BILIRUBIN,URINE NEGATIVE (NEGATIVE); COLOR,URINE YELLOW; GLUCOSE, URINE NEGATIVE (NEGATIVE); KETONES,URINE TRACE mg/dL (NEGATIVE); LEUKOCYTE ESTERASE,URINE NEGATIVE (NEGATIVE); NITRITE,URINE NEGATIVE (NEGATIVE); PROTEIN,URINE NEGATIVE (NEGATIVE); URINE SPECIFIC GRAVITY 1.021
[2020-09-01 21:42] LABS: ALBUMIN 4.4 g/dL (3.5-5.0); ALKALINE PHOSPHATASE 51 U/L (38-126); ANION GAP 10 (5-19); ASPARTATE AMINO TRANSFERASE 43 U/L (17-59); BILIRUBIN,DIRECT 0.1 mg/dL (0.0-0.4); BILIRUBIN,TOTAL 0.3 mg/dL (0.2-1.3); BLOOD UREA NITROGEN 19 mg/dL (7-20); CALCIUM 10.1 mg/dL (8.4-10.2); CARBON DIOXIDE 26 mmol/L (22-30); CHLORIDE 101 mmol/L (98-107); GLUCOSE 173 mg/dL (75-110); POTASSIUM 4.6 mmol/L (3.6-5.0); TOTAL PROTEIN 7.2 g/dL (6.3-8.2)
[2020-09-01 21:51] LABS: URINE AMPHETAMINES SCREEN NEGATIVE; URINE BARBITURATES SCREEN NEGATIVE; URINE COCAINE SCREEN NEGATIVE; URINE METHADONE SCREEN NEGATIVE; URINE PHENCYCLIDINE SCREEN NEGATIVE
[2020-09-01 21:54] LABS: URINE BENZODIAZEPINES SCREEN UNCONFIRMED POSITIVE; URINE MARIJUANA (THC) SCREEN UNCONFIRMED POSITIVE
--- NOTE | 2020-09-01 22:15 | RADIOLOGY REPORT (SQ) ---
EXAM DESCRIPTION: CT ABDOMEN PELVIS WITHOUT IV CONTRAST COMPLETED DATE/TME: 09/01/2020 21:34 CLINICAL HISTORY: 65 years, Male, Abdominal pain COMPARISON: CT chest 09/20/2019. TECHNIQUE: Axial images without IV contrast. Sagittal coronal reconstruction. Images stored on PACS. All CT scanners at this facility use dose modulation, iterative reconstruction, and/or weight based dosing when appropriate to reduce radiation dose to as low as reasonably achievable (ALARA). FINDINGS: Left cardiomegaly. Lungs are clear. Resolution of previous extensive infiltrates. Advanced fatty liver. Borderline spleen size minimally larger since CT chest from one year ago. Biliary system, pancreas, adrenal glands, para-aortic regions are unremarkable. Kidneys without acute findings. Bilateral renal cysts. Mildly atherosclerotic aorta up to 23 mm in diameter. Nonspecific bowel pattern with mild increased fluid in small and large bowel loops. No suspicious peritoneal abnormalities. Moderate spinal stenosis at L4-5 and L5-S1. CT of the pelvis demonstrates contracted urinary bladder. Prostate not enlarged. No suspicious bowel or peritoneal abnormalities. Mild atherosclerotic disease. No adenopathy. Surgical clips in the right lower quadrant possibly previous appendectomy. IMPRESSION: 1. Advanced fatty liver. 2. Mild atherosclerotic disease. 3. Spinal stenosis at L4-5 and L5-S1. 4. No obvious acute findings. TECHNICAL DOCUMENTATION: Quality ID # [id number]: Final reports with documentation of one or more dose reduction techniques (e.g., Automated exposure control, adjustment of the mA and/or kV according to patient size, use of iterative reconstruction technique) copyright 2010 [email or web address]- All Rights Reserved
--- NOTE | 2020-09-01 22:26 | ER Document Report ---
ED GI/ - General Chief Complaint: Abdominal Distention Stated Complaint: ABDOMINAL PAIN Time Seen by Provider: 09/01/20 20:18 Primary Care Provider: SHYAM PARDO PA-C [Primary Care Provider] - Follow up as needed Mode of Arrival: Medic Notes: 09/01/20 20:49 - ED Nursing Note by SULY BURDICK Num: [id number] : 1955 Patient Age: 65 pt comes to ed from home via ems for c/o 3 days constipation and generalized abdominal pain with distention. pt reports difficult to take a deep breath. denies n/v/d/f/c. abdomen is distended and firm in triage. ED Medical Screen (Antoine Notes) - General Stated Complaint: ABDOMINAL PAIN Time Seen by Provider: 09/01/20 20:18 Primary Care Provider: SHYAM PARDO PA-C [Primary Care Provider] - Follow up as needed Mode of Arrival: Medic Information source: Patient Notes: Patient is a 66-year-old male brought in by EMS with complaint of abdominal pain and distention. Patient states for the past 3 days he has been very constipated and unable to have a bowel movement. He denies taking any narcotic medications. States it just happened. Out of the blue and this is never occurred before. Patient states his belly is hard as a rock he is not able to eat anything. Denies any vomiting or diarrhea with this constipation. Patient has a significant past medical history pertinent for mkc-[id number]-[id number] diabetes all dependent only Glucophage and Metformin was seen on his list. Hypertension and sleep disorder. Patient does smoke. Physical examination: Patient is a well-nourished well-developed obese 65 -year-old male though no apparent distress appears very uncomfortable. Cardiac: Patient has a regular rate and rhythm at 87 bpm on monitor with no murmurs auscultated. Lungs: Bilateral breath sounds with breath sounds decreased throughout no rhonchi or rales heard no wheeze heard at this time. Patient is however satting only 95% on room air. Abdomen: Bowel sounds are present but very very decreased throughout. Patient is distended severely. In a sitting position patient has moderate to severe tenderness to palpation and percussion in the upper quadrants. Patient almost in the sitting position appears to have ascites. Patient denies any liver problems. MY NOTES 65-year-old male arrives by EMS with 4-day history of diffuse abdominal pain and constipation. Patient denies any alcohol use but does admit that he smokes marijuana all the time. He reports he does that for years because he has back pain problems. His UDS was positive for marijuana and for benzos. His CT was positive for fatty liver ASVD spinal stenosis and otherwise NAD. Patient has no teeth and denies any nausea vomiting diarrhea skin lesions spider bites animal bites Covid influenza. He says he lives a few blocks from away from from this hospital. He does need a ride to get him home however. TRAVEL OUTSIDE OF THE [place] IN LAST 30 DAYS: No - Related Data Allergies/Adverse Reactions: simvastatin [From Zocor] Allergy (Verified 09/01/20 20:45) LEGS GET WEAK Home Medications: belsomra, benzotropine, diazepam, divalproex, donepezil, gabapentin, glipizide, multivit, levothyroxine, metformin Past Medical History - General Information source: Patient - Social History Smoking Status: Current Every Day Smoker Cigarette use (# per day): Yes Chew tobacco use (# tins/day): No Smoking Education Provided: Yes Frequency of alcohol use: None Drug Abuse: None Lives with: Family Family History: Reviewed & Not Pertinent, Other - Unable to assess as patient is on BiPAP Patient has suicidal ideation: No Patient has homicidal ideation: No - Past Medical History Cardiac Medical History: Reports: Hx Congestive Heart Failure, Hx Coronary Arter y Disease, Hx Heart Attack, Hx Hypercholesterolemia, Hx Hypertension Pulmonary Medical History: Reports: Hx Asthma, Hx Bronchitis, Hx COPD, Hx Pneumonia Neurological Medical History: Reports: Hx Cerebrovascular Accident, Hx Seizures Endocrine Medical History: Reports: Hx Diabetes Mellitus Type 2, Hx Hypothyroidism Renal/ Medical History: Reports: Hx Benign Prostatic Hyperplasia. Denies: Hx Peritoneal Dialysis GI Medical History: Reports: Hx Gastroesophageal Reflux Disease. Denies: Hx Hepatitis, Hx Hiatal Hernia, Hx Ulcer Musculoskeletal Medical History: Reports Hx Arthritis, Reports Hx Musculoskeletal Trauma Psychiatric Medical History: Reports: Hx Anxiety, Hx Bipolar Disorder, Hx Dementia, Hx Depression Infectious Medical History: Denies: Hx Hepatitis Past Surgical History: Reports: Hx Appendectomy, Hx Genitourinary Surgery - TURP, Hx Orthopedic Surgery - Right ankle surgery in 1982 or 1983 when he had a muscle from the leg moved, Hx Thyroid Surgery, Hx Tonsillectomy, Other - TURP per patient.. Denies: Hx Open Heart Surgery, Hx Pacemaker - Immunizations Hx Diphtheria, Pertussis, Tetanus Vaccination: No Review of Systems - Review of Systems Constitutional: No symptoms reported EENT: No symptoms reported Cardiovascular: No symptoms reported Respiratory: No symptoms reported Gastrointestinal: See HPI, Abdominal pain, Constipation Genitourinary: No symptoms reported Male Genitourinary: No symptoms reported Musculoskeletal: No symptoms reported Skin: No symptoms reported Hematologic/Lymphatic: No symptoms reported Neurological/Psychological: No symptoms reported Physical Exam - Vital signs Vitals: Temp Pulse Resp BP Pulse Ox 98.2 F 87 18 112/77 95 09/01/20 20:09 09/01/20 20:09 09/01/20 20:09 09/01/20 20:09 09/01/20 20:09 Interpretation: Normal - General General appearance: Appears well, Alert - HEENT Head: Normocephalic, Atraumatic Eyes: Normal Pupils: PERRL Mouth/Lips: Other - Edentulous Pharynx: Normal Neck: Normal - Respiratory Respiratory status: No respiratory distress Chest status: Nontender Breath sounds: Normal Chest palpation: Normal - Cardiovascular Rhythm: Regular Heart sounds: Normal auscultation Murmur: No - Abdominal Inspection: Obese Distension: Distended Bowel sounds: Normal Tenderness: Tender - Diffusely tender Organomegaly: No organomegaly - Rectal Prostate: Other - Deferred - Genitourinary Scrotum: Other - Deferred - Back Back: Normal, Nontender - Extremities General upper extremity: Normal inspection, Nontender, Normal color, Normal ROM, Normal temperature General lower extremity: Normal inspection, Nontender, Normal color, Normal ROM, Normal temperature, Normal weight bearing. No: Rubén's sign - Neurological Neuro grossly intact: Yes Cognition: Normal Orientation: AAOx4 [place] Coma Scale Eye Opening: Spontaneous [place] Coma Scale Verbal: Oriented [place] Coma Scale Motor: Obeys Commands [place] Coma Scale Total: 15 Speech: Normal Motor strength normal: LUE, RUE, LLE, RLE Sensory: Normal - Psychological Associated symptoms: Normal affect, Normal mood - Skin Skin Temperature: Warm Skin Moisture: Dry Skin Color: Normal Course - Vital Signs Vital signs: Temp Pulse Resp BP Pulse Ox 98.2 F 87 18 112/77 95 09/01/20 20:09 09/01/20 20:09 09/01/20 20:09 09/01/20 20:09 09/01/20 20:09 - Laboratory Result Diagrams: 09/01/20 21:05 09/01/20 21:05 Laboratory results interpreted by me: 09/01/20 09/01/20 09/01/20 21:05 21:05 21:10 RDW 15.2 H Sodium 136.7 L Glucose 173 H ALT 54 H Lipase 494.1 H Urine Ketones TRACE H Urine Urobilinogen 2.0 H 09/01/20 22:48 Positive for lipase suggestive of pancreatitis. And patient CT reveals fatty liver ASVD spinal stenosis and otherwise NAD - Diagnostic Test Radiology reviewed: Reports reviewed Critical Care Note - Critical Care Note Comments: I discussed the CT and lab findings with the patient and he appeared to understand. Also advised him that I had no positive or negative feelings for his marijuana use. And also advised I am not a law officer. He mainly wants something for constipation and this will be provided for him. Discharge - Discharge Clinical Impression: Marijuana smoker, Fatty liver Pancreatitis Qualifiers: Chronicity: acute Pancreatitis type: unspecified pancreatitis type Acute pancreatitis complication: unspecified Qualified Code(s): K85.90 - Acute pancreatitis without necrosis or infection, unspecified Abdominal pain Qualifiers: Abdominal location: generalized Qualified Code(s): R10.84 - Generalized abdominal pain Condition: Stable Disposition: HOME, SELF-CARE Additional Instructions: Follow-up with personal doctor this week return to ER if symptoms persist. Take medicines as directed. Encourage fluids and eat bran muffins and applesauce on a daily basis. Prescriptions: Lactulose [Kristalose 20 gm Packet] 20 gm PO DAILY PRN #3 packet PRN Reason: constipation Referrals: SHYAM PARDO PA-C [Primary Care Provider] - Follow up as needed
[2020-09-01] MEDS ORDERED: LACTULOSE SYRUP 20 GM/30 ML UDCUP PO ONE (23:00)
[2020-09-01 23:41] VITALS: BP 111/84
== END 2020-09-01 23:42 | disposition home or self-care (01) ==
LOC: ER 19:50
DX: K85.90 Acute pancreatitis without necrosis or infection, unspecified (principal); K59.00 Constipation, unspecified; M48.061 Spinal stenosis, lumbar region without neurogenic claudication; M48.07 Spinal stenosis, lumbosacral region; I10 Essential (primary) hypertension; E66.9 Obesity, unspecified; R10.84 Generalized abdominal pain; K76.0 Fatty (change of) liver, not elsewhere classified; F17.210 Nicotine dependence, cigarettes, uncomplicated; Q21.2 Atrioventricular septal defect; I25.10 Atherosclerotic heart disease of native coronary artery without angina pectoris; I25.2 Old myocardial infarction; R56.9 Unspecified convulsions; J44.9 Chronic obstructive pulmonary disease, unspecified; E11.9 Type 2 diabetes mellitus without complications; F32.9 Major depressive disorder, single episode, unspecified; E03.9 Hypothyroidism, unspecified; G47.9 Sleep disorder, unspecified; F41.9 Anxiety disorder, unspecified; Z79.899 Other long term (current) drug therapy; Z79.84 Long term (current) use of oral hypoglycemic drugs; Z88.8 Allergy status to other drugs, medicaments and biological substances
CPT/HCPCS: 99284; 36415; 87086; 83605; 83690; 85025; 80053; 81001; 80307; 74176; A9270

== ENCOUNTER 2020-09-21 11:42 | Emergency (ER) | payer MEDICARE, MEDICAID ==
[2020-09-21] MEDS ORDERED: OXYCODONE HCL IR 5 MG TABLET PO ONE (12:24)
--- NOTE | 2020-09-21 12:33 | ER Document Report ---
ED Fall - General Chief Complaint: Fall Stated Complaint: FALL Primary Care Provider: SHYAM PARDO PA-C [Primary Care Provider] - Follow up as needed TRAVEL OUTSIDE OF THE [place] IN LAST 30 DAYS: No - HPI Notes: Chief Complaint: Fall Historian: History obtained from patient HPI: This is a 65-year-old male presents to the ED complaining of neck pain and low back pain after a fall out of his wheelchair just prior to arrival. Patient says he was on the sidewalk just inside his house and is wheel of his wheelchair got stuck between 2 concrete pavers and caused him to fall backwards onto the concrete pavers. Denies loss of consciousness. Complains of diffuse neck and diffuse low back pain. He has chronic low back pain and uses the wheelchair due to his back pain. Sounds like he has chronic paresthesias and sciatica-like pain to the left leg he denies any change in the symptoms since the fall. He also reports chronic paresthesias to his fingers which is unchanged. Denies decrease in strength to legs or arms. Patient urinated about 10 minutes ago denies incontinence, saddle anesthesia. No chest pain, shortness of breath, abdominal pain, nausea vomiting, vision loss, confusion. ROS: Constitutional: no fevers. HEENT: no LE, sore throat, or vision changes. CV: no chest pain or palpitations. Resp: no cough or SOB. GI: no abdominal pain, or n/v/d. : no dysuria, hematuria, or incont. MSK: Neck and low back pain Skin: no rashes or itching. Neuro: no seizures, weakness, numbness, or confusion. Hematological: no ecchymosis or easy bleeding. Endocrine: no polyuria/polydipsia, no heat/cold intolerance. Psych: no SI/HI, AH/VH or memory loss. PMHx: Reviewed and agree as charted by RN. PSHx: Reviewed and agree as charted by RN. SOCHx: Reviewed and agree as charted by RN. FHX: No significant familial comorbid conditions directly related to patient complaint Current Medications: Reviewed and agree with the patient medications as charted by the RN. Allergies: Reviewed and agree with the listed allergies as charted by the RN Physical Exam: Vitals: Reviewed in chart as documented by RN. General: Alert and in NAD. Head: Normocephalic; atraumatic. neg hemotympanum bilat. no otorrhea or rhinorrhea. no scalp hematoma or step off. neck- trachea midline. diffuse midline c spine tenderness w/o step off or deformity. able to rotate to 45 degrees bilat. sensory intact to BUE. from of BUE- strength 5/5 and equal. radial pulse 2+ bilat. Eyes: PERRLA, Conjunctivae clear sclerae non-icteric bilat ENT: no soft palate swelling or uvular deviation CV: RRR, no M/R/G; symmetric distal pulses Resp: respirations even and unlabored, CTA bilat. no chest wall tenderness. GI: abd soft and nondistended. NTTP. normal BS. no masses/HSM. no CVAT bilat MSK: no midline T spine tenderness or deformity. lumbar- diffuse mild midlineL spine tenderness, no deformity. limited rom due to pain. SLR pos on left, neg on right. Strength 4/5 to BLE, likely baseline. no saddle anesthesia. sensation intact to BLE. pedal pulses 2+ to BLE. cap refill <3 sec Skin: warm, moist, good turgor. no rash/lesions Neuro: Alert and oriented X 4. following CN 2-12 intact. no unilateral weakness/numbness Psych: No SI/HI or AH/VH. ED Results: Medical Decision-Making: Medical Decision-making/Differential Diagnosis: Consider various etiologies including but not limited to closed head injury, ICH, c spine injury, L spine injury, skin/soft tissue structure injury, MSK injury, strain/sprain, fracture, dislocation, bursitis, tendonitis, contusion, ect Plan- will get CT head, CT c spine, and XR L spine. this appears to be acute on chronic low back pain. describes worsening of his chronic symptoms. no new neuro deficits, no concerns for DAYA. pain control in ED. This course of action was discussed with the patient and/or family. They were amenable to this, verbalized understanding, and were without further questions. - Related data Allergies/Adverse Reactions: simvastatin [From Zocor] Allergy (Verified 09/01/20 20:45) LEGS GET WEAK Home Medications: Belsomra, Benztropine, Diazepam, Depakote, Neurotin, Glucortrol, Gluophage, Protonix, Carafate, Demadex, Albuterol, Ipratropium Past Medical History - Social History Smoking Status: Unknown if Ever Smoked Frequency of alcohol use: None Drug Abuse: Marijuana Family History: Reviewed & Not Pertinent, Other - Unable to assess as patient is on BiPAP - Past Medical History Cardiac Medical History: Reports: Hx Congestive Heart Failure, Hx Coronary Daria ry Disease, Hx Heart Attack, Hx Hypercholesterolemia, Hx Hypertension Pulmonary Medical History: Reports: Hx Asthma, Hx Bronchitis, Hx COPD, Hx Pneumonia Neurological Medical History: Reports: Hx Cerebrovascular Accident, Hx Seizures Endocrine Medical History: Reports: Hx Diabetes Mellitus Type 2, Hx Hypothyroidism Renal/ Medical History: Reports: Hx Benign Prostatic Hyperplasia. Denies: Hx Peritoneal Dialysis GI Medical History: Reports: Hx Gastroesophageal Reflux Disease. Denies: Hx Hepatitis, Hx Hiatal Hernia, Hx Ulcer Musculoskeletal Medical History: Reports Hx Arthritis, Reports Hx Musculoskeletal Trauma Psychiatric Medical History: Reports: Hx Anxiety, Hx Bipolar Disorder, Hx Dementia, Hx Depression Infectious Medical History: Denies: Hx Hepatitis Past Surgical History: Reports: Hx Appendectomy, Hx Genitourinary Surgery - TURP, Hx Orthopedic Surgery - Right ankle surgery in 1982 or 1983 when he had a muscle from the leg moved, Hx Thyroid Surgery, Hx Tonsillectomy, Other - TURP per patient.. Denies: Hx Open Heart Surgery, Hx Pacemaker - Immunizations Hx Diphtheria, Pertussis, Tetanus Vaccination: No Physical Exam - Vital signs Vitals: Resp Pulse Ox 17 98 09/21/20 12:05 09/21/20 12:05 Course - Re-evaluation Re-evalutation: 09/21/20 13:42 imaging reviewed. no acute findings. chronic degen changes to c spine and L spine. chronic atrophy and microvascular changes noted on CT head. Pt was medicated w/ oxycodone in ED. likely lumbar/cervical strain w/ worsening of chronic pain. no neuro deficits or danger signs. will d/c home w/ scripts. will give norco 6pack as well as nsaids and muscle relaxer scripts. pcp f/u this week. return factors discusssed. 09/21/20 14:15 09/21/20 14:18 pt c/o unrelieved pain after oxycodone. will give him 1 dose of IM toradol and dilaudid for his severe pain and then d/c home w/ above plan. - Vital Signs Vital signs: Temp Pulse Resp BP Pulse Ox 15 97 09/21/20 14:00 09/21/20 14:00 - Laboratory Results Critical Laboratory Results Reviewed: No Critical Results - Radiology Results Critical Radiology Results Reviewed: No Critical Results Discharge - Discharge Clinical Impression: Cervical pain, Acute exacerbation of chronic low back pain Fall Qualifiers: Encounter type: initial encounter Qualified Code(s): W19.XXXA - Unspecified fall, initial encounter Condition: Stable Disposition: HOME, SELF-CARE Instructions: Chronic Back Pain ([facility]) Additional Instructions: take medications as prescribed. follow up with your doctor in 2-3 days. return factors discussed. Prescriptions: Ketorolac Tromethamine [Toradol 10 mg Tablet] 10 mg PO Q6HP PRN #15 tablet PRN Reason: Cyclobenzaprine HCl [Flexeril 10 mg Tablet] 10 mg PO TIDP PRN #15 tab PRN Reason: Referrals: SHYAM PARDO PA-C [Primary Care Provider] - Follow up as needed
--- NOTE | 2020-09-21 13:22 | RADIOLOGY REPORT (SQ) ---
EXAM DESCRIPTION: L SPINE WHOLE IMAGES COMPLETED DATE/TIME: 09/21/2020 1:06 pm REASON FOR STUDY: fall, low back pain COMPARISON: None. NUMBER OF VIEWS: Five views including obliques. TECHNIQUE: AP, lateral, oblique, and sacral radiographic images acquired of the lumbar spine. LIMITATIONS: None. FINDINGS: MINERALIZATION: Normal. SEGMENTATION: Normal. No transitional anatomy. ALIGNMENT: Normal. VERTEBRAE: Maintained height. No fracture or worrisome bone lesion. DISCS: There is mild disc narrowing at L4-5 and L5-S1 with small marginal osteophytes. POSTERIOR ELEMENTS: Hypertrophic facet changes from L4-S1. HARDWARE: None in the spine. PARASPINAL SOFT TISSUES: Normal. PELVIS: Intact as visualized. No fractures or worrisome bone lesions. SI joints intact. OTHER: No other significant finding. IMPRESSION: Degenerative disc disease. Spondylosis. Facet arthropathy. TECHNICAL DOCUMENTATION: JOB ID: [id number] 2010 [employer]- All Rights Reserved Reading location - IP/workstation name: [email or web address]
--- NOTE | 2020-09-21 13:24 | RADIOLOGY REPORT (SQ) ---
EXAM DESCRIPTION: CT HEAD WITHOUT IMAGES COMPLETED DATE/TIME: 09/21/2020 1:14 pm REASON FOR STUDY: fall, head injury COMPARISON: None. TECHNIQUE: Axial images acquired through the brain without intravenous contrast. Images reviewed wi th bone, brain and subdural windows. Additional sagittal and coronal reconstructions were generated. Images stored on PACS. All CT scanners at this facility use dose modulation, iterative reconstruction, and/or weight based d osing when appropriate to reduce radiation dose to as low as reasonably achievable (ALARA). [facility]: Dose Right [facility]: CareDose [facility]: Dose Right [facility]: Teradose 4D [facility]: Smart [employer] RADIATION DOSE: CT Rad equipment meets quality standard of care and radiation dose reduction techniq ues were employed. CTDIvol: 53.2 mGy. DLP: 1017 mGy-cm. mGy. LIMITATIONS: None. FINDINGS: VENTRICLES: Prominent. CEREBRUM: No masses. No hemorrhage. No midline shift. Areas of low density in the white matter mos t likely due to chronic micro-vascular ischemic change. No evidence for acute infarction. CEREBELLUM: No masses. No hemorrhage. No alteration of density. No evidence for acute infarction. EXTRAAXIAL SPACES: Mild age-related involutional change. No fluid collections. No masses. ORBITS AND GLOBE: No intra- or extraconal masses. Normal contour of globe without masses. CALVARIUM: No fracture. PARANASAL SINUSES: No fluid or mucosal thickening. SOFT TISSUES: No mass or hematoma. OTHER: No other significant finding. IMPRESSION: MILD CHRONIC CHANGES OF ATROPHY AND MICROVASCULAR ISCHEMIA. NO ACUTE PROCESS. EVIDENCE OF ACUTE STROKE: NO. TECHNICAL DOCUMENTATION: JOB ID: [id number] Quality ID # [id number]: Final reports with documentation of one or more dose reduction techniques (e.g., Au tomated exposure control, adjustment of the mA and/or kV according to patient size, use of iterative reconstruction technique) 2010 [email or web address]- All Rights Reserved Reading location - IP/workstation name: [email or web address]
--- NOTE | 2020-09-21 13:25 | RADIOLOGY REPORT (SQ) ---
EXAM DESCRIPTION: CT CERVICAL SPINE WITHOUT IMAGES COMPLETED DATE/TIME: 09/21/2020 1:14 pm REASON FOR STUDY: fall, neck pain COMPARISON: None. TECHNIQUE: Axial images acquired through the cervical spine without intravenous contrast. Images re viewed with lung, soft tissue and bone windows. Reconstructed coronal and sagittal MPR images review ed. Images stored on PACS. All CT scanners at this facility use dose modulation, iterative reconstruction, and/or weight based d osing when appropriate to reduce radiation dose to as low as reasonably achievable (ALARA). [facility]: Dose Right [facility]: CareDose [facility]: Dose Right [facility]: Teradose 4D [facility]: [employer] RADIATION DOSE: CT Rad equipment meets quality standard of care and radiation dose reduction techniq ues were employed. CTDIvol: 20.2 mGy. DLP: 396 mGy-cm. mGy. LIMITATIONS: None. FINDINGS: ALIGNMENT: Anatomic. MINERALIZATION: Normal. VERTEBRAL BODIES: No fractures or dislocation. DISCS: Multilevel disc space narrowing with osteophytes. FACETS, LATERAL MASSES, POSTERIOR ELEMENTS: Facet arthropathy. No fractures. No dislocation. No ac [place] findings. HARDWARE: None in the spine. VISUALIZED RIBS: No fractures. LUNG APICES AND SOFT TISSUES: No significant or acute findings. OTHER: No other significant finding. IMPRESSION: CHRONIC DEGENERATIVE CHANGES. NO ACUTE FINDINGS. TECHNICAL DOCUMENTATION: JOB ID: [id number] Quality ID # [id number]: Final reports with documentation of one or more dose reduction techniques (e.g., Au tomated exposure control, adjustment of the mA and/or kV according to patient size, use of iterative reconstruction technique) 2010 [employer]- All Rights Reserved Reading location - IP/workstation name: [email or web address]
[2020-09-21] MEDS ORDERED: KETOROLAC TROMETHAMINE 60 MG/2 ML SDV IM ONE (14:16)
[2020-09-21] MEDS ORDERED: HYDROMORPHONE HCL INJ/PF 2 MG/ML AMPULE IM ONE (14:17)
[2020-09-21] MEDS ORDERED: HYDROCODONE/ACETAMINOPHEN 5-325 MG (6 TAB/ER DISP) PO PRN (14:19)
--- NOTE | 2020-09-21 14:19 | EKG REPORT ---
SEVERITY:- OTHERWISE NORMAL ECG - SINUS RHYTHM MINIMAL ST DEPRESSION, INFERIOR LEADS : Confirmed by: Alesha Cazares MD 21-Sep-2020 14:17:53
[2020-09-21] MEDS ORDERED: HYDROMORPHONE HCL INJ/PF 2 MG/ML AMPULE IV ONE (14:46)
[2020-09-21] MEDS ORDERED: KETOROLAC TROMETHAMINE INJ/PF 30 MG/1 ML SDV IV ONE (14:47)
[2020-09-21 15:05] VITALS: BP 158/96
== END 2020-09-21 15:07 | disposition home or self-care (01) ==
LOC: ER 11:42
DX: M54.2 Cervicalgia (principal); G89.29 Other chronic pain; M54.5 Low back pain; W05.0XXA Fall from non-moving wheelchair, initial encounter; I11.0 Hypertensive heart disease with heart failure; I50.9 Heart failure, unspecified; E78.00 Pure hypercholesterolemia, unspecified; E11.9 Type 2 diabetes mellitus without complications; Z86.73 Personal history of transient ischemic attack (TIA), and cerebral infarction without residual deficits; I25.2 Old myocardial infarction
CPT/HCPCS: 93005; 99285; 96374; 96375; 82962; 72110; 70450; 72125; 93010; J1885; J1170; A9270 ×2